=== PATIENT | male | born 1975 | race African-American/Black ===

== ENCOUNTER 2017-03-13 13:28 | Emergency (ER) | payer OTHER ==
[~2017-03-13] VITALS: Ht 190.5 cm; Wt 82.1 kg
[~2017-03-13 13:28] MED LIST: CEPHALEXIN500 MG ORAL; IBUPROFEN600 MG ORAL; NKM; NORCO 5-325 TA1 EAC1 ORAL; NORCO 5-325 TA1 EACH ORAL; UNOBMED
[2017-03-13 13:58] VITALS: BP 155/100
[2017-03-13 14:05] VITALS: BP 155/100
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
== END 2017-03-13 14:15 | disposition left against medical advice (07) ==
LOC: EDBD 13:28 → EMR 14:14
DX: M54.5 Low back pain (principal); G89.29 Other chronic pain; G83.9 Paralytic syndrome, unspecified; Z87.828 Personal history of other (healed) physical injury and trauma
CPT/HCPCS: 99283

== ENCOUNTER 2017-03-13 16:35 | Emergency (ER) | payer OTHER ==
[~2017-03-13] VITALS: Ht 185.4 cm; Wt 84.8 kg
[2017-03-13 17:37] VITALS: BP 120/74
[2017-03-13 18:28] VITALS: BP 120/74
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
== END 2017-03-13 18:32 | disposition home or self-care (01) ==
LOC: EDBD 16:35 → EMR 17:53
DX: R51 Headache (principal); G82.20 Paraplegia, unspecified; Z87.828 Personal history of other (healed) physical injury and trauma; F14.90 Cocaine use, unspecified, uncomplicated; F15.90 Other stimulant use, unspecified, uncomplicated; R53.83 Other fatigue
CPT/HCPCS: 99282

== ENCOUNTER 2017-11-24 14:09 | Emergency (ER) | payer OTHER ==
[~2017-11-24] VITALS: Ht 182.9 cm; Wt 86.2 kg
[2017-11-24 14:25] VITALS: BP 128/90
[2017-11-24] MEDS ORDERED: Cyclobenzaprine 10mg Tab ORAL ONE (14:30)
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
[2017-11-24 15:24] VITALS: BP 128/90
== END 2017-11-24 15:27 | disposition left against medical advice (07) ==
LOC: EDBD 14:09 → EMR 14:48
DX: M54.5 Low back pain (principal); G82.20 Paraplegia, unspecified; Z59.0 Homelessness
CPT/HCPCS: 99283

== ENCOUNTER 2018-02-14 10:15 | Emergency (ER) | payer OTHER ==
[~2018-02-14] VITALS: Ht 190.5 cm; Wt 82.1 kg
[2018-02-14] MEDS ORDERED: Ketorolac 60mg Inj IM ONE (11:00)
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
[2018-02-14] MEDS ORDERED: Bacitracin Oint 15gm Tube TOPIC ONE (12:00)
[2018-02-14 13:00] VITALS: BP 120/70
== END 2018-02-14 13:00 | disposition home or self-care (01) ==
LOC: EDBD 10:15 → EMR 10:33
DX: L89.519 Pressure ulcer of right ankle, unspecified stage (principal); G82.20 Paraplegia, unspecified; Z87.828 Personal history of other (healed) physical injury and trauma; Z99.3 Dependence on wheelchair; Z59.0 Homelessness
CPT/HCPCS: 96372; 99283

== ENCOUNTER 2018-03-29 01:26 | Emergency (ER) | payer OTHER ==
[~2018-03-29] VITALS: Ht 182.9 cm; Wt 93.0 kg
[2018-03-29 01:34] VITALS: BP 126/86
[2018-03-29 03:05] VITALS: BP 122/86
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
[2018-03-29 05:07] VITALS: BP_SYST 120; BP_SYST 125; BP_DIAS 76; BP_DIAS 83
== END 2018-03-29 05:07 | disposition home or self-care (01) ==
LOC: EDBD 01:26 → EMR 01:59
DX: L89.513 Pressure ulcer of right ankle, stage 3 (principal); G82.20 Paraplegia, unspecified; Z91.14 Patient's other noncompliance with medication regimen
CPT/HCPCS: 99282

== ENCOUNTER 2018-03-29 07:48 | Inpatient (IN) | payer OTHER ==
[~2018-03-29] VITALS: Ht 188 cm; Wt 102.5 kg
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
[2018-03-29 09:23] LABS: ANION GAP 11 mmol/L (5-15); BLOOD UREA NITROGEN 16 mg/dL (7-18); CALCIUM 9.7 MG/DL (8.5-10.1); CARBON DIOXIDE 23 MMOL/L (21-32); CHLORIDE 101 MMOL/L (98-107); POTASSIUM 3.4 MMOL/L (3.5-5.1); SODIUM 135 MMOL/L (136-145)
[2018-03-29 09:24] LABS: APPEARANCE,URINE CLOUDY; BILIRUBIN, URINE NEGATIVE (NEGATIVE); GLUCOSE, URINE (UA) NEGATIVE (NEGATIVE); KETONES,URINE 2+ (NEGATIVE); LEUKOCYTE ESTERASE ,URINE 1+ (NEGATIVE); NITRITE,URINE NEGATIVE (NEGATIVE); PH,URINE 5 (4.5-8.0); PROTEIN,URINE 4+ (NEGATIVE); UROBILINOGEN,URINE NORMAL MG/DL (0.0-1.0)
[2018-03-29 09:26] LABS: COLOR,URINE YELLOW
[2018-03-29 09:27] LABS: ALANINE AMINOTRANSFERASE 21 U/L (12-78); ALBUMIN 3.5 G/DL (3.4-5.0); ALBUMIN/GLOBULIN RATIO 0.5 (1.0-2.7); ALKALINE PHOSPHATASE 97 U/L (46-116); ASPARTATE AMINO TRANSFERASE 18 U/L (15-37); BILIRUBIN,TOTAL 0.4 MG/DL (0.2-1.0); LACTATE DEHYDROGENASE 176 U/L (81-234)
[2018-03-29 09:30] VITALS: BP 121/80
[2018-03-29 09:53] LABS: INR 0.9 (0.9-1.1)
[2018-03-29 09:54] LABS: EOSINOPHILS % (AUTO) 0.9 % (0.0-3.0); HEMATOCRIT 42.8 % (42.0-52.0); HEMOGLOBIN 13.5 G/DL (14.2-18.0); LYMPHOCYTES % (AUTO) 8.7 % (20.0-45.0); MEAN CORPUSCULAR VOLUME 75 FL (80-99); MONOCYTES % (AUTO) 8.4 % (1.0-10.0); NEUTROPHILS % (AUTO) 80.1 % (45.0-75.0); PLATELET COUNT 399 K/UL (150-450); RED BLOOD COUNT 5.73 M/UL (4.70-6.10); RED CELL DISTRIBUTION WIDTH 15.7 % (11.6-14.8)
--- NOTE | 2018-03-29 11:12 | Diagnostic Imaging Report ---
INDICATION: Pain COMPARISON: None FINDINGS: Single frontal view demonstrates a normal cardiomediastinal silhouette. Mild bilateral lower lobe compressive changes likely secondary to hypoventilatory examination. No pleural effusions. The visualized osseous structures are within normal limits. IMPRESSION: Hypoventilatory examination.
--- NOTE | 2018-03-29 11:14 | Diagnostic Imaging Report ---
RIGHT FOOT, Views INDICATION: Osteotomy COMPARISON: None FINDINGS: 3 views of the right foot are obtained. Osseous fusion of the third and fourth metatarsals. Diffuse decreased bone mineral density. Bony structures are intact. Bone mineralization is within normal limits. Joint spaces are preserved. Soft tissues within normal limits. No radio-opaque foreign bodies. IMPRESSION: No acute fracture or subluxation identified.
[2018-03-29 11:36] VITALS: BP 108/66
[2018-03-29] MEDS ORDERED: Piperacillin/Tazobactam 3.375 GM in D5W 110 ML IVPB STA (12:17)
[2018-03-29] MEDS ORDERED: Vancomycin 1 GM in D5W 275 ML IVPB ONE (12:30)
[2018-03-29 13:30] VITALS: BP 118/66
[2018-03-29] MEDS ORDERED: Miralax 17gm pkt ORAL PRN (15:45)
[2018-03-29] MEDS ORDERED: Nitroglycerin Subl 0.4mg tab SL PRN (15:45)
[2018-03-29] MEDS ORDERED: Albuterol/Ipratropium 3ml neb HHN PRN (15:45)
[2018-03-29] MEDS: Morphine Sulfate 2mg/ml Inj IVP PRN ×2 (16:05→20:01)
[2018-03-29 20:00] VITALS: BP 127/68
[2018-03-29] MEDS: Cefepime HCl 2 GM in D5W 110 ML IV SCH (21:19)
[2018-03-29] MEDS: Heparin 5000 units/ml inj SUBQ SCH (21:20)
[2018-03-29] MEDS: Vancomycin 1 GM in D5W 275 ML IVPB SCH (23:01)
[2018-03-30] VITALS: BP 106/73
[2018-03-30 04:00] VITALS: BP 122/79
[2018-03-30] MEDS: Vancomycin 1 GM in D5W 275 ML IVPB SCH ×3 (05:23→21:53)
[2018-03-30 07:36] LABS: BASOPHILS % (AUTO) 2.2 % (0.0-2.0); EOSINOPHILS % (AUTO) 3.2 % (0.0-3.0); HEMATOCRIT 39.7 % (42.0-52.0); HEMOGLOBIN 13.3 G/DL (14.2-18.0); LYMPHOCYTES % (AUTO) 23.3 % (20.0-45.0); MEAN CORPUSCULAR VOLUME 75 FL (80-99); MONOCYTES % (AUTO) 9.6 % (1.0-10.0); NEUTROPHILS % (AUTO) 61.8 % (45.0-75.0); PLATELET COUNT 319 K/UL (150-450); RED BLOOD COUNT 5.29 M/UL (4.70-6.10); RED CELL DISTRIBUTION WIDTH 15.7 % (11.6-14.8); WHITE BLOOD COUNT 4.8 K/UL (4.8-10.8)
[2018-03-30 07:55] LABS: ALANINE AMINOTRANSFERASE 17 U/L (12-78); ALBUMIN 2.8 G/DL (3.4-5.0); ALBUMIN/GLOBULIN RATIO 0.5 (1.0-2.7); ALKALINE PHOSPHATASE 75 U/L (46-116); ANION GAP 7 mmol/L (5-15); ASPARTATE AMINO TRANSFERASE 16 U/L (15-37); BILIRUBIN,TOTAL 0.6 MG/DL (0.2-1.0); BLOOD UREA NITROGEN 13 mg/dL (7-18); CALCIUM 8.8 MG/DL (8.5-10.1); CARBON DIOXIDE 26 MMOL/L (21-32); CHLORIDE 104 MMOL/L (98-107); POTASSIUM 3.6 MMOL/L (3.5-5.1); SODIUM 137 MMOL/L (136-145)
[2018-03-30 08:00] VITALS: BP 120/80
[2018-03-30] MEDS: Cefepime HCl 2 GM in D5W 110 ML IV SCH ×2 (09:10→21:18)
[2018-03-30] MEDS: Heparin 5000 units/ml inj SUBQ SCH ×2 (09:13→21:19)
--- NOTE | 2018-03-30 11:37 | Consultation ---
Consult Note Consult Note # [id number] Hai Jacob MD Mar 30, 2018 11:37
[2018-03-30 12:00] VITALS: BP 122/79
[2018-03-30] MEDS: Morphine Sulfate 2mg/ml Inj IVP PRN (14:21)
[2018-03-30 16:00] VITALS: BP 128/82
[2018-03-30 20:00] VITALS: BP 122/78
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
[2018-03-30] MEDS ORDERED: HYDROcodone/Acetamin 10/325 tab ORAL PRN (20:06)
[2018-03-30] MEDS ORDERED: Morphine Sulfate 2mg/ml Inj IVP PRN (20:07)
--- NOTE | 2018-03-30 20:15 | History and Physical Report ---
DATE OF ADMISSION: 03/29/2018 DATE AND TIME SEEN: On 03/30/2018 at 1 p.m. CONSULTANTS: 1. Isidro Worthy D.P.M. 2. Hai Jacob M.D. 3. Francheska Armas M.D. CHIEF COMPLAINT: Urinary tract infection and paraplegia with right foot ulcer. BRIEF HISTORY: This is a 42-year-old homeless man, who presented to [facility] last night with increased pain in the left foot, right foot ulcer, also UTI, and paraplegia. The patient admitted to medical floor for further treatment. Currently, calm, in bed. No complaint. No chest pain. No shortness of breath. No nausea, vomiting, or diarrhea. PAST MEDICAL HISTORY: Includes paraplegia, low back pain, asthma, and foot ulcer. PAST SURGICAL HISTORY: None. ALLERGIES: Denies. SOCIAL HISTORY: No smoking. No alcohol. No intravenous drug abuse. FAMILY HISTORY: Noncontributory. PHYSICAL EXAMINATION: GENERAL: Calm in bed, oriented x3, and in no acute distress. VITAL SIGNS: Show temperature is 98 degrees, pulse 89, respirations 20, and blood pressure 120/80. CARDIOVASCULAR: No murmur. LUNGS: Distant and clear. ABDOMEN: Positive bowel sounds. Soft, nontender, and nondistended. EXTREMITIES: Show no cyanosis, clubbing, or edema. The right foot dressing, clean and dry. NEUROLOGICAL: The patient moves all extremities, slightly weak. LABORATORY DATA: Show H and H 13/39, otherwise CBC is normal. BMP is normal. Albumin 2.8. INR is 0.9. PTT is 29. Urine tox positive for amphetamines and drug abuse. Urinalysis, 1+ leukocyte esterase. MEDICATIONS: Include vancomycin, heparin, cefepime, Tylenol, temazepam, morphine, and albuterol. ASSESSMENT: 1. Right foot ulcer. 2. UTI. 3. Sepsis. 4. Paraplegia. 5. Anemia. 6. Low back pain. 7. Asthma. 8. Malnutrition. PLAN: 1. Continue previous medications. 2. Wound care. 3. Antibiotic per Infectious Disease. 4. Pain control. 5. OT, PT, and dietary eval. 6. CBC and BMP in morning. [place] D.O. DR: MARLEY JOB#: [id number] CC:
[2018-03-30] MEDS ORDERED: Vancomycin 1 GM in D5W 275 ML IVPB SCH (22:00)
[2018-03-31] VITALS: BP 111/72
--- NOTE | 2018-03-31 03:00 | Consultation ---
DATE OF CONSULTATION: 03/30/2018 INFECTIOUS DISEASE CONSULTATION CONSULTING PHYSICIAN: Hai Jacob M.D. REFERRING PHYSICIAN: [place] D.O. REASON FOR CONSULTATION: Evaluation of the patient for infection, probable osteomyelitis. HISTORY OF PRESENT ILLNESS: The patient is a 42-year-old male with multiple medical problems, who was admitted to this medical center due to worsening of the wounds. The patient has been started on IV antibiotics. An Infectious Disease consultation has been requested for further evaluation of the patient and antibiotic management. The patient overall is a poor historian. Much of the information is gathered through the chart and speaking to the staff. ALLERGIES: No known drug allergies. MEDICATIONS: IV vancomycin and cefepime. SOCIAL HISTORY: The patient is homeless. PAST MEDICAL HISTORY: 1. Significant for multiple decubitus including right buttock area and right lower extremity. 2. Questionable history of seizure disorder. 3. History of polysubstance abuse (marijuana and crystal). 4. . PHYSICAL EXAMINATION: VITAL SIGNS: Temperature 97.5, pulse 86, respiratory rate 18, and blood pressure 124/75. HEENT: No pale conjunctivae. No icterus. NECK: No lymphadenopathy. CHEST: Bilateral air entry. HEART: S1 and S2. ABDOMEN: Soft and nontender. EXTREMITIES: The patient has left lower extremity decubitus (infected, right buttock decubitus, no purulent discharge). NEUROLOGIC: Awake and alert. LABORATORY AND DIAGNOSTIC DATA: White blood cells 4.8, at the time of admission was 11; hemoglobin 13, and platelets 319,000. UA, 5 to 10 white blood cells. BUN 13 and creatinine 1.1. ALT, AST, and alkaline phosphatase are unremarkable. Wound culture is pending. ASSESSMENT: The patient is a 42-year-old male with: 1. Normal white blood cells. 2. Afebrile. 3. Right lower extremity wound, grossly not infected, doubt osteomyelitis. 4. 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 PLAN: 1. We will start the patient on vancomycin and cefepime for now. 2. Monitor CBC. 3. Monitor BMP. 4. Monitor cultures. 5. MRI of the pelvis. 6. Based on the patient's clinical course and labs, we will do further recommendations. Hai Jacob M.D. DR: NIKOLAY JOB#: [id number] CC:
[2018-03-31 04:00] VITALS: BP 121/70
[2018-03-31] MEDS: Vancomycin 750mg/NS 250ml 250 ML IVPB SCH ×3 (05:26→22:04)
[2018-03-31 06:55] LABS: BASOPHILS % (AUTO) 2.2 % (0.0-2.0); EOSINOPHILS % (AUTO) 4.1 % (0.0-3.0); HEMATOCRIT 39.5 % (42.0-52.0); HEMOGLOBIN 12.4 G/DL (14.2-18.0); LYMPHOCYTES % (AUTO) 33.3 % (20.0-45.0); MEAN CORPUSCULAR VOLUME 75 FL (80-99); MONOCYTES % (AUTO) 6.3 % (1.0-10.0); NEUTROPHILS % (AUTO) 54.1 % (45.0-75.0); PLATELET COUNT 291 K/UL (150-450); RED BLOOD COUNT 5.26 M/UL (4.70-6.10); RED CELL DISTRIBUTION WIDTH 15.7 % (11.6-14.8); WHITE BLOOD COUNT 3.6 K/UL (4.8-10.8)
[2018-03-31 06:56] LABS: BLOOD UREA NITROGEN 12 mg/dL (7-18); CALCIUM 8.7 MG/DL (8.5-10.1); CHLORIDE 106 MMOL/L (98-107); CREATININE 0.9 MG/DL (0.55-1.30); POTASSIUM 3.9 MMOL/L (3.5-5.1); SODIUM 139 MMOL/L (136-145)
[2018-03-31 07:25] LABS: CARBON DIOXIDE 27 MMOL/L (21-32)
[2018-03-31 08:00] VITALS: BP_SYST 106; BP_SYST 119; BP_DIAS 71; BP_DIAS 75
[2018-03-31] MEDS: Heparin 5000 units/ml inj SUBQ SCH ×2 (08:46→20:28)
[2018-03-31] MEDS: Docusate 100mg cap ORAL SCH ×2 (08:53→18:00)
[2018-03-31] MEDS: Cefepime HCl 2 GM in D5W 110 ML IV SCH ×2 (08:53→20:24)
--- NOTE | 2018-03-31 10:44 | Pulmonology Progress Note ---
Assessment/Plan Problems: (1) Decubitus ulcer of right thigh, stage 3 (2) Decubitus ulcer, stage 3 with infection (3) Sociopathic personality disorder (4) Depressed bipolar disorder (5) Paraplegia Assessment/Plan wound care iv abx check electrolytes dc planning to snif Subjective ROS Limited/Unobtainable: No Interval Events: no new complains Constitutional: Reports: no symptoms HEENT: Repors: no symptoms Allergies: Coded Allergies: No Known Allergies (Unverified , 10/04/14) Objective Last 24 Hour Vital Signs Date Time Temp Pulse Resp B/P (MAP) Pulse Ox O2 Delivery O2 Flow Rate FiO2 03/31/18 08:10 Room Air 03/31/18 08:00 97.1 86 16 119/75 (90) 100 03/31/18 04:00 98.1 72 20 121/70 (87) 100 03/31/18 00:00 97.9 76 20 111/72 (85) 100 03/30/18 21:47 75 18 Room Air 21 03/30/18 21:00 Room Air 03/30/18 20:00 96.4 75 20 122/78 (93) 100 03/30/18 16:00 97.7 80 20 128/82 (97) 97 03/30/18 12:00 97.5 74 19 122/79 (93) 98 Intake and Output 03/30/18 03/31/18 19:00 07:00 Intake Total 1820 ml 517 ml Balance 1820 ml 517 ml Intake Oral 1820 ml 240 ml IV Total 277 ml # Voids 6 # Bowel Movements 2 General Appearance: WD/WN HEENT: normocephalic, atraumatic Respiratory/Chest: normal breath sounds Cardiovascular: normal peripheral pulses, regular rhythm Abdomen: non distended Extremities: no clubbing Microbiology Date/Time Source Procedure Growth Status 03/29/18 11:00 Nasal Nares MRSA Culture - Final Staphylococcus Aureus - Mrsa Complete 03/29/18 19:00 Foot Right Gram Stain - Final Resulted 03/29/18 19:00 Wound Culture - Preliminary Staphylococcus Aureus Resulted 03/29/18 19:00 Buttock Right Gram Stain - Final Resulted 03/29/18 19:00 Wound Culture - Preliminary Gram Negative Bacillus 1 Resulted 03/29/18 11:00 Rectum VRE Culture - Final NO VANCOMYCIN RESISTANT ENTEROCOCCUS ... Resulted 03/29/18 11:00 Rectum - Preliminary Resulted Laboratory Tests 03/30/18 21:20: Vancomycin Level Trough 17.6H 03/31/18 05:35: White Blood Count 3.6L, Red Blood Count 5.26, Hemoglobin 12.4L, Hematocrit 39.5L , Mean Corpuscular Volume 75L, Mean Corpuscular Hemoglobin 23.5L, Mean Corpuscular Hemoglobin Concent 31.3L, Red Cell Distribution Width 15.7H, Platelet Count 291, Mean Platelet Volume 6.9, Neutrophils (%) (Auto) 54.1, Lymphocytes (%) (Auto) 33.3, Monocytes (%) (Auto) 6.3, Eosinophils (%) (Auto) 4.1H, Basophils (%) (Auto) 2.2H, Sodium Level 139, Potassium Level 3.9, Chloride Level 106, Carbon Dioxide Level 27, Blood Urea Nitrogen 12, Creatinine 0.9, Estimat Glomerular Filtration Rate > 60, Glucose Level 90, Calcium Level 8.7 Current Medications Medications (Trade) Dose Ordered Sig/Michael Route PRN Reason Start Time Stop Time Status Last Admin Dose Admin Acetaminophen (Tylenol) 650 mg Q4H PRN ORAL Mild Pain/Temp > 100.5 03/29/18 18:13 04/28/18 18:12 03/29/18 22:33 Acetaminophen/ Hydrocodone Bitart ([place] 10/325) 1 tab Q4H PRN ORAL for moderate pain 03/30/18 20:06 04/06/18 20:05 Albuterol/ Ipratropium (Albuterol/ Ipratropium) 3 ml Q4H PRN HHN Shortness of Breath 03/29/18 15:45 04/03/18 15:44 Cefepime HCl 2 gm/ Dextrose 110 ml @ 220 mls/hr EVERY 12 HOURS IV 03/29/18 21:00 04/05/18 20:59 03/31/18 08:53 Dextrose (Dextrose 50%) 25 ml STAT PRN IV Hypoglycemia 03/29/18 15:45 04/28/18 15:44 Dextrose (Dextrose 50%) 50 ml Q30M PRN IV Hypoglycemia 03/29/18 15:45 04/28/18 15:44 Docusate Sodium (Colace) 100 mg TWICE A DAY ORAL 03/31/18 09:00 04/30/18 08:59 03/31/18 08:53 Heparin Sodium (Porcine) (Heparin 5000 units/ml) 5,000 units EVERY 12 HOURS SUBQ 03/29/18 21:00 04/28/18 20:59 03/30/18 21:19 Morphine Sulfate (Morphine Sulfate) 2 mg Q4H PRN IVP SEVERE PAIN 03/30/18 20:07 04/05/18 15:44 03/30/18 21:58 Nitroglycerin (Ntg) 0.4 mg Q5M PRN SL Prn Chest Pain 03/29/18 15:45 04/28/18 15:44 Ondansetron HCl (Zofran) 4 mg Q6H PRN IVP Nausea & Vomiting 03/29/18 15:45 04/28/18 15:44 Polyethylene Glycol (Miralax) 17 gm DAILYPRN PRN ORAL Constipation 03/29/18 15:45 04/28/18 15:44 Temazepam (Restoril) 15 mg HSPRN PRN ORAL Insomnia 03/29/18 15:45 04/05/18 15:44 Vancomycin HCl (Vanco rx to dose) 1 ea DAILY PRN MISC PER PHARM 03/29/18 15:45 04/28/18 15:44 Vancomycin/Sodium Chloride 250 ml @ 167 mls/hr Q8H IVPB 03/31/18 06:00 04/05/18 05:59 03/31/18 05:26 Francheska Armas MD Mar 31, 2018 10:44
--- NOTE | 2018-03-31 11:05 | Infectious Diseases Prog Note ---
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 ? seizure disorder. History of polysubstance abuse (marijuana and crystal) PLAN: hold vancomycin and cefepime d # 2 , will restart if MRI is positive for osteo Monitor CBC Monitor BMP Monitor cultures MRI of the pelvis Subjective Constitutional: Denies: no symptoms, fever, chills, fatigue, anorexia, drenching sweats, other Allergies: Coded Allergies: No Known Allergies (Unverified , 10/04/14) Objective Vital Signs Last 24 Hour Vital Signs Date Time Temp Pulse Resp B/P (MAP) Pulse Ox O2 Delivery O2 Flow Rate FiO2 03/31/18 08:10 Room Air 03/31/18 08:00 97.1 86 16 119/75 (90) 100 03/31/18 04:00 98.1 72 20 121/70 (87) 100 03/31/18 00:00 97.9 76 20 111/72 (85) 100 03/30/18 21:47 75 18 Room Air 21 03/30/18 21:00 Room Air 03/30/18 20:00 96.4 75 20 122/78 (93) 100 03/30/18 16:00 97.7 80 20 128/82 (97) 97 03/30/18 12:00 97.5 74 19 122/79 (93) 98 Height (Feet): 6 Height (Inches): 2.00 Weight (Pounds): 220 HEENT: anicteric Respiratory/Chest: no accessory muscle use Cardiovascular: normal rate Abdomen: soft, non tender Microbiology Date/Time Source Procedure Growth Status 03/29/18 11:00 Nasal Nares MRSA Culture - Final Staphylococcus Aureus - Mrsa Complete 03/29/18 19:00 Foot Right Gram Stain - Final Resulted 03/29/18 19:00 Wound Culture - Preliminary Staphylococcus Aureus Resulted 03/29/18 19:00 Buttock Right Gram Stain - Final Resulted 03/29/18 19:00 Wound Culture - Preliminary Gram Negative Bacillus 1 Resulted 03/29/18 11:00 Rectum VRE Culture - Final NO VANCOMYCIN RESISTANT ENTEROCOCCUS ... Resulted 03/29/18 11:00 Rectum - Preliminary Resulted Laboratory Tests Test 03/30/18 21:20 11/6/18 05:35 Vancomycin Level Trough 17.6 ug/mL (5.0-12.0) H White Blood Count 3.6 K/UL (4.8-10.8) L Red Blood Count 5.26 M/UL (4.70-6.10) Hemoglobin 12.4 G/DL (14.2-18.0) L Hematocrit 39.5 % (42.0-52.0) L Mean Corpuscular Volume 75 FL (80-99) L Mean Corpuscular Hemoglobin 23.5 PG (27.0-31.0) L Mean Corpuscular Hemoglobin Concent 31.3 G/DL (32.0-36.0) L Red Cell Distribution Width 15.7 % (11.6-14.8) H Platelet Count 291 K/UL (150-450) Mean Platelet Volume 6.9 FL (6.5-10.1) Neutrophils (%) (Auto) 54.1 % (45.0-75.0) Lymphocytes (%) (Auto) 33.3 % (20.0-45.0) Monocytes (%) (Auto) 6.3 % (1.0-10.0) Eosinophils (%) (Auto) 4.1 % (0.0-3.0) H Basophils (%) (Auto) 2.2 % (0.0-2.0) H Sodium Level 139 MMOL/L (136-145) Potassium Level 3.9 MMOL/L (3.5-5.1) Chloride Level 106 MMOL/L (98-107) Carbon Dioxide Level 27 MMOL/L (21-32) Blood Urea Nitrogen 12 mg/dL (7-18) Creatinine 0.9 MG/DL (0.55-1.30) Estimat Glomerular Filtration Rate > 60 mL/min (>60) Glucose Level 90 MG/DL (74-106) Calcium Level 8.7 MG/DL (8.5-10.1) Current Medications Medications (Trade) Dose Ordered Sig/Michael Route PRN Reason Start Time Stop Time Status Last Admin Dose Admin Acetaminophen (Tylenol) 650 mg Q4H PRN ORAL Mild Pain/Temp > 100.5 03/29/18 18:13 04/28/18 18:12 03/29/18 22:33 Acetaminophen/ Hydrocodone Bitart ([place] 10/325) 1 tab Q4H PRN ORAL for moderate pain 03/30/18 20:06 04/06/18 20:05 Albuterol/ Ipratropium (Albuterol/ Ipratropium) 3 ml Q4H PRN HHN Shortness of Breath 03/29/18 15:45 04/03/18 15:44 Cefepime HCl 2 gm/ Dextrose 110 ml @ 220 mls/hr EVERY 12 HOURS IV 03/29/18 21:00 04/05/18 20:59 03/31/18 08:53 Dextrose (Dextrose 50%) 25 ml STAT PRN IV Hypoglycemia 03/29/18 15:45 04/28/18 15:44 Dextrose (Dextrose 50%) 50 ml Q30M PRN IV Hypoglycemia 03/29/18 15:45 04/28/18 15:44 Docusate Sodium (Colace) 100 mg TWICE A DAY ORAL 03/31/18 09:00 04/30/18 08:59 03/31/18 08:53 Heparin Sodium (Porcine) (Heparin 5000 units/ml) 5,000 units EVERY 12 HOURS SUBQ 03/29/18 21:00 04/28/18 20:59 03/30/18 21:19 Morphine Sulfate (Morphine Sulfate) 2 mg Q4H PRN IVP SEVERE PAIN 03/30/18 20:07 04/05/18 15:44 03/30/18 21:58 Nitroglycerin (Ntg) 0.4 mg Q5M PRN SL Prn Chest Pain 03/29/18 15:45 04/28/18 15:44 Ondansetron HCl (Zofran) 4 mg Q6H PRN IVP Nausea & Vomiting 03/29/18 15:45 04/28/18 15:44 Polyethylene Glycol (Miralax) 17 gm DAILYPRN PRN ORAL Constipation 03/29/18 15:45 04/28/18 15:44 Temazepam (Restoril) 15 mg HSPRN PRN ORAL Insomnia 03/29/18 15:45 04/05/18 15:44 Vancomycin HCl (Vanco rx to dose) 1 ea DAILY PRN MISC PER PHARM 03/29/18 15:45 04/28/18 15:44 Vancomycin/Sodium Chloride 250 ml @ 167 mls/hr Q8H IVPB 03/31/18 06:00 04/05/18 05:59 03/31/18 05:26 Hai Jacob MD Mar 31, 2018 11:05
[2018-03-31] MEDS: HYDROcodone/Acetamin 10/325 tab ORAL PRN ×2 (11:56→20:27)
[2018-03-31 12:00] VITALS: BP 122/78
--- NOTE | 2018-03-31 12:49 | General Progress Note ---
Assessment/Plan Problem List: (1) Acute bilateral low back pain ICD Codes: M54.5 - Low back pain SNOMED: 900052167 (2) Malnutrition ICD Codes: E46 - Unspecified protein-calorie malnutrition SNOMED: 89015631 (3) Asthma ICD Codes: J45.909 - Unspecified asthma, uncomplicated SNOMED: 455394683 (4) Injury of lower extremity ICD Codes: S89.90XA - Unspecified injury of unspecified lower leg, initial encounter SNOMED: 402756079 (5) Paraplegia ICD Codes: G82.20 - Paraplegia, unspecified SNOMED: 52894035 (6) UTI (urinary tract infection) ICD Codes: N39.0 - Urinary tract infection SNOMED: 94282380 Qualifiers: Qualified Codes: N39.0 - Urinary tract infection, site not specified (7) Foot ulcer ICD Codes: L97.509 - Non-pressure chronic ulcer of other part of unspecified foot with unspecified severity SNOMED: 79462975 Qualifiers: Qualified Codes: L97.512 - Non-pressure chronic ulcer of other part of right foot with fat layer exposed (8) Pain in limb ICD Codes: M79.609 - Pain in limb SNOMED: 66082709 Status: unchanged Assessment/Plan ot pt siet wound care abx pain control psyc eval cbc bmp am ltach eval Subjective Constitutional: Reports: weakness Allergies: Coded Allergies: No Known Allergies (Unverified , 10/04/14) All Systems: reviewed and negative except above Subjective calm in bed Objective Last 24 Hour Vital Signs Date Time Temp Pulse Resp B/P (MAP) Pulse Ox O2 Delivery O2 Flow Rate FiO2 03/31/18 12:26 97.1 03/31/18 08:10 Room Air 03/31/18 08:00 97.1 86 16 119/75 (90) 100 03/31/18 04:00 98.1 72 20 121/70 (87) 100 03/31/18 00:00 97.9 76 20 111/72 (85) 100 03/30/18 21:47 75 18 Room Air 21 03/30/18 21:00 Room Air 03/30/18 20:00 96.4 75 20 122/78 (93) 100 03/30/18 16:00 97.7 80 20 128/82 (97) 97 Intake and Output 03/30/18 03/31/18 19:00 07:00 Intake Total 1820 ml 517 ml Balance 1820 ml 517 ml Intake Oral 1820 ml 240 ml IV Total 277 ml # Voids 6 # Bowel Movements 2 Laboratory Tests 03/30/18 21:20: Vancomycin Level Trough 17.6H 03/31/18 05:35: White Blood Count 3.6L, Red Blood Count 5.26, Hemoglobin 12.4L, Hematocrit 39.5L , Mean Corpuscular Volume 75L, Mean Corpuscular Hemoglobin 23.5L, Mean Corpuscular Hemoglobin Concent 31.3L, Red Cell Distribution Width 15.7H, Platelet Count 291, Mean Platelet Volume 6.9, Neutrophils (%) (Auto) 54.1, Lymphocytes (%) (Auto) 33.3, Monocytes (%) (Auto) 6.3, Eosinophils (%) (Auto) 4.1H, Basophils (%) (Auto) 2.2H, Sodium Level 139, Potassium Level 3.9, Chloride Level 106, Carbon Dioxide Level 27, Blood Urea Nitrogen 12, Creatinine 0.9, Estimat Glomerular Filtration Rate > 60, Glucose Level 90, Calcium Level 8.7 Height (Feet): 6 Height (Inches): 2.00 Weight (Pounds): 220 General Appearance: lethargic EENT: normal ENT inspection Neck: normal alignment Cardiovascular: normal peripheral pulses, normal rate, regular rhythm Respiratory/Chest: chest wall non-tender, lungs clear, normal breath sounds Abdomen: normal bowel sounds, non tender, soft Extremities: normal inspection Edema: no edema noted Arm (L), no edema noted Arm (R), no edema noted Leg (L), no edema noted Leg (R), no edema noted Pedal (L), no edema noted Pedal (R), no edema noted Generalized Neurologic: motor weakness Skin: normal pigmentation, warm/dry Mt Collins DO Mar 31, 2018 12:49
[2018-03-31 16:00] VITALS: BP 114/73
[2018-03-31 20:00] VITALS: BP 117/75
[2018-04-01] VITALS: BP 116/78
[2018-04-01 04:00] VITALS: BP 117/73
[2018-04-01] MEDS: Vancomycin 750mg/NS 250ml 250 ML IVPB SCH ×3 (04:30→22:00)
[2018-04-01 08:00] VITALS: BP 138/93
[2018-04-01] MEDS: Docusate 100mg cap ORAL SCH ×2 (09:00→18:00)
[2018-04-01] MEDS: Cefepime HCl 2 GM in D5W 110 ML IV SCH ×3 (09:07→21:16)
[2018-04-01] MEDS: HYDROcodone/Acetamin 10/325 tab ORAL PRN ×3 (09:08→21:16)
[2018-04-01] MEDS: Heparin 5000 units/ml inj SUBQ SCH ×2 (09:11→21:00)
--- NOTE | 2018-04-01 11:14 | Diagnostic Imaging Report ---
Indication: Decubitus ulcer on the right. Pelvic osteomyelitis. Pelvic pain Technique: Continuous helical transaxial imaging of the pelvis was obtained from the iliac crest to the pubic symphysis. Coronal 2-D reformats were also obtained. Study obtained in a Siemens sensation [address] Intravenous non-ionic contrast was administered. Total Dose length Product (DLP): 572.[address] Dose Index Volume (CTDIvol): 16.52 mGy Comparison: None Findings: Large trujillo for decubitus ulcer demonstrated the posteriorly on the right side. The tract of air the sex to the right ischium which is abnormal in appearance. The right ischium is sclerotic with a moderate periosteal new bone. The findings are suggestive of chronic osteomyelitis. Superimposed acute osteomyelitis is difficult to exclude on CT scan. The study was performed without intravenous contrast administration. As such evaluation for abscess is limited. The trujillo for decubitus ulcer is associated with the marked soft tissue attenuation of the tract. Infiltration of the subcutaneous fat is noted. There is no obvious fluid collection but as said before infiltrates is limited without IV contrast. Some of the inflammation appears to cross midline from right to left and there is some abnormal soft tissue attenuation of the left medial perineal fat. There are abnormal densities within the visualized portion of the lumbar thecal sac. Suspect intrathecal calcification, retained foreign bodies versus residual contrast material within the visualized portion of the lower lumbar thecal sac. Correlate clinically. There is thickening of the wall the urinary bladder. Correlate for cystitis. There is a left inguinal hernia containing fat. A normal appendix is noted. IMPRESSION: Grade 4 decubitus ulcer on the right tracking to the right ischial tuberosity with evidence of chronic osteomyelitis. Acute superimposed osteomyelitis not excluded. Possibility of abscess involving the soft tissues in and around the decubitus ulcer not excludable on this examination which is suboptimal for evaluation of abscess given nonadministration of IV contrast. Calcification versus retained foreign body versus contrast within the visualized portion of the lower lumbar thecal sac. Correlate clinically. Small left inguinal hernia containing fat Thickening of the wall the urinary bladder. Correlate for cystitis. The CT scanner at [facility] is accredited by the [employer] and the scans are performed using dose optimization techniques as appropriate to a performed exam including Automatic Exposure control.
[2018-04-01 12:00] VITALS: BP 137/82
--- NOTE | 2018-04-01 13:32 | General Progress Note ---
Assessment/Plan Problem List: (1) Acute bilateral low back pain ICD Codes: M54.5 - Low back pain SNOMED: 079720053 (2) Malnutrition ICD Codes: E46 - Unspecified protein-calorie malnutrition SNOMED: 23433447 (3) Asthma ICD Codes: J45.909 - Unspecified asthma, uncomplicated SNOMED: 611204438 (4) Injury of lower extremity ICD Codes: S89.90XA - Unspecified injury of unspecified lower leg, initial encounter SNOMED: 648746291 (5) Paraplegia ICD Codes: G82.20 - Paraplegia, unspecified SNOMED: 22272486 (6) UTI (urinary tract infection) ICD Codes: N39.0 - Urinary tract infection SNOMED: 07707235 Qualifiers: Qualified Codes: N39.0 - Urinary tract infection, site not specified (7) Foot ulcer ICD Codes: L97.509 - Non-pressure chronic ulcer of other part of unspecified foot with unspecified severity SNOMED: 21424703 Qualifiers: Qualified Codes: L97.512 - Non-pressure chronic ulcer of other part of right foot with fat layer exposed (8) Pain in limb ICD Codes: M79.609 - Pain in limb SNOMED: 16923697 Status: stable, progressing Assessment/Plan ot pt siet wound care abx pain control psyc eval cbc bmp am dc plan snf Subjective Constitutional: Reports: weakness Allergies: Coded Allergies: No Known Allergies (Unverified , 10/04/14) All Systems: reviewed and negative except above Subjective calm in bed Objective Last 24 Hour Vital Signs Date Time Temp Pulse Resp B/P (MAP) Pulse Ox O2 Delivery O2 Flow Rate FiO2 04/01/18 12:00 97.9 82 18 137/82 (100) 99 04/01/18 09:00 Room Air 04/01/18 08:00 97.3 89 20 138/93 (108) 100 04/01/18 04:00 98.2 72 20 117/73 (88) 100 04/01/18 00:00 98.4 72 20 116/78 (91) 99 03/31/18 21:15 Room Air 03/31/18 20:57 97.7 03/31/18 20:00 96.7 86 20 117/75 (89) 97 03/31/18 19:30 79 18 Room Air 21 03/31/18 16:00 97.7 76 18 114/73 (87) 98 Intake and Output 03/31/18 04/01/18 19:00 07:00 Intake Total 570 ml 1030 ml Output Total 550 ml 800 ml Balance 20 ml 230 ml Intake Oral 570 ml IV Total 610 ml Other 420 ml Output Urine Total 550 ml 800 ml # Bowel Movements 1 Laboratory Tests 04/01/18 12:50: White Blood Count [Pending], Red Blood Count [Pending], Hemoglobin [Pending], Hematocrit [Pending], Mean Corpuscular Volume [Pending], Mean Corpuscular Hemoglobin [Pending], Mean Corpuscular Hemoglobin Concent [Pending], Red Cell Distribution Width [Pending], Platelet Count [Pending], Mean Platelet Volume [ Pending], Neutrophils (%) (Auto) [Pending], Lymphocytes (%) (Auto) [Pending], Monocytes (%) (Auto) [Pending], Eosinophils (%) (Auto) [Pending], Basophils (%) (Auto) [Pending], Erythrocyte Sedimentation Rate [Pending], Sodium Level [ Pending], Potassium Level [Pending], Chloride Level [Pending], Carbon Dioxide Level [Pending], Blood Urea Nitrogen [Pending], Creatinine [Pending], Estimat Glomerular Filtration Rate [Pending], Glucose Level [Pending], Calcium Level [ Pending], Phosphorus Level [Pending], Magnesium Level [Pending], Total Bilirubin [Pending], Aspartate Amino Transf (AST/SGOT) [Pending], Alanine Aminotransferase (ALT/SGPT) [Pending], Alkaline Phosphatase [Pending], C- Reactive Protein, Quantitative [Pending], Total Protein [Pending], Albumin [ Pending], Globulin [Pending], Vancomycin Level Trough [Pending] Height (Feet): 6 Height (Inches): 2.00 Weight (Pounds): 226 General Appearance: lethargic EENT: normal ENT inspection Neck: normal alignment Cardiovascular: normal peripheral pulses, normal rate, regular rhythm Respiratory/Chest: chest wall non-tender, lungs clear, normal breath sounds Abdomen: normal bowel sounds, non tender, soft Extremities: normal inspection Edema: no edema noted Arm (L), no edema noted Arm (R), no edema noted Leg (L), no edema noted Leg (R), no edema noted Pedal (L), no edema noted Pedal (R), no edema noted Generalized Neurologic: motor weakness Skin: normal pigmentation, warm/dry Mt Collins DO Apr 01, 2018 13:32
[2018-04-01 13:40] LABS: BASOPHILS % (AUTO) 2.6 % (0.0-2.0); HEMATOCRIT 39.2 % (42.0-52.0); HEMOGLOBIN 12.6 G/DL (14.2-18.0); LYMPHOCYTES % (AUTO) 21.8 % (20.0-45.0); MEAN CORPUSCULAR VOLUME 76 FL (80-99); MONOCYTES % (AUTO) 5.9 % (1.0-10.0); NEUTROPHILS % (AUTO) 66.7 % (45.0-75.0); PLATELET COUNT 302 K/UL (150-450); RED BLOOD COUNT 5.14 M/UL (4.70-6.10); RED CELL DISTRIBUTION WIDTH 15.4 % (11.6-14.8); WHITE BLOOD COUNT 5.2 K/UL (4.8-10.8)
[2018-04-01 13:41] LABS: ALANINE AMINOTRANSFERASE 20 U/L (12-78); ALBUMIN 2.9 G/DL (3.4-5.0); ALBUMIN/GLOBULIN RATIO 0.5 (1.0-2.7); ALKALINE PHOSPHATASE 72 U/L (46-116); ANION GAP 6 mmol/L (5-15); ASPARTATE AMINO TRANSFERASE 13 U/L (15-37); BILIRUBIN,TOTAL 0.1 MG/DL (0.2-1.0); BLOOD UREA NITROGEN 12 mg/dL (7-18); CALCIUM 8.9 MG/DL (8.5-10.1); CARBON DIOXIDE 27 MMOL/L (21-32); CHLORIDE 105 MMOL/L (98-107); CREATININE 1.1 MG/DL (0.55-1.30); PHOSPHORUS 2.9 MG/DL (2.5-4.9); SODIUM 138 MMOL/L (136-145)
--- NOTE | 2018-04-01 14:42 | Pulmonology Progress Note ---
Assessment/Plan Problems: (1) Decubitus ulcer of right thigh, stage 3 (2) Decubitus ulcer, stage 3 with infection (3) Sociopathic personality disorder (4) Depressed bipolar disorder (5) Paraplegia Assessment/Plan wound care iv abx psych evaluation pending check electrolytes dc planning to snif Subjective ROS Limited/Unobtainable: No Constitutional: Reports: no symptoms HEENT: Repors: no symptoms Respiratory: Reports: no symptoms Allergies: Coded Allergies: No Known Allergies (Unverified , 10/04/14) Objective Last 24 Hour Vital Signs Date Time Temp Pulse Resp B/P (MAP) Pulse Ox O2 Delivery O2 Flow Rate FiO2 04/01/18 12:00 97.9 82 18 137/82 (100) 99 04/01/18 09:00 Room Air 04/01/18 08:00 97.3 89 20 138/93 (108) 100 04/01/18 04:00 98.2 72 20 117/73 (88) 100 04/01/18 00:00 98.4 72 20 116/78 (91) 99 03/31/18 21:15 Room Air 03/31/18 20:57 97.7 03/31/18 20:00 96.7 86 20 117/75 (89) 97 03/31/18 19:30 79 18 Room Air 21 03/31/18 16:00 97.7 76 18 114/73 (87) 98 Intake and Output 03/31/18 04/01/18 19:00 07:00 Intake Total 570 ml 1030 ml Output Total 550 ml 800 ml Balance 20 ml 230 ml Intake Oral 570 ml IV Total 610 ml Other 420 ml Output Urine Total 550 ml 800 ml # Bowel Movements 1 General Appearance: WD/WN HEENT: normocephalic Respiratory/Chest: chest wall non-tender, normal breath sounds Cardiovascular: normal peripheral pulses, normal rate Abdomen: normal bowel sounds, soft, non tender Genitourinary: normal external genitalia Neurologic/Psychiatric: clay thrower II-XII grossly normal Microbiology Date/Time Source Procedure Growth Status 03/29/18 19:00 Foot Right Gram Stain - Final Complete 03/29/18 19:00 Wound Culture - Final Staphylococcus Aureus - Mrsa Complete 03/29/18 19:00 Buttock Right Gram Stain - Final Resulted 03/29/18 19:00 Wound Culture - Preliminary Proteus Mirabilis Resulted Laboratory Tests 04/01/18 12:50: White Blood Count 5.2, Red Blood Count 5.14, Hemoglobin 12.6L, Hematocrit 39.2L , Mean Corpuscular Volume 76L, Mean Corpuscular Hemoglobin 24.4L, Mean Corpuscular Hemoglobin Concent 32.1, Red Cell Distribution Width 15.4H, Platelet Count 302, Mean Platelet Volume 8.2, Neutrophils (%) (Auto) 66.7, Lymphocytes (%) (Auto) 21.8, Monocytes (%) (Auto) 5.9, Eosinophils (%) (Auto) 3.0, Basophils (%) (Auto) 2.6H, Erythrocyte Sedimentation Rate [Pending], Sodium Level 138, Potassium Level 4.0, Chloride Level 105, Carbon Dioxide Level 27, Anion Gap 6, Blood Urea Nitrogen 12, Creatinine 1.1, Estimat Glomerular Filtration Rate > 60, Glucose Level 97, Calcium Level 8.9, Phosphorus Level 2.9 , Magnesium Level 1.9, Total Bilirubin 0.1L, Aspartate Amino Transf (AST/SGOT) 13L, Alanine Aminotransferase (ALT/SGPT) 20, Alkaline Phosphatase 72, C- Reactive Protein, Quantitative 1.8H, Total Protein 8.3H, Albumin 2.9L, Globulin 5.4, Albumin/Globulin Ratio 0.5L, Vancomycin Level Trough 12.5H Current Medications Medications (Trade) Dose Ordered Sig/Michael Route PRN Reason Start Time Stop Time Status Last Admin Dose Admin Acetaminophen (Tylenol) 650 mg Q4H PRN ORAL Mild Pain/Temp > 100.5 03/29/18 18:13 04/28/18 18:12 03/29/18 22:33 Acetaminophen/ Hydrocodone Bitart ([place] 10/325) 1 tab Q4H PRN ORAL for moderate pain 03/30/18 20:06 04/06/18 20:05 04/01/18 09:08 Albuterol/ Ipratropium (Albuterol/ Ipratropium) 3 ml Q4H PRN HHN Shortness of Breath 03/29/18 15:45 04/03/18 15:44 Cefepime HCl 2 gm/ Dextrose 110 ml @ 220 mls/hr EVERY 12 HOURS IV 03/29/18 21:00 04/05/18 20:59 04/01/18 09:07 Dextrose (Dextrose 50%) 25 ml STAT PRN IV Hypoglycemia 03/29/18 15:45 04/28/18 15:44 Dextrose (Dextrose 50%) 50 ml Q30M PRN IV Hypoglycemia 03/29/18 15:45 04/28/18 15:44 Docusate Sodium (Colace) 100 mg TWICE A DAY ORAL 03/31/18 09:00 04/30/18 08:59 03/31/18 08:53 Heparin Sodium (Porcine) (Heparin 5000 units/ml) 5,000 units EVERY 12 HOURS SUBQ 03/29/18 21:00 04/28/18 20:59 04/01/18 09:11 Morphine Sulfate (Morphine Sulfate) 2 mg Q4H PRN IVP SEVERE PAIN 03/30/18 20:07 04/05/18 15:44 03/30/18 21:58 Nitroglycerin (Ntg) 0.4 mg Q5M PRN SL Prn Chest Pain 03/29/18 15:45 04/28/18 15:44 Ondansetron HCl (Zofran) 4 mg Q6H PRN IVP Nausea & Vomiting 03/29/18 15:45 04/28/18 15:44 Polyethylene Glycol (Miralax) 17 gm DAILYPRN PRN ORAL Constipation 03/29/18 15:45 04/28/18 15:44 Temazepam (Restoril) 15 mg HSPRN PRN ORAL Insomnia 03/29/18 15:45 04/05/18 15:44 Vancomycin HCl (Vanco rx to dose) 1 ea DAILY PRN MISC PER PHARM 03/29/18 15:45 04/28/18 15:44 Vancomycin/Sodium Chloride 250 ml @ 167 mls/hr Q8H IVPB 03/31/18 06:00 04/05/18 05:59 04/01/18 04:30 Francheska Armas MD Apr 01, 2018 14:42
[2018-04-01 16:00] VITALS: BP 142/82
--- NOTE | 2018-04-01 16:16 | Infectious Diseases Prog Note ---
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 seizure disorder. History of polysubstance abuse (marijuana and crystal) PLAN: stasr pt on IV Merrem d# and change to Invanz to complete the course 03/31 Sp IV vancomycin and cefepime d # 2 -Monitor CBC -Monitor BMP -Monitor cultures - PICC before DC Subjective Allergies: Coded Allergies: No Known Allergies (Unverified , 10/04/14) Objective Vital Signs Last 24 Hour Vital Signs Date Time Temp Pulse Resp B/P (MAP) Pulse Ox O2 Delivery O2 Flow Rate FiO2 04/01/18 12:00 97.9 82 18 137/82 (100) 99 04/01/18 09:00 Room Air 04/01/18 08:00 97.3 89 20 138/93 (108) 100 04/01/18 04:00 98.2 72 20 117/73 (88) 100 04/01/18 00:00 98.4 72 20 116/78 (91) 99 03/31/18 21:15 Room Air 03/31/18 20:57 97.7 03/31/18 20:00 96.7 86 20 117/75 (89) 97 03/31/18 19:30 79 18 Room Air 21 Height (Feet): 6 Height (Inches): 2.00 Weight (Pounds): 226 HEENT: mucous membranes moist Respiratory/Chest: lungs clear Cardiovascular: normal peripheral pulses Abdomen: soft, non tender Microbiology Date/Time Source Procedure Growth Status 03/29/18 19:00 Foot Right Gram Stain - Final Complete 03/29/18 19:00 Wound Culture - Final Staphylococcus Aureus - Mrsa Complete 03/29/18 19:00 Buttock Right Gram Stain - Final Resulted 03/29/18 19:00 Wound Culture - Preliminary Proteus Mirabilis Resulted Laboratory Tests Test 04/01/18 12:50 White Blood Count 5.2 K/UL (4.8-10.8) Red Blood Count 5.14 M/UL (4.70-6.10) Hemoglobin 12.6 G/DL (14.2-18.0) L Hematocrit 39.2 % (42.0-52.0) L Mean Corpuscular Volume 76 FL (80-99) L Mean Corpuscular Hemoglobin 24.4 PG (27.0-31.0) L Mean Corpuscular Hemoglobin Concent 32.1 G/DL (32.0-36.0) Red Cell Distribution Width 15.4 % (11.6-14.8) H Platelet Count 302 K/UL (150-450) Mean Platelet Volume 8.2 FL (6.5-10.1) Neutrophils (%) (Auto) 66.7 % (45.0-75.0) Lymphocytes (%) (Auto) 21.8 % (20.0-45.0) Monocytes (%) (Auto) 5.9 % (1.0-10.0) Eosinophils (%) (Auto) 3.0 % (0.0-3.0) Basophils (%) (Auto) 2.6 % (0.0-2.0) H Erythrocyte Sedimentation Rate 60 MM/HR (0-15) H Sodium Level 138 MMOL/L (136-145) Potassium Level 4.0 MMOL/L (3.5-5.1) Chloride Level 105 MMOL/L (98-107) Carbon Dioxide Level 27 MMOL/L (21-32) Anion Gap 6 mmol/L (5-15) Blood Urea Nitrogen 12 mg/dL (7-18) Creatinine 1.1 MG/DL (0.55-1.30) Estimat Glomerular Filtration Rate > 60 mL/min (>60) Glucose Level 97 MG/DL (74-106) Calcium Level 8.9 MG/DL (8.5-10.1) Phosphorus Level 2.9 MG/DL (2.5-4.9) Magnesium Level 1.9 MG/DL (1.8-2.4) Total Bilirubin 0.1 MG/DL (0.2-1.0) L Aspartate Amino Transf (AST/SGOT) 13 U/L (15-37) L Alanine Aminotransferase (ALT/SGPT) 20 U/L (12-78) Alkaline Phosphatase 72 U/L (46-116) C-Reactive Protein, Quantitative 1.8 mg/dL (0.00-0.90) H Total Protein 8.3 G/DL (6.4-8.2) H Albumin 2.9 G/DL (3.4-5.0) L Globulin 5.4 g/dL Albumin/Globulin Ratio 0.5 (1.0-2.7) L Vancomycin Level Trough 12.5 ug/mL (5.0-12.0) H Current Medications Medications (Trade) Dose Ordered Sig/Michael Route PRN Reason Start Time Stop Time Status Last Admin Dose Admin Acetaminophen (Tylenol) 650 mg Q4H PRN ORAL Mild Pain/Temp > 100.5 03/29/18 18:13 04/28/18 18:12 03/29/18 22:33 Acetaminophen/ Hydrocodone Bitart ([place] [address]25) 1 tab Q4H PRN ORAL for moderate pain 03/30/18 20:06 04/06/18 20:05 04/01/18 15:14 Albuterol/ Ipratropium (Albuterol/ Ipratropium) 3 ml Q4H PRN HHN Shortness of Breath 03/29/18 15:45 04/03/18 15:44 Cefepime HCl 2 gm/ Dextrose 110 ml @ 220 mls/hr EVERY 12 HOURS IV 03/29/18 21:00 04/05/18 20:59 04/01/18 09:07 Dextrose (Dextrose 50%) 25 ml STAT PRN IV Hypoglycemia 03/29/18 15:45 04/28/18 15:44 Dextrose (Dextrose 50%) 50 ml Q30M PRN IV Hypoglycemia 03/29/18 15:45 04/28/18 15:44 Docusate Sodium (Colace) 100 mg TWICE A DAY ORAL 03/31/18 09:00 04/30/18 08:59 03/31/18 08:53 Heparin Sodium (Porcine) (Heparin 5000 units/ml) 5,000 units EVERY 12 HOURS SUBQ 03/29/18 21:00 04/28/18 20:59 04/01/18 09:11 Morphine Sulfate (Morphine Sulfate) 2 mg Q4H PRN IVP SEVERE PAIN 03/30/18 20:07 04/05/18 15:44 03/30/18 21:58 Nitroglycerin (Ntg) 0.4 mg Q5M PRN SL Prn Chest Pain 03/29/18 15:45 04/28/18 15:44 Ondansetron HCl (Zofran) 4 mg Q6H PRN IVP Nausea & Vomiting 03/29/18 15:45 04/28/18 15:44 Polyethylene Glycol (Miralax) 17 gm DAILYPRN PRN ORAL Constipation 03/29/18 15:45 04/28/18 15:44 Temazepam (Restoril) 15 mg HSPRN PRN ORAL Insomnia 03/29/18 15:45 04/05/18 15:44 Vancomycin HCl (Vanco rx to dose) 1 ea DAILY PRN MISC PER PHARM 03/29/18 15:45 04/28/18 15:44 Vancomycin/Sodium Chloride 250 ml @ 167 mls/hr Q8H IVPB 03/31/18 06:00 04/05/18 05:59 04/01/18 15:13 Hai Jacob MD Apr 01, 2018 16:16
--- NOTE | 2018-04-01 17:06 | General Surgery Progress Note ---
General Surgery-Progress Note Subjective Additional Comments no acute events. CT reviewed. states he feels okay Objective Last 24 Hour Vital Signs Date Time Temp Pulse Resp B/P (MAP) Pulse Ox O2 Delivery O2 Flow Rate FiO2 04/01/18 16:00 98.0 80 18 142/82 (102) 99 04/01/18 12:00 97.9 82 18 137/82 (100) 99 04/01/18 09:00 Room Air 04/01/18 08:09 85 18 Room Air 21 04/01/18 08:00 97.3 89 20 138/93 (108) 100 04/01/18 04:00 98.2 72 20 117/73 (88) 100 04/01/18 00:00 98.4 72 20 116/78 (91) 99 03/31/18 21:15 Room Air 03/31/18 20:57 97.7 03/31/18 20:00 96.7 86 20 117/75 (89) 97 03/31/18 19:30 79 18 Room Air 21 I&O Intake and Output 03/31/18 04/01/18 18:59 06:59 Intake Total 570 ml 1030 ml Output Total 550 ml 800 ml Balance 20 ml 230 ml Intake Oral 570 ml IV Total 610 ml Other 420 ml Output Urine Total 550 ml 800 ml # Bowel Movements 1 Dressing: saturated Wound: other Drains: other Cardiovascular: RSR Respiratory: clear Abdomen: soft, flat, non-tender, present bowel sounds Extremities: other Laboratory Tests Test 04/01/18 12:50 White Blood Count 5.2 K/UL (4.8-10.8) Red Blood Count 5.14 M/UL (4.70-6.10) Hemoglobin 12.6 G/DL (14.2-18.0) L Hematocrit 39.2 % (42.0-52.0) L Mean Corpuscular Volume 76 FL (80-99) L Mean Corpuscular Hemoglobin 24.4 PG (27.0-31.0) L Mean Corpuscular Hemoglobin Concent 32.1 G/DL (32.0-36.0) Red Cell Distribution Width 15.4 % (11.6-14.8) H Platelet Count 302 K/UL (150-450) Mean Platelet Volume 8.2 FL (6.5-10.1) Neutrophils (%) (Auto) 66.7 % (45.0-75.0) Lymphocytes (%) (Auto) 21.8 % (20.0-45.0) Monocytes (%) (Auto) 5.9 % (1.0-10.0) Eosinophils (%) (Auto) 3.0 % (0.0-3.0) Basophils (%) (Auto) 2.6 % (0.0-2.0) H Erythrocyte Sedimentation Rate 60 MM/HR (0-15) H Sodium Level 138 MMOL/L (136-145) Potassium Level 4.0 MMOL/L (3.5-5.1) Chloride Level 105 MMOL/L (98-107) Carbon Dioxide Level 27 MMOL/L (21-32) Anion Gap 6 mmol/L (5-15) Blood Urea Nitrogen 12 mg/dL (7-18) Creatinine 1.1 MG/DL (0.55-1.30) Estimat Glomerular Filtration Rate > 60 mL/min (>60) Glucose Level 97 MG/DL (74-106) Calcium Level 8.9 MG/DL (8.5-10.1) Phosphorus Level 2.9 MG/DL (2.5-4.9) Magnesium Level 1.9 MG/DL (1.8-2.4) Total Bilirubin 0.1 MG/DL (0.2-1.0) L Aspartate Amino Transf (AST/SGOT) 13 U/L (15-37) L Alanine Aminotransferase (ALT/SGPT) 20 U/L (12-78) Alkaline Phosphatase 72 U/L (46-116) C-Reactive Protein, Quantitative 1.8 mg/dL (0.00-0.90) H Total Protein 8.3 G/DL (6.4-8.2) H Albumin 2.9 G/DL (3.4-5.0) L Globulin 5.4 g/dL Albumin/Globulin Ratio 0.5 (1.0-2.7) L Vancomycin Level Trough 12.5 ug/mL (5.0-12.0) H Plan Problems: (1) Right ischial pressure sore, stage 4 Assessment & Plan: Pt presents with full thickness pressure injury R ischium with tunneling (L)1cm x (W)2.8cm with 8cm tunneling. (+) Epibole. Small amt serosanguineous exudate noted. Resolving full thickness pressure injury to R buttocks with epithelialized borders(L)0.5cm x (W)2.6cm .Wound bed dry .Edges adherent to base of wound. Scattered hyperpigmentation noted to L gluteal cleft and L ischium. Partial thickness wound noted to lateral R tibia just inferior to knee (L)2.6cm x (W)1cm. Wound bed moist and is granular. edges adherent to base of wound.Periwound dark skin tone that is dry and scaly. Full thickness wound noted to posterior/distal R tibia(L)5.3cm x (W)4cm.Wound bed with 50% slough otherwise lillie with small amt serosanguineous exudate noted. Borders macerated. Dark skin tone that is dry and scaly periwound. Full thickness wound R lateral malleolus (L)6cm x (W)7.3cm. Wound bed granular with macerated borders. Small amt sanguineous exudate noted. Full thickness wound dorsum R foot (L)9cm x (W)7.4cm .Wound bed with 75% soft necrosis with fluctuance otherwise with scattered granular. Xerosis skin periwound. Dry scabs noted to R 1st ,2nd and 3rd metatarsals. Stable dry eschar noted to distal /lateral L tibia. CT reviewed and chronic osteo. CT and exam consistet no acute surgical intervention necessary IV Abx as per ID Tx.Plan: Cleanse wound R Ischium with Saline.Loosely pack with Hydrogel impregnated gauze.Cavilon wipe to borders. Cover with Optifoam drsg daily and prn. Cleanse wound R buttocks.Apply Cavilon and cover with Optifoam drsg .Change every 7 days and prn. Cleanse wounds R lower ext with Saline. Apply Silvasorb gel .Cover with Abd and wrap with kerlix every 3 days and prn. (2) Substance abuse Assessment & Plan: patient with history of substance abuse. states currently in rehab housing. of note has been asking for stronger pain meds since admission Shilo Arrington Apr 01, 2018 17:06
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
[2018-04-01] MEDS ORDERED: LORazepam 1mg tab ORAL PRN (18:14)
[2018-04-01] MEDS ORDERED: Haloperidol Decanoate 50mg Inj IM ONE (19:00)
[2018-04-01 20:00] VITALS: BP 143/82
[2018-04-02] VITALS: BP 116/70
[2018-04-02 04:00] VITALS: BP 100/57
[2018-04-02] MEDS: Vancomycin 750mg/NS 250ml 250 ML IVPB SCH (06:00)
[2018-04-02 08:00] VITALS: BP 113/65
[2018-04-02] MEDS: Docusate 100mg cap ORAL SCH ×3 (09:00→17:22)
[2018-04-02] MEDS: HYDROcodone/Acetamin 10/325 tab ORAL PRN ×2 (09:42→19:54)
[2018-04-02] MEDS: Heparin 5000 units/ml inj SUBQ SCH ×2 (09:44→21:00)
--- NOTE | 2018-04-02 11:49 | Pulmonology Progress Note ---
Assessment/Plan Problems: (1) Decubitus ulcer of right thigh, stage 3 (2) Decubitus ulcer, stage 3 with infection (3) Sociopathic personality disorder (4) Depressed bipolar disorder (5) Paraplegia (6) Hypersexuality Assessment/Plan wound care iv abx psych evaluation pending check electrolytes dc planning to snif Subjective ROS Limited/Unobtainable: Yes Interval Events: pt was masturbating in bed Allergies: Coded Allergies: No Known Allergies (Unverified , 10/04/14) Objective Last 24 Hour Vital Signs Date Time Temp Pulse Resp B/P (MAP) Pulse Ox O2 Delivery O2 Flow Rate FiO2 04/02/18 09:00 Room Air 04/02/18 08:00 97.7 84 20 113/65 (81) 95 04/02/18 04:00 98.0 70 20 100/57 (71) 95 04/02/18 00:00 97.6 78 18 116/70 (85) 99 04/01/18 21:00 Room Air 04/01/18 20:11 74 18 Room Air 21 04/01/18 20:00 98.8 82 20 143/82 (102) 98 04/01/18 16:00 98.0 80 18 142/82 (102) 99 04/01/18 12:00 97.9 82 18 137/82 (100) 99 Intake and Output 04/01/18 04/02/18 19:00 07:00 Intake Total 1490 ml Output Total 600 ml Balance 1490 ml -600 ml Intake Oral 1240 ml IV Total 250 ml Output Urine Total 600 ml # Voids 6 General Appearance: WD/WN HEENT: normocephalic, anicteric Respiratory/Chest: chest wall non-tender, lungs clear Cardiovascular: normal peripheral pulses, normal rate, no JVD Abdomen: soft, non tender Extremities: no clubbing Skin: no rash Laboratory Tests 04/01/18 12:50: White Blood Count 5.2, Red Blood Count 5.14, Hemoglobin 12.6L, Hematocrit 39.2L , Mean Corpuscular Volume 76L, Mean Corpuscular Hemoglobin 24.4L, Mean Corpuscular Hemoglobin Concent 32.1, Red Cell Distribution Width 15.4H, Platelet Count 302, Mean Platelet Volume 8.2, Neutrophils (%) (Auto) 66.7, Lymphocytes (%) (Auto) 21.8, Monocytes (%) (Auto) 5.9, Eosinophils (%) (Auto) 3.0, Basophils (%) (Auto) 2.6H, Erythrocyte Sedimentation Rate 60H, Sodium Level 138, Potassium Level 4.0, Chloride Level 105, Carbon Dioxide Level 27, Anion Gap 6, Blood Urea Nitrogen 12, Creatinine 1.1, Estimat Glomerular Filtration Rate > 60, Glucose Level 97, Calcium Level 8.9, Phosphorus Level 2.9 , Magnesium Level 1.9, Total Bilirubin 0.1L, Aspartate Amino Transf (AST/SGOT) 13L, Alanine Aminotransferase (ALT/SGPT) 20, Alkaline Phosphatase 72, C- Reactive Protein, Quantitative 1.8H, Total Protein 8.3H, Albumin 2.9L, Globulin 5.4, Albumin/Globulin Ratio 0.5L, Vancomycin Level Trough 12.5H Current Medications Medications (Trade) Dose Ordered Sig/Michael Route PRN Reason Start Time Stop Time Status Last Admin Dose Admin Acetaminophen (Tylenol) 650 mg Q4H PRN ORAL Mild Pain/Temp > 100.5 03/29/18 18:13 04/28/18 18:12 03/29/18 22:33 Acetaminophen/ Hydrocodone Bitart ([place] 10/325) 1 tab Q4H PRN ORAL for moderate pain 03/30/18 20:06 04/06/18 20:05 04/02/18 09:42 Albuterol/ Ipratropium (Albuterol/ Ipratropium) 3 ml Q4H PRN HHN Shortness of Breath 03/29/18 15:45 04/03/18 15:44 Cefepime HCl 2 gm/ Dextrose 110 ml @ 220 mls/hr EVERY 12 HOURS IV 03/29/18 21:00 04/05/18 20:59 04/01/18 09:07 Dextrose (Dextrose 50%) 25 ml STAT PRN IV Hypoglycemia 03/29/18 15:45 04/28/18 15:44 Dextrose (Dextrose 50%) 50 ml Q30M PRN IV Hypoglycemia 03/29/18 15:45 04/28/18 15:44 Docusate Sodium (Colace) 100 mg TWICE A DAY ORAL 03/31/18 09:00 04/30/18 08:59 03/31/18 08:53 Heparin Sodium (Porcine) (Heparin 5000 units/ml) 5,000 units EVERY 12 HOURS SUBQ 03/29/18 21:00 04/28/18 20:59 04/02/18 09:44 Lorazepam (Ativan) 2 mg Q6H PRN ORAL For Anxiety 04/01/18 18:14 04/08/18 18:13 Morphine Sulfate (Morphine Sulfate) 2 mg Q4H PRN IVP SEVERE PAIN 03/30/18 20:07 04/05/18 15:44 03/30/18 21:58 Nitroglycerin (Ntg) 0.4 mg Q5M PRN SL Prn Chest Pain 03/29/18 15:45 04/28/18 15:44 Ondansetron HCl (Zofran) 4 mg Q6H PRN IVP Nausea & Vomiting 03/29/18 15:45 04/28/18 15:44 Polyethylene Glycol (Miralax) 17 gm DAILYPRN PRN ORAL Constipation 03/29/18 15:45 04/28/18 15:44 Risperidone (RisperDAL) 2 mg BEDTIME ORAL 04/01/18 21:00 05/01/18 20:59 04/01/18 21:16 Temazepam (Restoril) 15 mg HSPRN PRN ORAL Insomnia 03/29/18 15:45 04/05/18 15:44 Vancomycin HCl (Vanco rx to dose) 1 ea DAILY PRN MISC PER PHARM 03/29/18 15:45 04/28/18 15:44 Vancomycin/Sodium Chloride 250 ml @ 167 mls/hr Q8H IVPB 03/31/18 06:00 04/05/18 05:59 04/01/18 15:13 Francheska Armas MD Apr 02, 2018 11:49
[2018-04-02 12:00] VITALS: BP 125/72
--- NOTE | 2018-04-02 12:54 | Infectious Diseases Prog Note ---
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 seizure disorder. History of polysubstance abuse (marijuana and crystal) PLAN: Cont pt on IV Merrem d# and change to Invanz to complete the course 03/31 Sp IV vancomycin and cefepime d # 2 -Monitor CBC -Monitor BMP -Monitor cultures - PICC before DC Subjective Constitutional: Denies: no symptoms, fever, chills, fatigue, anorexia, drenching sweats, other Allergies: Coded Allergies: No Known Allergies (Unverified , 10/04/14) Objective Vital Signs Last 24 Hour Vital Signs Date Time Temp Pulse Resp B/P (MAP) Pulse Ox O2 Delivery O2 Flow Rate FiO2 04/02/18 09:00 Room Air 04/02/18 08:00 97.7 84 20 113/65 (81) 95 04/02/18 04:00 98.0 70 20 100/57 (71) 95 04/02/18 00:00 97.6 78 18 116/70 (85) 99 04/01/18 21:00 Room Air 04/01/18 20:11 74 18 Room Air 21 04/01/18 20:00 98.8 82 20 143/82 (102) 98 04/01/18 16:00 98.0 80 18 142/82 (102) 99 Height (Feet): 6 Height (Inches): 2.00 Weight (Pounds): 226 HEENT: mucous membranes moist Respiratory/Chest: normal breath sounds Cardiovascular: normal rate Abdomen: normal bowel sounds Current Medications Medications (Trade) Dose Ordered Sig/Michael Route PRN Reason Start Time Stop Time Status Last Admin Dose Admin Acetaminophen (Tylenol) 650 mg Q4H PRN ORAL Mild Pain/Temp > 100.5 03/29/18 18:13 04/28/18 18:12 03/29/18 22:33 Acetaminophen/ Hydrocodone Bitart ([place] 10/325) 1 tab Q4H PRN ORAL for moderate pain 03/30/18 20:06 04/06/18 20:05 04/02/18 09:42 Albuterol/ Ipratropium (Albuterol/ Ipratropium) 3 ml Q4H PRN HHN Shortness of Breath 03/29/18 15:45 04/03/18 15:44 Cefepime HCl 2 gm/ Dextrose 110 ml @ 220 mls/hr EVERY 12 HOURS IV 03/29/18 21:00 04/05/18 20:59 04/01/18 09:07 Dextrose (Dextrose 50%) 25 ml STAT PRN IV Hypoglycemia 03/29/18 15:45 04/28/18 15:44 Dextrose (Dextrose 50%) 50 ml Q30M PRN IV Hypoglycemia 03/29/18 15:45 04/28/18 15:44 Divalproex Sodium (Depakote ER) 1,000 mg BEDTIME ORAL 04/02/18 21:00 05/02/18 20:59 Docusate Sodium (Colace) 100 mg TWICE A DAY ORAL 03/31/18 09:00 04/30/18 08:59 03/31/18 08:53 Heparin Sodium (Porcine) (Heparin 5000 units/ml) 5,000 units EVERY 12 HOURS SUBQ 03/29/18 21:00 04/28/18 20:59 04/02/18 09:44 Lorazepam (Ativan) 2 mg Q6H PRN ORAL For Anxiety 04/01/18 18:14 04/08/18 18:13 Morphine Sulfate (Morphine Sulfate) 2 mg Q4H PRN IVP SEVERE PAIN 03/30/18 20:07 04/05/18 15:44 03/30/18 21:58 Nitroglycerin (Ntg) 0.4 mg Q5M PRN SL Prn Chest Pain 03/29/18 15:45 04/28/18 15:44 Ondansetron HCl (Zofran) 4 mg Q6H PRN IVP Nausea & Vomiting 03/29/18 15:45 04/28/18 15:44 Polyethylene Glycol (Miralax) 17 gm DAILYPRN PRN ORAL Constipation 03/29/18 15:45 04/28/18 15:44 Risperidone (RisperDAL) 2 mg BEDTIME ORAL 04/01/18 21:00 05/01/18 20:59 04/01/18 21:16 Temazepam (Restoril) 15 mg HSPRN PRN ORAL Insomnia 03/29/18 15:45 04/05/18 15:44 Vancomycin HCl (Vanco rx to dose) 1 ea DAILY PRN MISC PER PHARM 03/29/18 15:45 04/28/18 15:44 Vancomycin/Sodium Chloride 250 ml @ 167 mls/hr Q8H IVPB 03/31/18 06:00 04/05/18 05:59 04/01/18 15:13 Hai Jacob MD Apr 02, 2018 12:54
--- NOTE | 2018-04-02 13:06 | General Progress Note ---
Assessment/Plan Problem List: (1) Acute bilateral low back pain ICD Codes: M54.5 - Low back pain SNOMED: 043822726 (2) Malnutrition ICD Codes: E46 - Unspecified protein-calorie malnutrition SNOMED: 12501682 (3) Asthma ICD Codes: J45.909 - Unspecified asthma, uncomplicated SNOMED: 587360641 (4) Injury of lower extremity ICD Codes: S89.90XA - Unspecified injury of unspecified lower leg, initial encounter SNOMED: 763448249 (5) Paraplegia ICD Codes: G82.20 - Paraplegia, unspecified SNOMED: 54493203 (6) UTI (urinary tract infection) ICD Codes: N39.0 - Urinary tract infection SNOMED: 58235694 Qualifiers: Qualified Codes: N39.0 - Urinary tract infection, site not specified (7) Foot ulcer ICD Codes: L97.509 - Non-pressure chronic ulcer of other part of unspecified foot with unspecified severity SNOMED: 92376462 Qualifiers: Qualified Codes: L97.512 - Non-pressure chronic ulcer of other part of right foot with fat layer exposed (8) Pain in limb ICD Codes: M79.609 - Pain in limb SNOMED: 17347677 Status: stable, progressing Assessment/Plan ot pt siet wound care abx pain control psyc eval cbc bmp am dc plan snf Subjective Constitutional: Reports: weakness Allergies: Coded Allergies: No Known Allergies (Unverified , 10/04/14) All Systems: reviewed and negative except above Subjective calm in bed Objective Last 24 Hour Vital Signs Date Time Temp Pulse Resp B/P (MAP) Pulse Ox O2 Delivery O2 Flow Rate FiO2 04/02/18 09:00 Room Air 04/02/18 08:00 97.7 84 20 113/65 (81) 95 04/02/18 04:00 98.0 70 20 100/57 (71) 95 04/02/18 00:00 97.6 78 18 116/70 (85) 99 04/01/18 21:00 Room Air 04/01/18 20:11 74 18 Room Air 21 04/01/18 20:00 98.8 82 20 143/82 (102) 98 04/01/18 16:00 98.0 80 18 142/82 (102) 99 Intake and Output 04/01/18 04/02/18 19:00 07:00 Intake Total 1490 ml Output Total 600 ml Balance 1490 ml -600 ml Intake Oral 1240 ml IV Total 250 ml Output Urine Total 600 ml # Voids 6 Height (Feet): 6 Height (Inches): 2.00 Weight (Pounds): 226 General Appearance: lethargic EENT: normal ENT inspection Neck: normal alignment Cardiovascular: normal peripheral pulses, normal rate, regular rhythm Respiratory/Chest: chest wall non-tender, lungs clear, normal breath sounds Abdomen: normal bowel sounds, non tender, soft Extremities: normal inspection Edema: no edema noted Arm (L), no edema noted Arm (R), no edema noted Leg (L), no edema noted Leg (R), no edema noted Pedal (L), no edema noted Pedal (R), no edema noted Generalized Neurologic: motor weakness Skin: normal pigmentation, warm/dry [place] DO Apr 02, 2018 13:06
[2018-04-02] MEDS: Meropenem 1 GM in NS 55 ML IVPB SCH ×2 (15:01→21:01)
[2018-04-02 16:00] VITALS: BP 108/63
--- NOTE | 2018-04-02 16:05 | General Surgery Progress Note ---
General Surgery-Progress Note Subjective Symptoms: improved, tolerating diet, BM Additional Comments no acute events. imaging reviewed. stable. tolerating diet. no n/v/f/c. labs okay Objective Last 24 Hour Vital Signs Date Time Temp Pulse Resp B/P (MAP) Pulse Ox O2 Delivery O2 Flow Rate FiO2 04/02/18 12:00 97.4 79 20 125/72 (89) 98 04/02/18 09:00 Room Air 04/02/18 08:00 97.7 84 20 113/65 (81) 95 04/02/18 04:00 98.0 70 20 100/57 (71) 95 04/02/18 00:00 97.6 78 18 116/70 (85) 99 04/01/18 21:00 Room Air 04/01/18 20:11 74 18 Room Air 21 04/01/18 20:00 98.8 82 20 143/82 (102) 98 I&O Intake and Output 04/01/18 04/02/18 19:00 07:00 Intake Total 1490 ml Output Total 600 ml Balance 1490 ml -600 ml Intake Oral 1240 ml IV Total 250 ml Output Urine Total 600 ml # Voids 6 Dressing: saturated Wound: other Drains: none Cardiovascular: RSR Respiratory: clear Abdomen: soft, flat, non-tender, present bowel sounds Extremities: other Plan Problems: (1) Right ischial pressure sore, stage 4 Assessment & Plan: Pt presents with full thickness pressure injury R ischium with tunneling (L)1cm x (W)2.8cm with 8cm tunneling. (+) Epibole. Small amt serosanguineous exudate noted. Resolving full thickness pressure injury to R buttocks with epithelialized borders(L)0.5cm x (W)2.6cm .Wound bed dry .Edges adherent to base of wound. Scattered hyperpigmentation noted to L gluteal cleft and L ischium. Partial thickness wound noted to lateral R tibia just inferior to knee (L)2.6cm x (W)1cm. Wound bed moist and is granular. edges adherent to base of wound.Periwound dark skin tone that is dry and scaly. Full thickness wound noted to posterior/distal R tibia(L)5.3cm x (W)4cm.Wound bed with 50% slough otherwise lillie with small amt serosanguineous exudate noted. Borders macerated. Dark skin tone that is dry and scaly periwound. Full thickness wound R lateral malleolus (L)6cm x (W)7.3cm. Wound bed granular with macerated borders. Small amt sanguineous exudate noted. Full thickness wound dorsum R foot (L)9cm x (W)7.4cm .Wound bed with 75% soft necrosis with fluctuance otherwise with scattered granular. Xerosis skin periwound. Dry scabs noted to R 1st ,2nd and 3rd metatarsals. Stable dry eschar noted to distal /lateral L tibia. CT reviewed and chronic osteo. CT and exam consistet no acute surgical intervention necessary IV Abx as per ID Tx.Plan: Cleanse wound R Ischium with Saline.Loosely pack with Hydrogel impregnated gauze.Cavilon wipe to borders. Cover with Optifoam drsg daily and prn. Cleanse wound R buttocks.Apply Cavilon and cover with Optifoam drsg .Change every 7 days and prn. Cleanse wounds R lower ext with Saline. Apply Silvasorb gel .Cover with Abd and wrap with kerlix every 3 days and prn. d/c planning (2) Substance abuse Assessment & Plan: patient with history of substance abuse. states currently in rehab housing. of note has been asking for stronger pain meds since admission cont current care d/c planning Shilo Arrington Apr 02, 2018 16:05
--- NOTE | 2018-04-02 18:45 | Progress Note ---
DATE: 04/02/2018 SUBJECTIVE: The patient was observing, being disorganized, destructive, hypersexual. He was masturbating. He was making sexual remarks, responds to internal stimuli, not redirectable. Has poor insight and judgment. MENTAL STATUS EXAMINATION: The patient is alert and oriented times self, place, and situation he is in. Mood is elevated. Affect is expansive. Thought process is disorganized. Thought content is positive for auditory hallucinations. Insight and judgment non-existent. ASSESSMENT: Schizoaffective disorder, bipolar type. PLAN: 1. We will continue the risperidone. 2. The patient received Haldol Decanoate last night. 3. We will start the patient on Depakote ER 1000 mg at bedtime. 4. Continue to readjust the medications. Berry Phelan M.D. DR: [place] JOB#: [id number] CC:
[2018-04-02 20:00] VITALS: BP 118/77
[2018-04-02] MEDS: Depakote ER 500mg tab ORAL SCH (20:27)
[2018-04-03] VITALS: BP 112/68
[2018-04-03 04:00] VITALS: BP 104/60
[2018-04-03] MEDS: Meropenem 1 GM in NS 55 ML IVPB SCH ×3 (05:26→22:26)
[2018-04-03 06:26] LABS: ANION GAP 5 mmol/L (5-15); BLOOD UREA NITROGEN 15 mg/dL (7-18); CALCIUM 8.5 MG/DL (8.5-10.1); CARBON DIOXIDE 28 MMOL/L (21-32); CHLORIDE 106 MMOL/L (98-107); CREATININE 0.9 MG/DL (0.55-1.30); POTASSIUM 3.9 MMOL/L (3.5-5.1); SODIUM 139 MMOL/L (136-145)
[2018-04-03 06:40] LABS: BASOPHILS % (AUTO) 1.8 % (0.0-2.0); EOSINOPHILS % (AUTO) 3.3 % (0.0-3.0); HEMATOCRIT 39.2 % (42.0-52.0); HEMOGLOBIN 12.7 G/DL (14.2-18.0); LYMPHOCYTES % (AUTO) 33.5 % (20.0-45.0); MEAN CORPUSCULAR VOLUME 75 FL (80-99); MONOCYTES % (AUTO) 6.6 % (1.0-10.0); NEUTROPHILS % (AUTO) 54.8 % (45.0-75.0); PLATELET COUNT 281 K/UL (150-450); RED CELL DISTRIBUTION WIDTH 15.6 % (11.6-14.8); WHITE BLOOD COUNT 4.2 K/UL (4.8-10.8)
[2018-04-03 08:07] VITALS: BP 111/67
[2018-04-03] MEDS: HYDROcodone/Acetamin 10/325 tab ORAL PRN ×3 (08:48→20:22)
[2018-04-03] MEDS: Docusate 100mg cap ORAL SCH ×4 (08:48→17:37)
[2018-04-03] MEDS: Heparin 5000 units/ml inj SUBQ SCH ×3 (08:49→20:22)
[2018-04-03 11:31] VITALS: BP 115/65
--- NOTE | 2018-04-03 11:38 | General Surgery Progress Note ---
General Surgery-Progress Note Subjective Additional Comments no acute events. states he is doing okay. no n/v/f/c. labs noted. on IV ABX Objective Last 24 Hour Vital Signs Date Time Temp Pulse Resp B/P (MAP) Pulse Ox O2 Delivery O2 Flow Rate FiO2 04/03/18 11:31 98.4 85 20 115/65 (82) 99 04/03/18 09:00 Room Air 04/03/18 08:07 98.0 83 20 111/67 (82) 99 04/03/18 04:00 97.2 76 18 104/60 (75) 97 04/03/18 00:00 98.0 79 18 112/68 (83) 100 04/02/18 21:00 Room Air 04/02/18 20:14 83 18 Room Air 21 04/02/18 20:00 98.1 83 18 118/77 (91) 99 04/02/18 16:00 98.3 81 20 108/63 (78) 99 04/02/18 12:00 97.4 79 20 125/72 (89) 98 I&O Intake and Output 04/02/18 04/03/18 19:00 07:00 Intake Total 715 ml 1260 ml Output Total 600 ml 1150 ml Balance 115 ml 110 ml Intake Oral 660 ml 1150 ml IV Total 55 ml 110 ml Output Urine Total 600 ml 1150 ml # Voids 2 Dressing: saturated Wound: other Drains: other Cardiovascular: RSR Respiratory: clear Abdomen: soft, flat, non-tender, present bowel sounds Extremities: other Laboratory Tests Test 04/03/18 05:20 White Blood Count 4.2 K/UL (4.8-10.8) L Red Blood Count 5.20 M/UL (4.70-6.10) Hemoglobin 12.7 G/DL (14.2-18.0) L Hematocrit 39.2 % (42.0-52.0) L Mean Corpuscular Volume 75 FL (80-99) L Mean Corpuscular Hemoglobin 24.4 PG (27.0-31.0) L Mean Corpuscular Hemoglobin Concent 32.4 G/DL (32.0-36.0) Red Cell Distribution Width 15.6 % (11.6-14.8) H Platelet Count 281 K/UL (150-450) Mean Platelet Volume 7.8 FL (6.5-10.1) Neutrophils (%) (Auto) 54.8 % (45.0-75.0) Lymphocytes (%) (Auto) 33.5 % (20.0-45.0) Monocytes (%) (Auto) 6.6 % (1.0-10.0) Eosinophils (%) (Auto) 3.3 % (0.0-3.0) H Basophils (%) (Auto) 1.8 % (0.0-2.0) Sodium Level 139 MMOL/L (136-145) Potassium Level 3.9 MMOL/L (3.5-5.1) Chloride Level 106 MMOL/L (98-107) Carbon Dioxide Level 28 MMOL/L (21-32) Anion Gap 5 mmol/L (5-15) Blood Urea Nitrogen 15 mg/dL (7-18) Creatinine 0.9 MG/DL (0.55-1.30) Estimat Glomerular Filtration Rate > 60 mL/min (>60) Glucose Level 87 MG/DL (74-106) Calcium Level 8.5 MG/DL (8.5-10.1) Plan Problems: (1) Right ischial pressure sore, stage 4 Assessment & Plan: Pt presents with full thickness pressure injury R ischium with tunneling (L)1cm x (W)2.8cm with 8cm tunneling. (+) Epibole. Small amt serosanguineous exudate noted. Resolving full thickness pressure injury to R buttocks with epithelialized borders(L)0.5cm x (W)2.6cm .Wound bed dry .Edges adherent to base of wound. Scattered hyperpigmentation noted to L gluteal cleft and L ischium. Partial thickness wound noted to lateral R tibia just inferior to knee (L)2.6cm x (W)1cm. Wound bed moist and is granular. edges adherent to base of wound.Periwound dark skin tone that is dry and scaly. Full thickness wound noted to posterior/distal R tibia(L)5.3cm x (W)4cm.Wound bed with 50% slough otherwise lillie with small amt serosanguineous exudate noted. Borders macerated. Dark skin tone that is dry and scaly periwound. Full thickness wound R lateral malleolus (L)6cm x (W)7.3cm. Wound bed granular with macerated borders. Small amt sanguineous exudate noted. Full thickness wound dorsum R foot (L)9cm x (W)7.4cm .Wound bed with 75% soft necrosis with fluctuance otherwise with scattered granular. Xerosis skin periwound. Dry scabs noted to R 1st ,2nd and 3rd metatarsals. Stable dry eschar noted to distal /lateral L tibia. CT reviewed and chronic osteo. CT and exam consistet no acute surgical intervention necessary IV Abx as per ID Tx.Plan: Cleanse wound R Ischium with Saline.Loosely pack with Hydrogel impregnated gauze.Cavilon wipe to borders. Cover with Optifoam drsg daily and prn. Cleanse wound R buttocks.Apply Cavilon and cover with Optifoam drsg .Change every 7 days and prn. Cleanse wounds R lower ext with Saline. Apply Silvasorb gel .Cover with Abd and wrap with kerlix every 3 days and prn. d/c planning (2) Substance abuse Assessment & Plan: patient with history of substance abuse. states currently in rehab housing. of note has been asking for stronger pain meds since admission cont current care d/c planning Shilo Arrington Apr 03, 2018 11:38
--- NOTE | 2018-04-03 11:57 | General Progress Note ---
Assessment/Plan Problem List: (1) Acute bilateral low back pain ICD Codes: M54.5 - Low back pain SNOMED: 041879413 (2) Malnutrition ICD Codes: E46 - Unspecified protein-calorie malnutrition SNOMED: 60756040 (3) Asthma ICD Codes: J45.909 - Unspecified asthma, uncomplicated SNOMED: 677358099 (4) Injury of lower extremity ICD Codes: S89.90XA - Unspecified injury of unspecified lower leg, initial encounter SNOMED: 006686758 (5) Paraplegia ICD Codes: G82.20 - Paraplegia, unspecified SNOMED: 25121617 (6) UTI (urinary tract infection) ICD Codes: N39.0 - Urinary tract infection SNOMED: 77314227 Qualifiers: Qualified Codes: N39.0 - Urinary tract infection, site not specified (7) Foot ulcer ICD Codes: L97.509 - Non-pressure chronic ulcer of other part of unspecified foot with unspecified severity SNOMED: 79030447 Qualifiers: Qualified Codes: L97.512 - Non-pressure chronic ulcer of other part of right foot with fat layer exposed (8) Pain in limb ICD Codes: M79.609 - Pain in limb SNOMED: 86447579 Status: stable, progressing Assessment/Plan ot pt siet wound care abx pain control psyc eval cbc bmp am dc plan snf Subjective Constitutional: Reports: weakness Allergies: Coded Allergies: No Known Allergies (Unverified , 10/04/14) All Systems: reviewed and negative except above Subjective calm in bed Objective Last 24 Hour Vital Signs Date Time Temp Pulse Resp B/P (MAP) Pulse Ox O2 Delivery O2 Flow Rate FiO2 04/03/18 11:31 98.4 85 20 115/65 (82) 99 04/03/18 09:00 Room Air 04/03/18 08:07 98.0 83 20 111/67 (82) 99 04/03/18 04:00 97.2 76 18 104/60 (75) 97 04/03/18 00:00 98.0 79 18 112/68 (83) 100 04/02/18 21:00 Room Air 04/02/18 20:14 83 18 Room Air 21 04/02/18 20:00 98.1 83 18 118/77 (91) 99 04/02/18 16:00 98.3 81 20 108/63 (78) 99 04/02/18 12:00 97.4 79 20 125/72 (89) 98 Intake and Output 04/02/18 04/03/18 19:00 07:00 Intake Total 715 ml 1260 ml Output Total 600 ml 1150 ml Balance 115 ml 110 ml Intake Oral 660 ml 1150 ml IV Total 55 ml 110 ml Output Urine Total 600 ml 1150 ml # Voids 2 Laboratory Tests 04/03/18 05:20: White Blood Count 4.2L, Red Blood Count 5.20, Hemoglobin 12.7L, Hematocrit 39.2L , Mean Corpuscular Volume 75L, Mean Corpuscular Hemoglobin 24.4L, Mean Corpuscular Hemoglobin Concent 32.4, Red Cell Distribution Width 15.6H, Platelet Count 281, Mean Platelet Volume 7.8, Neutrophils (%) (Auto) 54.8, Lymphocytes (%) (Auto) 33.5, Monocytes (%) (Auto) 6.6, Eosinophils (%) (Auto) 3.3H, Basophils (%) (Auto) 1.8, Sodium Level 139, Potassium Level 3.9, Chloride Level 106, Carbon Dioxide Level 28, Anion Gap 5, Blood Urea Nitrogen 15, Creatinine 0.9, Estimat Glomerular Filtration Rate > 60, Glucose Level 87, Calcium Level 8.5 Height (Feet): 6 Height (Inches): 2.00 Weight (Pounds): 226 General Appearance: lethargic EENT: normal ENT inspection Neck: normal alignment Cardiovascular: normal peripheral pulses, normal rate, regular rhythm Respiratory/Chest: chest wall non-tender, lungs clear, normal breath sounds Abdomen: normal bowel sounds, non tender, soft Extremities: normal inspection Edema: no edema noted Arm (L), no edema noted Arm (R), no edema noted Leg (L), no edema noted Leg (R), no edema noted Pedal (L), no edema noted Pedal (R), no edema noted Generalized Neurologic: responsive, motor weakness Skin: normal pigmentation, warm/dry Mt Collins DO Apr 03, 2018 11:57
[2018-04-03 15:32] VITALS: BP 111/74
--- NOTE | 2018-04-03 15:57 | Infectious Diseases Prog Note ---
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 seizure disorder. History of polysubstance abuse (marijuana and crystal) PLAN: Cont pt on IV Merrem d# 2 and change to Invanz to complete the course 03/31 Sp IV vancomycin and cefepime d # 2 -Monitor CBC -Monitor BMP -Monitor cultures - PICC before DC Subjective Allergies: Coded Allergies: No Known Allergies (Unverified , 10/04/14) Subjective no new complain Objective Vital Signs Last 24 Hour Vital Signs Date Time Temp Pulse Resp B/P (MAP) Pulse Ox O2 Delivery O2 Flow Rate FiO2 04/03/18 15:32 98.0 84 20 111/74 (86) 99 04/03/18 11:31 98.4 85 20 115/65 (82) 99 04/03/18 09:00 Room Air 04/03/18 08:07 98.0 83 20 111/67 (82) 99 04/03/18 04:00 97.2 76 18 104/60 (75) 97 04/03/18 00:00 98.0 79 18 112/68 (83) 100 04/02/18 21:00 Room Air 04/02/18 20:14 83 18 Room Air 21 04/02/18 20:00 98.1 83 18 118/77 (91) 99 04/02/18 16:00 98.3 81 20 108/63 (78) 99 Height (Feet): 6 Height (Inches): 2.00 Weight (Pounds): 226 HEENT: atraumatic Respiratory/Chest: no accessory muscle use Cardiovascular: regular rhythm Abdomen: no organomegaly Laboratory Tests Test 04/03/18 05:20 White Blood Count 4.2 K/UL (4.8-10.8) L Red Blood Count 5.20 M/UL (4.70-6.10) Hemoglobin 12.7 G/DL (14.2-18.0) L Hematocrit 39.2 % (42.0-52.0) L Mean Corpuscular Volume 75 FL (80-99) L Mean Corpuscular Hemoglobin 24.4 PG (27.0-31.0) L Mean Corpuscular Hemoglobin Concent 32.4 G/DL (32.0-36.0) Red Cell Distribution Width 15.6 % (11.6-14.8) H Platelet Count 281 K/UL (150-450) Mean Platelet Volume 7.8 FL (6.5-10.1) Neutrophils (%) (Auto) 54.8 % (45.0-75.0) Lymphocytes (%) (Auto) 33.5 % (20.0-45.0) Monocytes (%) (Auto) 6.6 % (1.0-10.0) Eosinophils (%) (Auto) 3.3 % (0.0-3.0) H Basophils (%) (Auto) 1.8 % (0.0-2.0) Sodium Level 139 MMOL/L (136-145) Potassium Level 3.9 MMOL/L (3.5-5.1) Chloride Level 106 MMOL/L (98-107) Carbon Dioxide Level 28 MMOL/L (21-32) Anion Gap 5 mmol/L (5-15) Blood Urea Nitrogen 15 mg/dL (7-18) Creatinine 0.9 MG/DL (0.55-1.30) Estimat Glomerular Filtration Rate > 60 mL/min (>60) Glucose Level 87 MG/DL (74-106) Calcium Level 8.5 MG/DL (8.5-10.1) Current Medications Medications (Trade) Dose Ordered Sig/Michael Route PRN Reason Start Time Stop Time Status Last Admin Dose Admin Acetaminophen (Tylenol) 650 mg Q4H PRN ORAL Mild Pain/Temp > 100.5 03/29/18 18:13 04/28/18 18:12 03/29/18 22:33 Acetaminophen/ Hydrocodone Bitart ([place] 10) 1 tab Q4H PRN ORAL for moderate pain 03/30/18 20:06 04/06/18 20:05 04/03/18 15:23 Dextrose (Dextrose 50%) 25 ml STAT PRN IV Hypoglycemia 03/29/18 15:45 04/28/18 15:44 Dextrose (Dextrose 50%) 50 ml Q30M PRN IV Hypoglycemia 03/29/18 15:45 04/28/18 15:44 Divalproex Sodium (Depakote ER) 1,000 mg BEDTIME ORAL 04/02/18 21:00 05/02/18 20:59 04/02/18 20:27 Docusate Sodium (Colace) 100 mg TWICE A DAY ORAL 03/31/18 09:00 04/30/18 08:59 03/31/18 08:53 Heparin Sodium (Porcine) (Heparin 5000 units/ml) 5,000 units EVERY 12 HOURS SUBQ 03/29/18 21:00 04/28/18 20:59 04/02/18 09:44 Lorazepam (Ativan) 2 mg Q6H PRN ORAL For Anxiety 04/01/18 18:14 04/08/18 18:13 Meropenem 1 gm/ Sodium Chloride 55 ml @ 110 mls/hr Q8HR IVPB 04/02/18 14:00 04/07/18 13:59 04/03/18 14:08 Morphine Sulfate (Morphine Sulfate) 2 mg Q4H PRN IVP SEVERE PAIN 03/30/18 20:07 04/05/18 15:44 03/30/18 21:58 Nitroglycerin (Ntg) 0.4 mg Q5M PRN SL Prn Chest Pain 03/29/18 15:45 04/28/18 15:44 Ondansetron HCl (Zofran) 4 mg Q6H PRN IVP Nausea & Vomiting 03/29/18 15:45 04/28/18 15:44 Polyethylene Glycol (Miralax) 17 gm DAILYPRN PRN ORAL Constipation 03/29/18 15:45 04/28/18 15:44 Risperidone (RisperDAL) 2 mg BEDTIME ORAL 04/01/18 21:00 05/01/18 20:59 04/02/18 20:27 Temazepam (Restoril) 15 mg HSPRN PRN ORAL Insomnia 03/29/18 15:45 04/05/18 15:44 Hai Jacob MD Apr 03, 2018 15:57
[2018-04-03 20:00] VITALS: BP 106/65
[2018-04-03] MEDS: Depakote ER 500mg tab ORAL SCH ×2 (20:21→20:30)
[2018-04-04] VITALS: BP 93/56
[2018-04-04 04:00] VITALS: BP 108/54
[2018-04-04] MEDS: Meropenem 1 GM in NS 55 ML IVPB SCH (05:15)
[2018-04-04 07:29] LABS: BASOPHILS % (AUTO) 1.8 % (0.0-2.0); EOSINOPHILS % (AUTO) 2.6 % (0.0-3.0); HEMATOCRIT 38.7 % (42.0-52.0); HEMOGLOBIN 12.9 G/DL (14.2-18.0); LYMPHOCYTES % (AUTO) 33.6 % (20.0-45.0); MEAN CORPUSCULAR VOLUME 75 FL (80-99); MONOCYTES % (AUTO) 5.8 % (1.0-10.0); NEUTROPHILS % (AUTO) 56.2 % (45.0-75.0); PLATELET COUNT 297 K/UL (150-450); RED BLOOD COUNT 5.14 M/UL (4.70-6.10); WHITE BLOOD COUNT 4.3 K/UL (4.8-10.8)
[2018-04-04 07:45] LABS: ANION GAP 8 mmol/L (5-15); BLOOD UREA NITROGEN 18 mg/dL (7-18); CARBON DIOXIDE 26 MMOL/L (21-32); CHLORIDE 106 MMOL/L (98-107); POTASSIUM 3.9 MMOL/L (3.5-5.1); SODIUM 140 MMOL/L (136-145)
[2018-04-04 07:47] VITALS: BP 102/65
--- NOTE | 2018-04-04 08:32 | General Progress Note ---
Assessment/Plan Problem List: (1) Acute bilateral low back pain ICD Codes: M54.5 - Low back pain SNOMED: 780743693 (2) Malnutrition ICD Codes: E46 - Unspecified protein-calorie malnutrition SNOMED: 87222847 (3) Asthma ICD Codes: J45.909 - Unspecified asthma, uncomplicated SNOMED: 479693334 (4) Injury of lower extremity ICD Codes: S89.90XA - Unspecified injury of unspecified lower leg, initial encounter SNOMED: 356612058 (5) Paraplegia ICD Codes: G82.20 - Paraplegia, unspecified SNOMED: 93909468 (6) UTI (urinary tract infection) ICD Codes: N39.0 - Urinary tract infection SNOMED: 51175936 Qualifiers: Qualified Codes: N39.0 - Urinary tract infection, site not specified (7) Foot ulcer ICD Codes: L97.509 - Non-pressure chronic ulcer of other part of unspecified foot with unspecified severity SNOMED: 09582250 Qualifiers: Qualified Codes: L97.512 - Non-pressure chronic ulcer of other part of right foot with fat layer exposed (8) Pain in limb ICD Codes: M79.609 - Pain in limb SNOMED: 81861800 Status: stable, progressing Assessment/Plan ot pt siet wound care abx pain control psyc eval cbc bmp am dc plan snf Subjective Constitutional: Reports: weakness Allergies: Coded Allergies: No Known Allergies (Unverified , 10/04/14) All Systems: reviewed and negative except above Subjective calm in bed sleepy Objective Last 24 Hour Vital Signs Date Time Temp Pulse Resp B/P (MAP) Pulse Ox O2 Delivery O2 Flow Rate FiO2 04/04/18 07:47 97.3 90 20 102/65 (77) 100 04/04/18 04:00 97.0 64 19 108/54 (72) 97 04/04/18 00:00 98.0 77 19 93/56 (68) 100 04/03/18 21:00 Room Air 04/03/18 20:00 98.2 85 18 106/65 (79) 98 04/03/18 15:32 98.0 84 20 111/74 (86) 99 04/03/18 11:31 98.4 85 20 115/65 (82) 99 04/03/18 09:00 Room Air Intake and Output 04/03/18 04/04/18 19:00 07:00 Intake Total 1255 ml 1600 ml Output Total 1800 ml 1450 ml Balance -545 ml 150 ml Intake Oral 1200 ml 1600 ml IV Total 55 ml Output Urine Total 1800 ml 1450 ml Laboratory Tests 04/04/18 06:00: White Blood Count 4.3L, Red Blood Count 5.14, Hemoglobin 12.9L, Hematocrit 38.7L , Mean Corpuscular Volume 75L, Mean Corpuscular Hemoglobin 25.1L, Mean Corpuscular Hemoglobin Concent 33.4, Red Cell Distribution Width 16.0H, Platelet Count 297, Mean Platelet Volume 9.0, Neutrophils (%) (Auto) 56.2, Lymphocytes (%) (Auto) 33.6, Monocytes (%) (Auto) 5.8, Eosinophils (%) (Auto) 2.6, Basophils (%) (Auto) 1.8, Sodium Level 140, Potassium Level 3.9, Chloride Level 106, Carbon Dioxide Level 26, Anion Gap 8, Blood Urea Nitrogen 18, Creatinine 1.0, Estimat Glomerular Filtration Rate > 60, Glucose Level 90, Calcium Level 9.0 Height (Feet): 6 Height (Inches): 2.00 Weight (Pounds): 226 General Appearance: lethargic EENT: normal ENT inspection Neck: normal alignment Cardiovascular: normal peripheral pulses, normal rate, regular rhythm Respiratory/Chest: chest wall non-tender, lungs clear, normal breath sounds Abdomen: normal bowel sounds, non tender, soft Extremities: normal inspection Edema: no edema noted Arm (L), no edema noted Arm (R), no edema noted Leg (L), no edema noted Leg (R), no edema noted Pedal (L), no edema noted Pedal (R), no edema noted Generalized Neurologic: motor weakness Skin: normal pigmentation, warm/dry Mt Collins DO Apr 04, 2018 08:32
[2018-04-04] MEDS: Docusate 100mg cap ORAL SCH (09:00)
[2018-04-04] MEDS: Heparin 5000 units/ml inj SUBQ SCH (10:12)
[2018-04-04] MEDS: HYDROcodone/Acetamin 10/325 tab ORAL PRN (10:13)
[2018-04-04 11:21] VITALS: BP 110/68
--- NOTE | 2018-04-04 11:46 | Infectious Diseases Prog Note ---
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 seizure disorder. History of polysubstance abuse (marijuana and crystal) PLAN: Cont pt on IV Merrem d# and change to Invanz upon discharge to complete the course -03/31 Sp IV vancomycin and cefepime d # 2 -Monitor CBC -Monitor BMP -Monitor cultures - PICC before DC Subjective Allergies: Coded Allergies: No Known Allergies (Unverified , 10/04/14) Subjective afebrile at RA no leukocytosis Objective Vital Signs Last 24 Hour Vital Signs Date Time Temp Pulse Resp B/P (MAP) Pulse Ox O2 Delivery O2 Flow Rate FiO2 04/04/18 11:21 98.0 86 20 110/68 (82) 100 04/04/18 10:43 97.3 04/04/18 09:00 Room Air 04/04/18 07:47 97.3 90 20 102/65 (77) 100 04/04/18 04:00 97.0 64 19 108/54 (72) 97 04/04/18 00:00 98.0 77 19 93/56 (68) 100 04/03/18 21:00 Room Air 04/03/18 20:00 98.2 85 18 106/65 (79) 98 04/03/18 15:32 98.0 84 20 111/74 (86) 99 Height (Feet): 6 Height (Inches): 2.00 Weight (Pounds): 226 Objective General Appearance: lethargic EENT: normal ENT inspection Neck: normal alignment Cardiovascular: normal peripheral pulses, normal rate, regular rhythm Respiratory/Chest: chest wall non-tender, lungs clear, normal breath sounds Abdomen: normal bowel sounds, non tender, soft Extremities: normal inspection Neurologic: motor weakness Skin: normal pigmentation, warm/dry Laboratory Tests Test 04/04/18 06:00 White Blood Count 4.3 K/UL (4.8-10.8) L Red Blood Count 5.14 M/UL (4.70-6.10) Hemoglobin 12.9 G/DL (14.2-18.0) L Hematocrit 38.7 % (42.0-52.0) L Mean Corpuscular Volume 75 FL (80-99) L Mean Corpuscular Hemoglobin 25.1 PG (27.0-31.0) L Mean Corpuscular Hemoglobin Concent 33.4 G/DL (32.0-36.0) Red Cell Distribution Width 16.0 % (11.6-14.8) H Platelet Count 297 K/UL (150-450) Mean Platelet Volume 9.0 FL (6.5-10.1) Neutrophils (%) (Auto) 56.2 % (45.0-75.0) Lymphocytes (%) (Auto) 33.6 % (20.0-45.0) Monocytes (%) (Auto) 5.8 % (1.0-10.0) Eosinophils (%) (Auto) 2.6 % (0.0-3.0) Basophils (%) (Auto) 1.8 % (0.0-2.0) Sodium Level 140 MMOL/L (136-145) Potassium Level 3.9 MMOL/L (3.5-5.1) Chloride Level 106 MMOL/L (98-107) Carbon Dioxide Level 26 MMOL/L (21-32) Anion Gap 8 mmol/L (5-15) Blood Urea Nitrogen 18 mg/dL (7-18) Creatinine 1.0 MG/DL (0.55-1.30) Estimat Glomerular Filtration Rate > 60 mL/min (>60) Glucose Level 90 MG/DL (74-106) Calcium Level 9.0 MG/DL (8.5-10.1) Current Medications Medications (Trade) Dose Ordered Sig/Michael Route PRN Reason Start Time Stop Time Status Last Admin Dose Admin Acetaminophen (Tylenol) 650 mg Q4H PRN ORAL Mild Pain/Temp > 100.5 03/29/18 18:13 04/28/18 18:12 03/29/18 22:33 Acetaminophen/ Hydrocodone Bitart ([place] ) 1 tab Q4H PRN ORAL for moderate pain 03/30/18 20:06 04/06/18 20:05 04/04/18 10:13 Dextrose (Dextrose 50%) 25 ml STAT PRN IV Hypoglycemia 03/29/18 15:45 04/28/18 15:44 Dextrose (Dextrose 50%) 50 ml Q30M PRN IV Hypoglycemia 03/29/18 15:45 04/28/18 15:44 Divalproex Sodium (Depakote ER) 1,000 mg BEDTIME ORAL 04/02/18 21:00 05/02/18 20:59 04/02/18 20:27 Docusate Sodium (Colace) 100 mg TWICE A DAY ORAL 03/31/18 09:00 04/30/18 08:59 03/31/18 08:53 Heparin Sodium (Porcine) (Heparin 5000 units/ml) 5,000 units EVERY 12 HOURS SUBQ 03/29/18 21:00 04/28/18 20:59 04/04/18 10:12 Lorazepam (Ativan) 2 mg Q6H PRN ORAL For Anxiety 04/01/18 18:14 04/08/18 18:13 Meropenem 1 gm/ Sodium Chloride 55 ml @ 110 mls/hr Q8HR IVPB 04/02/18 14:00 04/07/18 13:59 04/04/18 05:15 Morphine Sulfate (Morphine Sulfate) 2 mg Q4H PRN IVP SEVERE PAIN 03/30/18 20:07 04/05/18 15:44 03/30/18 21:58 Nitroglycerin (Ntg) 0.4 mg Q5M PRN SL Prn Chest Pain 03/29/18 15:45 04/28/18 15:44 Ondansetron HCl (Zofran) 4 mg Q6H PRN IVP Nausea & Vomiting 03/29/18 15:45 04/28/18 15:44 Polyethylene Glycol (Miralax) 17 gm DAILYPRN PRN ORAL Constipation 03/29/18 15:45 04/28/18 15:44 Risperidone (RisperDAL) 2 mg BEDTIME ORAL 04/01/18 21:00 05/01/18 20:59 04/03/18 20:21 Temazepam (Restoril) 15 mg HSPRN PRN ORAL Insomnia 03/29/18 15:45 04/05/18 15:44 Liliana Gottlieb M.D. Apr 04, 2018 11:46
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
== END 2018-04-04 12:30 | disposition left against medical advice (07) | DRG 380 ==
LOC: EDBD 07:48 → EDBEDREQ 10:14 → EMR 10:45 → EDBEDREQ 11:16 → 4E 11:35
DX: L89.314 Pressure ulcer of right buttock, stage 4 (principal); G82.20 Paraplegia, unspecified; E46 Unspecified protein-calorie malnutrition; F25.0 Schizoaffective disorder, bipolar type; M86.68 Other chronic osteomyelitis, other site; L97.519 Non-pressure chronic ulcer of other part of right foot with unspecified severity; M54.9 Dorsalgia, unspecified; T14.8XXS Other injury of unspecified body region, sequela; W34.00XS Accidental discharge from unspecified firearms or gun, sequela; J45.909 Unspecified asthma, uncomplicated; Z59.0 Homelessness; Z99.3 Dependence on wheelchair; F15.21 Other stimulant dependence, in remission; F12.21 Cannabis dependence, in remission; F60.2 Antisocial personality disorder; M54.5 Low back pain; B96.4 Proteus (mirabilis) (morganii) as the cause of diseases classified elsewhere; Z16.12 Extended spectrum beta lactamase (ESBL) resistance
CPT/HCPCS: 36415; 71045; 72192; 80048; 80053; 80202; 80307; 80329; 81001; 83615; 83735; 84100; 85025; 85610; 85651; 85730; 86140; 86850; 86900; 86901; 87070; 87081; 87181; 87205; 93970; 94664; 96365; 96367; 96368; 97803; 99285

== ENCOUNTER 2018-05-01 14:35 | Inpatient (IN) | payer OTHER ==
[~2018-05-01] VITALS: Ht 188 cm; Wt 106.3 kg
[2018-05-01 14:35] VITALS: BP 103/60
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
[2018-05-01 15:38] LABS: HEMATOCRIT 41.6 % (42.0-52.0); HEMOGLOBIN 12.5 G/DL (14.2-18.0); MEAN CORPUSCULAR VOLUME 74 FL (80-99); PLATELET COUNT 271 K/UL (150-450); RED BLOOD COUNT 5.65 M/UL (4.70-6.10); RED CELL DISTRIBUTION WIDTH 14.2 % (11.6-14.8); WHITE BLOOD COUNT 15.1 K/UL (4.8-10.8)
[2018-05-01 15:40] LABS: BASOPHILS % (AUTO) 0.8 % (0.0-2.0); EOSINOPHILS % (AUTO) 0.4 % (0.0-3.0); LYMPHOCYTES % (AUTO) 3.4 % (20.0-45.0); MONOCYTES % (AUTO) 3.9 % (1.0-10.0); NEUTROPHILS % (AUTO) 91.5 % (45.0-75.0)
[2018-05-01 15:43] LABS: APPEARANCE,URINE CLEAR; BILIRUBIN, URINE NEGATIVE (NEGATIVE); GLUCOSE, URINE (UA) NEGATIVE (NEGATIVE); KETONES,URINE 2+ (NEGATIVE); LEUKOCYTE ESTERASE ,URINE 1+ (NEGATIVE); NITRITE,URINE NEGATIVE (NEGATIVE); PH,URINE 5 (4.5-8.0); PROTEIN,URINE 1+ (NEGATIVE); UROBILINOGEN,URINE NORMAL MG/DL (0.0-1.0)
[2018-05-01 15:44] LABS: COLOR,URINE YELLOW
[2018-05-01 15:48] LABS: ANION GAP 12 mmol/L (5-15); BLOOD UREA NITROGEN 11 mg/dL (7-18); CALCIUM 9.4 MG/DL (8.5-10.1); CARBON DIOXIDE 23 MMOL/L (21-32); CHLORIDE 100 MMOL/L (98-107); CREATININE 1.1 MG/DL (0.55-1.30); POTASSIUM 3.6 MMOL/L (3.5-5.1); SODIUM 135 MMOL/L (136-145)
[2018-05-01 16:11] LABS: ALANINE AMINOTRANSFERASE 18 U/L (12-78); ALBUMIN 3.3 G/DL (3.4-5.0); ALBUMIN/GLOBULIN RATIO 0.6 (1.0-2.7); ALKALINE PHOSPHATASE 96 U/L (46-116); ASPARTATE AMINO TRANSFERASE 18 U/L (15-37); BILIRUBIN,TOTAL 0.6 MG/DL (0.2-1.0); CKMB 2.2 NG/ML (0.0-3.6); CREATINE KINASE 188 U/L (26-308)
[2018-05-01] MEDS ORDERED: Meropenem 1 GM in NS 55 ML IVPB ONE (16:30)
[2018-05-01] MEDS ORDERED: Vancomycin 1 GM in NS 275 ML IVPB ONE (16:30)
[2018-05-01 17:20] VITALS: BP 158/88
--- NOTE | 2018-05-01 17:37 | Diagnostic Imaging Report ---
EXAM: XR Right Foot, 2 Views CLINICAL HISTORY: INFECT TECHNIQUE: Frontal and lateral views of the right foot. COMPARISON: No relevant prior studies available. FINDINGS: Bones/joints: No apparent fracture or destructive changes. Osteopenia. Soft tissues: Soft tissue swelling. Other findings: Ankylosis of the proximal third and fourth metatarsals. IMPRESSION: No apparent fracture or destructive changes. MRI/bone scan is more sensitive if warranted.
--- NOTE | 2018-05-01 17:38 | Diagnostic Imaging Report ---
EXAM: XR Right Ankle, 2 Views CLINICAL HISTORY: INFECT TECHNIQUE: Frontal and lateral views of the right ankle. COMPARISON: No relevant prior studies available. FINDINGS: Bones/joints: No fracture or destructive changes. Degenerative changes. Osteopenia. Soft tissues: Soft tissue swelling. IMPRESSION: Soft tissue swelling. No fracture or destructive changes.
[2018-05-01] MEDS ORDERED: Norco 5mg/325mg tab ORAL ONE (18:15)
[2018-05-01] MEDS ORDERED: Ketorolac 30mg Inj IV ONE (18:15)
[2018-05-01 19:20] VITALS: BP 156/80
[2018-05-01 20:00] VITALS: BP 147/99
[2018-05-01] MEDS ORDERED: Nitroglycerin Subl 0.4mg tab SL PRN (21:00)
[2018-05-01] MEDS: Heparin 5000 units/ml inj SUBQ SCH (21:00)
[2018-05-01] MEDS ORDERED: Miralax 17gm pkt ORAL PRN (21:00)
[2018-05-01] MEDS ORDERED: Albuterol/Ipratropium 3ml neb HHN PRN (21:00)
[2018-05-01] MEDS: Morphine Sulfate 2mg/ml Inj IVP PRN (22:26)
[2018-05-02] VITALS: BP 130/80
[2018-05-02] MEDS ORDERED: Vancomycin 1 GM in D5W 275 ML IV SCH (00:30)
[2018-05-02] MEDS: Vancomycin 1250mg/D5W 250ml IVPB SCH ×3 (00:56→17:25)
[2018-05-02] MEDS ORDERED: Gadavist 7.5mMol/7.5ml vial IV PRN ×2 (01:30)
[2018-05-02 04:00] VITALS: BP 121/79
[2018-05-02 07:30] LABS: BASOPHILS % (AUTO) 1.8 % (0.0-2.0); EOSINOPHILS % (AUTO) 1.3 % (0.0-3.0); HEMATOCRIT 37.7 % (42.0-52.0); HEMOGLOBIN 12.3 G/DL (14.2-18.0); LYMPHOCYTES % (AUTO) 17.8 % (20.0-45.0); MEAN CORPUSCULAR VOLUME 74 FL (80-99); MONOCYTES % (AUTO) 8.6 % (1.0-10.0); NEUTROPHILS % (AUTO) 70.6 % (45.0-75.0); PLATELET COUNT 302 K/UL (150-450); RED BLOOD COUNT 5.07 M/UL (4.70-6.10); RED CELL DISTRIBUTION WIDTH 14.5 % (11.6-14.8); WHITE BLOOD COUNT 5.1 K/UL (4.8-10.8)
[2018-05-02 07:48] LABS: ALANINE AMINOTRANSFERASE 16 U/L (12-78); ALBUMIN 2.7 G/DL (3.4-5.0); ALBUMIN/GLOBULIN RATIO 0.5 (1.0-2.7); ALKALINE PHOSPHATASE 81 U/L (46-116); ANION GAP 7 mmol/L (5-15); ASPARTATE AMINO TRANSFERASE 19 U/L (15-37); BILIRUBIN,TOTAL 0.4 MG/DL (0.2-1.0); BLOOD UREA NITROGEN 14 mg/dL (7-18); CALCIUM 8.2 MG/DL (8.5-10.1); CARBON DIOXIDE 27 MMOL/L (21-32); CHLORIDE 103 MMOL/L (98-107); CREATININE 0.9 MG/DL (0.55-1.30); POTASSIUM 3.5 MMOL/L (3.5-5.1); SODIUM 137 MMOL/L (136-145)
[2018-05-02 08:00] VITALS: BP 127/80
[2018-05-02] MEDS: Morphine Sulfate 2mg/ml Inj IVP PRN ×4 (08:51→23:08)
[2018-05-02] MEDS: Heparin 5000 units/ml inj SUBQ SCH ×2 (08:52→21:50)
[2018-05-02] MEDS ORDERED: Dakin's 0.5% (Full Strength) 16oz TOPIC SCH (09:00)
[2018-05-02] MEDS: Dakin's 0.5% (Full Strength) 16oz TOPIC SCH (09:05)
--- NOTE | 2018-05-02 09:26 | Consultation ---
Consult Note Consult Note REASON FOR CONSULTATION: Evaluation of the patient for infection, Fever osteomyelitis. HISTORY OF PRESENT ILLNESS: The patient is a 42-year-old male with multiple medical problems, who was admitted to this medical center due to worsening of the wounds and fever. The patient was recently admitted to this medical center and was found to have osteo of pelvic bone, was started and DC on IV Invanz , pt DCed to SNF for cont of ABV Rx but left SNF to streets to do drugs. An Infectious Disease consultation has been requested for further evaluation of the patient and antibiotic management. The patient overall is a poor historian. Much of the information is gathered through the chart and speaking to the staff. ALLERGIES: PCN ( tolerated Carbapenem) MEDICATIONS: IV vancomycin and Merrem SOCIAL HISTORY: The patient is homeless. Denied IVDA PAST MEDICAL HISTORY: 1. Significant for multiple decubitus including right buttock wound and pelvic osteo 2. Questionable history of seizure disorder. 3. History of polysubstance abuse (marijuana and crystal). PHYSICAL EXAMINATION: VITAL SIGNS: Temperature 98, pulse 86, respiratory rate 18, and blood pressure 113/75 HEENT: No pale conjunctivae. No icterus. NECK: No lymphadenopathy. CHEST: Bilateral air entry. HEART: S1 and S2. ABDOMEN: Soft and nontender. EXTREMITIES: The patient has left lower extremity decubitus / Cellulitis Right buttock decubitus, no purulent discharge NEUROLOGIC: Awake and alert. LABORATORY AND DIAGNOSTIC DATA: reviewed White blood cells 4.8, blood cx : GPC ASSESSMENT: The patient is a 42-year-old male with: Leukocytosis, SP +ve Blood cx GPC Right lower extremity wound, / Cellulitis Wcx: MRSA: Right buttock tunneled wound / pelvic osteomyelitis Wnd Cx : ESBL- P Mirabilis CT: Grade 4 decubitus ulcer on the right tracking to the right ischial tuberosity with evidence of chronic osteomyelitis ? seizure disorder. History of polysubstance abuse (marijuana and crystal) PLAN: Cont pt on IV Merrem and IV Vanco d# 1 ( pt did not complete the previous course of AB Rx , left SNF after one wk) -03/31 Sp IV vancomycin and cefepime d # 2 -Monitor CBC -Monitor BMP -Monitor cultures ( Rpt blood cx ) - 2D Echo - Influenza Screen Thank you will follow Hai Jacob MD May 02, 2018 09:26
--- NOTE | 2018-05-02 10:30 | History and Physical Report ---
DATE OF ADMISSION: 05/01/2018 APPROXIMATE TIME: 8 a.m. CONSULTANTS: 1. Hai Jacob M.D. 2. Isidro Worthy D.P.M. 3. Francheska Armas M.D. CHIEF COMPLAINT: Right foot cellulitis. BRIEF HISTORY: This is a 42-year-old male, who lives at home, presents to [facility] last night with history of worsening right foot cellulitis, diagnosed with the above, admitted to medical floor for further treatment. Currently calm, in bed. No complaint. No chest pain. No shortness of breath. No nausea, vomiting, or diarrhea. PAST MEDICAL HISTORY: Includes paraplegia, spinal cord injury, homeless, osteomyelitis, asthma and . PAST SURGICAL HISTORY: Unknown. MEDICATIONS: Include vancomycin, nitroglycerin, temazepam, Zofran, morphine, and albuterol. ALLERGIES: Penicillin G. SOCIAL HISTORY: No smoking. Positive alcohol. No intravenous drug abuse. FAMILY HISTORY: Noncontributory. PHYSICAL EXAMINATION: GENERAL: Calm in bed, oriented x2, in no acute distress. VITAL SIGNS: Temperature is 97 degrees, pulse 113, respirations 20, and blood pressure 127/80. CARDIOVASCULAR: No murmur. LUNGS: Distant and clear. ABDOMEN: Bowel sounds positive. Nontender and nondistended. EXTREMITIES: No cyanosis or edema. The right foot dressing slightly disheveled, but no bleeding. NEUROLOGIC: The patient moves all extremities, slightly weak. LABORATORY DATA: At this time show hemoglobin and hematocrit 12 and 37. Otherwise, CBC is normal. BMP is normal. Calcium 8.2 and albumin 2.7. Troponin 0.00. Urinalysis showed 1+ leukocyte esterase. ASSESSMENT: 1. Right foot cellulitis. 2. Urinary tract infection. 3. Paraplegia. 4. Spinal cord injury. 5. Asthma. 6. Osteomyelitis. 7. Anemia. 8. Malnutrition. PLAN: 1. Wound care. 2. Antibiotics per Infectious Disease. 3. OT, PT, and dietary followup. 4. Resume home medications. 5. Pain control. 6. We will continue to follow this patient. 7. CBC and BMP in the morning. [place] D.O. DR: MITCH JOB#: [id number] CC:
[2018-05-02 12:00] VITALS: BP 135/78
[2018-05-02] MEDS: Meropenem 1 GM in NS 55 ML IVPB SCH ×2 (13:35→21:52)
[2018-05-02 16:00] VITALS: BP 130/84
[2018-05-02] MEDS ORDERED: Isovue-370 150ml vial INJ PRN (18:15)
--- NOTE | 2018-05-02 18:26 | General Progress Note ---
Progress Note Progress Note Patient seen and examined Consult dictated # [id number] Jeramie Cummings MD May 02, 2018 18:26
[2018-05-02 20:00] VITALS: BP 146/59
[2018-05-02] MEDS: Betadine 4oz Bottle TOPIC SCH (21:47)
--- NOTE | 2018-05-02 21:49 | Podiatric Progress Note ---
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 Continue IV abx. MRI pending. patient will be followed Subjective Reason for consult R foot DM ulcer with cellulitis Constitutional: pain increased Allergies: Coded Allergies: PENICILLIN G (Verified Allergy, Unknown, 05/01/18) Subjective Patient seen by bedside in NAD admitted last night from the ER. Patient presented to the ER with Dm foot infection to the R foot. He states he has had the foot ulcer for the past 12 months and has been treated by himself and family. He was recently admitted to a Hospital about a month ago and was discharged with topical cream for local wound care. He a poor historian and very difficult to obtain information from. ER diagnosed him with Dm foot infection to the R foot with cellulitis with maggots. WBC of 15.000 Order was given for wound cultures, Dakin/Ns solution 50/50 to control the odor and maggots. order was given for MRI. ID and Vascular were consulted on the case. Objective Exam Last 24 Hour Vital Signs Date Time Temp Pulse Resp B/P (MAP) Pulse Ox O2 Delivery O2 Flow Rate FiO2 05/02/18 20:20 99 Room Air 05/02/18 18:05 98.0 05/02/18 16:00 98.0 110 20 130/84 (99) 99 05/02/18 12:00 98.9 111 20 135/78 (97) 99 05/02/18 09:00 Room Air 05/02/18 08:00 97.8 113 20 127/80 (96) 99 05/02/18 04:00 98.8 85 19 121/79 (93) 99 05/02/18 01:29 114 20 Room Air 21 05/02/18 00:00 98.5 91 18 130/80 (97) 99 Laboratory Tests Test 05/02/18 06:50 05/02/18 15:45 White Blood Count 5.1 K/UL (4.8-10.8) # Red Blood Count 5.07 M/UL (4.70-6.10) Hemoglobin 12.3 G/DL (14.2-18.0) L Hematocrit 37.7 % (42.0-52.0) L Mean Corpuscular Volume 74 FL (80-99) L Mean Corpuscular Hemoglobin 24.2 PG (27.0-31.0) L Mean Corpuscular Hemoglobin Concent 32.5 G/DL (32.0-36.0) Red Cell Distribution Width 14.5 % (11.6-14.8) Platelet Count 302 K/UL (150-450) Mean Platelet Volume 7.3 FL (6.5-10.1) Neutrophils (%) (Auto) 70.6 % (45.0-75.0) Lymphocytes (%) (Auto) 17.8 % (20.0-45.0) L Monocytes (%) (Auto) 8.6 % (1.0-10.0) Eosinophils (%) (Auto) 1.3 % (0.0-3.0) Basophils (%) (Auto) 1.8 % (0.0-2.0) Sodium Level 137 MMOL/L (136-145) Potassium Level 3.5 MMOL/L (3.5-5.1) Chloride Level 103 MMOL/L (98-107) Carbon Dioxide Level 27 MMOL/L (21-32) Anion Gap 7 mmol/L (5-15) Blood Urea Nitrogen 14 mg/dL (7-18) Creatinine 0.9 MG/DL (0.55-1.30) Estimat Glomerular Filtration Rate > 60 mL/min (>60) Glucose Level 98 MG/DL (74-106) Calcium Level 8.2 MG/DL (8.5-10.1) L Total Bilirubin 0.4 MG/DL (0.2-1.0) Aspartate Amino Transf (AST/SGOT) 19 U/L (15-37) Alanine Aminotransferase (ALT/SGPT) 16 U/L (12-78) Alkaline Phosphatase 81 U/L (46-116) Total Protein 7.9 G/DL (6.4-8.2) Albumin 2.7 G/DL (3.4-5.0) L Globulin 5.2 g/dL Albumin/Globulin Ratio 0.5 (1.0-2.7) L Vancomycin Level Trough 18.8 ug/mL (5.0-12.0) H Microbiology Date/Time Source Procedure Growth Status 05/01/18 14:50 Blood Blood Culture - Preliminary Gram Positive Cocci Resulted Vascular Pulses: 0 dorsalis pedis (R), 0 posterior tibial (R), 0 posterior tibial (L); 1 dorsalis pedis (L) Edema: 1+ (<2mm) foot (L); 2+ (2-4mm) foot (R); 1+ (<2mm) ankle (L); 2+ (2-4mm ) ankle (R), 2+ (2-4mm) leg (R) Pedal hair present: No Temperature: within normal limits Neurological Light touch: decreased sensation right, decreased sensation left Dermatological Dermatological Narrative R foot ulceration noted to the dorsal aspect of the of the foot extended to the subq, bloody drainage noted + odor, cellulitis is noted to the dorsal foot. no pus no probing or undermining. slight skin necrosis is noted to the dorsal foot. ' R lateral foot/ ankle ulceration noted extensive, extended anterior ankle to posterior ankle and proximal lateral leg. beefy granulation base noted. mid ankle noted to have necrotic sluff. bloody drainage. no discharge , pus, probing or undermining noted. wound is extended to subq/fatty layer. cellulitis is extended from distal foot to med leg. edema is noted along the leg and wound area. Kirill Cedeño DPM May 02, 2018 21:49
[2018-05-03] VITALS: BP 124/73
--- NOTE | 2018-05-03 00:01 | Diagnostic Imaging Report ---
EXAM: CT Abdomen With Intravenous Contrast CLINICAL HISTORY: INFECT TECHNIQUE: Axial computed tomography images of the abdomen with intravenous contrast during the arterial phase of enhancement. CTDI is 12.92 mGy and DLP is 2039.41 mGy-cm. One or more of the following dose reduction techniques were used: automated exposure control, adjustment of the mA and/or kV according to patient size, use of iterative reconstruction technique. COMPARISON: No relevant prior studies available. FINDINGS: Limitations: Thickening and irregular bladder wall with areas of trabeculation posteriorly, although the bladder is not fully distended, limiting assessment. Aorta: No acute findings. No abdominal aortic aneurysm. No dissection. Celiac trunk and mesenteric arteries: No acute findings. No occlusion or significant stenosis. Renal arteries: No acute findings. No occlusion or significant stenosis. Lung bases: Unremarkable. No mass. No consolidation. Liver: Unremarkable. No mass. Gallbladder and bile ducts: Unremarkable. No calcified stones. No ductal dilation. Pancreas: Unremarkable. No ductal dilation. No mass. Spleen: Unremarkable. No splenomegaly. Adrenals: Unremarkable. No mass. Kidneys and ureters: Unremarkable. No hydronephrosis. No solid mass. Stomach and bowel: Unremarkable. No obstruction. No mucosal thickening. Intraperitoneal space: Unremarkable. No significant fluid collection. No free air. Bones/joints: Large right sacral decubitus ulcer extending to the right ischial tuberosity. No acute fracture. No dislocation. Soft tissues: Small fat-containing umbilical hernia. Lymph nodes: Probably reactive right groin adenopathy. Other findings: No significant stenosis, thrombosis, aneurysm or dissection. Sclerotic and enlarged appearance of the right posterior cerebral tuberosity. IMPRESSION: Thickening and irregular bladder wall with areas of trabeculation posteriorly, although the bladder is not fully distended, limiting assessment. Consider infection, neurogenic bladder or sequela of chronic obstruction. Large right sacral decubitus ulcer extending to the right ischial tuberosity. No abscess. Sclerotic and enlarged appearance of the right posterior cerebral tuberosity. Consider osteomyelitis. EXAM: CT of the Left Lower Extremity With Intravenous Contrast CLINICAL HISTORY: INFECT TECHNIQUE: Axial computed tomography images of the left lower extremity with intravenous contrast during the arterial phase of contrast enhancement. CTDI is 12.92 mGy and DLP is 2039.41 mGy-cm. One or more of the following dose reduction techniques were used: automated exposure control, adjustment of the mA and/or kV according to patient size, use of iterative reconstruction technique. COMPARISON: No relevant prior studies available. FINDINGS: VASCULATURE: Left femoral/popliteal arteries: No acute findings. No occlusion or significant stenosis. Left calf/foot arteries: No acute findings. No occlusion or significant stenosis. LOWER EXTREMITY: Bones/joints: No acute fracture. No dislocation. Soft tissues: Unremarkable. No abnormal contrast enhancement. Other findings: No significant stenosis, thrombosis, aneurysm or dissection. IMPRESSION: No evidence for infection. EXAM: CT Angiography of the Right Lower Extremity With Intravenous Contrast CLINICAL HISTORY: INFECT TECHNIQUE: Axial computed tomographic angiography images of the right lower extremity with intravenous contrast using CT angiography protocol. CTDI is 12.92 mGy and DLP is 2039.41 mGy-cm. One or more of the following dose reduction techniques were used: automated exposure control, adjustment of the mA and/or kV according to patient size, use of iterative reconstruction technique. MIP reconstructed images were created and reviewed. COMPARISON: No relevant prior studies available. FINDINGS: VASCULATURE: Right femoral/popliteal arteries: No acute findings. No occlusion or significant stenosis. Right calf/foot arteries: No acute findings. No occlusion or significant stenosis. LOWER EXTREMITY: Bones/joints: Large right sacral decubitus ulcer extending to the right ischial tuberosity. Sclerotic and enlarged appearance of the right posterior ischial tuberosity. Consider osteomyelitis. No acute fracture. No dislocation. Soft tissues: Diffusely patchy appearance of the musculature of the right thigh as compared to the left Subcutaneous edema involving the foot, ankle, and distal lower extremity below the knee. Consider cellulitis in the right clinical setting. Lymph nodes: Probably reactive right groin adenopathy. Other findings: No significant stenosis, thrombosis, aneurysm or dissection. IMPRESSION: Sclerotic and enlarged appearance of the right posterior ischial tuberosity. Consider osteomyelitis. No soft tissue abscess. Subcutaneous edema involving the foot, ankle, and distal lower extremity below the knee. Consider cellulitis in the right clinical setting.
[2018-05-03] MEDS: Betadine 4oz Bottle TOPIC SCH ×4 (00:36→18:00)
[2018-05-03] MEDS: Vancomycin 1250mg/D5W 250ml IVPB SCH ×2 (02:10→09:38)
[2018-05-03 04:00] VITALS: BP 136/78
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
[2018-05-03] MEDS: Meropenem 1 GM in NS 55 ML IVPB SCH ×3 (04:47→21:31)
[2018-05-03 08:00] VITALS: BP 123/77
[2018-05-03 08:28] LABS: BASOPHILS % (AUTO) 1.4 % (0.0-2.0); HEMATOCRIT 37.8 % (42.0-52.0); HEMOGLOBIN 12.3 G/DL (14.2-18.0); LYMPHOCYTES % (AUTO) 17.1 % (20.0-45.0); MEAN CORPUSCULAR VOLUME 75 FL (80-99); MONOCYTES % (AUTO) 10.8 % (1.0-10.0); NEUTROPHILS % (AUTO) 67.8 % (45.0-75.0); PLATELET COUNT 269 K/UL (150-450); RED BLOOD COUNT 5.05 M/UL (4.70-6.10); WHITE BLOOD COUNT 5.8 K/UL (4.8-10.8)
[2018-05-03 08:33] LABS: ANION GAP 8 mmol/L (5-15); BLOOD UREA NITROGEN 10 mg/dL (7-18); CALCIUM 8.6 MG/DL (8.5-10.1); CARBON DIOXIDE 26 MMOL/L (21-32); CHLORIDE 102 MMOL/L (98-107); CREATININE 0.8 MG/DL (0.55-1.30); POTASSIUM 3.7 MMOL/L (3.5-5.1); SODIUM 136 MMOL/L (136-145)
--- NOTE | 2018-05-03 08:50 | General Progress Note ---
Assessment/Plan Problem List: (1) Anemia ICD Codes: D64.9 - Anemia, unspecified SNOMED: 594810231 (2) Injury of lower extremity ICD Codes: S89.90XA - Unspecified injury of unspecified lower leg, initial encounter SNOMED: 869885051 (3) Paraplegia ICD Codes: G82.20 - Paraplegia, unspecified SNOMED: 76093097 (4) Malnutrition ICD Codes: E46 - Unspecified protein-calorie malnutrition SNOMED: 19937581 (5) Asthma ICD Codes: J45.909 - Unspecified asthma, uncomplicated SNOMED: 566216695 (6) Cellulitis ICD Codes: L03.90 - Cellulitis, unspecified SNOMED: 811119984 (7) Osteomyelitis ICD Codes: M86.9 - Osteomyelitis, unspecified SNOMED: 90664534 Status: unchanged Assessment/Plan wound care abx ot pt diet cbc bmp am Subjective Constitutional: Reports: weakness Allergies: Coded Allergies: PENICILLIN G (Verified Allergy, Unknown, 05/01/18) All Systems: reviewed and negative except above Subjective sleepy in bed calm Objective Last 24 Hour Vital Signs Date Time Temp Pulse Resp B/P (MAP) Pulse Ox O2 Delivery O2 Flow Rate FiO2 05/03/18 07:37 98 Room Air 21 05/03/18 04:00 99.0 111 19 136/78 (97) 98 05/03/18 00:00 100.0 112 19 124/73 (90) 96 05/02/18 23:38 98.0 05/02/18 21:00 Room Air 05/02/18 20:20 99 Room Air 05/02/18 20:00 96.8 103 20 146/59 (88) 100 05/02/18 16:00 98.0 110 20 130/84 (99) 99 05/02/18 12:00 98.9 111 20 135/78 (97) 99 05/02/18 09:00 Room Air Intake and Output 05/02/18 05/03/18 19:00 07:00 Intake Total 2745 ml 1380.000 ml Output Total 900 ml 1200 ml Balance 1845 ml 180.000 ml Intake Oral 2190 ml 1020 ml IV Total 555 ml 360.000 ml Output Urine Total 900 ml 1200 ml Laboratory Tests 05/02/18 15:45: Vancomycin Level Trough 18.8H 05/03/18 07:50: White Blood Count 5.8, Red Blood Count 5.05, Hemoglobin 12.3L, Hematocrit 37.8L , Mean Corpuscular Volume 75L, Mean Corpuscular Hemoglobin 24.4L, Mean Corpuscular Hemoglobin Concent 32.6, Red Cell Distribution Width 15.0H, Platelet Count 269, Mean Platelet Volume 7.1, Neutrophils (%) (Auto) 67.8, Lymphocytes (%) (Auto) 17.1L, Monocytes (%) (Auto) 10.8H, Eosinophils (%) (Auto ) 3.0, Basophils (%) (Auto) 1.4, Sodium Level 136, Potassium Level 3.7, Chloride Level 102, Carbon Dioxide Level 26, Anion Gap 8, Blood Urea Nitrogen 10 , Creatinine 0.8, Estimat Glomerular Filtration Rate > 60, Glucose Level 104, Calcium Level 8.6 Height (Feet): 6 Height (Inches): 2.00 Weight (Pounds): 220 General Appearance: lethargic EENT: normal ENT inspection Neck: normal alignment Cardiovascular: normal peripheral pulses, normal rate, regular rhythm Respiratory/Chest: chest wall non-tender, lungs clear, no respiratory distress Abdomen: normal bowel sounds, non tender, soft Extremities: normal inspection Edema: no edema noted Arm (L), no edema noted Arm (R), no edema noted Leg (L), no edema noted Leg (R), no edema noted Pedal (L), no edema noted Pedal (R), no edema noted Generalized Neurologic: motor weakness Skin: normal pigmentation, warm/dry [place] DO May 03, 2018 08:50
[2018-05-03] MEDS: Dakin's 0.5% (Full Strength) 16oz TOPIC SCH (09:00)
[2018-05-03] MEDS: Heparin 5000 units/ml inj SUBQ SCH ×2 (09:34→21:00)
[2018-05-03] MEDS: Morphine Sulfate 2mg/ml Inj IVP PRN ×2 (09:39→10:39)
[2018-05-03 16:00] VITALS: BP 124/78
[2018-05-03] MEDS ORDERED: Lidocaine 1% Plain 30 ml INJ PRN (16:45)
[2018-05-03] MEDS ORDERED: Heparin 2000 units/Ns 1000ml INJ PRN (16:55)
[2018-05-03] MEDS: Vancomycin 1250mg/D5W 250ml 250 ML IVPB SCH (17:00)
[2018-05-03 20:00] VITALS: BP 120/64
--- NOTE | 2018-05-03 20:29 | General Progress Note ---
Progress Note Progress Note All noted CT angio reviewed and resulted with normal vasculature and good run off Right ischial sacral wound ? osteo+ Extensive soft tissue infections+ Rec Abx per ID Ok for I&D if needed Ortho and General surgery eval re sacral decub ? osteo MRI hip & right leg Decub and DVT precautions Jeramie Cummings MD May 03, 2018 20:29
[2018-05-04] VITALS: BP 116/78
[2018-05-04] MEDS: Vancomycin 1250mg/D5W 250ml 250 ML IVPB SCH (01:00)
[2018-05-04 04:00] VITALS: BP 107/65
[2018-05-04] MEDS: Meropenem 1 GM in NS 55 ML IVPB SCH ×3 (05:47→21:26)
[2018-05-04] MEDS: Betadine 4oz Bottle TOPIC SCH ×4 (05:47→18:00)
[2018-05-04] MEDS: Heparin 5000 units/ml inj SUBQ SCH ×2 (07:58→21:00)
[2018-05-04 08:00] VITALS: BP 132/78
[2018-05-04 08:45] LABS: BASOPHILS % (AUTO) 1.2 % (0.0-2.0); EOSINOPHILS % (AUTO) 2.2 % (0.0-3.0); HEMATOCRIT 36.8 % (42.0-52.0); LYMPHOCYTES % (AUTO) 15.6 % (20.0-45.0); MEAN CORPUSCULAR VOLUME 74 FL (80-99); MONOCYTES % (AUTO) 8.4 % (1.0-10.0); NEUTROPHILS % (AUTO) 72.7 % (45.0-75.0); PLATELET COUNT 363 K/UL (150-450); RED BLOOD COUNT 4.97 M/UL (4.70-6.10); RED CELL DISTRIBUTION WIDTH 14.4 % (11.6-14.8); WHITE BLOOD COUNT 5.7 K/UL (4.8-10.8)
[2018-05-04] MEDS: Dakin's 0.5% (Full Strength) 16oz TOPIC SCH (09:00)
[2018-05-04 09:23] LABS: ANION GAP 8 mmol/L (5-15); BLOOD UREA NITROGEN 11 mg/dL (7-18); CALCIUM 8.8 MG/DL (8.5-10.1); CARBON DIOXIDE 26 MMOL/L (21-32); CHLORIDE 102 MMOL/L (98-107); CREATININE 0.9 MG/DL (0.55-1.30); POTASSIUM 3.9 MMOL/L (3.5-5.1); SODIUM 136 MMOL/L (136-145)
--- NOTE | 2018-05-04 10:02 | Podiatric Progress Note ---
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 care was taken and the patient tolerated to procedure. Order was written to clean the wound with NS and apply Unna boot to be changed q3 days. Patient is stable and clear for discharge from podiatry. Subjective Reason for consult f/u R leg/foot wound Allergies: Coded Allergies: PENICILLIN G (Verified Allergy, Unknown, 05/01/18) Subjective Patient is seen by bed side in NAD. normal wbc and afebrile. wound care had been done as ordered and changed daily. Objective Exam Last 24 Hour Vital Signs Date Time Temp Pulse Resp B/P (MAP) Pulse Ox O2 Delivery O2 Flow Rate FiO2 05/04/18 04:00 97.7 96 19 107/65 (79) 96 05/04/18 00:00 98.8 118 19 116/78 (91) 93 05/03/18 21:00 Room Air 05/03/18 20:00 97.6 113 19 120/64 (82) 96 05/03/18 19:45 99 Room Air 21 05/03/18 16:00 98.2 18 124/78 (93) 100 Laboratory Tests Test 05/04/18 08:35 White Blood Count 5.7 K/UL (4.8-10.8) Red Blood Count 4.97 M/UL (4.70-6.10) Hemoglobin 12.0 G/DL (14.2-18.0) L Hematocrit 36.8 % (42.0-52.0) L Mean Corpuscular Volume 74 FL (80-99) L Mean Corpuscular Hemoglobin 24.2 PG (27.0-31.0) L Mean Corpuscular Hemoglobin Concent 32.7 G/DL (32.0-36.0) Red Cell Distribution Width 14.4 % (11.6-14.8) Platelet Count 363 K/UL (150-450) Mean Platelet Volume 7.5 FL (6.5-10.1) Neutrophils (%) (Auto) 72.7 % (45.0-75.0) Lymphocytes (%) (Auto) 15.6 % (20.0-45.0) L Monocytes (%) (Auto) 8.4 % (1.0-10.0) Eosinophils (%) (Auto) 2.2 % (0.0-3.0) Basophils (%) (Auto) 1.2 % (0.0-2.0) Sodium Level 136 MMOL/L (136-145) Potassium Level 3.9 MMOL/L (3.5-5.1) Chloride Level 102 MMOL/L (98-107) Carbon Dioxide Level 26 MMOL/L (21-32) Anion Gap 8 mmol/L (5-15) Blood Urea Nitrogen 11 mg/dL (7-18) Creatinine 0.9 MG/DL (0.55-1.30) Estimat Glomerular Filtration Rate > 60 mL/min (>60) Glucose Level 127 MG/DL (74-106) H Calcium Level 8.8 MG/DL (8.5-10.1) Microbiology Date/Time Source Procedure Growth Status 05/02/18 15:00 Blood Blood Culture - Preliminary NO GROWTH AFTER 24 HOURS Resulted 05/02/18 01:40 Wound Gram Stain - Final Resulted 05/02/18 01:40 Wound Culture - Preliminary Gram Negative Bacillus 1 Resulted 05/03/18 03:00 Nasopharynx Influenza Types A,B Antigen (AZUL) - Final Complete 05/02/18 19:50 Buttock Right Gram Stain - Final Resulted 05/02/18 19:50 Buttock Right Wound Culture Pending Resulted Dermatological Dermatological Narrative R lateral ankle wound looks stable granulating beefy base with no sign of maggots. no pus drainage or discharge noted. R Dorsal foot noted to be healing and stable compare to initial visit. slight drainage noted sluff is seen at the base of the wound distally. the leg is slightly swollen and cellulitis is still present but decreased. Kirill Cedeño DPM May 04, 2018 10:01
--- NOTE | 2018-05-04 11:11 | Cardiology Report ---
APPROVED REPORT EXAM: Two-dimensional and M-mode echocardiogram with Doppler and color Doppler. INDICATION Endocarditis M-Mode DIMENSIONS IVSd1.2 (0.7-1.1cm)Left Atrium (MM)3.4 (1.6-4.0cm) LVDd4.8 (3.5-5.6cm)Aortic Root2.0 (2.0-3.7cm) PWd1.1 (0.7-1.1cm)Aortic Cusp Exc.3.4 (1.5-2.0cm) LVDs3.0 (2.5-4.0cm) PWs1.2 cm Technically difficult study due to poor acoustic windows. Study quality precludes accurate assessment of regional wall motion. Normal left ventricular chamber size, systolic function and wall motion. Left ventricular ejection fraction estimated to be 65 %. Mild left ventricular hypertrophy. No evidence of pericardial effusion. All other cardiac chamber sizes are within normal limits. Normal aortic valve structure. Mildly thickened mitral valve leaflets with normal excursion. Mild mitral annulus and aortic root calcification. Pulmonic valve not well visualized. Normal tricuspid valve structure. Subcostal views not obtainable. A color flow and spectral Doppler study was performed and revealed: No aortic insufficiency. No mitral regurgitation. Mitral diastolic velocities suggest mild left ventricular diastolic dysfunction (Grade I). Mild tricuspid regurgitation. Tricuspid systolic velocities suggests peak right ventricular systolic pressure of 25 mmHg. No pulmonic regurgitation present.
[2018-05-04 12:00] VITALS: BP 127/74
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
[2018-05-04] MEDS ORDERED: DAPTOmycin 600 MG in NS 55 ML IV SCH (13:30)
--- NOTE | 2018-05-04 13:34 | Infectious Diseases Prog Note ---
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 seizure disorder. History of polysubstance abuse (marijuana and crystal) - Significant for multiple decubitus including right buttock wound and pelvic osteo -Questionable history of seizure disorder. - History of polysubstance abuse (marijuana and crystal). PLAN: Cont pt on IV Merrem and switch IV Vanco d# 3 to Daptomycin fro VRE bacteremia ( pt did not complete the previous course of AB Rx , left SNF after one wk) -monitor CPK -03/31 Sp IV vancomycin and cefepime d # 2 -Monitor CBC -Monitor BMP -Monitor cultures ( Rpt blood cx ) -if persistnet VRE bacteremia, will obtain VICKEY Thank you will follow Subjective Allergies: Coded Allergies: PENICILLIN G (Verified Allergy, Unknown, 05/01/18) Subjective afebrile >36hrs repeat Bcx NTD Objective Vital Signs Last 24 Hour Vital Signs Date Time Temp Pulse Resp B/P (MAP) Pulse Ox O2 Delivery O2 Flow Rate FiO2 05/04/18 12:00 97.4 104 20 127/74 (91) 94 05/04/18 09:00 Room Air 05/04/18 08:00 97.8 103 18 132/78 (96) 95 05/04/18 04:00 97.7 96 19 107/65 (79) 96 05/04/18 00:00 98.8 118 19 116/78 (91) 93 05/03/18 21:00 Room Air 05/03/18 20:00 97.6 113 19 120/64 (82) 96 05/03/18 19:45 99 Room Air 21 05/03/18 16:00 98.2 18 124/78 (93) 100 Height (Feet): 6 Height (Inches): 2.00 Weight (Pounds): 220 Objective HEENT: No pale conjunctivae. No icterus. NECK: No lymphadenopathy. CHEST: Bilateral air entry. HEART: S1 and S2. ABDOMEN: Soft and nontender. EXTREMITIES: The patient has left lower extremity decubitus / Cellulitis Right buttock decubitus, no purulent discharge NEUROLOGIC: Awake and alert. Microbiology Date/Time Source Procedure Growth Status 05/02/18 15:00 Blood Blood Culture - Preliminary NO GROWTH AFTER 24 HOURS Resulted 05/02/18 15:00 Blood Blood Culture - Preliminary NO GROWTH AFTER 24 HOURS Resulted 05/01/18 14:50 Blood Blood Culture - Preliminary Enterococcus Faecium - Vre Staphylococcus Species Resulted 05/01/18 14:40 Blood Blood Culture - Preliminary Gram Positive Cocci Resulted 05/02/18 01:40 Wound Gram Stain - Final Resulted 05/02/18 01:40 Wound Culture - Preliminary Gram Negative Bacillus 1 Gram Negative Bacillus 2 Resulted 05/03/18 03:00 Nasopharynx Influenza Types A,B Antigen (AZLU) - Final Complete 05/01/18 19:30 Nasal Nares MRSA Culture - Final Staphylococcus Aureus - Mrsa Complete 05/02/18 19:50 Buttock Right Gram Stain - Final Resulted 05/02/18 19:50 Wound Culture - Preliminary Gram Negative Bacillus 1 Resulted Laboratory Tests Test 05/04/18 08:35 White Blood Count 5.7 K/UL (4.8-10.8) Red Blood Count 4.97 M/UL (4.70-6.10) Hemoglobin 12.0 G/DL (14.2-18.0) L Hematocrit 36.8 % (42.0-52.0) L Mean Corpuscular Volume 74 FL (80-99) L Mean Corpuscular Hemoglobin 24.2 PG (27.0-31.0) L Mean Corpuscular Hemoglobin Concent 32.7 G/DL (32.0-36.0) Red Cell Distribution Width 14.4 % (11.6-14.8) Platelet Count 363 K/UL (150-450) Mean Platelet Volume 7.5 FL (6.5-10.1) Neutrophils (%) (Auto) 72.7 % (45.0-75.0) Lymphocytes (%) (Auto) 15.6 % (20.0-45.0) L Monocytes (%) (Auto) 8.4 % (1.0-10.0) Eosinophils (%) (Auto) 2.2 % (0.0-3.0) Basophils (%) (Auto) 1.2 % (0.0-2.0) Sodium Level 136 MMOL/L (136-145) Potassium Level 3.9 MMOL/L (3.5-5.1) Chloride Level 102 MMOL/L (98-107) Carbon Dioxide Level 26 MMOL/L (21-32) Anion Gap 8 mmol/L (5-15) Blood Urea Nitrogen 11 mg/dL (7-18) Creatinine 0.9 MG/DL (0.55-1.30) Estimat Glomerular Filtration Rate > 60 mL/min (>60) Glucose Level 127 MG/DL (74-106) H Calcium Level 8.8 MG/DL (8.5-10.1) Current Medications Medications (Trade) Dose Ordered Sig/Michael Route PRN Reason Start Time Stop Time Status Last Admin Dose Admin Acetaminophen (Tylenol) 650 mg Q4H PRN ORAL fever 05/01/18 21:00 05/31/18 20:59 Albuterol/ Ipratropium (Albuterol/ Ipratropium) 3 ml Q4H PRN HHN Shortness of Breath 05/01/18 21:00 05/06/18 20:59 Chlorhexidine Gluconate (Mariajose-Hex 2%) 1 applic DAILY@1999 TOPIC 05/04/18 20:00 06/03/18 19:59 Dextrose (Dextrose 50%) 25 ml Q30M PRN IV Hypoglycemia 05/01/18 21:00 05/31/18 20:59 Dextrose (Dextrose 50%) 50 ml Q30M PRN IV Hypoglycemia 05/01/18 21:00 05/31/18 20:59 Gadobutrol (Gadavist) 7.5 mmol NOW PRN IV Radiology Procedure 05/02/18 01:30 05/06/18 01:19 Gadobutrol (Gadavist) 7.5 mmol NOW PRN IV Radiology Procedure 05/02/18 01:30 05/06/18 01:19 Heparin Sodium (Porcine) (Heparin 5000 units/ml) 5,000 units EVERY 12 HOURS SUBQ 05/01/18 21:00 1/6/19 20:59 05/03/18 09:34 Heparin Sodium/ Sodium Chloride (Heparin 2000 units/Ns 1000ml premix) 2,000 unit ONCE PRN INJ PICC 05/03/18 16:55 05/04/18 23:59 Iopamidol (Isovue-370 150ml) 150 ml NOW PRN INJ Radiology Procedure 05/02/18 18:15 05/04/18 18:11 Lidocaine HCl (Xylocaine 1% 30ml) 30 ml ONCE PRN INJ PICC 05/03/18 16:45 05/04/18 23:59 Linezolid (Zyvox) 600 mg EVERY 12 HOURS ORAL 05/03/18 21:00 05/04/18 23:59 05/03/18 21:30 Meropenem 1 gm/ Sodium Chloride 55 ml @ 110 mls/hr Q8HR IVPB 05/03/18 22:00 05/08/18 21:59 Morphine Sulfate (Morphine Sulfate) 2 mg Q4H PRN IVP Moderate Pain (Pain Scale 4-6) 05/01/18 21:00 05/08/18 20:59 05/02/18 23:08 Nitroglycerin (Ntg) 0.4 mg Q5M PRN SL Prn Chest Pain 05/01/18 21:00 05/31/18 20:59 Ondansetron HCl (Zofran) 4 mg Q6H PRN IVP Nausea & Vomiting 05/01/18 21:00 05/31/18 20:59 Polyethylene Glycol (Miralax) 17 gm DAILYPRN PRN ORAL Constipation 05/01/18 21:00 05/31/18 20:59 Povidone Iodine (Betadine Abril) 1 applic Q6HR TOPIC 05/02/18 20:00 06/01/18 19:59 05/04/18 05:47 Sodium Hypochlorite (Dakin's Full Strength) 1 applic DAILY TOPIC 05/02/18 09:00 06/01/18 08:59 05/02/18 09:05 Temazepam (Restoril) 15 mg HSPRN PRN ORAL Insomnia 05/01/18 21:00 05/08/18 20:59 05/01/18 22:26 Vancomycin HCl (Vanco rx to dose) 1 ea DAILY PRN MISC Per rx protocol 05/01/18 21:15 05/31/18 21:14 Vancomycin HCl/ Dextrose 250 ml @ 166.667 mls/hr Q8H IVPB 05/03/18 17:00 05/07/18 00:59 Liliana Gottlieb M.D. May 04, 2018 13:34
--- NOTE | 2018-05-04 14:27 | General Progress Note ---
Assessment/Plan Problem List: (1) Asthma ICD Codes: J45.909 - Unspecified asthma, uncomplicated SNOMED: 749285951 (2) Cellulitis ICD Codes: L03.90 - Cellulitis, unspecified SNOMED: 988382946 (3) Osteomyelitis ICD Codes: M86.9 - Osteomyelitis, unspecified SNOMED: 21306610 Status: unchanged Assessment/Plan wound care abx ot pt diet cbc bmp am ltach eval Subjective Constitutional: Reports: weakness Allergies: Coded Allergies: PENICILLIN G (Verified Allergy, Unknown, 05/01/18) All Systems: reviewed and negative except above Subjective sleepy in bed calm Objective Last 24 Hour Vital Signs Date Time Temp Pulse Resp B/P (MAP) Pulse Ox O2 Delivery O2 Flow Rate FiO2 05/04/18 12:00 97.4 104 20 127/74 (91) 94 05/04/18 09:00 Room Air 05/04/18 08:00 97.8 103 18 132/78 (96) 95 05/04/18 04:00 97.7 96 19 107/65 (79) 96 05/04/18 00:00 98.8 118 19 116/78 (91) 93 05/03/18 21:00 Room Air 05/03/18 20:00 97.6 113 19 120/64 (82) 96 05/03/18 19:45 99 Room Air 21 05/03/18 16:00 98.2 18 124/78 (93) 100 Intake and Output 05/03/18 05/04/18 19:00 07:00 Intake Total 450 ml Output Total 1050 ml 600 ml Balance -1050 ml -150 ml Intake Oral 450 ml Output Urine Total 1050 ml 600 ml Laboratory Tests 05/04/18 08:35: White Blood Count 5.7, Red Blood Count 4.97, Hemoglobin 12.0L, Hematocrit 36.8L , Mean Corpuscular Volume 74L, Mean Corpuscular Hemoglobin 24.2L, Mean Corpuscular Hemoglobin Concent 32.7, Red Cell Distribution Width 14.4, Platelet Count 363, Mean Platelet Volume 7.5, Neutrophils (%) (Auto) 72.7, Lymphocytes (% ) (Auto) 15.6L, Monocytes (%) (Auto) 8.4, Eosinophils (%) (Auto) 2.2, Basophils (%) (Auto) 1.2, Sodium Level 136, Potassium Level 3.9, Chloride Level 102, Carbon Dioxide Level 26, Anion Gap 8, Blood Urea Nitrogen 11, Creatinine 0.9, Estimat Glomerular Filtration Rate > 60, Glucose Level 127H, Calcium Level 8.8 Height (Feet): 6 Height (Inches): 2.00 Weight (Pounds): 220 General Appearance: lethargic EENT: normal ENT inspection Neck: normal alignment Cardiovascular: normal peripheral pulses, normal rate, regular rhythm Respiratory/Chest: chest wall non-tender, lungs clear, normal breath sounds Abdomen: normal bowel sounds, non tender, soft Extremities: normal inspection Edema: no edema noted Arm (L), no edema noted Arm (R), no edema noted Leg (L), no edema noted Leg (R), no edema noted Pedal (L), no edema noted Pedal (R), no edema noted Generalized Neurologic: motor weakness Skin: normal pigmentation, warm/dry [place] DO May 04, 2018 14:27
[2018-05-04] MEDS ORDERED: Tubing IV Secondary IV ONE (15:32)
[2018-05-04 16:00] VITALS: BP 131/73
[2018-05-04 20:00] VITALS: BP 123/94
[2018-05-04] MEDS: Dyna-Hex 2% Top Sol 2oz TOPIC SCH (20:00)
[2018-05-05] VITALS: BP 118/79
[2018-05-05] MEDS: Betadine 4oz Bottle TOPIC SCH ×4 (00:05→22:39)
[2018-05-05 04:00] VITALS: BP 133/69
[2018-05-05] MEDS: Meropenem 1 GM in NS 55 ML IVPB SCH (05:35)
[2018-05-05 08:00] VITALS: BP 114/77
[2018-05-05 09:03] LABS: BASOPHILS % (AUTO) 1.5 % (0.0-2.0); EOSINOPHILS % (AUTO) 2.6 % (0.0-3.0); HEMATOCRIT 38.5 % (42.0-52.0); HEMOGLOBIN 12.5 G/DL (14.2-18.0); LYMPHOCYTES % (AUTO) 18.9 % (20.0-45.0); MEAN CORPUSCULAR VOLUME 75 FL (80-99); MONOCYTES % (AUTO) 10.1 % (1.0-10.0); NEUTROPHILS % (AUTO) 66.9 % (45.0-75.0); PLATELET COUNT 381 K/UL (150-450); RED BLOOD COUNT 5.14 M/UL (4.70-6.10); RED CELL DISTRIBUTION WIDTH 14.7 % (11.6-14.8); WHITE BLOOD COUNT 5.6 K/UL (4.8-10.8)
[2018-05-05] MEDS: Heparin 5000 units/ml inj SUBQ SCH ×2 (09:19→21:12)
[2018-05-05] MEDS: Dakin's 0.5% (Full Strength) 16oz TOPIC SCH (09:19)
[2018-05-05 09:23] LABS: CREATINE KINASE 86 U/L (26-308)
[2018-05-05 09:27] LABS: ALANINE AMINOTRANSFERASE 25 U/L (12-78); ALBUMIN 2.8 G/DL (3.4-5.0); ALBUMIN/GLOBULIN RATIO 0.6 (1.0-2.7); ALKALINE PHOSPHATASE 88 U/L (46-116); ANION GAP 11 mmol/L (5-15); ASPARTATE AMINO TRANSFERASE 14 U/L (15-37); BILIRUBIN,TOTAL 0.1 MG/DL (0.2-1.0); BLOOD UREA NITROGEN 10 mg/dL (7-18); CALCIUM 8.8 MG/DL (8.5-10.1); CARBON DIOXIDE 23 MMOL/L (21-32); CHLORIDE 102 MMOL/L (98-107); CREATININE 0.8 MG/DL (0.55-1.30); PHOSPHORUS 3.7 MG/DL (2.5-4.9); POTASSIUM 4.4 MMOL/L (3.5-5.1); SODIUM 136 MMOL/L (136-145)
[2018-05-05] MEDS ORDERED: Ertapenem 1 GM in NS 55 ML IVPB SCH (10:45)
--- NOTE | 2018-05-05 10:48 | Infectious Diseases Prog Note ---
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 seizure disorder. History of polysubstance abuse (marijuana and crystal) - Significant for multiple decubitus including right buttock wound and pelvic osteo -Questionable history of seizure disorder. - History of polysubstance abuse (marijuana and crystal). PLAN: -Of note patient has not received any IV abx since 05/04 as has not iV access -Linezolid for now for VRE bacteremia ; once IV access is placed, resume IV Daptomycin 6mg/kg q24hrs and Ertapenem 1g IV daily ( pt did not complete the previous course of AB Rx , left SNF after one wk ) -monitor CPK -05/03 SP IV Vancomycin #3, Meropenem #2 -03/31 Sp IV vancomycin and cefepime d # 2 -Monitor CBC -Monitor BMP -Monitor cultures ( Rpt blood cx ) -if persistnet VRE bacteremia, will obtain VICKEY -For pICc lien today Thank you will follow Subjective Allergies: Coded Allergies: PENICILLIN G (Verified Allergy, Unknown, 05/01/18) Subjective afebrile >72hrs repeat Bcx NTD has no iv access Objective Vital Signs Last 24 Hour Vital Signs Date Time Temp Pulse Resp B/P (MAP) Pulse Ox O2 Delivery O2 Flow Rate FiO2 05/05/18 08:00 98.4 97 18 114/77 (89) 98 05/05/18 04:00 98.4 106 19 133/69 (90) 98 05/05/18 00:00 98.7 110 20 118/79 (92) 99 05/04/18 20:00 99.3 109 20 123/94 (104) 99 05/04/18 20:00 110 18 Room Air 21 05/04/18 18:53 Room Air 05/04/18 16:00 97.8 114 18 131/73 (92) 99 05/04/18 12:00 97.4 104 20 127/74 (91) 94 Height (Feet): 6 Height (Inches): 2.00 Weight (Pounds): 220 Objective HEENT: No pale conjunctivae. No icterus. NECK: No lymphadenopathy. CHEST: Bilateral air entry. HEART: S1 and S2. ABDOMEN: Soft and nontender. EXTREMITIES: The patient has left lower extremity decubitus / Cellulitis Right buttock decubitus, no purulent discharge NEUROLOGIC: Awake and alert. Microbiology Date/Time Source Procedure Growth Status 05/02/18 15:00 Blood Blood Culture - Preliminary NO GROWTH AFTER 48 HOURS Resulted 05/02/18 15:00 Blood Blood Culture - Preliminary NO GROWTH AFTER 48 HOURS Resulted 05/03/18 03:00 Nasopharynx Influenza Types A,B Antigen (AZUL) - Final Complete 05/02/18 19:50 Buttock Right Gram Stain - Final Resulted 05/02/18 19:50 Wound Culture - Preliminary Proteus Mirabilis Resulted Laboratory Tests Test 05/05/18 08:00 White Blood Count 5.6 K/UL (4.8-10.8) Red Blood Count 5.14 M/UL (4.70-6.10) Hemoglobin 12.5 G/DL (14.2-18.0) L Hematocrit 38.5 % (42.0-52.0) L Mean Corpuscular Volume 75 FL (80-99) L Mean Corpuscular Hemoglobin 24.3 PG (27.0-31.0) L Mean Corpuscular Hemoglobin Concent 32.4 G/DL (32.0-36.0) Red Cell Distribution Width 14.7 % (11.6-14.8) Platelet Count 381 K/UL (150-450) Mean Platelet Volume 6.6 FL (6.5-10.1) Neutrophils (%) (Auto) 66.9 % (45.0-75.0) Lymphocytes (%) (Auto) 18.9 % (20.0-45.0) L Monocytes (%) (Auto) 10.1 % (1.0-10.0) H Eosinophils (%) (Auto) 2.6 % (0.0-3.0) Basophils (%) (Auto) 1.5 % (0.0-2.0) Erythrocyte Sedimentation Rate 65 MM/HR (0-15) H Sodium Level 136 MMOL/L (136-145) Potassium Level 4.4 MMOL/L (3.5-5.1) Chloride Level 102 MMOL/L (98-107) Carbon Dioxide Level 23 MMOL/L (21-32) Anion Gap 11 mmol/L (5-15) Blood Urea Nitrogen 10 mg/dL (7-18) Creatinine 0.8 MG/DL (0.55-1.30) Estimat Glomerular Filtration Rate > 60 mL/min (>60) Glucose Level 157 MG/DL (74-106) H Calcium Level 8.8 MG/DL (8.5-10.1) Phosphorus Level 3.7 MG/DL (2.5-4.9) Magnesium Level 1.6 MG/DL (1.8-2.4) L Total Bilirubin 0.1 MG/DL (0.2-1.0) L Aspartate Amino Transf (AST/SGOT) 14 U/L (15-37) L Alanine Aminotransferase (ALT/SGPT) 25 U/L (12-78) Alkaline Phosphatase 88 U/L (46-116) Total Creatine Kinase 86 U/L (26-308) C-Reactive Protein, Quantitative 4.2 mg/dL (0.00-0.90) H Total Protein 7.7 G/DL (6.4-8.2) Albumin 2.8 G/DL (3.4-5.0) L Globulin 4.9 g/dL Albumin/Globulin Ratio 0.6 (1.0-2.7) L Current Medications Medications (Trade) Dose Ordered Sig/Michael Route PRN Reason Start Time Stop Time Status Last Admin Dose Admin Acetaminophen (Tylenol) 650 mg Q4H PRN ORAL fever 05/01/18 21:00 05/31/18 20:59 Albuterol/ Ipratropium (Albuterol/ Ipratropium) 3 ml Q4H PRN HHN Shortness of Breath 05/01/18 21:00 05/06/18 20:59 Chlorhexidine Gluconate (Mariajose-Hex 2%) 1 applic DAILY@2000 TOPIC 05/04/18 20:00 06/03/18 19:59 Daptomycin 600 mg/ Sodium Chloride 55 ml @ 100 mls/hr Q24H IV 05/04/18 13:30 05/11/18 13:29 UNV Dextrose (Dextrose 50%) 25 ml Q30M PRN IV Hypoglycemia 05/01/18 21:00 05/31/18 20:59 Dextrose (Dextrose 50%) 50 ml Q30M PRN IV Hypoglycemia 05/01/18 21:00 05/31/18 20:59 Gadobutrol (Gadavist) 7.5 mmol NOW PRN IV Radiology Procedure 05/02/18 01:30 05/06/18 01:19 Gadobutrol (Gadavist) 7.5 mmol NOW PRN IV Radiology Procedure 05/02/18 01:30 05/06/18 01:19 Heparin Sodium (Porcine) (Heparin 5000 units/ml) 5,000 units EVERY 12 HOURS SUBQ 05/01/18 21:00 05/31/18 20:59 05/05/18 09:19 Heparin Sodium/ Sodium Chloride (Heparin 2000 units/Ns 1000ml premix) 2,000 unit ONCE PRN INJ PICC 05/03/18 16:55 05/05/18 23:59 Lidocaine HCl (Xylocaine 1% 30ml) 30 ml ONCE PRN INJ PICC 05/03/18 16:45 05/05/18 23:59 Linezolid (Zyvox) 600 mg Q12HR ORAL 05/04/18 21:00 05/05/18 20:59 05/05/18 09:18 Meropenem 1 gm/ Sodium Chloride 55 ml @ 110 mls/hr Q8HR IVPB 05/03/18 22:00 05/08/18 21:59 Morphine Sulfate (Morphine Sulfate) 2 mg Q4H PRN IVP Moderate Pain (Pain Scale 4-6) 05/01/18 21:00 05/08/18 20:59 05/02/18 23:08 Nitroglycerin (Ntg) 0.4 mg Q5M PRN SL Prn Chest Pain 05/01/18 21:00 05/31/18 20:59 Ondansetron HCl (Zofran) 4 mg Q6H PRN IVP Nausea & Vomiting 05/01/18 21:00 05/31/18 20:59 Polyethylene Glycol (Miralax) 17 gm DAILYPRN PRN ORAL Constipation 05/01/18 21:00 05/31/18 20:59 Povidone Iodine (Betadine Abril) 1 applic Q6HR TOPIC 05/02/18 20:00 06/01/18 19:59 05/05/18 05:35 Temazepam (Restoril) 15 mg HSPRN PRN ORAL Insomnia 05/01/18 21:00 05/08/18 20:59 05/01/18 22:26 Liliana Gottlieb M.D. May 05, 2018 10:48
[2018-05-05 12:00] VITALS: BP 122/28
--- NOTE | 2018-05-05 12:04 | Pulmonology Progress Note ---
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 Subjective ROS Limited/Unobtainable: No Constitutional: Reports: no symptoms HEENT: Repors: no symptoms Allergies: Coded Allergies: PENICILLIN G (Verified Allergy, Unknown, 05/05/18) Tolerates carbapenems and cephalosporins Objective Last 24 Hour Vital Signs Date Time Temp Pulse Resp B/P (MAP) Pulse Ox O2 Delivery O2 Flow Rate FiO2 05/05/18 09:00 Room Air 05/05/18 08:00 98.4 97 18 114/77 (89) 98 05/05/18 04:00 98.4 106 19 133/69 (90) 98 05/05/18 00:00 98.7 110 20 118/79 (92) 99 05/04/18 20:00 99.3 109 20 123/94 (104) 99 05/04/18 20:00 110 18 Room Air 21 05/04/18 18:53 Room Air 05/04/18 16:00 97.8 114 18 131/73 (92) 99 Intake and Output 05/04/18 05/05/18 18:59 06:59 Intake Total 1200 ml 600 ml Output Total 1500 ml 775 ml Balance -300 ml -175 ml Intake Oral 1200 ml 600 ml Output Urine Total 1500 ml 775 ml # Bowel Movements 1 2 General Appearance: WD/WN HEENT: normocephalic, atraumatic Respiratory/Chest: chest wall non-tender, lungs clear Cardiovascular: normal peripheral pulses, normal rate Abdomen: normal bowel sounds, no organomegaly Genitourinary: normal external genitalia Extremities: no cyanosis Skin: no rash Microbiology Date/Time Source Procedure Growth Status 05/02/18 15:00 Blood Blood Culture - Preliminary NO GROWTH AFTER 48 HOURS Resulted 05/02/18 15:00 Blood Blood Culture - Preliminary NO GROWTH AFTER 48 HOURS Resulted 05/03/18 03:00 Nasopharynx Influenza Types A,B Antigen (AZUL) - Final Complete 05/02/18 19:50 Buttock Right Gram Stain - Final Resulted 05/02/18 19:50 Wound Culture - Preliminary Proteus Mirabilis Resulted Laboratory Tests 05/05/18 08:00: White Blood Count 5.6, Red Blood Count 5.14, Hemoglobin 12.5L, Hematocrit 38.5L , Mean Corpuscular Volume 75L, Mean Corpuscular Hemoglobin 24.3L, Mean Corpuscular Hemoglobin Concent 32.4, Red Cell Distribution Width 14.7, Platelet Count 381, Mean Platelet Volume 6.6, Neutrophils (%) (Auto) 66.9, Lymphocytes (% ) (Auto) 18.9L, Monocytes (%) (Auto) 10.1H, Eosinophils (%) (Auto) 2.6, Basophils (%) (Auto) 1.5, Erythrocyte Sedimentation Rate 65H, Sodium Level 136, Potassium Level 4.4, Chloride Level 102, Carbon Dioxide Level 23, Anion Gap 11, Blood Urea Nitrogen 10, Creatinine 0.8, Estimat Glomerular Filtration Rate > 60 , Glucose Level 157H, Calcium Level 8.8, Phosphorus Level 3.7, Magnesium Level 1.6L, Total Bilirubin 0.1L, Aspartate Amino Transf (AST/SGOT) 14L, Alanine Aminotransferase (ALT/SGPT) 25, Alkaline Phosphatase 88, Total Creatine Kinase 86, C-Reactive Protein, Quantitative 4.2H, Total Protein 7.7, Albumin 2.8L, Globulin 4.9, Albumin/Globulin Ratio 0.6L Current Medications Medications (Trade) Dose Ordered Sig/Michael Route PRN Reason Start Time Stop Time Status Last Admin Dose Admin Acetaminophen (Tylenol) 650 mg Q4H PRN ORAL fever 05/01/18 21:00 05/31/18 20:59 Albuterol/ Ipratropium (Albuterol/ Ipratropium) 3 ml Q4H PRN HHN Shortness of Breath 05/01/18 21:00 05/06/18 20:59 Chlorhexidine Gluconate (Mariajose-Hex 2%) 1 applic DAILY@1999 TOPIC 05/04/18 20:00 06/03/18 19:59 Daptomycin 600 mg/ Sodium Chloride 55 ml @ 100 mls/hr Q24H IV 05/04/18 13:30 05/11/18 13:29 UNV Dextrose (Dextrose 50%) 25 ml Q30M PRN IV Hypoglycemia 12/7/18 21:00 05/31/18 20:59 Dextrose (Dextrose 50%) 50 ml Q30M PRN IV Hypoglycemia 05/01/18 21:00 05/31/18 20:59 Ertapenem 1 gm/ Sodium Chloride 55 ml @ 110 mls/hr Q24H IVPB 05/05/18 10:45 05/10/18 10:44 UNV Gadobutrol (Gadavist) 7.5 mmol NOW PRN IV Radiology Procedure 05/02/18 01:30 05/06/18 01:19 Gadobutrol (Gadavist) 7.5 mmol NOW PRN IV Radiology Procedure 05/02/18 01:30 05/06/18 01:19 Heparin Sodium (Porcine) (Heparin 5000 units/ml) 5,000 units EVERY 12 HOURS SUBQ 05/01/18 21:00 05/31/18 20:59 05/05/18 09:19 Heparin Sodium/ Sodium Chloride (Heparin 2000 units/Ns 1000ml premix) 2,000 unit ONCE PRN INJ PICC 05/03/18 16:55 05/05/18 23:59 Lidocaine HCl (Xylocaine 1% 30ml) 30 ml ONCE PRN INJ PICC 05/03/18 16:45 05/05/18 23:59 Linezolid (Zyvox) 600 mg Q12HR ORAL 05/04/18 21:00 05/05/18 20:59 05/05/18 09:18 Morphine Sulfate (Morphine Sulfate) 2 mg Q4H PRN IVP Moderate Pain (Pain Scale 4-6) 05/01/18 21:00 05/08/18 20:59 05/02/18 23:08 Nitroglycerin (Ntg) 0.4 mg Q5M PRN SL Prn Chest Pain 05/01/18 21:00 05/31/18 20:59 Ondansetron HCl (Zofran) 4 mg Q6H PRN IVP Nausea & Vomiting 05/01/18 21:00 05/31/18 20:59 Polyethylene Glycol (Miralax) 17 gm DAILYPRN PRN ORAL Constipation 05/01/18 21:00 05/31/18 20:59 Povidone Iodine (Betadine Abril) 1 applic Q6HR TOPIC 05/02/18 20:00 06/01/18 19:59 12/11/18 05:35 Temazepam (Restoril) 15 mg HSPRN PRN ORAL Insomnia 05/01/18 21:00 05/08/18 20:59 05/01/18 22:26 Francheska Armas MD May 05, 2018 12:04
--- NOTE | 2018-05-05 15:15 | General Progress Note ---
Assessment/Plan Problem List: (1) Asthma ICD Codes: J45.909 - Unspecified asthma, uncomplicated SNOMED: 834536715 (2) Cellulitis ICD Codes: L03.90 - Cellulitis, unspecified SNOMED: 459899267 (3) Osteomyelitis ICD Codes: M86.9 - Osteomyelitis, unspecified SNOMED: 23772202 Status: stable, progressing Assessment/Plan wound care abx ot pt diet cbc bmp am dc plan snf Subjective Constitutional: Reports: weakness Allergies: Coded Allergies: PENICILLIN G (Verified Allergy, Unknown, 05/05/18) Tolerates carbapenems and cephalosporins All Systems: reviewed and negative except above Subjective sleepy in bed calm Objective Last 24 Hour Vital Signs Date Time Temp Pulse Resp B/P (MAP) Pulse Ox O2 Delivery O2 Flow Rate FiO2 05/05/18 12:00 98.5 90 18 122/28 (59) 99 05/05/18 09:00 Room Air 05/05/18 08:00 98.4 97 18 114/77 (89) 98 05/05/18 04:00 98.4 106 19 133/69 (90) 98 05/05/18 00:00 98.7 110 20 118/79 (92) 99 05/04/18 20:00 99.3 109 20 123/94 (104) 99 05/04/18 20:00 110 18 Room Air 21 05/04/18 18:53 Room Air 05/04/18 16:00 97.8 114 18 131/73 (92) 99 Intake and Output 05/04/18 05/05/18 19:00 07:00 Intake Total 1200 ml 600 ml Output Total 1500 ml 775 ml Balance -300 ml -175 ml Intake Oral 1200 ml 600 ml Output Urine Total 1500 ml 775 ml # Bowel Movements 1 2 Laboratory Tests 05/05/18 08:00: White Blood Count 5.6, Red Blood Count 5.14, Hemoglobin 12.5L, Hematocrit 38.5L , Mean Corpuscular Volume 75L, Mean Corpuscular Hemoglobin 24.3L, Mean Corpuscular Hemoglobin Concent 32.4, Red Cell Distribution Width 14.7, Platelet Count 381, Mean Platelet Volume 6.6, Neutrophils (%) (Auto) 66.9, Lymphocytes (% ) (Auto) 18.9L, Monocytes (%) (Auto) 10.1H, Eosinophils (%) (Auto) 2.6, Basophils (%) (Auto) 1.5, Erythrocyte Sedimentation Rate 65H, Sodium Level 136, Potassium Level 4.4, Chloride Level 102, Carbon Dioxide Level 23, Anion Gap 11, Blood Urea Nitrogen 10, Creatinine 0.8, Estimat Glomerular Filtration Rate > 60 , Glucose Level 157H, Calcium Level 8.8, Phosphorus Level 3.7, Magnesium Level 1.6L, Total Bilirubin 0.1L, Aspartate Amino Transf (AST/SGOT) 14L, Alanine Aminotransferase (ALT/SGPT) 25, Alkaline Phosphatase 88, Total Creatine Kinase 86, C-Reactive Protein, Quantitative 4.2H, Total Protein 7.7, Albumin 2.8L, Globulin 4.9, Albumin/Globulin Ratio 0.6L Height (Feet): 6 Height (Inches): 2.00 Weight (Pounds): 220 General Appearance: lethargic EENT: normal ENT inspection Neck: normal alignment Cardiovascular: normal peripheral pulses, normal rate, regular rhythm Respiratory/Chest: chest wall non-tender, lungs clear, normal breath sounds Abdomen: normal bowel sounds, non tender, soft Extremities: normal inspection Edema: no edema noted Arm (L), no edema noted Arm (R), no edema noted Leg (L), no edema noted Leg (R), no edema noted Pedal (L), no edema noted Pedal (R), no edema noted Generalized Neurologic: motor weakness Skin: normal pigmentation, warm/dry [place] DO May 05, 2018 15:15
[2018-05-05 16:00] VITALS: BP 127/91
[2018-05-05 20:00] VITALS: BP 115/76
[2018-05-05] MEDS: Dyna-Hex 2% Top Sol 2oz TOPIC SCH (20:00)
[2018-05-06] VITALS: BP 121/73
[2018-05-06 04:00] VITALS: BP 113/79
[2018-05-06] MEDS: Betadine 4oz Bottle TOPIC SCH (06:05)
[2018-05-06 07:36] LABS: EOSINOPHILS % (AUTO) 3.4 % (0.0-3.0); HEMOGLOBIN 12.9 G/DL (14.2-18.0); MEAN CORPUSCULAR VOLUME 75 FL (80-99); MONOCYTES % (AUTO) 11.4 % (1.0-10.0); NEUTROPHILS % (AUTO) 57.3 % (45.0-75.0); PLATELET COUNT 336 K/UL (150-450); RED BLOOD COUNT 5.32 M/UL (4.70-6.10); RED CELL DISTRIBUTION WIDTH 14.9 % (11.6-14.8); WHITE BLOOD COUNT 4.7 K/UL (4.8-10.8)
[2018-05-06 08:00] VITALS: BP 115/80
[2018-05-06 08:07] LABS: ALANINE AMINOTRANSFERASE 21 U/L (12-78); ALBUMIN 2.8 G/DL (3.4-5.0); ALBUMIN/GLOBULIN RATIO 0.5 (1.0-2.7); ALKALINE PHOSPHATASE 86 U/L (46-116); ANION GAP 9 mmol/L (5-15); ASPARTATE AMINO TRANSFERASE 14 U/L (15-37); BILIRUBIN,TOTAL < 0.1 MG/DL (0.2-1.0); BLOOD UREA NITROGEN 13 mg/dL (7-18); CALCIUM 8.9 MG/DL (8.5-10.1); CARBON DIOXIDE 26 MMOL/L (21-32); CHLORIDE 103 MMOL/L (98-107); CREATININE 0.8 MG/DL (0.55-1.30); PHOSPHORUS 4.2 MG/DL (2.5-4.9); POTASSIUM 4.2 MMOL/L (3.5-5.1); SODIUM 138 MMOL/L (136-145)
[2018-05-06] MEDS: Heparin 5000 units/ml inj SUBQ SCH (09:00)
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
--- NOTE | 2018-05-07 11:27 | Diagnostic Imaging Report ---
APPROVED REPORT CPT Code: 86953 Present Symptoms Lower Extremity Pain: Bilateral BILATERAL: Imaging reveals a patent deep venous system bilaterally. There is no evidence of thrombus within the femoral, popliteal or tibial segments. The greater saphenous veins are also within normal limits. Doppler indicates normal spontaneous flow within these segments.
--- NOTE | 2018-05-07 11:27 | Diagnostic Imaging Report ---
APPROVED REPORT CPT Code: 24722 Symptoms Comments: Bilateral leg pain Swelling BILATERAL: Common femoral artery waveform analysis is within normal limits at rest. Color flow duplex sonography reveals patency of the superficial femoral, and popliteal arteries. There is no evidence of stenosis or occlusion within these segments. The tibioperoneal trunks are patent. The posterior tibial, anterior tibial and dorsalis pedis arteries are also patent. Doppler tibial artery waveform analysis is within normal limits bilaterally. Note: Doppler velocity waveform was vasodilated, due to swelling.
== END 2018-05-06 09:33 | disposition left against medical advice (07) | DRG 197 ==
LOC: EDBD 14:35 → EDBEDREQ 16:30 → EMR 17:28 → EDBEDREQ 17:55 → 4E 18:06
PROC: 3E03328 Introduction of Oxazolidinones into Peripheral Vein, Percutaneous Approach (ICD-10-PCS; 2018-05-03)
PROC: 0JBQ0ZZ Excision of Right Foot Subcutaneous Tissue and Fascia, Open Approach (ICD-10-PCS; principal; 2018-05-04)
DX: I96 Gangrene, not elsewhere classified (principal); L89.314 Pressure ulcer of right buttock, stage 4; E46 Unspecified protein-calorie malnutrition; E11.49 Type 2 diabetes mellitus with other diabetic neurological complication; G82.20 Paraplegia, unspecified; L89.893 Pressure ulcer of other site, stage 3; B87.89 Myiasis of other sites; D64.9 Anemia, unspecified; L03.115 Cellulitis of right lower limb; S71.101A Unspecified open wound, right thigh, initial encounter; M86.8X8 Other osteomyelitis, other site; T14.8XXS Other injury of unspecified body region, sequela; W34.00XS Accidental discharge from unspecified firearms or gun, sequela; N39.0 Urinary tract infection, site not specified; J45.909 Unspecified asthma, uncomplicated; F10.20 Alcohol dependence, uncomplicated; Z99.3 Dependence on wheelchair; F31.89 Other bipolar disorder; F60.2 Antisocial personality disorder; I73.9 Peripheral vascular disease, unspecified; Z88.0 Allergy status to penicillin; Z59.0 Homelessness; G40.909 Epilepsy, unspecified, not intractable, without status epilepticus; B95.62 Methicillin resistant Staphylococcus aureus infection as the cause of diseases classified elsewhere; F19.10 Other psychoactive substance abuse, uncomplicated
CPT/HCPCS: 36415; 36569; 75635; 76937; 80048; 80053; 80202; 81003; 82550; 82553; 83605; 83735; 84100; 84484; 85025; 85651; 86140; 86710; 87040; 87070; 87081; 87181; 87205; 93005; 93306; 93925; 93970; 94664; 94760; 96361; 96365; 96375; 97803; 99285; A4246

== ENCOUNTER 2018-05-16 21:30 | Emergency (ER) | payer OTHER ==
[~2018-05-16] VITALS: Ht 185.4 cm; Wt 81.6 kg
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
[2018-05-16 22:03] VITALS: BP 128/82
[2018-05-16] MEDS ORDERED: Ertapenem 1 GM in NS 55 ML IV ONE (23:30)
[2018-05-16 23:37] LABS: APPEARANCE,URINE CLEAR; BILIRUBIN, URINE NEGATIVE (NEGATIVE); COLOR,URINE PALE YELLOW; GLUCOSE, URINE (UA) NEGATIVE (NEGATIVE); KETONES,URINE NEGATIVE (NEGATIVE); LEUKOCYTE ESTERASE ,URINE NEGATIVE (NEGATIVE); NITRITE,URINE NEGATIVE (NEGATIVE); PH,URINE 6 (4.5-8.0); PROTEIN,URINE NEGATIVE (NEGATIVE); UROBILINOGEN,URINE NORMAL MG/DL (0.0-1.0)
[2018-05-16 23:39] LABS: BASOPHILS % (AUTO) 1.7 % (0.0-2.0); HEMATOCRIT 40.3 % (42.0-52.0); LYMPHOCYTES % (AUTO) 16.7 % (20.0-45.0); MEAN CORPUSCULAR VOLUME 76 FL (80-99); MONOCYTES % (AUTO) 4.6 % (1.0-10.0); PLATELET COUNT 407 K/UL (150-450); RED BLOOD COUNT 5.31 M/UL (4.70-6.10); RED CELL DISTRIBUTION WIDTH 14.5 % (11.6-14.8); WHITE BLOOD COUNT 8.5 K/UL (4.8-10.8)
[2018-05-16 23:40] LABS: ANION GAP 9 mmol/L (5-15); BLOOD UREA NITROGEN 13 mg/dL (7-18); CARBON DIOXIDE 25 MMOL/L (21-32); CHLORIDE 102 MMOL/L (98-107); POTASSIUM 3.9 MMOL/L (3.5-5.1); SODIUM 136 MMOL/L (136-145)
[2018-05-17 00:53] VITALS: BP 128/82
== END 2018-05-17 01:00 | disposition short-term general hospital (02) ==
LOC: EDBD 21:30 → EMR 22:01
DX: L89.893 Pressure ulcer of other site, stage 3 (principal); L03.115 Cellulitis of right lower limb; F10.129 Alcohol abuse with intoxication, unspecified; F15.10 Other stimulant abuse, uncomplicated; Z88.0 Allergy status to penicillin; G82.20 Paraplegia, unspecified; Z99.3 Dependence on wheelchair
CPT/HCPCS: 36415; 80048; 80307; 80329; 81001; 85025; 96365; 99285; J1335

== ENCOUNTER 2018-09-22 13:10 | Emergency (ER) | payer MEDICAID, OTHER ==
[~2018-09-22] VITALS: Ht 182.9 cm; Wt 104.3 kg
[2018-09-22 13:02] VITALS: BP 0/0
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
--- NOTE | 2018-09-22 13:46 | NUR ---
ED Nurse Note: PT CONTINUES TO REFUSES ALL BLOOD WORK. PT CONTINUES TO STATE, "I JUST WANT TO GET IN MY WHEELCHAIR AND LEAVE." MULTIPLE ATTEMPTS MADE TO CHANGE THE PT'S MADE TO RECEIVE THE NECESSARY TREATMENT. PT CONTINUES TO REFUSE.
--- NOTE | 2018-09-22 13:48 | Diagnostic Imaging Report ---
Indication: Dyspnea Comparison: 03/29/2018 A single view chest radiograph was obtained. Findings: Cardiomediastinal appearance is within normal limits for age. The lungs are clear. Pulmonary vascularity is appropriate. The diaphragmatic contour is smooth and costophrenic angles are sharp. No pleural effusions are identified. The bones are unremarkable. Impression: No acute findings
--- NOTE | 2018-09-22 14:00 | NUR ---
ED Nurse Note: PT AGREES TO HAVE SILVADENE CREAM APPLIED TO FOOT. MEDICATION APPLIED THEN WRAPPED. PT TOLERATED WELL.
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
--- NOTE | 2018-09-22 14:20 | NUR ---
ED Nurse Note: PT CONTINUES TO REFUSE TREATMENT AND STATE THAT HE JUST WANTS TO LEAVE. PA AND PRIMARY RN AT BEDSIDE DISCUSSING RISKS AND CONSEQUENCES OF LEAVING THE HOSPITAL AT THIS TIME INCLUDING BUT NOT LIMITED TO WORSENING OF SYMPTOMS AND EVEN . BENEFITS OF CONTINUED TREATMENT AND HOSPITALIZATION ALSO DISCUSSED WITH PT. PT VERBALIZES UNDERSTANDING BUT CONTINUES TO REFUSE TREATMENT. PT REFUSED TO SIGN AMA FORM. PT ASSISTED TO WHEELCHAIR AND WHELCHAIRED OUT OF ER INDEPEDENTLY.
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
== END 2018-09-22 14:30 | disposition left against medical advice (07) ==
LOC: EDBD 13:10 → EMR 14:15
DX: L97.512 Non-pressure chronic ulcer of other part of right foot with fat layer exposed (principal); G82.20 Paraplegia, unspecified; E11.9 Type 2 diabetes mellitus without complications; R06.00 Dyspnea, unspecified; Z88.0 Allergy status to penicillin
CPT/HCPCS: 71045; 99282

== ENCOUNTER 2018-09-24 11:20 | Inpatient (IN) | payer OTHER ==
[~2018-09-24] VITALS: Ht 188 cm; Wt 104.3 kg
[2018-09-24 11:58] VITALS: BP 102/54
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
[2018-09-24] MEDS ORDERED: Morphine Sulfate 2mg/ml Inj(IV/IM USE ONLY) IVP ONE ×2 (14:00→16:45)
--- NOTE | 2018-09-24 14:02 | NUR ---
ED Nurse Note:blood and cultures sent to labs, pt. received pain meds
[2018-09-24 14:24] LABS: BASOPHILS % (AUTO) 1.6 % (0.0-2.0); EOSINOPHILS % (AUTO) 2.7 % (0.0-3.0); HEMATOCRIT 46.5 % (42.0-52.0); HEMOGLOBIN 14.5 G/DL (14.2-18.0); MEAN CORPUSCULAR VOLUME 74 FL (80-99); MONOCYTES % (AUTO) 7.6 % (1.0-10.0); NEUTROPHILS % (AUTO) 74.2 % (45.0-75.0); PLATELET COUNT 393 K/UL (150-450); RED BLOOD COUNT 6.32 M/UL (4.70-6.10); RED CELL DISTRIBUTION WIDTH 17.4 % (11.6-14.8); WHITE BLOOD COUNT 7.2 K/UL (4.8-10.8)
[2018-09-24 14:25] LABS: ANION GAP 12 mmol/L (5-15); BLOOD UREA NITROGEN 14 mg/dL (7-18); CALCIUM 8.7 MG/DL (8.5-10.1); CARBON DIOXIDE 24 MMOL/L (21-32); CHLORIDE 103 MMOL/L (98-107); CREATININE 0.9 MG/DL (0.55-1.30); POTASSIUM 4.2 MMOL/L (3.5-5.1); SODIUM 139 MMOL/L (136-145)
[2018-09-24 14:28] LABS: INR 0.9 (0.9-1.1)
[2018-09-24 14:29] LABS: ALANINE AMINOTRANSFERASE 23 U/L (12-78); ALBUMIN 3.2 G/DL (3.4-5.0); ALBUMIN/GLOBULIN RATIO 0.6 (1.0-2.7); ALKALINE PHOSPHATASE 92 U/L (46-116); ASPARTATE AMINO TRANSFERASE 32 U/L (15-37); BILIRUBIN,TOTAL 0.4 MG/DL (0.2-1.0)
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
[2018-09-24] MEDS ORDERED: Nitroglycerin Subl 0.4mg tab SL PRN (16:15)
[2018-09-24] MEDS ORDERED: Albuterol/Ipratropium 3ml neb HHN PRN (16:15)
[2018-09-24] MEDS ORDERED: Miralax 17gm pkt ORAL PRN (16:15)
[2018-09-24] MEDS ORDERED: HYDROcodone/Acetamin 5/325 tab ORAL PRN (16:15)
--- NOTE | 2018-09-24 16:47 | NUR ---
ED Nurse Note:lactic reflax and wound and admission swabs sent to labs, dry dressing placed on right foot wound, given pain meds
[2018-09-24 18:00] VITALS: BP 104/54
--- NOTE | 2018-09-24 18:24 | NUR ---
NURSE NOTES: Received telephone report from Adilene JOHNSON, patient to come up to the floor.
--- NOTE | 2018-09-24 18:36 | NUR ---
ED Nurse Note:called report to [address]- given to Yassine RN, pt. was taken up stairs
--- NOTE | 2018-09-24 18:43 | NUR ---
NURSE NOTES: Patient arrived to the floor via gurney, belongings reviewed, no discrepancies noted, patient has own wheelchair, no distress noted, bed is locked and in lowest position, call light within reach, will continue to monitor.
--- NOTE | 2018-09-24 19:37 | NUR ---
HAND-OFF: Report given to Park Weaver RN.
[2018-09-24] MEDS ORDERED: Vancomycin 1.25gm Premix IVPB SCH (20:00)
--- NOTE | 2018-09-24 20:11 | NUR ---
NURSE NOTES: PATIENT IN BED, AWAKE, ALERT, VERBALLY RESPONSIVE. IV IN PLACE. NO COMPLAINTS OF PAIN AT THIS TIME. NO S/S DISTRESS NOTED. BELONGINGS REVIEWED BY AM NURSE. PATIENT HUNGRY, GIVEN SANDWICH, JUICES, AND CRACKERS, PATIENT STILL REQUESTING FOR MORE FOOD. BED IN LOWEST POSITION, CALL LIGHT WITHIN REACH, BED ALARM ON. WILL CONTINUE MONITOR.
[2018-09-24 20:31] VITALS: BP 110/56
--- NOTE | 2018-09-24 20:35 | NUR ---
NURSE NOTES: PAGED ALL ULTRASOUND,VASCULAR ULTRASOUND NUMBERS REGARDING STAT VENOUS DUPLEX ORDER, NO ANSWER AND NO MAILBOX AVAILABLE. CHARGE NURSE MADE AWARE, ASKED MASS SPEC FOR ANOTHER NUMBER, NURSE CALLED AND LEFT 4E NUMBER ON NUMBER'S MAILBOX, AWAITING RESPONSE.
[2018-09-24] MEDS: Morphine Sulfate 2mg/ml Inj(IV/IM USE ONLY) IVP PRN (20:50)
--- NOTE | 2018-09-24 21:00 | NUR ---
NURSE NOTES: WHILE GOING OVER MEDICAL HISTORY, PATIENT DENIES BEING A DIABETIC.
[2018-09-24] MEDS: Heparin 5000 units/ml inj SUBQ SCH (21:02)
[2018-09-25] VITALS: BP 108/73
[2018-09-25] MEDS ORDERED: Vancomycin 1 GM in D5W 275 ML IV SCH (00:30)
[2018-09-25] MEDS: Morphine Sulfate 2mg/ml Inj(IV/IM USE ONLY) IVP PRN ×6 (00:59→23:56)
--- NOTE | 2018-09-25 03:44 | NUR ---
NURSE NOTES: Skin assessment done, patient noted to have healed scars on BLE, open wound and healed scar on right buttocks, and right foot/ankle/malleolus area open wounds that are unstageable black, brown, red, pink, white, and yellow in color with foul moderate drainage. WCP taken and uploaded. Dressings changed.
[2018-09-25 04:00] VITALS: BP 107/63
[2018-09-25] MEDS: Vancomycin 750mg/NS 275ml IVPB SCH ×4 (05:01→13:01)
--- NOTE | 2018-09-25 07:30 | NUR ---
NURSE NOTES: RN received pt in stable condition. No acute distress or SOB. Bed in low, locked position, call light within reach. Will continue plan of care.
--- NOTE | 2018-09-25 07:30 | NUR ---
HAND-OFF: Report given to SHANEL Caballero RN. Addendum: 09/25/18 at 0735 by RONY BROWNE RN RN ENDORSED TO AM NURSE TO FOLLOW UP REGARDING VENOUS DUPLEX AND MD WOUND CONSULT.
[2018-09-25 08:00] VITALS: BP 113/66
[2018-09-25] MEDS: Heparin 5000 units/ml inj SUBQ SCH ×3 (09:00→20:09)
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
--- NOTE | 2018-09-25 13:44 | Consultation ---
History of Present Illness General Date patient seen: September 25, 2018 Reason for Hospitalization: Skin Rash/Abscess Present Illness HPI 43M well known to me from prior admissions. Has had chronic issues with lower extremities and poor compliance with care plan. presented with worsening cellulitis and pain. abnormal labs. exam with cellulitis and drainage. surgery called to evaluate and assist with care. patient seen, chart reviewed, patient examined. states pain in feet and swelling worse. Allergies: Coded Allergies: PENICILLIN G (Verified Allergy, Unknown, 05/05/18) Tolerates carbapenems and cephalosporins UNABLE TO ASSESS (Unverified , 09/24/18) Medication History Discontinued Medications Hydrocodone Bit/Acetaminophen 5-325* ([employer] 5-325*), 1 TAB ORAL Q6H PRN for For Pain Discontinued Reason: Therapy completed Patient History History Provided By: Patient, Medical Record, PMD Healthcare decision maker Resuscitation status Advanced Directive on File Past Medical/Surgical History Past Medical/Surgical History: (1) Alcohol intoxication (2) Methamphetamine abuse (3) Pain (4) Foot infection (5) UTI (urinary tract infection) (6) Acute neck sprain (7) homelessness (8) homelessness (9) Hypersexuality (10) Sociopathic personality disorder (11) Decubitus ulcer, stage 3 with infection (12) Paraplegia (13) Cellulitis (14) Spinal cord injury (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 (16) Asthma (17) Paraplegia (18) PVD (peripheral vascular disease) (19) Ulcer of foot (20) Depressed bipolar disorder Review of Systems Review of Symptoms General ROS: no weight loss or fever Psychological ROS: no depression or mood changes, no memory loss Ophthalmic ROS: no visual changes or eye irritation ENT ROS: no nasal congestion, hearing loss, dizziness Allergy and Immunology ROS: no allergic symptoms or urticaria Hematological and Lymphatic ROS: no swollen glands, unusual bleeding or bruising Endocrine ROS: no polyuria, polydipsia, weight changes, temperature intolerance Respiratory ROS: no cough, shortness of breath, or wheezing Cardiovascular ROS: no chest pain or dyspnea on exertion Gastrointestinal ROS: denies abdominal pain, no bright red blood in stool. Musculoskeletal ROS: no myalgias or arthralgias Neurological ROS: no TIA or stroke symptoms Dermatological ROS: no new or changing skin lesions, rashes or pruritis Physical Exam Physical Exam General appearance: alert, cooperative, no distress, appears stated age Head: Normocephalic, without obvious abnormality, atraumatic Eyes: conjunctivae/corneas clear. PERRL, EOM's intact. Fundi benign Throat: Lips, mucosa, and tongue normal. Teeth and gums normal Neck: supple, symmetrical, trachea midline, no adenopathy, thyroid: not enlarged, symmetric, no tenderness/mass/nodules, no carotid bruit and no JVD Lungs: clear to auscultation bilaterally Heart: regular rate and rhythm, S1, S2 normal, no murmur, click, rub or gallop Abdomen: soft, non-tender. Bowel sounds normal. No masses, no organomegaly Extremities: extremities with edema Pulses: 2+ and symmetric Skin: Skin color, texture, turgor normal. No rashes or lesions Neurologic: Grossly normal Last 24 Hour Vital Signs Date Time Temp Pulse Resp B/P (MAP) Pulse Ox O2 Delivery O2 Flow Rate FiO2 09/25/18 10:02 98.2 09/25/18 09:40 82 18 Room Air 21 09/25/18 09:00 Room Air 09/25/18 08:00 98.2 82 20 113/66 (82) 100 09/25/18 04:00 99.3 99 18 107/63 (78) 98 09/25/18 00:00 98.2 104 18 108/73 (85) 96 09/24/18 23:20 Room Air 09/24/18 20:31 98.4 88 18 110/56 (74) 98 09/24/18 20:30 Room Air 09/24/18 18:23 98.1 16 102/54 100 Room Air 09/24/18 16:48 98.1 09/24/18 15:15 98.1 Intake and Output 09/24/18 09/25/18 19:00 07:00 Intake Total 360 ml 480 ml Output Total 650 ml Balance 360 ml -170 ml Intake Oral 360 ml 480 ml Output Urine Total 650 ml Laboratory Tests Test 09/24/18 13:45 09/24/18 16:20 White Blood Count 7.2 K/UL (4.8-10.8) Red Blood Count 6.32 M/UL (4.70-6.10) H Hemoglobin 14.5 G/DL (14.2-18.0) Hematocrit 46.5 % (42.0-52.0) Mean Corpuscular Volume 74 FL (80-99) L Mean Corpuscular Hemoglobin 22.9 PG (27.0-31.0) L Mean Corpuscular Hemoglobin Concent 31.2 G/DL (32.0-36.0) L Red Cell Distribution Width 17.4 % (11.6-14.8) H Platelet Count 393 K/UL (150-450) Mean Platelet Volume 7.8 FL (6.5-10.1) Neutrophils (%) (Auto) 74.2 % (45.0-75.0) Lymphocytes (%) (Auto) 14.0 % (20.0-45.0) L Monocytes (%) (Auto) 7.6 % (1.0-10.0) Eosinophils (%) (Auto) 2.7 % (0.0-3.0) Basophils (%) (Auto) 1.6 % (0.0-2.0) Prothrombin Time 9.5 SEC (9.30-11.50) Prothromb Time International Ratio 0.9 (0.9-1.1) Activated Partial Thromboplast Time 19 SEC (23-33) L Sodium Level 139 MMOL/L (136-145) Potassium Level 4.2 MMOL/L (3.5-5.1) Chloride Level 103 MMOL/L (98-107) Carbon Dioxide Level 24 MMOL/L (21-32) Anion Gap 12 mmol/L (5-15) Blood Urea Nitrogen 14 mg/dL (7-18) Creatinine 0.9 MG/DL (0.55-1.30) Estimat Glomerular Filtration Rate > 60 mL/min (>60) Glucose Level 110 MG/DL (74-106) H Lactic Acid Level 2.50 mmol/L (0.4-2.0) H 1.10 mmol/L (0.66-2.22) Calcium Level 8.7 MG/DL (8.5-10.1) Total Bilirubin 0.4 MG/DL (0.2-1.0) Aspartate Amino Transf (AST/SGOT) 32 U/L (15-37) Alanine Aminotransferase (ALT/SGPT) 23 U/L (12-78) Alkaline Phosphatase 92 U/L (46-116) Total Protein 8.2 G/DL (6.4-8.2) Albumin 3.2 G/DL (3.4-5.0) L Globulin 5.0 g/dL Albumin/Globulin Ratio 0.6 (1.0-2.7) L Microbiology Date/Time Source Procedure Growth Status 09/24/18 17:30 Wound Gram Stain - Final Resulted 09/24/18 17:30 Wound Wound Culture Pending Resulted Height (Feet): 6 Height (Inches): 2.00 Weight (Pounds): 230 Medications Current Medications Medications (Trade) Dose Ordered Sig/Michael Route PRN Reason Start Time Stop Time Status Last Admin Dose Admin Acetaminophen (Tylenol) 650 mg Q4H PRN ORAL fever 09/24/18 16:15 10/24/18 16:14 Acetaminophen/ Hydrocodone Bitart ([employer] 5/325) 1 tab Q6H PRN ORAL For Pain 09/24/18 16:15 10/01/18 16:14 Albuterol/ Ipratropium (Albuterol/ Ipratropium) 3 ml Q4H PRN HHN Shortness of Breath 09/24/18 16:15 09/29/18 16:14 Dextrose (Dextrose 50%) 25 ml Q30M PRN IV Hypoglycemia 09/24/18 16:15 10/24/18 16:14 Dextrose (Dextrose 50%) 50 ml Q30M PRN IV Hypoglycemia 09/24/18 16:15 10/24/18 16:14 Heparin Sodium (Porcine) (Heparin 5000 units/ml) 5,000 units EVERY 12 HOURS SUBQ 09/24/18 21:00 10/24/18 20:59 09/24/18 21:02 Morphine Sulfate (Morphine Sulfate) 2 mg Q4H PRN IVP Moderate Pain (Pain Scale 4-6) 09/24/18 16:15 10/01/18 16:14 09/25/18 09:32 Nitroglycerin (Ntg) 0.4 mg Q5M PRN SL Prn Chest Pain 09/24/18 16:15 10/24/18 16:14 Ondansetron HCl (Zofran) 4 mg Q6H PRN IVP Nausea & Vomiting 09/24/18 16:15 10/24/18 16:14 Polyethylene Glycol (Miralax) 17 gm DAILYPRN PRN ORAL Constipation 09/24/18 16:15 10/24/18 16:14 Temazepam (Restoril) 15 mg HSPRN PRN ORAL Insomnia 09/24/18 21:00 10/01/18 20:59 Vancomycin HCl (Vanco rx to dose) 1 ea DAILY PRN MISC Per rx protocol 09/24/18 19:00 10/24/18 18:59 Vancomycin HCl 750 mg/Sodium Chloride 275 ml @ 183.333 mls/hr Q8H IVPB 09/25/18 04:00 09/30/18 03:59 09/25/18 13:01 Assessment/Plan Problem List: (1) Alcohol intoxication ICD Codes: F10.929 - Alcohol use, unspecified with intoxication, unspecified SNOMED: 77141342 (2) Pain ICD Codes: R52 - Pain, unspecified SNOMED: 50450246 (3) Foot infection ICD Codes: L08.9 - Local infection of the skin and subcutaneous tissue, unspecified SNOMED: 981400270 (4) Methamphetamine abuse ICD Codes: F15.10 - Other stimulant abuse, uncomplicated SNOMED: 097387264 (5) UTI (urinary tract infection) ICD Codes: N39.0 - Urinary tract infection SNOMED: 42678480 (6) Acute neck sprain ICD Codes: S13.9XXA - Sprain of joints and ligaments of unspecified parts of neck, initial encounter SNOMED: 416307767 (7) homelessness (8) homelessness (9) Hypersexuality ICD Codes: F52.8 - Other sexual dysfunction not due to a substance or known physiological condition SNOMED: 82315327 (10) Sociopathic personality disorder ICD Codes: F60.2 - Antisocial personality disorder SNOMED: 98817073 (11) Decubitus ulcer, stage 3 with infection ICD Codes: L89.93 - Pressure ulcer of unspecified site, stage 3 SNOMED: 4303622 (12) Paraplegia ICD Codes: G82.20 - Paraplegia, unspecified SNOMED: 47296288 (13) Cellulitis Assessment & Plan: Full thickness pressure injury R ischium with tunneling. Opening 2.5cm x 2cm and tunnels >9cm. (+) Epibole. Small amount of serosanguineous exudate noted. No purulent drainage. Periwound intact but with chronic skin changes. Wound related to wheelchair use and pressure. Patient aware of wound and has been given instructions for care and planning prior but admits he does not adhere to plan Scattered hyperpigmentation noted to L gluteal cleft and L ischium. Almost near circumferential dorsal and ankle dermal loss / ulceration to the right foot. plantar aspect with rugged thick callus tissue. Wounds have continued to deteriorate compared to prior with more tissue loss. bleeding granulation tissue forming. edema with cellulitis noted. draining serosang fluid. no abscess. tender on palpation. Does not tend to wounds and notes this stage 3 ulcer deep wound at distal L tibia. Prior CTA with good runoff. seems to have good vascular flow to foot as well clinically Prior plain films and imaging reviewed. no acute surgical intervention necessary I did discuss worsening condition with patient and possibility of amputation in future if continues to deteriorate. IV Abx as per ID Tx.Plan: Cleanse wound R Ischium with Saline.Loosely pack with Hydrogel impregnated gauze.Cavilon wipe to borders. Cover with Optifoam drsg daily and prn. Cleanse wound R buttocks and sacrum with NS. Apply Cavilon and cover with Optifoam drsg .Change every 7 days and prn. Cleanse wounds R lower ext with Saline. 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 ICD Codes: E11.49 - Type 2 diabetes mellitus with other diabetic neurological complication SNOMED: 27715277, 587491352 (16) Asthma ICD Codes: J45.909 - Unspecified asthma, uncomplicated SNOMED: 899022994 (17) Paraplegia ICD Codes: G82.20 - Paraplegia SNOMED: 79125195 (18) PVD (peripheral vascular disease) ICD Codes: I73.9 - Peripheral vascular disease, unspecified SNOMED: 184389265 (19) Ulcer of foot ICD Codes: L97.509 - Non-pressure chronic ulcer of other part of unspecified foot with unspecified severity SNOMED: 26576460 (20) Depressed bipolar disorder ICD Codes: F31.30 - Depressed bipolar disorder SNOMED: 16566459 Shilo Arrington September 25, 2018 13:44
--- NOTE | 2018-09-25 15:12 | NUR ---
*-* INSURANCE *-* ALL CLINICALS HAVE BEEN FAXED TO: IPA: CORNELIO PERKINS P: [phone] F: [phone] Addendum: 09/25/18 at 1627 by ALIYAH AYALA CM LAINA# [id number] MARISELA: YANIRA P:[phone] F:[phone]
--- NOTE | 2018-09-25 15:37 | NUR ---
Social Work This Sw received a consult due to patient is homeless. This Sw met with patient (who is known to this hospital from multiple admissions here). Patient is alert/oriented, wheelchair bound, and independent with ADL's. Patient stating he is living at [facility], planning to return there upon discharge. Patient denied any income, stating his SSI "was dropped." This SW recommended patient to follow up with Social Security after discharge to reinstate his SSI (therefore, will have income for other housing, ie Board/Care). Patient admitted to using Methamphetamines in the past week, stating he plans to quit. This SW offered homeless and substance abuse resources (patient declined at this time). Patient denied any depression, suicidal or homicidal ideations at this time.
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
[2018-09-25 16:00] VITALS: BP 112/63
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
--- NOTE | 2018-09-25 18:57 | NUR ---
NURSE NOTES: Pt refused wound culture.
--- NOTE | 2018-09-25 19:14 | NUR ---
HAND-OFF: Report given to ELIZABETH Skelton.
--- NOTE | 2018-09-25 19:15 | History and Physical Report ---
DATE OF ADMISSION: 09/24/2018 DATE AND TIME SEEN: On 09/25/2018 at 9 a.m. CONSULTANTS: 1. Hai Jacob M.D. 2. Francheska Armas M.D. 3. Shilo Arrington M.D. 4. Macy Francis M.D. CHIEF COMPLAINT: Right leg cellulitis pain. BRIEF HISTORY: This is a 43-year-old male, who lives at home, presents to [place] ER last night with worsening of right foot ulcer, this was draining, foul-smelling. The patient was assessed and admitted to medical floor for further treatment. Currently, calm in bed. Complains about foot pain. No complaint. REVIEW OF SYSTEMS: No chest pain. No shortness of breath. No nausea, vomiting, or diarrhea. PAST MEDICAL HISTORY: Alcoholism, drug abuse, foot infection, decubitus ulcers, paraplegia, asthma, PVD, depress. PAST SURGICAL HISTORY: None. ALLERGIES: Penicillin. SOCIAL HISTORY: No smoking. Positive alcohol. No intravenous drug use. FAMILY HISTORY: Noncontributory. PHYSICAL EXAMINATION: GENERAL: Calm in bed, oriented x2, in no acute distress. VITAL SIGNS: Temperature is 99, pulse 99, respirations 18, blood pressure 107/63. CARDIOVASCULAR: No murmur. LUNGS: Distant and clear. ABDOMEN: Bowel sound positive. Nontender. Nondistended. EXTREMITIES: No cyanosis, clubbing, or edema. Right foot dressing , foul-smelling, some drainage. LABORATORY DATA: Labs at this time show, CBC is normal. BMP shows glucose 110, lactic acid 2.5, albumin 3.2, and INR 0.9. PTT is 19. MEDICATION: Include vancomycin, temazepam, heparin, hydrocodone, nitroglycerin, Zofran, morphine, Tylenol. ASSESSMENT: 1. Right leg cellulitis. 2. Wound pain. 3. Alcoholism. 4. Drug abuse. 5. Decubitus ulcer. 6. Paraplegia. 7. Asthma. 8. PVD. 9. Depression. 10. Malnutrition. PLAN: 1. Wound care. 2. Antibiotics per Infectious Disease. 3. PT and dietary evaluation. 4. Check labs in the morning. 5. Resume home medications. 6. Pain control. 7. We will continue to follow the patient. [place] D.O. DR: VELIA JOB#: [id number] CC:
[2018-09-25 19:37] LABS: ALANINE AMINOTRANSFERASE 21 U/L (12-78); ALBUMIN 2.7 G/DL (3.4-5.0); ALBUMIN/GLOBULIN RATIO 0.7 (1.0-2.7); ALKALINE PHOSPHATASE 89 U/L (46-116); ANION GAP 10 mmol/L (5-15); ASPARTATE AMINO TRANSFERASE 14 U/L (15-37); BILIRUBIN,TOTAL 0.2 MG/DL (0.2-1.0); BLOOD UREA NITROGEN 11 mg/dL (7-18); CALCIUM 8.3 MG/DL (8.5-10.1); CARBON DIOXIDE 24 MMOL/L (21-32); CHLORIDE 105 MMOL/L (98-107); CREATININE 0.9 MG/DL (0.55-1.30); POTASSIUM 3.7 MMOL/L (3.5-5.1); SODIUM 139 MMOL/L (136-145)
--- NOTE | 2018-09-25 19:39 | NUR ---
NURSE NOTES: Pt received in bed at lowest position, call light within reach, given morphine by morning shift nurse, no c/o pain or signs of distress at the moment. Will ask the patient about swabbing his wound for a wound culture, was told by previous nurse that he refused, will ask him again. will continue to monitor.
[2018-09-25 20:00] VITALS: BP 105/58
[2018-09-25] MEDS: Vancomycin 1.25gm Premix IVPB SCH (20:08)
[2018-09-25] MEDS: Meropenem 1 GM in NS 55 ML IVPB SCH (22:00)
[2018-09-25 22:02] LABS: APPEARANCE,URINE CLEAR; BILIRUBIN, URINE NEGATIVE (NEGATIVE); COLOR,URINE PALE YELLOW; GLUCOSE, URINE (UA) NEGATIVE (NEGATIVE); KETONES,URINE NEGATIVE (NEGATIVE); LEUKOCYTE ESTERASE ,URINE NEGATIVE (NEGATIVE); NITRITE,URINE NEGATIVE (NEGATIVE); PH,URINE 7 (4.5-8.0); PROTEIN,URINE NEGATIVE (NEGATIVE); UROBILINOGEN,URINE NORMAL MG/DL (0.0-1.0)
--- NOTE | 2018-09-25 22:27 | NUR ---
NURSE NOTES: Pt urine positive for amphetamines and opiates. Contacted Dr. Armas and made aware.
[2018-09-26] VITALS (7 sets, daily range): BP systolic 96–118; BP diastolic 53–68
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
[2018-09-26] MEDS: Meropenem 1 GM in NS 55 ML IVPB SCH ×3 (05:40→22:11)
--- NOTE | 2018-09-26 05:45 | NUR ---
NURSE NOTES: Pt refused to have dressing on foot changed stating he will wait until later on to have it done. Charge nurse made aware.
[2018-09-26 06:36] LABS: BASOPHILS % (AUTO) 1.1 % (0.0-2.0); EOSINOPHILS % (AUTO) 3.1 % (0.0-3.0); HEMOGLOBIN 10.6 G/DL (14.2-18.0); LYMPHOCYTES % (AUTO) 24.2 % (20.0-45.0); MEAN CORPUSCULAR VOLUME 73 FL (80-99); MONOCYTES % (AUTO) 10.4 % (1.0-10.0); NEUTROPHILS % (AUTO) 61.2 % (45.0-75.0); PLATELET COUNT 266 K/UL (150-450); RED BLOOD COUNT 4.63 M/UL (4.70-6.10); RED CELL DISTRIBUTION WIDTH 17.3 % (11.6-14.8); WHITE BLOOD COUNT 4.8 K/UL (4.8-10.8)
[2018-09-26 07:00] LABS: ALANINE AMINOTRANSFERASE 8 U/L (12-78); ALBUMIN 2.4 G/DL (3.4-5.0); ALBUMIN/GLOBULIN RATIO 0.6 (1.0-2.7); ALKALINE PHOSPHATASE 72 U/L (46-116); ANION GAP 7 mmol/L (5-15); ASPARTATE AMINO TRANSFERASE 12 U/L (15-37); BILIRUBIN,TOTAL 0.3 MG/DL (0.2-1.0); BLOOD UREA NITROGEN 10 mg/dL (7-18); CALCIUM 8.2 MG/DL (8.5-10.1); CARBON DIOXIDE 26 MMOL/L (21-32); CHLORIDE 106 MMOL/L (98-107); CHOLESTEROL 126 MG/DL (< 200); GAMMA GLUTAMYL TRANSPEPTIDASE 9 U/L (5-85); HDL CHOLESTEROL 39 MG/DL (40-60); PHOSPHORUS 3.3 MG/DL (2.5-4.9); POTASSIUM 3.3 MMOL/L (3.5-5.1); SODIUM 139 MMOL/L (136-145); TRIGLYCERIDES 89 MG/DL (30-150)
--- NOTE | 2018-09-26 07:48 | NUR ---
NURSE NOTES: received report from ELIZABETH Skelton. patient in bed. alert. verbally responsive. no respiratory distress noted. c/o discomfort on rt foot. IV on LH intact. bed in the lowest position. call light within reach. will continue to monitor.
--- NOTE | 2018-09-26 07:48 | NUR ---
HAND-OFF: Report given to ELIZABETH King. Endorsed pt refused to have RT foot dressing changed this morning.
[2018-09-26] MEDS: Morphine Sulfate 2mg/ml Inj(IV/IM USE ONLY) IVP PRN ×4 (08:27→22:11)
[2018-09-26] MEDS: Heparin 5000 units/ml inj SUBQ SCH ×2 (08:30→20:34)
--- NOTE | 2018-09-26 08:32 | General Progress Note ---
Assessment/Plan Problem List: (1) Foot infection ICD Codes: L08.9 - Local infection of the skin and subcutaneous tissue, unspecified SNOMED: 565651729 (2) Pain ICD Codes: R52 - Pain, unspecified SNOMED: 75207413 (3) Alcohol intoxication ICD Codes: F10.929 - Alcohol use, unspecified with intoxication, unspecified SNOMED: 17787818 (4) Paraplegia ICD Codes: G82.20 - Paraplegia, unspecified SNOMED: 32089568 (5) Cellulitis ICD Codes: L03.90 - Cellulitis, unspecified SNOMED: 495199157 (6) Asthma ICD Codes: J45.909 - Unspecified asthma, uncomplicated SNOMED: 406328902 (7) PVD (peripheral vascular disease) ICD Codes: I73.9 - Peripheral vascular disease, unspecified SNOMED: 654505529 (8) Ulcer of foot ICD Codes: L97.509 - Non-pressure chronic ulcer of other part of unspecified foot with unspecified severity SNOMED: 13614722 (9) Depressed bipolar disorder ICD Codes: F31.30 - Depressed bipolar disorder SNOMED: 31553481 Status: stable, progressing Assessment/Plan: wound care sbx pt diet cbc bmp am Subjective Constitutional: Reports: weakness Allergies: Coded Allergies: PENICILLIN G (Verified Allergy, Unknown, 05/05/18) Tolerates carbapenems and cephalosporins UNABLE TO ASSESS (Unverified , 09/24/18) All Systems: reviewed and negative except above Subjective sleepy calm Objective Last 24 Hour Vital Signs Date Time Temp Pulse Resp B/P (MAP) Pulse Ox O2 Delivery O2 Flow Rate FiO2 09/26/18 08:00 97.7 98 18 112/68 (83) 100 09/26/18 04:00 98.4 91 18 111/62 (78) 95 09/26/18 00:00 98.4 88 18 102/53 (69) 97 09/25/18 21:00 Room Air 09/25/18 20:26 98 20 Room Air 21 09/25/18 20:00 98.3 92 17 105/58 (74) 97 09/25/18 19:23 98.1 09/25/18 16:00 98.1 98 20 112/63 (79) 100 09/25/18 09:40 82 18 Room Air 21 09/25/18 09:00 Room Air Intake and Output 09/25/18 09/26/18 19:00 07:00 Intake Total 400 ml 476.666 ml Balance 400 ml 476.666 ml Intake Oral 400 ml IV Total 476.666 ml # Voids 3 2 Laboratory Tests 09/25/18 18:53: Sodium Level 139, Potassium Level 3.7, Chloride Level 105, Carbon Dioxide Level 24, Anion Gap 10, Blood Urea Nitrogen 11, Creatinine 0.9, Estimat Glomerular Filtration Rate > 60, Glucose Level 108H, Calcium Level 8.3L, Total Bilirubin 0.2, Aspartate Amino Transf (AST/SGOT) 14L, Alanine Aminotransferase (ALT/SGPT) 21, Alkaline Phosphatase 89, Total Protein 6.5, Albumin 2.7L, Globulin 3.8, Albumin/Globulin Ratio 0.7L, Vancomycin Level Trough 14.5H 09/25/18 21:40: Urine Color Pale yellow, Urine Appearance Clear, Urine pH 7, Urine Specific [place] 1.010, Urine Protein Negative, Urine Glucose (UA) Negative, Urine Ketones Negative, Urine Blood Negative, Urine Nitrite Negative, Urine Bilirubin Negative, Urine Urobilinogen Normal, Urine Leukocyte Esterase Negative, Urine RBC 0-2H, Urine WBC 0-2, Urine Squamous Epithelial Cells Few, Urine Bacteria None, Urine Opiates Screen PositiveH, Urine Barbiturates Screen Negative, Phencyclidine (PCP) Screen Negative, Urine Amphetamines Screen PositiveH, Urine Benzodiazepines Screen Negative, Urine Cocaine Screen Negative, Urine Marijuana (THC) Screen Negative 09/26/18 05:25: Sodium Level 139, Potassium Level 3.3L, Chloride Level 106, Carbon Dioxide Level 26, Anion Gap 7, Blood Urea Nitrogen 10, Creatinine 1.0, Estimat Glomerular Filtration Rate > 60, Glucose Level 98, Calcium Level 8.2L, Total Bilirubin 0.3, Aspartate Amino Transf (AST/SGOT) 12L, Alanine Aminotransferase ( ALT/SGPT) 8L, Alkaline Phosphatase 72, Total Protein 6.5, Albumin 2.4L, Globulin 4.1, Albumin/Globulin Ratio 0.6L, White Blood Count 4.8, Red Blood Count 4.63L, Hemoglobin 10.6L, Hematocrit 34.0L, Mean Corpuscular Volume 73L, Mean Corpuscular Hemoglobin 22.9L, Mean Corpuscular Hemoglobin Concent 31.2L, Red Cell Distribution Width 17.3H, Platelet Count 266, Mean Platelet Volume 7.6 , Neutrophils (%) (Auto) 61.2, Lymphocytes (%) (Auto) 24.2, Monocytes (%) (Auto ) 10.4H, Eosinophils (%) (Auto) 3.1H, Basophils (%) (Auto) 1.1, Uric Acid 5.9, Phosphorus Level 3.3, Magnesium Level 1.7L, Gamma Glutamyl Transpeptidase 9, C- Reactive Protein, Quantitative 4.5H, Pro-B-Type Natriuretic Peptide 132H, Triglycerides Level 89, Cholesterol Level 126, LDL Cholesterol 73, HDL Cholesterol 39L, Cholesterol/HDL Ratio 3.2L, Vitamin B12 Level 570, Folate 5.4L , Thyroid Stimulating Hormone (TSH) 2.515 Height (Feet): 6 Height (Inches): 2.00 Weight (Pounds): 230 General Appearance: lethargic EENT: normal ENT inspection Neck: normal alignment Cardiovascular: normal peripheral pulses, normal rate, regular rhythm Respiratory/Chest: chest wall non-tender, lungs clear, normal breath sounds Abdomen: normal bowel sounds, non tender, soft Extremities: normal inspection Edema: no edema noted Arm (L), no edema noted Arm (R), no edema noted Leg (L), no edema noted Leg (R), no edema noted Pedal (L), no edema noted Pedal (R), no edema noted Generalized Neurologic: responsive, motor weakness Skin: normal pigmentation, warm/dry Objective r foot dressing sl stained [place] Vickie September 26, 2018 08:32
[2018-09-26] MEDS: Vancomycin 1.25gm Premix IVPB SCH ×2 (08:43→20:00)
[2018-09-26] MEDS: Multivitamin w/Minerals tab ORAL SCH (10:58)
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
--- NOTE | 2018-09-26 12:52 | Surgery Progress Note ---
Surgery Progress Note Subjective Additional Comments no acute events resting comfortable exam with saturated dressings being changed wants food Objective Last 24 Hour Vital Signs Date Time Temp Pulse Resp B/P (MAP) Pulse Ox O2 Delivery O2 Flow Rate FiO2 09/26/18 12:00 97.5 91 20 100/65 (77) 99 09/26/18 08:00 97.7 98 18 112/68 (83) 100 09/26/18 04:00 98.4 91 18 111/62 (78) 95 09/26/18 00:00 98.4 88 18 102/53 (69) 97 09/25/18 21:00 Room Air 09/25/18 20:26 98 20 Room Air 21 09/25/18 20:00 98.3 92 17 105/58 (74) 97 09/25/18 19:23 98.1 09/25/18 16:00 98.1 98 20 112/63 (79) 100 I&O Intake and Output 09/25/18 09/26/18 19:00 07:00 Intake Total 400 ml 476.666 ml Balance 400 ml 476.666 ml Intake Oral 400 ml IV Total 476.666 ml # Voids 3 2 Dressing: saturated Wound: other Cardiovascular: RSR Respiratory: clear Abdomen: soft, flat, non-tender Extremities: edema, tenderness, other Laboratory Tests Test 09/25/18 18:53 09/25/18 21:40 09/26/18 05:25 Sodium Level 139 MMOL/L (136-145) 139 MMOL/L (136-145) Potassium Level 3.7 MMOL/L (3.5-5.1) 3.3 MMOL/L (3.5-5.1) L Chloride Level 105 MMOL/L (98-107) 106 MMOL/L (98-107) Carbon Dioxide Level 24 MMOL/L (21-32) 26 MMOL/L (21-32) Anion Gap 10 mmol/L (5-15) 7 mmol/L (5-15) Blood Urea Nitrogen 11 mg/dL (7-18) 10 mg/dL (7-18) Creatinine 0.9 MG/DL (0.55-1.30) 1.0 MG/DL (0.55-1.30) Estimat Glomerular Filtration Rate > 60 mL/min (>60) > 60 mL/min (>60) Glucose Level 108 MG/DL (74-106) H 98 MG/DL (74-106) Calcium Level 8.3 MG/DL (8.5-10.1) L 8.2 MG/DL (8.5-10.1) L Total Bilirubin 0.2 MG/DL (0.2-1.0) 0.3 MG/DL (0.2-1.0) Aspartate Amino Transf (AST/SGOT) 14 U/L (15-37) L 12 U/L (15-37) L Alanine Aminotransferase (ALT/SGPT) 21 U/L (12-78) 8 U/L (12-78) L Alkaline Phosphatase 89 U/L (46-116) 72 U/L (46-116) Total Protein 6.5 G/DL (6.4-8.2) 6.5 G/DL (6.4-8.2) Albumin 2.7 G/DL (3.4-5.0) L 2.4 G/DL (3.4-5.0) L Globulin 3.8 g/dL 4.1 g/dL Albumin/Globulin Ratio 0.7 (1.0-2.7) L 0.6 (1.0-2.7) L Vancomycin Level Trough 14.5 ug/mL (5.0-12.0) H Urine Color Pale yellow Urine Appearance Clear Urine pH 7 (4.5-8.0) Urine Specific [place] 1.010 (1.005-1.035) Urine Protein Negative (NEGATIVE) Urine Glucose (UA) Negative (NEGATIVE) Urine Ketones Negative (NEGATIVE) Urine Blood Negative (NEGATIVE) Urine Nitrite Negative (NEGATIVE) Urine Bilirubin Negative (NEGATIVE) Urine Urobilinogen Normal MG/DL (0.0-1.0) Urine Leukocyte Esterase Negative (NEGATIVE) Urine RBC 0-2 /HPF (0 - 0) H Urine WBC 0-2 /HPF (0 - 0) Urine Squamous Epithelial Cells Few /LPF (NONE/OCC) Urine Bacteria None /HPF (NONE) Urine Opiates Screen Positive (NEGATIVE) H Urine Barbiturates Screen Negative (NEGATIVE) Phencyclidine (PCP) Screen Negative (NEGATIVE) Urine Amphetamines Screen Positive (NEGATIVE) H Urine Benzodiazepines Screen Negative (NEGATIVE) Urine Cocaine Screen Negative (NEGATIVE) Urine Marijuana (THC) Screen Negative (NEGATIVE) White Blood Count 4.8 K/UL (4.8-10.8) Red Blood Count 4.63 M/UL (4.70-6.10) L Hemoglobin 10.6 G/DL (14.2-18.0) L Hematocrit 34.0 % (42.0-52.0) L Mean Corpuscular Volume 73 FL (80-99) L Mean Corpuscular Hemoglobin 22.9 PG (27.0-31.0) L Mean Corpuscular Hemoglobin Concent 31.2 G/DL (32.0-36.0) L Red Cell Distribution Width 17.3 % (11.6-14.8) H Platelet Count 266 K/UL (150-450) Mean Platelet Volume 7.6 FL (6.5-10.1) Neutrophils (%) (Auto) 61.2 % (45.0-75.0) Lymphocytes (%) (Auto) 24.2 % (20.0-45.0) Monocytes (%) (Auto) 10.4 % (1.0-10.0) H Eosinophils (%) (Auto) 3.1 % (0.0-3.0) H Basophils (%) (Auto) 1.1 % (0.0-2.0) Erythrocyte Sedimentation Rate 33 MM/HR (0-15) H Uric Acid 5.9 MG/DL (2.6-7.2) Phosphorus Level 3.3 MG/DL (2.5-4.9) Magnesium Level 1.7 MG/DL (1.8-2.4) L Gamma Glutamyl Transpeptidase 9 U/L (5-85) C-Reactive Protein, Quantitative 4.5 mg/dL (0.00-0.90) H Pro-B-Type Natriuretic Peptide 132 pg/mL (0-125) H Triglycerides Level 89 MG/DL (30-150) Cholesterol Level 126 MG/DL (< 200) LDL Cholesterol 73 mg/dL (<100) HDL Cholesterol 39 MG/DL (40-60) L Cholesterol/HDL Ratio 3.2 (3.3-4.4) L Vitamin B12 Level 570 PG/ML (193-986) Folate 5.4 NG/ML (8.6-58.9) L Thyroid Stimulating Hormone (TSH) 2.515 uiU/mL (0.358-3.580) Plan Problems: (1) Alcohol intoxication (2) Pain (3) Foot infection (4) Methamphetamine abuse (5) UTI (urinary tract infection) (6) Acute neck sprain (7) homelessness (8) homelessness (9) Hypersexuality (10) Sociopathic personality disorder (11) Decubitus ulcer, stage 3 with infection (12) Paraplegia (13) Cellulitis Assessment & Plan: Full thickness pressure injury R ischium with tunneling. Opening 2.5cm x 2cm and tunnels >9cm. (+) Epibole. Small amount of serosanguineous exudate noted. No purulent drainage. Periwound intact but with chronic skin changes. Wound related to wheelchair use and pressure. Patient aware of wound and has been given instructions for care and planning prior but admits he does not adhere to plan Scattered hyperpigmentation noted to L gluteal cleft and L ischium. Almost near circumferential dorsal and ankle dermal loss / ulceration to the right foot. plantar aspect with rugged thick callus tissue. Wounds have continued to deteriorate compared to prior with more tissue loss. bleeding granulation tissue forming. edema with cellulitis noted. draining serosang fluid. no abscess. tender on palpation. Does not tend to wounds and notes this stage 3 ulcer deep wound at distal L tibia. Prior CTA with good runoff. seems to have good vascular flow to foot as well clinically Prior plain films and imaging reviewed. no acute surgical intervention necessary I did discuss worsening condition with patient and possibility of amputation in future if continues to deteriorate. IV Abx as per ID Tx.Plan: Cleanse wound R Ischium with Saline.Loosely pack with Hydrogel impregnated gauze.Cavilon wipe to borders. Cover with Optifoam drsg daily and prn. Cleanse wound R buttocks and sacrum with NS. Apply Cavilon and cover with Optifoam drsg .Change every 7 days and prn. Cleanse wounds R lower ext with Saline. 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
--- NOTE | 2018-09-26 14:20 | NUR ---
PT Note Patient is independent in bed mobility; refused OOB transfers at this time. No f/u PT services recommended at this time. Addendum: 09/26/18 at 1421 by MADELYN ANTOINE PT Amended: Links added.
[2018-09-26] MEDS ORDERED: D5 1/2NS 1000ml IV ONE (16:05)
[2018-09-26] MEDS ORDERED: Tubing IV Secondary IV ONE (16:05)
[2018-09-26] MEDS ORDERED: NS 275ml ONE (16:05)
--- NOTE | 2018-09-26 16:46 | NUR ---
WET ROOM [employer]PER[employer]OR SI:PVD . CELLULITES VS: BP 96/63, P 98, T 97.5, RR 20, SpO2 100 RBC 3.32, H&H 10.6/34.0, K 3.3 IS:VANCOMYCIN 275ml IVPB K-DUR 40meq MAGNESIUM SULFATE 100ml IVPB MEROPENEM 110mls IVPB MORPHINE SULFATE 2mg IVP MED/SURG STATUS
--- NOTE | 2018-09-26 17:52 | NUR ---
NURSE NOTES: c/o pain on rt foot 12/02. recheck bp 111/62/97. given morphine 2mg/1ml PRN as ordered.
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
--- NOTE | 2018-09-26 18:05 | NUR ---
NURSE NOTES: patient refused to take CT scan today. he wants to take tmrw. notified dr. Jacob and received order to take tmrw. order noted and carried out. signed consent.
--- NOTE | 2018-09-26 19:26 | NUR ---
HAND-OFF: Report given to Nafisa Gutierrez RN.
--- NOTE | 2018-09-26 20:04 | NUR ---
NURSE NOTES: Pt received in bed at lowest position, call light within reach, able to make needs known, no c/o pain or signs of distress at the moment, will continue to monitor.
[2018-09-27] VITALS: BP 100/91
[2018-09-27 04:00] VITALS: BP 101/63
[2018-09-27] MEDS: Meropenem 1 GM in NS 55 ML IVPB SCH ×3 (05:31→22:32)
--- NOTE | 2018-09-27 05:45 | NUR ---
NURSE NOTES: Explained to patient that I would change the dressing on his rt foot and he refused stating he wants to wait until later but wants his bedding changed.
[2018-09-27] MEDS: Morphine Sulfate 2mg/ml Inj(IV/IM USE ONLY) IVP PRN ×4 (05:47→20:18)
--- NOTE | 2018-09-27 05:55 | NUR ---
NURSE NOTES: spoke with patient about an air loss mattress because of his buttocks wound and the benefits but patient refused stating he does not like those type of mattresses, however patient is on a kelle bed.
--- NOTE | 2018-09-27 07:02 | NUR ---
NURSE NOTES: received report from ELIZABETH Skelton. patient in bed. alert. verbally responsive. IV running. wound dressing intact. the bed in the lowest position . call light within reach. will continue to monitor.
--- NOTE | 2018-09-27 07:02 | NUR ---
HAND-OFF: Report given to ELIZABETH King.
[2018-09-27 07:37] LABS: BASOPHILS % (AUTO) 2.1 % (0.0-2.0); EOSINOPHILS % (AUTO) 3.7 % (0.0-3.0); HEMATOCRIT 34.8 % (42.0-52.0); LYMPHOCYTES % (AUTO) 21.5 % (20.0-45.0); MEAN CORPUSCULAR VOLUME 74 FL (80-99); MONOCYTES % (AUTO) 8.9 % (1.0-10.0); NEUTROPHILS % (AUTO) 63.8 % (45.0-75.0); PLATELET COUNT 271 K/UL (150-450); RED BLOOD COUNT 4.73 M/UL (4.70-6.10); RED CELL DISTRIBUTION WIDTH 17.4 % (11.6-14.8)
[2018-09-27 07:58] LABS: ANION GAP 6 mmol/L (5-15); BLOOD UREA NITROGEN 7 mg/dL (7-18); CALCIUM 8.3 MG/DL (8.5-10.1); CARBON DIOXIDE 27 MMOL/L (21-32); CHLORIDE 105 MMOL/L (98-107); CREATININE 0.9 MG/DL (0.55-1.30); SODIUM 138 MMOL/L (136-145)
[2018-09-27 08:00] VITALS: BP 123/81
--- NOTE | 2018-09-27 08:28 | General Progress Note ---
Assessment/Plan Problem List: (1) Foot infection ICD Codes: L08.9 - Local infection of the skin and subcutaneous tissue, unspecified SNOMED: 062398846 (2) Pain ICD Codes: R52 - Pain, unspecified SNOMED: 17158023 (3) Alcohol intoxication ICD Codes: F10.929 - Alcohol use, unspecified with intoxication, unspecified SNOMED: 68746657 (4) Paraplegia ICD Codes: G82.20 - Paraplegia, unspecified SNOMED: 44402458 (5) Cellulitis ICD Codes: L03.90 - Cellulitis, unspecified SNOMED: 721577664 (6) Asthma ICD Codes: J45.909 - Unspecified asthma, uncomplicated SNOMED: 766538136 (7) PVD (peripheral vascular disease) ICD Codes: I73.9 - Peripheral vascular disease, unspecified SNOMED: 493396842 (8) Ulcer of foot ICD Codes: L97.509 - Non-pressure chronic ulcer of other part of unspecified foot with unspecified severity SNOMED: 80569455 (9) Depressed bipolar disorder ICD Codes: F31.30 - Depressed bipolar disorder SNOMED: 37075828 Status: stable, progressing Assessment/Plan: wound care sbx pt diet cbc bmp am dc plan snf Subjective Allergies: Coded Allergies: PENICILLIN G (Verified Allergy, Unknown, 05/05/18) Tolerates carbapenems and cephalosporins UNABLE TO ASSESS (Unverified , 09/24/18) All Systems: reviewed and negative except above Subjective sleepy calm Objective Last 24 Hour Vital Signs Date Time Temp Pulse Resp B/P (MAP) Pulse Ox O2 Delivery O2 Flow Rate FiO2 09/27/18 04:00 97.4 83 19 101/63 (76) 100 09/27/18 00:00 98.8 90 18 100/91 (94) 99 09/26/18 21:00 Room Air 09/26/18 20:00 97.0 85 18 118/62 (80) 99 09/26/18 19:19 92 20 Room Air 21 09/26/18 17:50 111/62 (78) 97 09/26/18 16:00 97.8 92 18 96/63 (74) 98 09/26/18 12:00 97.5 91 20 100/65 (77) 99 09/26/18 09:00 Room Air Intake and Output 09/26/18 09/27/18 19:00 07:00 Intake Total 1436.666 ml 586.666 ml Output Total 1100 ml 1100 ml Balance 336.666 ml -513.334 ml Intake Oral 960 ml IV Total 476.666 ml 586.666 ml Output Urine Total 1100 ml 1100 ml Laboratory Tests 09/27/18 07:00: White Blood Count 4.0L, Red Blood Count 4.73, Hemoglobin 11.0L, Hematocrit 34.8L , Mean Corpuscular Volume 74L, Mean Corpuscular Hemoglobin 23.4L, Mean Corpuscular Hemoglobin Concent 31.7L, Red Cell Distribution Width 17.4H, Platelet Count 271, Mean Platelet Volume 8.4, Neutrophils (%) (Auto) 63.8, Lymphocytes (%) (Auto) 21.5, Monocytes (%) (Auto) 8.9, Eosinophils (%) (Auto) 3.7H, Basophils (%) (Auto) 2.1H, Sodium Level 138, Potassium Level 4.0, Chloride Level 105, Carbon Dioxide Level 27, Anion Gap 6, Blood Urea Nitrogen 7 , Creatinine 0.9, Estimat Glomerular Filtration Rate > 60, Glucose Level 93, Calcium Level 8.3L, Magnesium Level 1.8, Vancomycin Level Trough 12.7H Height (Feet): 6 Height (Inches): 2.00 Weight (Pounds): 230 General Appearance: lethargic EENT: normal ENT inspection Neck: normal alignment Cardiovascular: normal peripheral pulses, normal rate, regular rhythm Respiratory/Chest: chest wall non-tender, lungs clear, normal breath sounds Abdomen: normal bowel sounds, non tender, soft Neurologic: motor weakness Skin: normal pigmentation, warm/dry Objective r foot dressing sl stained Mt CollinsDesire September 27, 2018 08:28
[2018-09-27] MEDS: Multivitamin w/Minerals tab ORAL SCH (08:33)
[2018-09-27] MEDS: Vancomycin 1gm/D5W 275ml IVPB SCH ×4 (08:34→17:11)
[2018-09-27] MEDS: Heparin 5000 units/ml inj SUBQ SCH ×2 (08:35→20:17)
--- NOTE | 2018-09-27 08:45 | Nephrology Progress Note ---
Assessment/Plan Status: stable, progressing Assessment/Plan: A/P 1) Refeeding Syndrome - Homeless patient - now eating well. - will replace Mg today. K+ and phos at goal - recheck levels in am 2) Right lower extremity wound infection. Antibiotics per Infectious Disease. -vancomycin and meropenem. 3) Pain management for right lower extremity is being managed by Pain Management. 4) Dehydration. Resolved Subjective Date patient seen: September 27, 2018 Time patient seen: 08:29 ROS Limited/Unobtainable: No Allergies: Coded Allergies: PENICILLIN G (Verified Allergy, Unknown, 05/05/18) Tolerates carbapenems and cephalosporins UNABLE TO ASSESS (Unverified , 09/24/18) Subjective Patient feeling hungry. No CP or SOB Objective Last 24 Hour Vital Signs Date Time Temp Pulse Resp B/P (MAP) Pulse Ox O2 Delivery O2 Flow Rate FiO2 09/27/18 04:00 97.4 83 19 101/63 (76) 100 09/27/18 00:00 98.8 90 18 100/91 (94) 99 09/26/18 21:00 Room Air 09/26/18 20:00 97.0 85 18 118/62 (80) 99 09/26/18 19:19 92 20 Room Air 21 09/26/18 17:50 111/62 (78) 97 09/26/18 16:00 97.8 92 18 96/63 (74) 98 09/26/18 12:00 97.5 91 20 100/65 (77) 99 09/26/18 09:00 Room Air Intake and Output 09/26/18 09/27/18 19:00 07:00 Intake Total 1436.666 ml 586.666 ml Output Total 1100 ml 1100 ml Balance 336.666 ml -513.334 ml Intake Oral 960 ml IV Total 476.666 ml 586.666 ml Output Urine Total 1100 ml 1100 ml Laboratory Tests 09/27/18 07:00: White Blood Count 4.0L, Red Blood Count 4.73, Hemoglobin 11.0L, Hematocrit 34.8L , Mean Corpuscular Volume 74L, Mean Corpuscular Hemoglobin 23.4L, Mean Corpuscular Hemoglobin Concent 31.7L, Red Cell Distribution Width 17.4H, Platelet Count 271, Mean Platelet Volume 8.4, Neutrophils (%) (Auto) 63.8, Lymphocytes (%) (Auto) 21.5, Monocytes (%) (Auto) 8.9, Eosinophils (%) (Auto) 3.7H, Basophils (%) (Auto) 2.1H, Sodium Level 138, Potassium Level 4.0, Chloride Level 105, Carbon Dioxide Level 27, Anion Gap 6, Blood Urea Nitrogen 7 , Creatinine 0.9, Estimat Glomerular Filtration Rate > 60, Glucose Level 93, Calcium Level 8.3L, Magnesium Level 1.8, Vancomycin Level Trough 12.7H Height (Feet): 6 Height (Inches): 2.00 Weight (Pounds): 230 General Appearance: no apparent distress EENT: normal ENT inspection Neck: normal alignment, supple Cardiovascular: normal rate, regular rhythm Respiratory/Chest: lungs clear, normal breath sounds Abdomen: non tender, soft Edema: no edema noted Arm (L), no edema noted Arm (R), no edema noted Leg (L), no edema noted Leg (R), no edema noted Pedal (L), no edema noted Pedal (R), no edema noted Generalized Yoni Guerrero MD September 27, 2018 08:45
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
[2018-09-27 12:00] VITALS: BP 120/74
--- NOTE | 2018-09-27 13:37 | Surgery Progress Note ---
Surgery Progress Note Subjective Additional Comments no acute events. comfortable. stable. Objective Last 24 Hour Vital Signs Date Time Temp Pulse Resp B/P (MAP) Pulse Ox O2 Delivery O2 Flow Rate FiO2 09/27/18 12:00 98.4 77 17 120/74 (89) 99 09/27/18 09:00 Room Air 09/27/18 08:00 98.9 88 16 123/81 (95) 100 09/27/18 07:39 86 20 Room Air 21 09/27/18 04:00 97.4 83 19 101/63 (76) 100 09/27/18 00:00 98.8 90 18 100/91 (94) 99 09/26/18 21:00 Room Air 09/26/18 20:00 97.0 85 18 118/62 (80) 99 09/26/18 19:19 92 20 Room Air 21 09/26/18 17:50 111/62 (78) 97 09/26/18 16:00 97.8 92 18 96/63 (74) 98 I&O Intake and Output 09/26/18 09/27/18 19:00 07:00 Intake Total 1436.666 ml 586.666 ml Output Total 1100 ml 1100 ml Balance 336.666 ml -513.334 ml Intake Oral 960 ml IV Total 476.666 ml 586.666 ml Output Urine Total 1100 ml 1100 ml Dressing: saturated Wound: other Drains: other Cardiovascular: RSR Respiratory: clear Abdomen: soft, flat, present bowel sounds, non-distended Extremities: no cyanosis Laboratory Tests Test 09/27/18 07:00 White Blood Count 4.0 K/UL (4.8-10.8) L Red Blood Count 4.73 M/UL (4.70-6.10) Hemoglobin 11.0 G/DL (14.2-18.0) L Hematocrit 34.8 % (42.0-52.0) L Mean Corpuscular Volume 74 FL (80-99) L Mean Corpuscular Hemoglobin 23.4 PG (27.0-31.0) L Mean Corpuscular Hemoglobin Concent 31.7 G/DL (32.0-36.0) L Red Cell Distribution Width 17.4 % (11.6-14.8) H Platelet Count 271 K/UL (150-450) Mean Platelet Volume 8.4 FL (6.5-10.1) Neutrophils (%) (Auto) 63.8 % (45.0-75.0) Lymphocytes (%) (Auto) 21.5 % (20.0-45.0) Monocytes (%) (Auto) 8.9 % (1.0-10.0) Eosinophils (%) (Auto) 3.7 % (0.0-3.0) H Basophils (%) (Auto) 2.1 % (0.0-2.0) H Sodium Level 138 MMOL/L (136-145) Potassium Level 4.0 MMOL/L (3.5-5.1) Chloride Level 105 MMOL/L (98-107) Carbon Dioxide Level 27 MMOL/L (21-32) Anion Gap 6 mmol/L (5-15) Blood Urea Nitrogen 7 mg/dL (7-18) Creatinine 0.9 MG/DL (0.55-1.30) Estimat Glomerular Filtration Rate > 60 mL/min (>60) Glucose Level 93 MG/DL (74-106) Calcium Level 8.3 MG/DL (8.5-10.1) L Magnesium Level 1.8 MG/DL (1.8-2.4) Vancomycin Level Trough 12.7 ug/mL (5.0-12.0) H Plan Problems: (1) Alcohol intoxication (2) Pain (3) Foot infection (4) Methamphetamine abuse (5) UTI (urinary tract infection) (6) Acute neck sprain (7) homelessness (8) homelessness (9) Hypersexuality (10) Sociopathic personality disorder (11) Decubitus ulcer, stage 3 with infection (12) Paraplegia (13) Cellulitis Assessment & Plan: Full thickness pressure injury R ischium with tunneling. Opening 2.5cm x 2cm and tunnels >9cm. (+) Epibole. Small amount of serosanguineous exudate noted. No purulent drainage. Periwound intact but with chronic skin changes. Wound related to wheelchair use and pressure. Patient aware of wound and has been given instructions for care and planning prior but admits he does not adhere to plan Scattered hyperpigmentation noted to L gluteal cleft and L ischium. Almost near circumferential dorsal and ankle dermal loss / ulceration to the right foot. plantar aspect with rugged thick callus tissue. Wounds have continued to deteriorate compared to prior with more tissue loss. bleeding granulation tissue forming. edema with cellulitis noted. draining serosang fluid. no abscess. tender on palpation. Does not tend to wounds and notes this stage 3 ulcer deep wound at distal L tibia. Prior CTA with good runoff. seems to have good vascular flow to foot as well clinically Prior plain films and imaging reviewed. no acute surgical intervention necessary I did discuss worsening condition with patient and possibility of amputation in future if continues to deteriorate. IV Abx as per ID Tx.Plan: Cleanse wound R Ischium with Saline.Loosely pack with Hydrogel impregnated gauze.Cavilon wipe to borders. Cover with Optifoam drsg daily and prn. Cleanse wound R buttocks and sacrum with NS. Apply Cavilon and cover with Optifoam drsg .Change every 7 days and prn. Cleanse wounds R lower ext with Saline. 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
[2018-09-27 16:00] VITALS: BP 128/76
--- NOTE | 2018-09-27 16:53 | NUR ---
GAMBLING CASHIERORGANIZATIONAL DEVELOPMENT CONSULTANT SI: PVD . CELLULITES VS: BP 101/63, P 90, T 97.4, RR 20, SpO2 100 H&H 11.0/34.8 MRI: Incidental findings including chronic cystitis, left inguinal hernia containing fat. IS: MAGNESIUM SULFATE 100ml IVPB MEROPENEM 110mls IVPB MORPHINE SULFATE 2mg IVP MED/SURG STATUS
--- NOTE | 2018-09-27 19:23 | NUR ---
HAND-OFF: Report given to ELIZABETH Skelton.
--- NOTE | 2018-09-27 19:54 | NUR ---
NURSE NOTES: Pt received awake, alert, in bed requesting a shower, dressing on foot changed, no c/o pain at the moment, able to make needs known, call light within reach, IV fluid running, will continue to monitor.
[2018-09-27 20:00] VITALS: BP 126/88
[2018-09-28] VITALS: BP 98/57
[2018-09-28] MEDS: Vancomycin 1gm/D5W 275ml IVPB SCH ×6 (01:02→16:37)
[2018-09-28] MEDS: Morphine Sulfate 2mg/ml Inj(IV/IM USE ONLY) IVP PRN ×5 (01:03→20:49)
[2018-09-28 04:00] VITALS: BP 114/63
[2018-09-28] MEDS: Meropenem 1 GM in NS 55 ML IVPB SCH ×3 (05:35→21:06)
--- NOTE | 2018-09-28 07:25 | NUR ---
HAND-OFF: Report given to ELIZABETH Junior.
--- NOTE | 2018-09-28 07:49 | NUR ---
NURSE NOTES: Patient received sleeping in bed, breathing unlabored on room air. No signs of respiratory distress or pain observed. IV site observed on left arm to be patent and intact. Wheelchair by the bedside. Bed locked in lowest position, call light placed within reach. Will continue to monitor.
--- NOTE | 2018-09-28 07:54 | Nephrology Progress Note ---
Assessment/Plan Assessment/Plan: A/P 1) Refeeding Syndrome - Homeless patient, eating well. - will replace Mg, K+, phos prn - recheck levels in am 2) Right lower extremity wound infection. Antibiotics per Infectious Disease. -vancomycin and meropenem. 3) Right lower extremity is being managed by Pain Management. 4) Dehydration. Resolved Subjective Date patient seen: September 28, 2018 Time patient seen: 07:52 ROS Limited/Unobtainable: No Allergies: Coded Allergies: PENICILLIN G (Verified Allergy, Unknown, 05/05/18) Tolerates carbapenems and cephalosporins UNABLE TO ASSESS (Unverified , 09/24/18) Subjective Patient resting, has no complaints Objective Last 24 Hour Vital Signs Date Time Temp Pulse Resp B/P (MAP) Pulse Ox O2 Delivery O2 Flow Rate FiO2 09/28/18 07:32 64 16 Room Air 21 09/28/18 04:00 97.1 80 18 114/63 (80) 100 09/28/18 01:12 81 20 Room Air 21 09/28/18 00:00 98.1 87 18 98/57 (71) 100 09/27/18 21:00 Room Air 09/27/18 20:00 98.2 87 18 126/88 (101) 100 09/27/18 16:00 98.9 94 16 128/76 (93) 100 09/27/18 12:00 98.4 77 17 120/74 (89) 99 09/27/18 09:00 Room Air 09/27/18 08:00 98.9 88 16 123/81 (95) 100 Intake and Output 09/27/18 09/28/18 19:00 07:00 Intake Total 2271.124 ml 1141.124 ml Output Total 1600 ml 860 ml Balance 671.124 ml 281.124 ml Intake Oral 1620 ml 480 ml IV Total 651.124 ml 661.124 ml Output Urine Total 1600 ml 860 ml Height (Feet): 6 Height (Inches): 2.00 Weight (Pounds): 230 General Appearance: no apparent distress, alert EENT: normal ENT inspection Neck: normal alignment, supple Cardiovascular: normal rate, regular rhythm Respiratory/Chest: lungs clear, normal breath sounds Abdomen: non tender, soft Edema: no edema noted Arm (L), no edema noted Arm (R), no edema noted Generalized De Sara,Yoni MD September 28, 2018 07:54
[2018-09-28 08:00] VITALS: BP 107/72
[2018-09-28 08:26] LABS: BASOPHILS % (AUTO) 1.8 % (0.0-2.0); EOSINOPHILS % (AUTO) 3.6 % (0.0-3.0); HEMATOCRIT 37.6 % (42.0-52.0); HEMOGLOBIN 11.9 G/DL (14.2-18.0); LYMPHOCYTES % (AUTO) 21.5 % (20.0-45.0); MEAN CORPUSCULAR VOLUME 72 FL (80-99); MONOCYTES % (AUTO) 8.1 % (1.0-10.0); PLATELET COUNT 275 K/UL (150-450); RED BLOOD COUNT 5.22 M/UL (4.70-6.10); RED CELL DISTRIBUTION WIDTH 16.7 % (11.6-14.8)
[2018-09-28 08:36] LABS: ANION GAP 7 mmol/L (5-15); BLOOD UREA NITROGEN 11 mg/dL (7-18); CALCIUM 8.6 MG/DL (8.5-10.1); CARBON DIOXIDE 26 MMOL/L (21-32); CHLORIDE 106 MMOL/L (98-107); CREATININE 0.9 MG/DL (0.55-1.30); POTASSIUM 3.9 MMOL/L (3.5-5.1); SODIUM 139 MMOL/L (136-145)
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
[2018-09-28] MEDS: Multivitamin w/Minerals tab ORAL SCH (10:33)
[2018-09-28] MEDS: Heparin 5000 units/ml inj SUBQ SCH ×2 (10:43→20:49)
--- NOTE | 2018-09-28 10:46 | NUR ---
RD ASSESSMENT & RECOMMENDATIONS SEE CARE ACTIVITY FOR COMPLETE ASSESSMENT DAILY ESTIMATED NEEDS: Needs based on Advanced wounds/ 91kg abw 25-30 kcals/kg 7991-9625 total kcals 1.5-2.0 g protein/kg 136-182 g total protein 25-30 mL/kg 9893-4026 total fluid mLs NUTRITION DIAGNOSIS: Increased kcal and protein needs r/t wound healing as evidenced by pt admitted w/ multiple advanced wounds including full thickness pressure injury R ischium with tunneling and stage 3 ulcer deep wound at distal L tibia. CURRENT DIET:Regular + Ensure [place] TID w/ meals PO DIET RECOMMENDATIONS: Regular + Double Protein Portions ADDITIONAL RECOMMENDATIONS: * Wound healing: add Vit C 500mg BID and ZnS04 220mg QDx10 days : Aaron 1pkt BID * Calibrated bedscale wt for accurate CBW * Monitor lytes, replete as needed
--- NOTE | 2018-09-28 10:56 | Diagnostic Imaging Report ---
Indication: Pelvic pain. Decubitus ulcer. Abscess Technique: Continuous helical transaxial imaging of the pelvis was obtained from the iliac crest to the pubic symphysis. Coronal 2-D reformats were also obtained. Study obtained in a Siemens sensation [address] Intravenous non-ionic contrast was administered. Total Dose length Product (DLP): 1099.[address] Dose Index Volume (CTDIvol): 28.59 mGy Comparison: None Findings: There is a severe grade 4 decubitus ulcer in the visualized air-filled tract in the posterior decubitus region extending from the skin to the right ischial tuberosity. The right ischial tuberosity is abnormal and partially eroded. Hypertrophic changes and sclerosis are demonstrated indicative of chronic osteomyelitis. Acute osteomyelitis not excluded. There is subcutaneous reticulation and thickening of the skin and distortion of the portions of the hamstring musculature due to cellulitis and chronic infection. There is no abscess. The urinary bladder shows wall thickening and trabeculation. There is a left inguinal hernia containing fat. There is no free fluid within the pelvis. Normal appendix noted. Moderate formed stool in the colon noted. Multiple inguinal lymph nodes are demonstrated nonspecific. Iliac and pelvic sidewall nodes are also present, nonspecific. The visualized part of the lower lumbar spine and sacral spine shows intrathecal hyperdensity which may be calcification. IMPRESSION: Severe right grade 4 posterior decubitus ulcer with cellulitis and abnormal ischial tuberosity indicative of chronic osteomyelitis. Superimposed acute osteomyelitis is not excluded. No abscess identified. Incidental findings including chronic cystitis, left inguinal hernia containing fat, iliac/inguinal lymph nodes likely inflammatory, intramedullary thecal sac calcification of unknown etiology. The CT scanner at [facility] is accredited by the [employer] and the scans are performed using dose optimization techniques as appropriate to a performed exam including Automatic Exposure control.
--- NOTE | 2018-09-28 11:22 | NUR ---
*-* INSURANCE *-* ALL CLINICALS HAVE BEEN FAXED TO: IPA: PREFERRED IPA P: [phone] TRK# [id number] MARISELA: YANIRA P:[phone] F:[phone]
[2018-09-28 12:00] VITALS: BP 107/60
--- NOTE | 2018-09-28 12:35 | NUR ---
NURSE NOTES: Patient allowed RN to change dressing on R foot. Dressing changed per orders. Patient refused dressing change on sacrum and R ischium. RN explained importance of wound cleaning and dressing change. Patient still denied dressing change and stated, "do not touch me."
--- NOTE | 2018-09-28 12:49 | Surgery Progress Note ---
Surgery Progress Note Subjective Additional Comments no acute events. states he likes the food. pain controlled. feeling better left leg much improved right with clean dressings CT noted Objective Last 24 Hour Vital Signs Date Time Temp Pulse Resp B/P (MAP) Pulse Ox O2 Delivery O2 Flow Rate FiO2 09/28/18 12:00 98.4 82 20 107/60 (76) 100 09/28/18 09:00 Room Air 09/28/18 08:00 97.7 90 20 107/72 (84) 100 09/28/18 07:32 64 16 Room Air 21 09/28/18 04:00 97.1 80 18 114/63 (80) 100 09/28/18 01:12 81 20 Room Air 21 09/28/18 00:00 98.1 87 18 98/57 (71) 100 09/27/18 21:00 Room Air 09/27/18 20:00 98.2 87 18 126/88 (101) 100 09/27/18 16:00 98.9 94 16 128/76 (93) 100 I&O Intake and Output 09/27/18 09/28/18 19:00 07:00 Intake Total 2271.124 ml 1141.124 ml Output Total 1600 ml 860 ml Balance 671.124 ml 281.124 ml Intake Oral 1620 ml 480 ml IV Total 651.124 ml 661.124 ml Output Urine Total 1600 ml 860 ml Dressing: dry Wound: clean Drains: other Cardiovascular: RSR Respiratory: clear Abdomen: soft, flat, non-tender, non-distended Extremities: no cyanosis, other Laboratory Tests Test 09/28/18 08:10 White Blood Count 5.0 K/UL (4.8-10.8) Red Blood Count 5.22 M/UL (4.70-6.10) Hemoglobin 11.9 G/DL (14.2-18.0) L Hematocrit 37.6 % (42.0-52.0) L Mean Corpuscular Volume 72 FL (80-99) L Mean Corpuscular Hemoglobin 22.7 PG (27.0-31.0) L Mean Corpuscular Hemoglobin Concent 31.6 G/DL (32.0-36.0) L Red Cell Distribution Width 16.7 % (11.6-14.8) H Platelet Count 275 K/UL (150-450) Mean Platelet Volume 7.5 FL (6.5-10.1) Neutrophils (%) (Auto) 65.0 % (45.0-75.0) Lymphocytes (%) (Auto) 21.5 % (20.0-45.0) Monocytes (%) (Auto) 8.1 % (1.0-10.0) Eosinophils (%) (Auto) 3.6 % (0.0-3.0) H Basophils (%) (Auto) 1.8 % (0.0-2.0) Sodium Level 139 MMOL/L (136-145) Potassium Level 3.9 MMOL/L (3.5-5.1) Chloride Level 106 MMOL/L (98-107) Carbon Dioxide Level 26 MMOL/L (21-32) Anion Gap 7 mmol/L (5-15) Blood Urea Nitrogen 11 mg/dL (7-18) Creatinine 0.9 MG/DL (0.55-1.30) Estimat Glomerular Filtration Rate > 60 mL/min (>60) Glucose Level 99 MG/DL (74-106) Calcium Level 8.6 MG/DL (8.5-10.1) Vancomycin Level Trough 15.5 ug/mL (5.0-12.0) H Plan Problems: (1) Alcohol intoxication (2) Pain (3) Foot infection (4) Methamphetamine abuse (5) UTI (urinary tract infection) (6) Acute neck sprain (7) homelessness (8) homelessness (9) Hypersexuality (10) Sociopathic personality disorder (11) Decubitus ulcer, stage 3 with infection Assessment & Plan: Severe right grade 4 posterior decubitus ulcer with cellulitis and abnormal ischial tuberosity indicative of chronic osteomyelitis. Superimposed acute osteomyelitis is not excluded. No abscess identified. Incidental findings including chronic cystitis, left inguinal hernia containing fat, iliac/inguinal lymph nodes likely inflammatory, intramedullary thecal sac calcification of unknown etiology. Abx as per ID no acute surgical intervention planned (12) Paraplegia (13) Cellulitis Assessment & Plan: 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 Opening 2.5cm x 2cm and tunnels >9cm. (+) Epibole. Small amount of serosanguineous exudate noted. No purulent drainage. Periwound intact but with chronic skin changes. Wound related to wheelchair use and pressure. Patient aware of wound and has been given instructions for care and planning prior but admits he does not adhere to plan Scattered hyperpigmentation noted to L gluteal cleft and L ischium. Almost near circumferential dorsal and ankle dermal loss / ulceration to the right foot. plantar aspect with rugged thick callus tissue. Wounds have continued to deteriorate compared to prior with more tissue loss. bleeding granulation tissue forming. edema with cellulitis noted. draining serosang fluid. no abscess. tender on palpation. Does not tend to wounds and notes this stage 3 ulcer deep wound at distal L tibia slowly improving Prior CTA with good runoff. seems to have good vascular flow to foot as well clinically Prior plain films and imaging reviewed. no acute surgical intervention necessary I did discuss worsening condition with patient and possibility of amputation in future if continues to deteriorate. IV Abx as per ID Tx.Plan: Cleanse wound R Ischium with Saline.Loosely pack with Hydrogel impregnated gauze.Cavilon wipe to borders. Cover with Optifoam drsg daily and prn. Cleanse wound R buttocks and sacrum with NS. Apply Cavilon and cover with Optifoam drsg .Change every 7 days and prn. Cleanse wounds R lower ext with Saline. 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
--- NOTE | 2018-09-28 13:00 | NUR ---
HOMELESS COORDINATOR spoke with patient and he is alert and oriented. Patient utilizes wheelchair which is currently at beside. Patient states he is living at [facility]. HC reached out to [facility] which had no information about the patient. Patient also states he lives at [address] [place] [id number] with his grandma. Patient would not provide any additional info about regan. Patient plans to return after discharge. Patient did no provide any additional representative personal service. Patient states he currently not using any drugs and deny any mental health disorder. Patient requested clothing upon discharge; sweat paints and 2x t-shirt. Patient has a follow-up appointment, October 22 @ 10:15am [facility] [address] [place] [address] Patient continues to require medical intervention, will continue to monitor and assist as needed. Addendum: 09/28/18 at 1611 by DONTE PEREZ CM HC Discussed with SW about patient indicating possible return to back to regan's home in [place]. SW indicated from pervious admit, regan has and does not reside at location in [place].
--- NOTE | 2018-09-28 13:34 | General Progress Note ---
Assessment/Plan Problem List: (1) Foot infection ICD Codes: L08.9 - Local infection of the skin and subcutaneous tissue, unspecified SNOMED: 594962822 (2) Pain ICD Codes: R52 - Pain, unspecified SNOMED: 40273917 (3) Alcohol intoxication ICD Codes: F10.929 - Alcohol use, unspecified with intoxication, unspecified SNOMED: 72582710 (4) Paraplegia ICD Codes: G82.20 - Paraplegia, unspecified SNOMED: 83840439 (5) Cellulitis ICD Codes: L03.90 - Cellulitis, unspecified SNOMED: 586883839 (6) Asthma ICD Codes: J45.909 - Unspecified asthma, uncomplicated SNOMED: 525544762 (7) PVD (peripheral vascular disease) ICD Codes: I73.9 - Peripheral vascular disease, unspecified SNOMED: 766319613 (8) Ulcer of foot ICD Codes: L97.509 - Non-pressure chronic ulcer of other part of unspecified foot with unspecified severity SNOMED: 67066179 (9) Depressed bipolar disorder ICD Codes: F31.30 - Depressed bipolar disorder SNOMED: 83380050 Status: stable, progressing Assessment/Plan: wound care sbx pt diet cbc bmp am dc plan snf Subjective Constitutional: Reports: weakness Allergies: Coded Allergies: PENICILLIN G (Verified Allergy, Unknown, 05/05/18) Tolerates carbapenems and cephalosporins UNABLE TO ASSESS (Unverified , 09/24/18) All Systems: reviewed and negative except above Subjective sleepy calm Objective Last 24 Hour Vital Signs Date Time Temp Pulse Resp B/P (MAP) Pulse Ox O2 Delivery O2 Flow Rate FiO2 09/28/18 12:00 98.4 82 20 107/60 (76) 100 09/28/18 09:00 Room Air 09/28/18 08:00 97.7 90 20 107/72 (84) 100 09/28/18 07:32 64 16 Room Air 21 09/28/18 04:00 97.1 80 18 114/63 (80) 100 09/28/18 01:12 81 20 Room Air 21 09/28/18 00:00 98.1 87 18 98/57 (71) 100 09/27/18 21:00 Room Air 09/27/18 20:00 98.2 87 18 126/88 (101) 100 09/27/18 16:00 98.9 94 16 128/76 (93) 100 Intake and Output 09/27/18 09/28/18 19:00 07:00 Intake Total 2271.124 ml 1141.124 ml Output Total 1600 ml 860 ml Balance 671.124 ml 281.124 ml Intake Oral 1620 ml 480 ml IV Total 651.124 ml 661.124 ml Output Urine Total 1600 ml 860 ml Laboratory Tests 09/28/18 08:10: White Blood Count 5.0, Red Blood Count 5.22, Hemoglobin 11.9L, Hematocrit 37.6L , Mean Corpuscular Volume 72L, Mean Corpuscular Hemoglobin 22.7L, Mean Corpuscular Hemoglobin Concent 31.6L, Red Cell Distribution Width 16.7H, Platelet Count 275, Mean Platelet Volume 7.5, Neutrophils (%) (Auto) 65.0, Lymphocytes (%) (Auto) 21.5, Monocytes (%) (Auto) 8.1, Eosinophils (%) (Auto) 3.6H, Basophils (%) (Auto) 1.8, Sodium Level 139, Potassium Level 3.9, Chloride Level 106, Carbon Dioxide Level 26, Anion Gap 7, Blood Urea Nitrogen 11, Creatinine 0.9, Estimat Glomerular Filtration Rate > 60, Glucose Level 99, Calcium Level 8.6, Vancomycin Level Trough 15.5H Height (Feet): 6 Height (Inches): 2.00 Weight (Pounds): 230 General Appearance: lethargic EENT: normal ENT inspection Neck: normal alignment Cardiovascular: normal peripheral pulses, normal rate, regular rhythm Respiratory/Chest: chest wall non-tender, lungs clear, normal breath sounds Abdomen: normal bowel sounds, non tender, soft Extremities: normal inspection Edema: no edema noted Arm (L), no edema noted Arm (R), no edema noted Leg (L), no edema noted Leg (R), no edema noted Pedal (L), no edema noted Pedal (R), no edema noted Generalized Neurologic: motor weakness Skin: normal pigmentation, warm/dry Objective r foot dressing sl stained [place] ValentinKenyattaDesire MAY September 28, 2018 13:34
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
[2018-09-28 16:00] VITALS: BP 122/69
--- NOTE | 2018-09-28 17:01 | NUR ---
ON SITE COORDINATORBARREL POLISHER INSIDE SI: PVD . CELLULITES VS: BP 107/60, P 90, T 97.1, RR 20, SpO2 100 H&H 11.9/37.6 IS: HEPARIN SUBQ VANCOMYCIN 275ml IVPB MORPHINE SULFATE 2mg IVP MEROPENEM 110mls IVPB MED/SURG STATUS
--- NOTE | 2018-09-28 19:34 | NUR ---
HAND-OFF: Report given to Mireya RN.
--- NOTE | 2018-09-28 19:35 | NUR ---
NURSE NOTES: Received pt from ELIZABETH Bartholomew. Pt is awake, in bed watching tv, AAO x3. Pt is on RA, unlabored breathing, no s/s of distress, denies pain at the moment. Patent IV noted on the R wrist 22g SL. Dressing on R foot is dry and intact, dressing was changed on 5/6 AM shift. Bed is locked at the lowest position, side rails up x2, and call light is within reach. Will continue to mi Addendum: 09/28/18 at 2004 by Mireya Askew RN Will continue to monitor.
[2018-09-28 20:00] VITALS: BP 122/68
[2018-09-29] VITALS: BP 94/57
[2018-09-29 01:00] VITALS: BP 116/68
[2018-09-29] MEDS: Vancomycin 1gm/D5W 275ml IVPB SCH ×4 (01:27→08:50)
[2018-09-29] MEDS: Morphine Sulfate 2mg/ml Inj(IV/IM USE ONLY) IVP PRN ×5 (01:27→21:43)
[2018-09-29] MEDS: Meropenem 1 GM in NS 55 ML IVPB SCH ×2 (05:37→13:14)
[2018-09-29 06:35] LABS: BASOPHILS % (AUTO) 1.6 % (0.0-2.0); EOSINOPHILS % (AUTO) 3.6 % (0.0-3.0); HEMOGLOBIN 11.8 G/DL (14.2-18.0); LYMPHOCYTES % (AUTO) 24.6 % (20.0-45.0); MEAN CORPUSCULAR VOLUME 73 FL (80-99); MONOCYTES % (AUTO) 6.1 % (1.0-10.0); PLATELET COUNT 302 K/UL (150-450); RED BLOOD COUNT 5.18 M/UL (4.70-6.10); RED CELL DISTRIBUTION WIDTH 17.3 % (11.6-14.8); WHITE BLOOD COUNT 4.6 K/UL (4.8-10.8)
[2018-09-29 06:45] LABS: ANION GAP 6 mmol/L (5-15); BLOOD UREA NITROGEN 11 mg/dL (7-18); CALCIUM 8.6 MG/DL (8.5-10.1); CARBON DIOXIDE 27 MMOL/L (21-32); CHLORIDE 106 MMOL/L (98-107); CREATININE 0.8 MG/DL (0.55-1.30); PHOSPHORUS 3.8 MG/DL (2.5-4.9); SODIUM 139 MMOL/L (136-145)
--- NOTE | 2018-09-29 07:35 | NUR ---
HAND-OFF: Report given to ELIZABETH Dominguez.
--- NOTE | 2018-09-29 07:44 | NUR ---
NURSE NOTES: Patient alert x4, on room air, no sign of distress and shortness of breathing; no sign of chest pain; IV Right-wrist, TKO; urinal within reach; bed at lowest position, side rails up x2, breaks engaged; call light within reach; will keep monitoring.
[2018-09-29 08:00] VITALS: BP 117/73
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
[2018-09-29] MEDS: Multivitamin w/Minerals tab ORAL SCH (08:50)
[2018-09-29] MEDS: Heparin 5000 units/ml inj SUBQ SCH ×2 (08:54→21:00)
--- NOTE | 2018-09-29 09:05 | Nephrology Progress Note ---
Assessment/Plan Status: stable, progressing Assessment/Plan: A/P 1) Refeeding Syndrome - Homeless patient, eating well and requiring Mg replacement - 2gm IV ordered 2) Right lower extremity wound infection. Antibiotics per Infectious Disease. -vancomycin and meropenem. 3) Right lower extremity is being managed by Pain Management. 4) Dehydration. PRN IVFs Subjective Date patient seen: September 29, 2018 Time patient seen: 09:04 ROS Limited/Unobtainable: No Allergies: Coded Allergies: PENICILLIN G (Verified Allergy, Unknown, 05/05/18) Tolerates carbapenems and cephalosporins UNABLE TO ASSESS (Unverified , 09/24/18) Subjective Patient with no complaints Objective Last 24 Hour Vital Signs Date Time Temp Pulse Resp B/P (MAP) Pulse Ox O2 Delivery O2 Flow Rate FiO2 09/29/18 08:00 97.9 83 18 117/73 (88) 99 09/29/18 01:00 116/68 (84) 09/29/18 00:00 97.9 82 18 94/57 (69) 99 09/28/18 21:00 Room Air 09/28/18 20:00 98.5 84 18 122/68 (86) 99 09/28/18 19:55 89 20 Room Air 21 09/28/18 16:00 98.4 91 20 122/69 (86) 99 09/28/18 12:00 98.4 82 20 107/60 (76) 100 Intake and Output 09/28/18 09/29/18 18:59 06:59 Intake Total 600 ml 385.000 ml Output Total 1800 ml Balance 600 ml -1415.000 ml Intake Oral 600 ml IV Total 385.000 ml Output Urine Total 1800 ml # Voids 10 Laboratory Tests 09/29/18 05:15: White Blood Count 4.6L, Red Blood Count 5.18, Hemoglobin 11.8L, Hematocrit 38.0L , Mean Corpuscular Volume 73L, Mean Corpuscular Hemoglobin 22.8L, Mean Corpuscular Hemoglobin Concent 31.1L, Red Cell Distribution Width 17.3H, Platelet Count 302, Mean Platelet Volume 7.5, Neutrophils (%) (Auto) 64.0, Lymphocytes (%) (Auto) 24.6, Monocytes (%) (Auto) 6.1, Eosinophils (%) (Auto) 3.6H, Basophils (%) (Auto) 1.6, Sodium Level 139, Potassium Level 4.0, Chloride Level 106, Carbon Dioxide Level 27, Anion Gap 6, Blood Urea Nitrogen 11, Creatinine 0.8, Estimat Glomerular Filtration Rate > 60, Glucose Level 99, Calcium Level 8.6, Phosphorus Level 3.8, Magnesium Level 1.7L Height (Feet): 6 Height (Inches): 2.00 Weight (Pounds): 230 General Appearance: no apparent distress EENT: normal ENT inspection Neck: normal alignment, supple Cardiovascular: normal rate, regular rhythm Respiratory/Chest: lungs clear, normal breath sounds Abdomen: non tender, soft Edema: no edema noted Arm (L), no edema noted Arm (R) Yoni Guerrero MD September 29, 2018 09:05
--- NOTE | 2018-09-29 10:27 | NUR ---
*-* INSURANCE *-* ALL CLINICALS AND REVIEW HAVE BEEN FAXED TO: IPA: CORNELIO PERKINS TRK# [id number] MARISELA: YANIRA P:[phone] F:[phone]
--- NOTE | 2018-09-29 11:34 | Surgery Progress Note ---
Surgery Progress Note Subjective Additional Comments no acute events. comfortable. stable. Objective Last 24 Hour Vital Signs Date Time Temp Pulse Resp B/P (MAP) Pulse Ox O2 Delivery O2 Flow Rate FiO2 09/29/18 09:00 Room Air 09/29/18 08:11 85 14 Room Air 21 09/29/18 08:00 97.9 83 18 117/73 (88) 99 09/29/18 01:00 116/68 (84) 09/29/18 00:00 97.9 82 18 94/57 (69) 99 09/28/18 21:00 Room Air 09/28/18 20:00 98.5 84 18 122/68 (86) 99 09/28/18 19:55 89 20 Room Air 21 09/28/18 16:00 98.4 91 20 122/69 (86) 99 09/28/18 12:00 98.4 82 20 107/60 (76) 100 I&O Intake and Output 09/28/18 09/29/18 19:00 07:00 Intake Total 600 ml 385.000 ml Output Total 1800 ml Balance 600 ml -1415.000 ml Intake Oral 600 ml IV Total 385.000 ml Output Urine Total 1800 ml # Voids 10 Dressing: saturated Wound: other Drains: other Cardiovascular: RSR Respiratory: clear Abdomen: present bowel sounds, non-distended Extremities: edema, tenderness, no cyanosis Laboratory Tests Test 09/29/18 05:15 White Blood Count 4.6 K/UL (4.8-10.8) L Red Blood Count 5.18 M/UL (4.70-6.10) Hemoglobin 11.8 G/DL (14.2-18.0) L Hematocrit 38.0 % (42.0-52.0) L Mean Corpuscular Volume 73 FL (80-99) L Mean Corpuscular Hemoglobin 22.8 PG (27.0-31.0) L Mean Corpuscular Hemoglobin Concent 31.1 G/DL (32.0-36.0) L Red Cell Distribution Width 17.3 % (11.6-14.8) H Platelet Count 302 K/UL (150-450) Mean Platelet Volume 7.5 FL (6.5-10.1) Neutrophils (%) (Auto) 64.0 % (45.0-75.0) Lymphocytes (%) (Auto) 24.6 % (20.0-45.0) Monocytes (%) (Auto) 6.1 % (1.0-10.0) Eosinophils (%) (Auto) 3.6 % (0.0-3.0) H Basophils (%) (Auto) 1.6 % (0.0-2.0) Sodium Level 139 MMOL/L (136-145) Potassium Level 4.0 MMOL/L (3.5-5.1) Chloride Level 106 MMOL/L (98-107) Carbon Dioxide Level 27 MMOL/L (21-32) Anion Gap 6 mmol/L (5-15) Blood Urea Nitrogen 11 mg/dL (7-18) Creatinine 0.8 MG/DL (0.55-1.30) Estimat Glomerular Filtration Rate > 60 mL/min (>60) Glucose Level 99 MG/DL (74-106) Calcium Level 8.6 MG/DL (8.5-10.1) Phosphorus Level 3.8 MG/DL (2.5-4.9) Magnesium Level 1.7 MG/DL (1.8-2.4) L Plan Problems: (1) Alcohol intoxication (2) Pain (3) Foot infection (4) Methamphetamine abuse (5) UTI (urinary tract infection) (6) Acute neck sprain (7) homelessness (8) homelessness (9) Hypersexuality (10) Sociopathic personality disorder (11) Decubitus ulcer, stage 3 with infection Assessment & Plan: Severe right grade 4 posterior decubitus ulcer with cellulitis and abnormal ischial tuberosity indicative of chronic osteomyelitis. Superimposed acute osteomyelitis is not excluded. No abscess identified. Incidental findings including chronic cystitis, left inguinal hernia containing fat, iliac/inguinal lymph nodes likely inflammatory, intramedullary thecal sac calcification of unknown etiology. Abx as per ID no acute surgical intervention planned (12) Paraplegia (13) Cellulitis Assessment & Plan: 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 Opening 2.5cm x 2cm and tunnels >9cm. (+) Epibole. Small amount of serosanguineous exudate noted. No purulent drainage. Periwound intact but with chronic skin changes. Wound related to wheelchair use and pressure. Patient aware of wound and has been given instructions for care and planning prior but admits he does not adhere to plan Scattered hyperpigmentation noted to L gluteal cleft and L ischium. Almost near circumferential dorsal and ankle dermal loss / ulceration to the right foot. plantar aspect with rugged thick callus tissue. Wounds have continued to deteriorate compared to prior with more tissue loss. bleeding granulation tissue forming. edema with cellulitis noted. draining serosang fluid. no abscess. tender on palpation. Does not tend to wounds and notes this stage 3 ulcer deep wound at distal L tibia slowly improving Prior CTA with good runoff. seems to have good vascular flow to foot as well clinically Prior plain films and imaging reviewed. no acute surgical intervention necessary I did discuss worsening condition with patient and possibility of amputation in future if continues to deteriorate. IV Abx as per ID Tx.Plan: Cleanse wound R Ischium with Saline.Loosely pack with Hydrogel impregnated gauze.Cavilon wipe to borders. Cover with Optifoam drsg daily and prn. Cleanse wound R buttocks and sacrum with NS. Apply Cavilon and cover with Optifoam drsg .Change every 7 days and prn. Cleanse wounds R lower ext with Saline. 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
[2018-09-29 12:00] VITALS: BP 110/61
[2018-09-29] MEDS ORDERED: HYDROcodone/Acetamin 5/325 tab ORAL PRN (12:00)
--- NOTE | 2018-09-29 12:18 | NUR ---
PROGRAM MANAGER ENVIRONMENTAL PLANNING NOTES PT DECLINED AT [facility]. MADE AWARE. PT NOTIFIED. REFERRAL SENT TO [facility]. WILL FOLLOW UP.
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
--- NOTE | 2018-09-29 14:42 | General Progress Note ---
Assessment/Plan Problem List: (1) Foot infection ICD Codes: L08.9 - Local infection of the skin and subcutaneous tissue, unspecified SNOMED: 714823302 (2) Pain ICD Codes: R52 - Pain, unspecified SNOMED: 23092992 (3) Alcohol intoxication ICD Codes: F10.929 - Alcohol use, unspecified with intoxication, unspecified SNOMED: 73902468 (4) Paraplegia ICD Codes: G82.20 - Paraplegia, unspecified SNOMED: 13840530 (5) Cellulitis ICD Codes: L03.90 - Cellulitis, unspecified SNOMED: 147928673 (6) Asthma ICD Codes: J45.909 - Unspecified asthma, uncomplicated SNOMED: 779994153 (7) PVD (peripheral vascular disease) ICD Codes: I73.9 - Peripheral vascular disease, unspecified SNOMED: 779086954 (8) Ulcer of foot ICD Codes: L97.509 - Non-pressure chronic ulcer of other part of unspecified foot with unspecified severity SNOMED: 54498689 (9) Depressed bipolar disorder ICD Codes: F31.30 - Depressed bipolar disorder SNOMED: 10038721 Status: stable, progressing Assessment/Plan: wound care sbx pt diet cbc bmp am dc to snf if clear Subjective Constitutional: Reports: weakness Allergies: Coded Allergies: PENICILLIN G (Verified Allergy, Unknown, 05/05/18) Tolerates carbapenems and cephalosporins UNABLE TO ASSESS (Unverified , 09/24/18) All Systems: reviewed and negative except above Subjective sleepy calm Objective Last 24 Hour Vital Signs Date Time Temp Pulse Resp B/P (MAP) Pulse Ox O2 Delivery O2 Flow Rate FiO2 09/29/18 11:39 97.9 09/29/18 09:00 Room Air 09/29/18 08:11 85 14 Room Air 21 09/29/18 08:00 97.9 83 18 117/73 (88) 99 09/29/18 01:00 116/68 (84) 09/29/18 00:00 97.9 82 18 94/57 (69) 99 09/28/18 21:00 Room Air 09/28/18 20:00 98.5 84 18 122/68 (86) 99 09/28/18 19:55 89 20 Room Air 21 09/28/18 16:00 98.4 91 20 122/69 (86) 99 Intake and Output 09/28/18 09/29/18 19:00 07:00 Intake Total 600 ml 385.000 ml Output Total 1800 ml Balance 600 ml -1415.000 ml Intake Oral 600 ml IV Total 385.000 ml Output Urine Total 1800 ml # Voids 10 Laboratory Tests 09/29/18 05:15: White Blood Count 4.6L, Red Blood Count 5.18, Hemoglobin 11.8L, Hematocrit 38.0L , Mean Corpuscular Volume 73L, Mean Corpuscular Hemoglobin 22.8L, Mean Corpuscular Hemoglobin Concent 31.1L, Red Cell Distribution Width 17.3H, Platelet Count 302, Mean Platelet Volume 7.5, Neutrophils (%) (Auto) 64.0, Lymphocytes (%) (Auto) 24.6, Monocytes (%) (Auto) 6.1, Eosinophils (%) (Auto) 3.6H, Basophils (%) (Auto) 1.6, Sodium Level 139, Potassium Level 4.0, Chloride Level 106, Carbon Dioxide Level 27, Anion Gap 6, Blood Urea Nitrogen 11, Creatinine 0.8, Estimat Glomerular Filtration Rate > 60, Glucose Level 99, Calcium Level 8.6, Phosphorus Level 3.8, Magnesium Level 1.7L Height (Feet): 6 Height (Inches): 2.00 Weight (Pounds): 230 General Appearance: lethargic EENT: normal ENT inspection Neck: normal alignment Cardiovascular: normal peripheral pulses, normal rate, regular rhythm Respiratory/Chest: chest wall non-tender, lungs clear, normal breath sounds Abdomen: normal bowel sounds, non tender, soft Extremities: normal inspection Edema: no edema noted Arm (L), no edema noted Arm (R), no edema noted Leg (L), no edema noted Leg (R), no edema noted Pedal (L), no edema noted Pedal (R), no edema noted Generalized Neurologic: motor weakness Skin: normal pigmentation, warm/dry Objective r foot dressing sl stained [place] DO September 29, 2018 14:42
[2018-09-29 16:00] VITALS: BP 113/67
[2018-09-29] MEDS ORDERED: DAPTOMYCIN IV SCH (17:00)
[2018-09-29] MEDS ORDERED: NS IV SCH (17:00)
--- NOTE | 2018-09-29 18:09 | NUR ---
NURSE NOTES: Patient signed consent for PICC line placement. Consent of file.
--- NOTE | 2018-09-29 19:15 | NUR ---
NURSE NOTES: Received report from Katherine Dyer RN. Pt was assisted to use bathroom via wheelchair. He had BM. Currently, pt is resting in the bed w/o any acute distress in RA at this time. Bed in the lowest w/ side rails up x2, and breaks are engaged. Call light, side table and urinal are ready to use, w/in reach. Will follow plans of care.
--- NOTE | 2018-09-29 19:40 | NUR ---
HAND-OFF: Report given to ELIZABETH Rahman.
[2018-09-29 20:00] VITALS: BP 136/86
[2018-09-29] MEDS ORDERED: Dyna-Hex 2% Top Sol 2oz TOPIC SCH (20:00)
[2018-09-29] MEDS ORDERED: Ertapenem 1 GM in NS 55 ML IVPB SCH (21:00)
[2018-09-30] VITALS: BP 118/71
--- NOTE | 2018-09-30 01:00 | NUR ---
NURSE NOTES: Pt is sleeping w/o distress in RA. VSS. Will continue to monitor.
[2018-09-30] MEDS: Morphine Sulfate 2mg/ml Inj(IV/IM USE ONLY) IVP PRN (03:47)
[2018-09-30 04:00] VITALS: BP 127/80
--- NOTE | 2018-09-30 04:09 | NUR ---
NURSE NOTES: IV insertion was removed per pt. New IV insertion was not successful. Pt refused to have another IV insertion especially on his hands. Will continue to monitor. MISAEL made aware. Addendum: 09/30/18 at 0709 by KECIA GALEANA RN Pt refused to have IV insertion at this time. MISAEL made aware.
[2018-09-30 07:01] LABS: BASOPHILS % (AUTO) 1.6 % (0.0-2.0); EOSINOPHILS % (AUTO) 3.2 % (0.0-3.0); HEMOGLOBIN 11.9 G/DL (14.2-18.0); LYMPHOCYTES % (AUTO) 21.2 % (20.0-45.0); MEAN CORPUSCULAR VOLUME 73 FL (80-99); MONOCYTES % (AUTO) 7.2 % (1.0-10.0); NEUTROPHILS % (AUTO) 66.8 % (45.0-75.0); PLATELET COUNT 318 K/UL (150-450); RED BLOOD COUNT 5.17 M/UL (4.70-6.10); RED CELL DISTRIBUTION WIDTH 17.3 % (11.6-14.8); WHITE BLOOD COUNT 5.3 K/UL (4.8-10.8)
[2018-09-30 07:04] LABS: ANION GAP 5 mmol/L (5-15); BLOOD UREA NITROGEN 10 mg/dL (7-18); CALCIUM 9.1 MG/DL (8.5-10.1); CARBON DIOXIDE 30 MMOL/L (21-32); CHLORIDE 106 MMOL/L (98-107); CREATININE 0.9 MG/DL (0.55-1.30); POTASSIUM 4.6 MMOL/L (3.5-5.1); SODIUM 141 MMOL/L (136-145)
[2018-09-30 07:10] LABS: CREATINE KINASE 85 U/L (26-308)
--- NOTE | 2018-09-30 07:10 | NUR ---
HAND-OFF: Report given to Elidia Rahman RN.
[2018-09-30 08:00] VITALS: BP 101/65
[2018-09-30] MEDS: Heparin 5000 units/ml inj SUBQ SCH (08:47)
[2018-09-30] MEDS: Multivitamin w/Minerals tab ORAL SCH (08:47)
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
[2018-09-30] MEDS ORDERED: HYDROcodone/Acetamin 5/325 tab ORAL PRN (09:00)
--- NOTE | 2018-09-30 09:28 | Nephrology Progress Note ---
Assessment/Plan Status: stable, progressing Assessment/Plan: A/P 1) Refeeding Syndrome - Homeless patient, eating well - Cr and electrolytes stable. Will sign off. appreciate consult 2) Right lower extremity wound infection. Antibiotics per Infectious Disease. -vancomycin and meropenem. 3) Right lower extremity is being managed by Pain Management. 4) Dehydration. PRN IVFs Subjective Date patient seen: September 30, 2018 Time patient seen: 09:27 Allergies: Coded Allergies: PENICILLIN G (Verified Allergy, Unknown, 05/05/18) Tolerates carbapenems and cephalosporins UNABLE TO ASSESS (Unverified , 09/24/18) Subjective Patient with no complaints Objective Last 24 Hour Vital Signs Date Time Temp Pulse Resp B/P (MAP) Pulse Ox O2 Delivery O2 Flow Rate FiO2 09/30/18 08:00 98.1 84 20 101/65 (77) 100 09/30/18 04:00 97.8 79 18 127/80 (96) 100 09/30/18 00:00 98.8 83 18 118/71 (87) 99 09/29/18 21:00 Room Air 09/29/18 20:12 83 20 Room Air 21 09/29/18 20:00 97.8 96 18 136/86 (103) 99 09/29/18 17:55 98.2 09/29/18 16:00 98.1 80 20 113/67 (82) 99 09/29/18 12:00 98.2 76 20 110/61 (77) 100 Intake and Output 09/29/18 09/30/18 18:59 06:59 Intake Total 1367.416 ml 1455 ml Output Total 1800 ml Balance 1367.416 ml -345 ml Intake Oral 800 ml 1400 ml IV Total 567.416 ml 55 ml Output Urine Total 1800 ml # Voids 9 9 # Bowel Movements 2 Laboratory Tests 09/30/18 06:00: White Blood Count 5.3, Red Blood Count 5.17, Hemoglobin 11.9L, Hematocrit 38.0L , Mean Corpuscular Volume 73L, Mean Corpuscular Hemoglobin 23.1L, Mean Corpuscular Hemoglobin Concent 31.4L, Red Cell Distribution Width 17.3H, Platelet Count 318, Mean Platelet Volume 8.6, Neutrophils (%) (Auto) 66.8, Lymphocytes (%) (Auto) 21.2, Monocytes (%) (Auto) 7.2, Eosinophils (%) (Auto) 3.2H, Basophils (%) (Auto) 1.6, Sodium Level 141, Potassium Level 4.6, Chloride Level 106, Carbon Dioxide Level 30, Anion Gap 5, Blood Urea Nitrogen 10, Creatinine 0.9, Estimat Glomerular Filtration Rate > 60, Glucose Level 91, Calcium Level 9.1, Magnesium Level 1.9, Total Creatine Kinase 85 Height (Feet): 6 Height (Inches): 2.00 Weight (Pounds): 230 Yoni Guerrero MD September 30, 2018 09:28
--- NOTE | 2018-09-30 10:06 | Diagnostic Imaging Report ---
APPROVED REPORT CPT Code: 36864 Present Symptoms Comments: Pain and swelling Right foot wound BILATERAL: Imaging reveals a patent deep venous system bilaterally. There is no evidence of thrombus within the common femoral, superficial femoral, popliteal or tibial segments. The greater saphenous veins are within normal limits. Doppler indicates normal spontaneous flow within these segments. INCIDENTAL FINDING: Enlarged lymph node noted near groin area, bilaterally.
--- NOTE | 2018-09-30 10:33 | NUR ---
*-* INSURANCE *-* ALL CLINICALS AND REVIEW HAVE BEEN FAXED TO: IPA: CORNELIO PERKINS TRK# [id number] MARISELA: YANIRA P:[phone] F:[phone]
[2018-09-30 12:00] VITALS: BP 119/60
[2018-09-30] MEDS ORDERED: Morphine Sulfate 2mg/ml Inj(IV/IM USE ONLY) IVP PRN (12:15)
[2018-09-30] MEDS ORDERED: Tubing IV Secondary IV ONE (12:36)
[2018-09-30] MEDS ORDERED: NS 275ml ONE (12:36)
--- NOTE | 2018-09-30 12:44 | NUR ---
NURSE NOTES: PT AXOX4, TELLS RN HE'S READY TO LEAVE. RN ASKED PT IF HE HAS A PLACE TO STAY AND IF HE WILL BE GETTING REGULAR MEDICAL ATTENTION. PT STAYS QUIET. RN EDUCATED PT HE NEEDS CONTINUED MEDICAL TREATMENT FOR HIS WOUNDS AND CASE MANAGEMENT WILL HELP HIM FIND A PLACE TO STAY AND TREATMENT FOR WOUND CARE. PT STATES "I GOTTA GO [place]. I HAVE SOME EMERGENCIES TO TAKE CARE OF.". RN EDUCATED PT ON S/S INFECTION AND URGENT MEDICAL ATTENTION, AND CALL OR GO TO EMERGENCY SERVICES (). PT HAS NO IV ACCESS. ID BRACELET TAKEN OFF. PT REFUSED WOUND CARE BEFORE LEAVING AMA. DR BRICEÑO MADE AWARE OF AMA. RN TRIED TO REVIEW PT'S BELONGINGS, BUT PT REFUSED, SAYING "I GOT EVERYTHING". PT SIGNED AMA FORM AND BELONGINGS SHEET. RN ESCORTED PT OUT OF HOSPITAL AND RE-EDUCATED PT TO CALL OR GO TO NEAREST ER IF HE NEEDS IMMEDIATE MEDICAL ATTENTION. PT STATES HE WILL BE TAKING THE BUS BUT WILL NOT TELL RN WHERE HE IS GOING. CRN MADE AWARE. RN LEFT MESSAGE FOR DR HOLGER BARRIOS REGARDING AMA. CRN MADE RN GRATED CHEESE MAKER AWARE.
--- NOTE | 2018-09-30 13:00 | NUR ---
*-* DISCHARGE PLANNING *-* PATIENT HAS BEEN REFERRED TO: LIANA MONTEZ F:[phone]
--- NOTE | 2018-09-30 13:29 | General Progress Note ---
Assessment/Plan Problem List: (1) Foot infection ICD Codes: L08.9 - Local infection of the skin and subcutaneous tissue, unspecified SNOMED: 873120301 (2) Pain ICD Codes: R52 - Pain, unspecified SNOMED: 68155789 (3) Alcohol intoxication ICD Codes: F10.929 - Alcohol use, unspecified with intoxication, unspecified SNOMED: 81826349 (4) Paraplegia ICD Codes: G82.20 - Paraplegia, unspecified SNOMED: 69489537 (5) Cellulitis ICD Codes: L03.90 - Cellulitis, unspecified SNOMED: 700588884 (6) Asthma ICD Codes: J45.909 - Unspecified asthma, uncomplicated SNOMED: 230635634 (7) PVD (peripheral vascular disease) ICD Codes: I73.9 - Peripheral vascular disease, unspecified SNOMED: 235788757 (8) Ulcer of foot ICD Codes: L97.509 - Non-pressure chronic ulcer of other part of unspecified foot with unspecified severity SNOMED: 31778165 (9) Depressed bipolar disorder ICD Codes: F31.30 - Depressed bipolar disorder SNOMED: 04510304 Status: stable, progressing Assessment/Plan: wound care sbx pt diet wants to leave ama dc to snf if clear Subjective Allergies: Coded Allergies: PENICILLIN G (Verified Allergy, Unknown, 05/05/18) Tolerates carbapenems and cephalosporins UNABLE TO ASSESS (Unverified , 09/24/18) All Systems: reviewed and negative except above Subjective sleepy calm Objective Last 24 Hour Vital Signs Date Time Temp Pulse Resp B/P (MAP) Pulse Ox O2 Delivery O2 Flow Rate FiO2 09/30/18 12:00 98.3 86 20 119/60 (79) 99 09/30/18 09:00 Room Air 09/30/18 08:17 81 16 Room Air 21 09/30/18 08:00 98.1 84 20 101/65 (77) 100 09/30/18 04:00 97.8 79 18 127/80 (96) 100 09/30/18 00:00 98.8 83 18 118/71 (87) 99 09/29/18 21:00 Room Air 09/29/18 20:12 83 20 Room Air 21 09/29/18 20:00 97.8 96 18 136/86 (103) 99 09/29/18 17:55 98.2 09/29/18 16:00 98.1 80 20 113/67 (82) 99 Intake and Output 09/29/18 09/30/18 19:00 07:00 Intake Total 1367.416 ml 1455 ml Output Total 1800 ml Balance 1367.416 ml -345 ml Intake Oral 800 ml 1400 ml IV Total 567.416 ml 55 ml Output Urine Total 1800 ml # Voids 9 9 # Bowel Movements 2 Laboratory Tests 09/30/18 06:00: White Blood Count 5.3, Red Blood Count 5.17, Hemoglobin 11.9L, Hematocrit 38.0L , Mean Corpuscular Volume 73L, Mean Corpuscular Hemoglobin 23.1L, Mean Corpuscular Hemoglobin Concent 31.4L, Red Cell Distribution Width 17.3H, Platelet Count 318, Mean Platelet Volume 8.6, Neutrophils (%) (Auto) 66.8, Lymphocytes (%) (Auto) 21.2, Monocytes (%) (Auto) 7.2, Eosinophils (%) (Auto) 3.2H, Basophils (%) (Auto) 1.6, Sodium Level 141, Potassium Level 4.6, Chloride Level 106, Carbon Dioxide Level 30, Anion Gap 5, Blood Urea Nitrogen 10, Creatinine 0.9, Estimat Glomerular Filtration Rate > 60, Glucose Level 91, Calcium Level 9.1, Magnesium Level 1.9, Total Creatine Kinase 85 Height (Feet): 6 Height (Inches): 2.00 Weight (Pounds): 230 General Appearance: lethargic EENT: normal ENT inspection Neck: normal alignment Cardiovascular: normal peripheral pulses, normal rate, regular rhythm Respiratory/Chest: chest wall non-tender, lungs clear, normal breath sounds Abdomen: normal bowel sounds, non tender, soft Extremities: normal inspection Edema: no edema noted Arm (L), no edema noted Arm (R), no edema noted Leg (L), no edema noted Leg (R), no edema noted Pedal (L), no edema noted Pedal (R), no edema noted Generalized Neurologic: motor weakness Skin: normal pigmentation, warm/dry Objective r foot dressing sl stained [place] Collins[place]ire September 30, 2018 13:29
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
== END 2018-09-30 12:37 | disposition left against medical advice (07) | DRG 344 ==
LOC: EDBD 11:20 → EMR 13:10 → 4E 14:00 → EDBEDREQ 18:06
DX: M86.18 Other acute osteomyelitis, other site (principal); L89.894 Pressure ulcer of other site, stage 4; L89.159 Pressure ulcer of sacral region, unspecified stage; E46 Unspecified protein-calorie malnutrition; G62.9 Polyneuropathy, unspecified; E87.8 Other disorders of electrolyte and fluid balance, not elsewhere classified; L03.115 Cellulitis of right lower limb; E13.40 Other specified diabetes mellitus with diabetic neuropathy, unspecified; L89.893 Pressure ulcer of other site, stage 3; G82.20 Paraplegia, unspecified; M86.68 Other chronic osteomyelitis, other site; F10.20 Alcohol dependence, uncomplicated; L97.519 Non-pressure chronic ulcer of other part of right foot with unspecified severity; I73.9 Peripheral vascular disease, unspecified; F32.9 Major depressive disorder, single episode, unspecified; Z88.0 Allergy status to penicillin; Z59.0 Homelessness; T14.8XXS Other injury of unspecified body region, sequela; W34.00XS Accidental discharge from unspecified firearms or gun, sequela; Z99.3 Dependence on wheelchair; F60.2 Antisocial personality disorder; J45.909 Unspecified asthma, uncomplicated; F31.30 Bipolar disorder, current episode depressed, mild or moderate severity, unspecified; F15.10 Other stimulant abuse, uncomplicated; E86.0 Dehydration; S13.9XXA Sprain of joints and ligaments of unspecified parts of neck, initial encounter; X58.XXXA Exposure to other specified factors, initial encounter
CPT/HCPCS: 36415; 72193; 80048; 80053; 80061; 80202; 80307; 81001; 82550; 82607; 82746; 82977; 83605; 83735; 83880; 84100; 84443; 84550; 85025; 85610; 85651; 85730; 86140; 87040; 87070; 87081; 87181; 87205; 93970; 94664; 96361; 96365; 96375; 99285; J8499

== ENCOUNTER 2018-10-05 15:52 | Emergency (ER) | payer OTHER ==
[~2018-10-05] VITALS: Ht 177.8 cm; Wt 81.6 kg
--- NOTE | 2018-10-05 17:00 | NUR ---
ED Nurse Note:pt. was BIBA with non healing right foot ulcer, pt. is A/Ox3, blood sent to labs and iv fluids given, wound on right foot looks infected
[2018-10-05 17:06] LABS: BASOPHILS % (AUTO) 2.1 % (0.0-2.0); EOSINOPHILS % (AUTO) 2.3 % (0.0-3.0); LYMPHOCYTES % (AUTO) 8.8 % (20.0-45.0); MEAN CORPUSCULAR VOLUME 71 FL (80-99); NEUTROPHILS % (AUTO) 80.8 % (45.0-75.0); PLATELET COUNT 301 K/UL (150-450); RED CELL DISTRIBUTION WIDTH 15.9 % (11.6-14.8); WHITE BLOOD COUNT 11.4 K/UL (4.8-10.8)
[2018-10-05 17:08] VITALS: BP 136/87
[2018-10-05] MEDS ORDERED: Morphine Sulfate 4mg/ml Inj (IV USE ONLY) IVP ONE (17:15)
[2018-10-05 17:26] LABS: ALANINE AMINOTRANSFERASE 19 U/L (12-78); ALBUMIN/GLOBULIN RATIO 0.6 (1.0-2.7); ALKALINE PHOSPHATASE 102 U/L (46-116); ANION GAP 7 mmol/L (5-15); ASPARTATE AMINO TRANSFERASE 14 U/L (15-37); BILIRUBIN,TOTAL 0.4 MG/DL (0.2-1.0); BLOOD UREA NITROGEN 13 mg/dL (7-18); CALCIUM 8.9 MG/DL (8.5-10.1); CARBON DIOXIDE 29 MMOL/L (21-32); CHLORIDE 103 MMOL/L (98-107); POTASSIUM 3.4 MMOL/L (3.5-5.1); SODIUM 139 MMOL/L (136-145)
[2018-10-05] MEDS ORDERED: Vancomycin 1.5 GM in NS 275 ML IVPB ONE (18:00)
[2018-10-05 19:09] VITALS: BP 134/87
--- NOTE | 2018-10-05 19:11 | NUR ---
ED Nurse Note:pt. received IV fluids and antibiotics waiting for transfer to different hospital
--- NOTE | 2018-10-05 19:18 | NUR ---
HAND-OFF: Report given to Park.
[2018-10-05 19:54] VITALS: BP 140/84
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
--- NOTE | 2018-10-05 19:56 | NUR ---
ED Nurse Note: telephone report [facility] per ralph, have transport hold at the moment I will call back.
--- NOTE | 2018-10-05 20:11 | NUR ---
ED Nurse Note: attempted to call Troy prasadwashhouse hand twice at [facility]
--- NOTE | 2018-10-05 20:15 | NUR ---
ED Nurse Note: ATTEMPTED TO FOLLOW UP WITH [facility], UNABLE TO CONTACT X3
--- NOTE | 2018-10-05 20:20 | NUR ---
ED Nurse Note: INFORMED NURSING SALES REVIEW CLERK ABOUT [facility] SERV[facility] TECHNICIAN FROM [facility] CALLED BACK AND ACCEPTED REPORT. INFROMED HER OF THE CALLED ATTEMPTS. PER NURSING SALES REVIEW CLERK SEND PT WITH TRANSPORT NOW.
[2018-10-05 20:25] LABS: APPEARANCE,URINE CLEAR; BILIRUBIN, URINE NEGATIVE (NEGATIVE); COLOR,URINE PALE YELLOW; GLUCOSE, URINE (UA) NEGATIVE (NEGATIVE); KETONES,URINE NEGATIVE (NEGATIVE); LEUKOCYTE ESTERASE ,URINE 1+ (NEGATIVE); NITRITE,URINE NEGATIVE (NEGATIVE); PH,URINE 5 (4.5-8.0); PROTEIN,URINE NEGATIVE (NEGATIVE); UROBILINOGEN,URINE NORMAL MG/DL (0.0-1.0)
[2018-10-05 20:30] VITALS: BP 134/79
--- NOTE | 2018-10-05 20:39 | NUR ---
ED Nurse Note: MICHELE FROM [facility] RETURNED PHONE CALL. PT IS GOOD TO TRANSFER
--- NOTE | 2018-10-05 20:40 | NUR ---
ED Nurse Note: TRANSPORT AT BEDSIDE, PT HAS NO BELONGINGS, RIGHT FOOT ULCER HAS BEEN DRESSED. PT DENEIS PAIN AT THIS TIME. PT IS AOX4, ON ROOM AIR, SINUS RHYTHM. PT LEFT DEPARTMENT WITH TRANSPROT
== END 2018-10-05 20:30 | disposition short-term general hospital (02) ==
LOC: EDBD 15:52 → EMR 17:27
DX: I73.9 Peripheral vascular disease, unspecified (principal); L97.519 Non-pressure chronic ulcer of other part of right foot with unspecified severity; G82.20 Paraplegia, unspecified; Z99.3 Dependence on wheelchair; E11.9 Type 2 diabetes mellitus without complications; Z88.0 Allergy status to penicillin
CPT/HCPCS: 36415; 80053; 81003; 83605; 85025; 87040; 96361; 96365; 96366; 96375; 99284; J2270; J3370; J7050

== ENCOUNTER 2018-10-13 22:04 | Inpatient (IN) | payer OTHER ==
[~2018-10-13] VITALS: Ht 185.4 cm; Wt 88.5 kg
[2018-10-13 22:20] VITALS: BP 138/70
--- NOTE | 2018-10-13 22:20 | NUR ---
ER Nurse Note: Pt BIBA c/o 10/10 back pain; pt unable to explain the injury. Pt also presents with left foot diabetic ulcer. Left foot is wrapped in kerlix and xeroform; dressing looks old, dirty, and unkept. Foot is draining slight blood. VSS, no signs of distress. Well continue to montior.
[2018-10-13] MEDS ORDERED: Acetaminophen 500mg (ES) tab ORAL ONE (22:30)
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
[2018-10-13] MEDS ORDERED: Vancomycin 1.5gm/D5W Premix 275 ML IVPB ONE (22:45)
[2018-10-13] MEDS ORDERED: Vancomycin 1.5gm vial IVPB ONE (23:12)
[2018-10-13 23:25] LABS: BASOPHILS % (AUTO) 2.4 % (0.0-2.0); EOSINOPHILS % (AUTO) 1.9 % (0.0-3.0); LYMPHOCYTES % (AUTO) 11.8 % (20.0-45.0); MEAN CORPUSCULAR VOLUME 70 FL (80-99); MONOCYTES % (AUTO) 7.1 % (1.0-10.0); NEUTROPHILS % (AUTO) 76.9 % (45.0-75.0); PLATELET COUNT 349 K/UL (150-450); RED BLOOD COUNT 4.87 M/UL (4.70-6.10); RED CELL DISTRIBUTION WIDTH 15.2 % (11.6-14.8); WHITE BLOOD COUNT 9.6 K/UL (4.8-10.8)
[2018-10-13 23:40] LABS: ALANINE AMINOTRANSFERASE 20 U/L (12-78); ALBUMIN/GLOBULIN RATIO 0.5 (1.0-2.7); ALKALINE PHOSPHATASE 86 U/L (46-116); ANION GAP 11 mmol/L (5-15); ASPARTATE AMINO TRANSFERASE 31 U/L (15-37); BILIRUBIN,TOTAL 0.5 MG/DL (0.2-1.0); BLOOD UREA NITROGEN 12 mg/dL (7-18); CALCIUM 9.1 MG/DL (8.5-10.1); CARBON DIOXIDE 28 MMOL/L (21-32)
[2018-10-13 23:46] LABS: CHLORIDE 106 MMOL/L (98-107); POTASSIUM 3.9 MMOL/L (3.5-5.1); SODIUM 148 MMOL/L (136-145)
--- NOTE | 2018-10-14 01:10 | NUR ---
ER Nurse Note: All orders completed per ERMD orders. Bilateral AC IV; patent but positional. Pt follow commands. Foot cleaned and rewrapped. Pt pending transfer for continuity of care. Will continue to monitor.
--- NOTE | 2018-10-14 01:52 | NUR ---
ER Nurse Note: Pt is refusing to leave with EMS transport. Other nurses, charge nurse Dr Lamas Thomas spoke with pt. Tried to give report, no answer and left message. dynamics ax technical architect called hospital and was told "will call back shortly". Pt
[2018-10-14 01:57] VITALS: BP 134/74
--- NOTE | 2018-10-14 02:29 | NUR ---
ER Nurse Note: Pt refused to leave with EMS. Per EMS, they had to go to another transport.
--- NOTE | 2018-10-14 05:00 | NUR ---
NURSE NOTES: Received a report from ELIZABETH Helm. Waiting for pt's arrival
[2018-10-14 05:10] VITALS: BP 104/62
--- NOTE | 2018-10-14 05:25 | NUR ---
ER Nurse Note: Report given to ELIZABETH Zepeda in [place] for continuity of care. Pt awake; VSS, no signs of distress. Wound photos uploaded. Pt refused CRE/VRE swab, endorsed to receiving nurse. IV inserted; SLIV RT AC. All belongings taken with pt.
--- NOTE | 2018-10-14 05:30 | NUR ---
NURSE NOTES: Pt came in the unit. Very uncooperative. He does not want to be asked questions. Refused to sign the belonging list. He also refused the VRE rectum swabs. IV site is patent and intact. Checked the belongings with ER nurse Alicja. Diabetic ulcer on R foot and wound on L leg. Stage 2 pressure ulcer on the buttocks with pink discoloration. Pictures taken and uploaded. Bed in lowest position. Bed alarm is on. Call light within reach. Will continue to monitor.
--- NOTE | 2018-10-14 07:00 | NUR ---
HAND-OFF: Report given to Katy Britton RN.
--- NOTE | 2018-10-14 07:12 | NUR ---
HAND-OFF: Report given to Katelyn Pinedo RN.
[2018-10-14] MEDS ORDERED: Nitroglycerin Subl 0.4mg tab SL PRN (07:15)
[2018-10-14] MEDS ORDERED: Albuterol/Ipratropium 3ml neb HHN PRN (07:15)
[2018-10-14] MEDS ORDERED: Miralax 17gm pkt ORAL PRN (07:15)
[2018-10-14] MEDS ORDERED: Dextrose 50% 25ml Syringe IV PRN (07:30)
[2018-10-14 08:00] VITALS: BP 110/88
--- NOTE | 2018-10-14 08:05 | NUR ---
NURSE NOTES: Patient is alert and oriented X3. Patient is resting in bed on room air. Bed is locked, side rails up x2, and call light is within reach. Will continue to monitor.
[2018-10-14] MEDS: Morphine Sulfate 2mg/ml Inj(IV/IM USE ONLY) IVP PRN ×3 (08:41→22:23)
[2018-10-14] MEDS: Heparin 5000 units/ml inj SUBQ SCH ×2 (08:47→20:38)
--- NOTE | 2018-10-14 08:48 | NUR ---
COST CLERKPHOTOENGRAVER 43 Y/O MALE [facility]A [facility] [place] [facility] CC:BACK PAIN NO INJURY SI:INTRACTABLE BACK PAIN . CHRONIC WOUND OF EXTREMITY VS: BP 138/70, P 80, T 97.8, RR 18, SpO2 98 H&H 11.0/34.0, Na 148 IS:VANCOMYCIN 275ml IVPB TYLENOL 1,000 mg ADMITTED TO MED/SURG DCP: TO BE DETERMINED ON CARE NEEDED
[2018-10-14] MEDS ORDERED: chlordiazePOXIDE 25mg Cap ORAL PRN (09:45)
--- NOTE | 2018-10-14 10:02 | NUR ---
NURSE NOTES: Patient noted with tremors. Per patient he sometimes shakes when he drinks alcohol. Patient reports he had [address] Armas notified. New order received for Libruim PRN. Attempted to give dose of Librium to patient. Patient refused. Explained risks and benefits. Patient refused.
[2018-10-14] MEDS ORDERED: Vancomycin 1.25gm Premix IVPB SCH (11:00)
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
--- NOTE | 2018-10-14 11:28 | NUR ---
RD ASSESSMENT & RECOMMENDATIONS SEE CARE ACTIVITY FOR COMPLETE ASSESSMENT DAILY ESTIMATED NEEDS: Needs based on Advanced wounds/ 90kg abw 25-30 kcals/kg 4405-8814 total kcals 1.25-2.0 g protein/kg 113-180 g total protein 25-30 mL/kg 3808-9932 total fluid mLs NUTRITION DIAGNOSIS: Increased kcal and protein needs r/t wound healing as evidenced by pt admitted w/ multiple advanced wounds w/ history of full thickness pressure injury R ischium and stage 3 ulcer deep wound at distal L tibia,pending eval update. PO DIET RECOMMENDATIONS: REGULAR + DOUBLE PROTEIN PORTIONS ---- ADDITIONAL RECOMMENDATIONS: * Wound healing: CHARAN BID + MVI w/ min daily + Vit C 250mg BID F/up w/ WC eval * Calibrated bedscale wt for accurate CBW * Monitor lytes, replete as needed * Monitor PO intake
[2018-10-14 12:00] VITALS: BP 108/59
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
--- NOTE | 2018-10-14 14:00 | NUR ---
Social Service Note SW informed patient of possible transfer to contracted facility, [facility] vs. [facility]. Patient was in agreement with plan.
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
--- NOTE | 2018-10-14 14:33 | NUR ---
*-* INSURANCE *-* ALL CLINICALS AND REVIEWS HAVE BEEN FAXED TO: [facility]REFERRED [facility] NCM: STANISLAW P: N/A F:[phone] FAX CLINICALS
--- NOTE | 2018-10-14 15:18 | NUR ---
NURSE NOTES: Patient refused venous duplex. Dr. Armas notified. No new orders received.
--- NOTE | 2018-10-14 15:19 | NUR ---
NURSE NOTES: Dressing changed on right foot. Patient tolerated. Patient refused to have RN assess or change dressing on right ischium/ right buttock.
--- NOTE | 2018-10-14 15:29 | NUR ---
NURSE NOTES:WOUND CARE: pt declined for wounds to be assessed.Pt asked to be left alone>
[2018-10-14 16:00] VITALS: BP 106/64
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
--- NOTE | 2018-10-14 16:16 | NUR ---
NURSE NOTES: Received report from Katelyn,patient alert resting,noted dressings to right foot clean intact.No complaints at this time,call light within reach,bed alarm is on.
--- NOTE | 2018-10-14 16:17 | NUR ---
HAND-OFF: Report given to ELIZABETH Edwards.
[2018-10-14] MEDS: Levofloxacin 750mg tab ORAL SCH (17:45)
[2018-10-14] MEDS: Bactrim-DS 1 tab ORAL SCH (18:00)
[2018-10-14] MEDS: Ascorbic Acid 500mg tab ORAL SCH (18:00)
--- NOTE | 2018-10-14 18:14 | NUR ---
NURSE NOTES: Patient sitting up in bed and eating dinner,patient refusing medication,new order for po antibiotics from Dr Gottlieb.Explain importance of starting antibiotics ,patient state no he does not want to take,he does not want to be bothered.
--- NOTE | 2018-10-14 19:54 | NUR ---
NURSE NOTES: Received patient awake in bed, hands underneath the blanket possibly masturbating. I told him I will not enter the room until he stops. Pt accepted to [facility], awaiting call back for bed. No s/s of acute distress.
[2018-10-14 20:00] VITALS: BP 105/67
--- NOTE | 2018-10-14 22:45 | History and Physical Report ---
DATE OF ADMISSION: 10/14/2018 CONSULTANTS: 1. Francheska Armas M.D. 2. Shilo Arrington M.D. 3. Hai Jacob M.D. CHIEF COMPLAINT: Low back pain and right foot wound getting worse. BRIEF HISTORY: The patient is a 43-year-old homeless man, presents to [facility] with the right foot getting worse and severe back pain, was diagnosed with the above and admitted to medical floor for further treatment. Currently, calm in bed. No complaint. No chest pain. No shortness of breath. No nausea, vomiting, or diarrhea. PAST MEDICAL HISTORY: Includes decubitus, paraplegia, asthma, peripheral vascular disease, foot ulcer, and diabetes. PAST SURGICAL HISTORY: Unknown. MEDICATIONS: Include vancomycin, ascorbic acid, dextrose, nitroglycerin, temazepam, morphine, and albuterol. ALLERGIES: Penicillin. SOCIAL HISTORY: No smoking. Positive alcohol. Positive methamphetamine use. PHYSICAL EXAMINATION: GENERAL: Slightly confused in bed, oriented x2, in no acute distress. VITAL SIGNS: Show temperature is 98 degrees, pulse 112, respirations 20, and blood pressure 108/59. CARDIOVASCULAR: No murmur. LUNGS: Distant and clear. ABDOMEN: Bowel sounds positive. Nontender. Nondistended. EXTREMITIES: Show no cyanosis or edema. Right foot dressing slightly stained. NEUROLOGIC: The patient moves all extremities. Lower extremity weakness noted. LABORATORY DATA: Laboratories, at this time, show hemoglobin 11, otherwise CBC is normal. BMP, sodium 148, otherwise normal. ASSESSMENT: 1. Right foot wound. 2. Paraplegia. 3. Back pain. 4. Decubitus ulcer. 5. Asthma. 6. Peripheral vascular disease. 7. Foot ulcer. 8. Diabetes. 9. Anemia. PLAN: 1. Blood sugar control. 2. Pain control. 3. Dietary followup. 4. Wound care. 5. Antibiotics per Infectious Disease. 6. PT and dietary evaluation. 7. CBC and BMP in the morning. [place] D.O. DR: WILLIAM JOB#: [id number] CC:
[2018-10-15] VITALS: BP 102/62
[2018-10-15] MEDS ORDERED: Vancomycin 1 GM in D5W 275 ML IV SCH (00:30)
[2018-10-15 04:00] VITALS: BP 126/60
[2018-10-15 06:31] LABS: BASOPHILS % (AUTO) 1.5 % (0.0-2.0); EOSINOPHILS % (AUTO) 3.1 % (0.0-3.0); HEMATOCRIT 33.6 % (42.0-52.0); HEMOGLOBIN 10.7 G/DL (14.2-18.0); LYMPHOCYTES % (AUTO) 22.8 % (20.0-45.0); MEAN CORPUSCULAR VOLUME 72 FL (80-99); MONOCYTES % (AUTO) 10.7 % (1.0-10.0); NEUTROPHILS % (AUTO) 61.9 % (45.0-75.0); PLATELET COUNT 349 K/UL (150-450); RED BLOOD COUNT 4.67 M/UL (4.70-6.10); RED CELL DISTRIBUTION WIDTH 16.3 % (11.6-14.8); WHITE BLOOD COUNT 4.8 K/UL (4.8-10.8)
[2018-10-15 06:46] LABS: ALANINE AMINOTRANSFERASE 15 U/L (12-78); ALBUMIN 2.2 G/DL (3.4-5.0); ALBUMIN/GLOBULIN RATIO 0.5 (1.0-2.7); ALKALINE PHOSPHATASE 63 U/L (46-116); ANION GAP 7 mmol/L (5-15); ASPARTATE AMINO TRANSFERASE 11 U/L (15-37); BILIRUBIN,TOTAL 0.2 MG/DL (0.2-1.0); BLOOD UREA NITROGEN 12 mg/dL (7-18); CALCIUM 8.4 MG/DL (8.5-10.1); CARBON DIOXIDE 28 MMOL/L (21-32); CHLORIDE 105 MMOL/L (98-107); CREATININE 0.9 MG/DL (0.55-1.30); POTASSIUM 3.2 MMOL/L (3.5-5.1); SODIUM 140 MMOL/L (136-145)
--- NOTE | 2018-10-15 07:00 | NUR ---
HAND-OFF: Report given to Maximus Rahman RN.
[2018-10-15 08:00] VITALS: BP 116/64
[2018-10-15] MEDS: Morphine Sulfate 2mg/ml Inj(IV/IM USE ONLY) IVP PRN ×4 (08:34→21:30)
[2018-10-15] MEDS: Heparin 5000 units/ml inj SUBQ SCH ×2 (08:38→21:00)
[2018-10-15] MEDS: Levofloxacin 750mg tab ORAL SCH (08:38)
[2018-10-15] MEDS: Ascorbic Acid 500mg tab ORAL SCH ×2 (08:38→17:44)
[2018-10-15] MEDS: Bactrim-DS 1 tab ORAL SCH (08:38)
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
--- NOTE | 2018-10-15 09:30 | NUR ---
P.T Note: P.T evaluation completed. Pt is currently functioning at baseline, W/C level. NO further skilled P.T follow up needed at this time. Addendum: 10/15/18 at 0930 by TAYLOR QUEZADA PT Amended: Links added.
--- NOTE | 2018-10-15 10:00 | NUR ---
NURSE NOTES: PT AXOX3-4, CALM, RESTING IN BED. PT REQUESTED FOR PAIN MEDICATION FOR PAIN 02/02. STATES HIS PAIN IS "ALL OVER". RN ADMINISTERED PRN MORPHINE 2MG ORDERED. PT EDUCATED ON K-DUR 40MEQ FOR SUPPLEMENT DUE TO LOW POTASSIUM LEVEL. BED IN LOWEST POSITION WITH BEDSIDE RAILS X2 RAISED. CALL LIGHT WITHIN REACH. WILL CONTINUE TO MONITOR.
[2018-10-15 12:00] VITALS: BP 115/68
--- NOTE | 2018-10-15 12:14 | NUR ---
[employer] BIOLOG[employer] SI:INTRACTABLE BACK PAIN . CHRONIC WOUND OF EXTREMITY VS: BP 102/62, P 89, T 97.5, RR 20, SpO2 97 RBC 4.67, H&H 10.7/33.6, K 3.2 IS:K-DUR 40meq MORPHINE SULFATE 2mg IVP HEPARIN SUBQ MED/SURG STATUS
--- NOTE | 2018-10-15 12:40 | NUR ---
*-* INSURANCE *-* UPDATED CLINICALS AND REVIEWS HAVE BEEN FAXED TO: CORNELIO PERKINS NCM: STANISLAW P: N/A F:[phone] FAX CLINICALS Addendum: 10/15/18 at 1633 by ALIYAH AYALA NCM:YANIRA P:[phone] F:[phone] REF# [id number]
--- NOTE | 2018-10-15 13:02 | NUR ---
NURSE NOTES: PT REFUSING WOUND CARE AT THIS TIME. PT STATES HE WANTS TO TAKE A SHOWER. RN ASKED PT IF DRESSING CHANGE CAN BE DONE AFTER SHOWER BECAUSE DRESSING WILL GET WET. PT NODDED HIS HEAD IN AGREEMENT. WILL CONTINUE TO MONITOR.
--- NOTE | 2018-10-15 13:16 | General Progress Note ---
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 ICD Codes: E11.49 - Type 2 diabetes mellitus with other diabetic neurological complication SNOMED: 78360242, 910292835 (6) Asthma ICD Codes: J45.909 - Unspecified asthma, uncomplicated SNOMED: 658003748 (7) PVD (peripheral vascular disease) ICD Codes: I73.9 - Peripheral vascular disease, unspecified SNOMED: 128892534 (8) Ulcer of foot ICD Codes: L97.509 - Non-pressure chronic ulcer of other part of unspecified foot with unspecified severity SNOMED: 12335421 (9) Chronic wound of extremity SNOMED: 128072728 (10) Methamphetamine abuse ICD Codes: F15.10 - Other stimulant abuse, uncomplicated SNOMED: 152146414 (11) Intractable back pain ICD Codes: M54.9 - Dorsalgia, unspecified SNOMED: 070494761 Status: unchanged Assessment/Plan: wound care pain control abx pt dietary cbc bmp am Subjective Constitutional: Reports: weakness Allergies: Coded Allergies: PENICILLIN G (Verified Allergy, Unknown, 05/05/18) Tolerates carbapenems and cephalosporins UNABLE TO ASSESS (Unverified , 09/24/18) All Systems: reviewed and negative except above Subjective sleepy calm in bed Objective Last 24 Hour Vital Signs Date Time Temp Pulse Resp B/P (MAP) Pulse Ox O2 Delivery O2 Flow Rate FiO2 10/15/18 12:00 97.5 90 20 115/68 (84) 99 10/15/18 09:00 Room Air 10/15/18 08:00 97.9 100 19 116/64 (81) 98 10/15/18 07:23 89 17 98 Room Air 21 10/15/18 04:00 97.9 88 18 126/60 (82) 97 10/15/18 00:00 98.7 92 18 102/62 (75) 97 10/14/18 21:04 Room Air 10/14/18 20:00 98.0 94 20 105/67 (80) 97 10/14/18 16:00 97.9 107 21 106/64 (78) Intake and Output 10/14/18 10/15/18 19:00 07:00 Intake Total 900 ml Output Total 1000 ml 700 ml Balance -100 ml -700 ml Intake Oral 900 ml Output Urine Total 1000 ml 700 ml # Voids 1 Laboratory Tests 10/15/18 05:05: White Blood Count 4.8, Red Blood Count 4.67L, Hemoglobin 10.7L, Hematocrit 33.6L , Mean Corpuscular Volume 72L, Mean Corpuscular Hemoglobin 23.0L, Mean Corpuscular Hemoglobin Concent 32.0, Red Cell Distribution Width 16.3H, Platelet Count 349, Mean Platelet Volume 6.9, Neutrophils (%) (Auto) 61.9, Lymphocytes (%) (Auto) 22.8, Monocytes (%) (Auto) 10.7H, Eosinophils (%) (Auto) 3.1H, Basophils (%) (Auto) 1.5, Sodium Level 140, Potassium Level 3.2L, Chloride Level 105, Carbon Dioxide Level 28, Anion Gap 7, Blood Urea Nitrogen 12 , Creatinine 0.9, Estimat Glomerular Filtration Rate > 60, Glucose Level 97, Calcium Level 8.4L, Total Bilirubin 0.2, Aspartate Amino Transf (AST/SGOT) 11L, Alanine Aminotransferase (ALT/SGPT) 15, Alkaline Phosphatase 63, Total Protein 6.5, Albumin 2.2L, Globulin 4.3, Albumin/Globulin Ratio 0.5L Height (Feet): 6 Height (Inches): 1.00 Weight (Pounds): 195 General Appearance: lethargic EENT: normal ENT inspection Neck: normal alignment Cardiovascular: normal peripheral pulses, normal rate, regular rhythm Respiratory/Chest: chest wall non-tender, lungs clear, normal breath sounds Abdomen: normal bowel sounds, non tender, soft Extremities: normal inspection Edema: no edema noted Arm (L), no edema noted Arm (R), no edema noted Leg (L), no edema noted Leg (R), no edema noted Pedal (L), no edema noted Pedal (R), no edema noted Generalized Neurologic: responsive, motor weakness Skin: normal pigmentation, warm/dry Objective foot dressing sl stained [place] Collins DO October 15, 2018 13:16
--- NOTE | 2018-10-15 13:37 | Pulmonology Progress Note ---
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 continue abx Subjective ROS Limited/Unobtainable: No Constitutional: Reports: no symptoms Respiratory: Reports: no symptoms Allergies: Coded Allergies: PENICILLIN G (Verified Allergy, Unknown, 05/05/18) Tolerates carbapenems and cephalosporins UNABLE TO ASSESS (Unverified , 09/24/18) Objective Last 24 Hour Vital Signs Date Time Temp Pulse Resp B/P (MAP) Pulse Ox O2 Delivery O2 Flow Rate FiO2 10/15/18 12:00 97.5 90 20 115/68 (84) 99 10/15/18 09:00 Room Air 10/15/18 08:00 97.9 100 19 116/64 (81) 98 10/15/18 07:23 89 17 98 Room Air 21 10/15/18 04:00 97.9 88 18 126/60 (82) 97 10/15/18 00:00 98.7 92 18 102/62 (75) 97 10/14/18 21:04 Room Air 10/14/18 20:00 98.0 94 20 105/67 (80) 97 10/14/18 16:00 97.9 107 21 106/64 (78) Intake and Output 10/14/18 10/15/18 19:00 07:00 Intake Total 900 ml Output Total 1000 ml 700 ml Balance -100 ml -700 ml Intake Oral 900 ml Output Urine Total 1000 ml 700 ml # Voids 1 General Appearance: WD/WN HEENT: normocephalic, mucous membranes moist Respiratory/Chest: chest wall non-tender, chest wall tender Cardiovascular: regularly irregular Abdomen: normal bowel sounds, no mass Extremities: other - soiled dressing Microbiology Date/Time Source Procedure Growth Status 10/13/18 23:05 Blood Blood Culture - Preliminary Gram Positive Cocci Resulted 10/13/18 22:50 Blood Blood Culture - Preliminary Gram Positive Cocci Resulted 10/14/18 05:00 Leg Left Gram Stain - Final Resulted 10/14/18 05:00 Wound Culture - Preliminary Gram Negative Bacillus 1 Resulted Laboratory Tests 10/15/18 05:05: White Blood Count 4.8, Red Blood Count 4.67L, Hemoglobin 10.7L, Hematocrit 33.6L , Mean Corpuscular Volume 72L, Mean Corpuscular Hemoglobin 23.0L, Mean Corpuscular Hemoglobin Concent 32.0, Red Cell Distribution Width 16.3H, Platelet Count 349, Mean Platelet Volume 6.9, Neutrophils (%) (Auto) 61.9, Lymphocytes (%) (Auto) 22.8, Monocytes (%) (Auto) 10.7H, Eosinophils (%) (Auto) 3.1H, Basophils (%) (Auto) 1.5, Sodium Level 140, Potassium Level 3.2L, Chloride Level 105, Carbon Dioxide Level 28, Anion Gap 7, Blood Urea Nitrogen 12 , Creatinine 0.9, Estimat Glomerular Filtration Rate > 60, Glucose Level 97, Calcium Level 8.4L, Total Bilirubin 0.2, Aspartate Amino Transf (AST/SGOT) 11L, Alanine Aminotransferase (ALT/SGPT) 15, Alkaline Phosphatase 63, Total Protein 6.5, Albumin 2.2L, Globulin 4.3, Albumin/Globulin Ratio 0.5L Current Medications Medications (Trade) Dose Ordered Sig/Michael Route PRN Reason Start Time Stop Time Status Last Admin Dose Admin Acetaminophen (Tylenol) 650 mg Q4H PRN ORAL fever 10/14/18 07:15 11/13/18 07:14 Acetaminophen/ Hydrocodone Bitart ([place] 5/325) 1 tab Q6H PRN ORAL moderate pain 10/15/18 09:00 10/22/18 08:59 Albuterol/ Ipratropium (Albuterol/ Ipratropium) 3 ml Q4H PRN HHN Shortness of Breath 10/14/18 07:15 10/19/18 07:14 Ascorbic Acid (Vitamin C) 250 mg TWICE A DAY ORAL 10/14/18 18:00 11/13/18 17:59 Chlordiazepoxide (Librium) 25 mg Q8H PRN ORAL Agitation 10/14/18 09:45 10/21/18 09:44 Dextrose (Dextrose 50%) 25 ml Q30M PRN IV Hypoglycemia 10/14/18 07:30 11/13/18 07:19 Dextrose (Dextrose 50%) 50 ml Q30M PRN IV hypoglycemia 10/14/18 07:30 11/13/18 07:29 Heparin Sodium (Porcine) (Heparin 5000 units/ml) 5,000 units EVERY 12 HOURS SUBQ 10/14/18 09:00 11/13/18 08:59 Levofloxacin (Levaquin) 750 mg DAILY ORAL 10/14/18 17:45 10/21/18 17:44 Morphine Sulfate (Morphine Sulfate) 2 mg Q4H PRN IVP severe pain 10/15/18 09:00 10/21/18 08:59 10/15/18 12:46 Multivitamins (Multivitamins) 1 tab DAILY ORAL 10/15/18 09:00 11/14/18 08:59 Nitroglycerin (Ntg) 0.4 mg Q5M PRN SL Prn Chest Pain 10/14/18 07:15 11/13/18 07:14 Ondansetron HCl (Zofran) 4 mg Q6H PRN IVP Nausea & Vomiting 10/14/18 07:15 11/13/18 07:14 Polyethylene Glycol (Miralax) 17 gm DAILYPRN PRN ORAL Constipation 10/14/18 07:15 11/13/18 07:14 Potassium Chloride (K-Dur) 40 meq DAILY ORAL 10/15/18 09:00 11/14/18 08:59 10/15/18 09:45 Temazepam (Restoril) 15 mg HSPRN PRN ORAL Insomnia 10/14/18 07:15 10/21/18 07:14 Trimethoprim/ Sulfamethoxazole (Bactrim-DS) 1 tab TWICE A DAY ORAL 10/14/18 18:00 10/21/18 17:59 Francheska Armas MD October 15, 2018 13:37
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
--- NOTE | 2018-10-15 15:37 | NUR ---
BUSINESS CONTINUITY MANAGER NOTES SPOKE WITH OSVALDO FROM [facility] NO BEDS AVAILABLE AT THIS TIME SHE WILL CALL WHEN BED IS AVAILABLE. SPOKE WITH THE HOT TAMALE MAN FROM [facility] NO BEDS AVAILABLE AT THIS TIME. PLACED A CALL TO YANIRA ANTONIO FROM [facility] MESSAGE LEFT. WILL FOLLOW UP.
[2018-10-15] MEDS: DAPTOmycin 500 MG in NS 55 ML IV SCH (16:41)
--- NOTE | 2018-10-15 17:00 | Surgery Progress Note ---
Surgery Progress Note Subjective Additional Comments blood cultures positive. patient comfortable labs okay exam stable. Objective Last 24 Hour Vital Signs Date Time Temp Pulse Resp B/P (MAP) Pulse Ox O2 Delivery O2 Flow Rate FiO2 10/15/18 12:00 97.5 90 20 115/68 (84) 99 10/15/18 09:00 Room Air 10/15/18 08:00 97.9 100 19 116/64 (81) 98 10/15/18 07:23 89 17 98 Room Air 21 10/15/18 04:00 97.9 88 18 126/60 (82) 97 10/15/18 00:00 98.7 92 18 102/62 (75) 97 10/14/18 21:04 Room Air 10/14/18 20:00 98.0 94 20 105/67 (80) 97 I&O Intake and Output 10/14/18 10/15/18 19:00 07:00 Intake Total 900 ml Output Total 1000 ml 700 ml Balance -100 ml -700 ml Intake Oral 900 ml Output Urine Total 1000 ml 700 ml # Voids 1 Dressing: saturated Wound: other Drains: other Cardiovascular: RSR Respiratory: clear Abdomen: soft, flat, non-tender, present bowel sounds Extremities: edema, tenderness, cyanosis, other Laboratory Tests Test 10/15/18 05:05 White Blood Count 4.8 K/UL (4.8-10.8) Red Blood Count 4.67 M/UL (4.70-6.10) L Hemoglobin 10.7 G/DL (14.2-18.0) L Hematocrit 33.6 % (42.0-52.0) L Mean Corpuscular Volume 72 FL (80-99) L Mean Corpuscular Hemoglobin 23.0 PG (27.0-31.0) L Mean Corpuscular Hemoglobin Concent 32.0 G/DL (32.0-36.0) Red Cell Distribution Width 16.3 % (11.6-14.8) H Platelet Count 349 K/UL (150-450) Mean Platelet Volume 6.9 FL (6.5-10.1) Neutrophils (%) (Auto) 61.9 % (45.0-75.0) Lymphocytes (%) (Auto) 22.8 % (20.0-45.0) Monocytes (%) (Auto) 10.7 % (1.0-10.0) H Eosinophils (%) (Auto) 3.1 % (0.0-3.0) H Basophils (%) (Auto) 1.5 % (0.0-2.0) Sodium Level 140 MMOL/L (136-145) Potassium Level 3.2 MMOL/L (3.5-5.1) L Chloride Level 105 MMOL/L (98-107) Carbon Dioxide Level 28 MMOL/L (21-32) Anion Gap 7 mmol/L (5-15) Blood Urea Nitrogen 12 mg/dL (7-18) Creatinine 0.9 MG/DL (0.55-1.30) Estimat Glomerular Filtration Rate > 60 mL/min (>60) Glucose Level 97 MG/DL (74-106) Calcium Level 8.4 MG/DL (8.5-10.1) L Total Bilirubin 0.2 MG/DL (0.2-1.0) Aspartate Amino Transf (AST/SGOT) 11 U/L (15-37) L Alanine Aminotransferase (ALT/SGPT) 15 U/L (12-78) Alkaline Phosphatase 63 U/L (46-116) Total Protein 6.5 G/DL (6.4-8.2) Albumin 2.2 G/DL (3.4-5.0) L Globulin 4.3 g/dL Albumin/Globulin Ratio 0.5 (1.0-2.7) L Plan Problems: (1) UTI (urinary tract infection) (2) homelessness (3) Paraplegia (4) Cellulitis Assessment & Plan: 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 Opening approx 3cm x 2cm and tunnels >9cm. (+) Epibole. Small amount of serosanguineous exudate noted. No purulent drainage. Periwound intact but with chronic skin changes. Wound related to wheelchair use and pressure. Patient aware of wound and has been given instructions for care and planning prior but admits he does not adhere to plan Almost near circumferential dorsal and ankle dermal loss / ulceration to the right foot. plantar aspect with rugged thick callus tissue. Wounds have continued to deteriorate bleeding granulation tissue forming. edema with cellulitis noted. draining serosang fluid. no abscess. tender on palpation. Does not tend to wounds and notes this stage 3 ulcer deep wound at distal L tibia. Prior CTA with good runoff. seems to have good vascular flow to foot as well clinically Prior plain films and imaging reviewed. I did discuss worsening condition with patient and possibility of amputation in future if continues to deteriorate. Left foot has made great improvement overall and no longer with large wounds and edema improved. Tx.Plan: Cleanse wound R Ischium with Saline.Loosely pack with Hydrogel impregnated gauze.Cavilon wipe to borders. Cover with Optifoam drsg daily and prn. Cleanse wound R buttocks and sacrum with NS. Apply Cavilon and cover with Optifoam drsg .Change every 7 days and prn. Cleanse wounds R lower ext with Saline. Apply Silvasorb gel .Cover with Xeroform, Abd and wrap with kerlix Daily turn q2h for repositioning Air Mattress (5) Spinal cord injury (6) PVD (peripheral vascular disease) (7) Chronic wound of extremity Assessment & Plan: DAILY ESTIMATED NEEDS: Needs based on Advanced wounds/ 90kg abw 25-30 kcals/kg 9064-8034 total kcals 1.25-2.0 g protein/kg 113-180 g total protein 25-30 mL/kg 9228-3728 total fluid mLs NUTRITION DIAGNOSIS: Increased kcal and protein needs r/t wound healing as evidenced by pt admitted w/ multiple advanced wounds w/ history of full thickness pressure injury R ischium and stage 3 ulcer deep wound at distal L tibia,pending eval update. PO DIET RECOMMENDATIONS: REGULAR + DOUBLE PROTEIN PORTIONS ---- ADDITIONAL RECOMMENDATIONS: * Wound healing: CHARAN BID + MVI w/ min daily + Vit C 250mg BID F/up w/ WC eval * Calibrated bedscale wt for accurate CBW * Monitor lytes, replete as needed * Monitor PO intake (8) Intractable back pain Shilo Arrington October 15, 2018 17:00
--- NOTE | 2018-10-15 18:09 | NUR ---
NURSE NOTES: PT ALLOWED RN TO CHANGE SOILED LINENS AND CHANGE DRESSING ON RIGHT FOOT. WHEN RN ASKED TO CHANGE WOUNDS ON RIGHT BUTTOCK AND SACRAL, PT REFUSED. PT STATES "I DON'T HAVE ANYTHING DOWN THERE". RN EDUCATED PT ON RISKS. PT CONTINUED TO REFUSE. WILL CONTINUE TO MONITOR.
--- NOTE | 2018-10-15 18:10 | NUR ---
NURSE NOTES: RN EDUCATED PT ON NEEDING TO WEIGH PT BY ZEROING THE BED. PT REFUSES TO GET OFF OF BED. UNABLE TO WEIGH PT.
--- NOTE | 2018-10-15 19:28 | NUR ---
HAND-OFF: Report given to G[facility]HAM WE[facility] RN.
--- NOTE | 2018-10-15 19:30 | NUR ---
NURSE NOTES: Received patient in no apparent distress. A&OX4. IV site patent and intact. Dressing on right foot noted, dry and intact. Patient refused assess skin on the back. Explained risk and benefit, but still refused. Patient says "I'm ok". Bed in lowest position. Call light within reach. Will continue to monitor.
[2018-10-16] VITALS: BP 108/60
[2018-10-16] MEDS: Morphine Sulfate 2mg/ml Inj(IV/IM USE ONLY) IVP PRN ×3 (03:17→15:55)
[2018-10-16 04:00] VITALS: BP 98/60
--- NOTE | 2018-10-16 07:30 | NUR ---
NURSE NOTES: Received pt from [facility]. pt is alert and orient x4. pt is in RA, No SOB or acute respiratory distress noted. pt has intact IV access RFA 18G SL. pt has very bad smell and refuse to take a shower x3 attempts and explained risks. all needs attended, bed is locked and is in the lowest position, call light within easy reach. will continue to monitor.
--- NOTE | 2018-10-16 07:30 | NUR ---
HAND-OFF: Report given to Irma JOHNSON.
[2018-10-16 07:33] LABS: BASOPHILS % (AUTO) 0.9 % (0.0-2.0); HEMATOCRIT 32.6 % (42.0-52.0); HEMOGLOBIN 10.6 G/DL (14.2-18.0); LYMPHOCYTES % (AUTO) 21.5 % (20.0-45.0); MEAN CORPUSCULAR VOLUME 71 FL (80-99); NEUTROPHILS % (AUTO) 67.7 % (45.0-75.0); PLATELET COUNT 351 K/UL (150-450); RED BLOOD COUNT 4.57 M/UL (4.70-6.10); RED CELL DISTRIBUTION WIDTH 16.1 % (11.6-14.8); WHITE BLOOD COUNT 5.3 K/UL (4.8-10.8)
[2018-10-16 08:00] VITALS: BP 134/81
[2018-10-16 08:09] LABS: ANION GAP 7 mmol/L (5-15); BLOOD UREA NITROGEN 11 mg/dL (7-18); CALCIUM 8.4 MG/DL (8.5-10.1); CARBON DIOXIDE 27 MMOL/L (21-32); CHLORIDE 105 MMOL/L (98-107); CREATININE 0.9 MG/DL (0.55-1.30); POTASSIUM 3.3 MMOL/L (3.5-5.1); SODIUM 139 MMOL/L (136-145)
[2018-10-16] MEDS: Levofloxacin 750mg tab ORAL SCH (08:17)
[2018-10-16] MEDS: Ascorbic Acid 500mg tab ORAL SCH ×2 (08:17→17:52)
[2018-10-16] MEDS: Zinc Sulfate 220mg cap ORAL SCH (08:17)
[2018-10-16 08:18] LABS: CREATINE KINASE 100 U/L (26-308)
[2018-10-16] MEDS: Heparin 5000 units/ml inj SUBQ SCH ×2 (08:19→20:04)
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
--- NOTE | 2018-10-16 09:00 | NUR ---
NURSE NOTES: Dr campbell is aware about K. will continue to monitor.
--- NOTE | 2018-10-16 10:58 | NUR ---
*-* INSURANCE *-* UPDATED CLINICALS AND REVIEWS HAVE BEEN FAXED TO: [facility] NCM:YANIRA P:[phone] F:[phone] REF# [id number]
--- NOTE | 2018-10-16 11:55 | Pulmonology Progress Note ---
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 continue abx refusing care at times Subjective ROS Limited/Unobtainable: No Constitutional: Reports: no symptoms HEENT: Repors: no symptoms Respiratory: Reports: other Allergies: Coded Allergies: PENICILLIN G (Verified Allergy, Unknown, 05/05/18) Tolerates carbapenems and cephalosporins UNABLE TO ASSESS (Unverified , 09/24/18) Objective Last 24 Hour Vital Signs Date Time Temp Pulse Resp B/P (MAP) Pulse Ox O2 Delivery O2 Flow Rate FiO2 10/16/18 09:00 Room Air 10/16/18 08:44 98.2 10/16/18 08:02 80 18 98 Room Air 21 10/16/18 08:00 98.4 100 18 134/81 (98) 96 10/16/18 04:00 98.2 78 18 98/60 (73) 98 10/16/18 00:00 98.5 94 19 108/60 (76) 96 10/15/18 21:00 Room Air 10/15/18 20:10 87 18 97 Room Air 21 10/15/18 20:00 18 10/15/18 12:00 97.5 90 20 115/68 (84) 99 Intake and Output 10/15/18 10/16/18 19:00 07:00 Intake Total 1055 ml Output Total 600 ml Balance 1055 ml -600 ml Intake Oral 1000 ml IV Total 55 ml Output Urine Total 600 ml # Voids 3 General Appearance: WD/WN HEENT: atraumatic, mucous membranes moist Respiratory/Chest: lungs clear, no respiratory distress Cardiovascular: normal peripheral pulses, normal rate Abdomen: normal bowel sounds, soft, non tender Genitourinary: normal external genitalia Extremities: no clubbing Skin: no rash Microbiology Date/Time Source Procedure Growth Status 10/13/18 23:05 Blood Blood Culture - Preliminary Streptococcus Species Resulted 10/13/18 22:50 Blood Blood Culture - Preliminary Streptococcus Species Resulted 10/14/18 05:00 Nasal Nares MRSA Culture - Final NO METHICILLIN RESISTANT STAPH AUREUS... Complete 10/14/18 05:00 Leg Left Gram Stain - Final Resulted 10/14/18 05:00 Wound Culture - Preliminary Gram Negative Bacillus 1 Resulted Laboratory Tests 10/16/18 06:00: White Blood Count 5.3, Red Blood Count 4.57L, Hemoglobin 10.6L, Hematocrit 32.6L , Mean Corpuscular Volume 71L, Mean Corpuscular Hemoglobin 23.1L, Mean Corpuscular Hemoglobin Concent 32.4, Red Cell Distribution Width 16.1H, Platelet Count 351, Mean Platelet Volume 7.0, Neutrophils (%) (Auto) 67.7, Lymphocytes (%) (Auto) 21.5, Monocytes (%) (Auto) 7.0, Eosinophils (%) (Auto) 3.0, Basophils (%) (Auto) 0.9, Sodium Level 139, Potassium Level 3.3L, Chloride Level 105, Carbon Dioxide Level 27, Anion Gap 7, Blood Urea Nitrogen 11, Creatinine 0.9, Estimat Glomerular Filtration Rate > 60, Glucose Level 86, Calcium Level 8.4L, Total Creatine Kinase 100 Current Medications Medications (Trade) Dose Ordered Sig/Michael Route PRN Reason Start Time Stop Time Status Last Admin Dose Admin Acetaminophen (Tylenol) 650 mg Q4H PRN ORAL fever 10/14/18 07:15 11/13/18 07:14 Acetaminophen/ Hydrocodone Bitart ([place] 5/325) 1 tab Q6H PRN ORAL moderate pain 10/15/18 09:00 10/22/18 08:59 Albuterol/ Ipratropium (Albuterol/ Ipratropium) 3 ml Q4H PRN HHN Shortness of Breath 10/14/18 07:15 10/19/18 07:14 Ascorbic Acid (Vitamin C) 250 mg TWICE A DAY ORAL 10/14/18 18:00 11/13/18 17:59 10/16/18 08:17 Chlordiazepoxide (Librium) 25 mg Q8H PRN ORAL Agitation 10/14/18 09:45 10/21/18 09:44 Daptomycin 500 mg/ Sodium Chloride 55 ml @ 100 mls/hr Q24H IV 10/15/18 16:00 10/22/18 15:59 10/15/18 16:41 Dextrose (Dextrose 50%) 25 ml Q30M PRN IV Hypoglycemia 10/14/18 07:30 11/13/18 07:19 Dextrose (Dextrose 50%) 50 ml Q30M PRN IV hypoglycemia 10/14/18 07:30 11/13/18 07:29 Heparin Sodium (Porcine) (Heparin 5000 units/ml) 5,000 units EVERY 12 HOURS SUBQ 10/14/18 09:00 11/13/18 08:59 Levofloxacin (Levaquin) 750 mg DAILY ORAL 10/14/18 17:45 10/21/18 17:44 10/16/18 08:17 Morphine Sulfate (Morphine Sulfate) 2 mg Q4H PRN IVP severe pain 10/15/18 09:00 10/21/18 08:59 10/16/18 08:14 Multivitamins (Multivitamins) 1 tab DAILY ORAL 10/15/18 09:00 11/14/18 08:59 10/16/18 08:17 Nitroglycerin (Ntg) 0.4 mg Q5M PRN SL Prn Chest Pain 10/14/18 07:15 11/13/18 07:14 Ondansetron HCl (Zofran) 4 mg Q6H PRN IVP Nausea & Vomiting 10/14/18 07:15 11/13/18 07:14 Polyethylene Glycol (Miralax) 17 gm DAILYPRN PRN ORAL Constipation 10/14/18 07:15 11/13/18 07:14 Potassium Chloride (K-Dur) 40 meq BID ORAL 10/16/18 18:00 11/14/18 08:59 Temazepam (Restoril) 15 mg HSPRN PRN ORAL Insomnia 10/14/18 07:15 10/21/18 07:14 Zinc Sulfate (Zinc Sulfate) 220 mg DAILY ORAL 10/16/18 09:00 10/26/18 08:59 10/16/18 08:17 Francheska Armas MD October 16, 2018 11:55
[2018-10-16 12:00] VITALS: BP 96/59
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
[2018-10-16 13:14] LABS: ALANINE AMINOTRANSFERASE 16 U/L (12-78); ALBUMIN 2.4 G/DL (3.4-5.0); ALKALINE PHOSPHATASE 64 U/L (46-116); ASPARTATE AMINO TRANSFERASE 11 U/L (15-37); BILIRUBIN,DIRECT < 0.1 MG/DL (0.0-0.3); BILIRUBIN,TOTAL < 0.1 MG/DL (0.2-1.0); CHOLESTEROL 121 MG/DL (< 200); FERRITIN 70 NG/ML (8-388); HDL CHOLESTEROL 29 MG/DL (40-60); PHOSPHORUS 3.7 MG/DL (2.5-4.9); TRIGLYCERIDES 108 MG/DL (30-150)
--- NOTE | 2018-10-16 13:23 | NUR ---
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 PO DIET RECOMMENDATIONS: REGULAR + DOUBLE PROTEIN PORTIONS ADDITIONAL RECOMMENDATIONS: * Wound healing: CHARAN BID + MVI w/ min daily + Vit C 250mg BID + Zn SO4 220mg daily x 10 days * Calibrated bedscale wt for accurate CBW * Monitor lytes, replete as needed (K 3.3) * Monitor PO intake - good intake of all meals * Bowel regimen
[2018-10-16 13:26] LABS: % IRON SATURATION 13 % (15-50); IRON 25 ug/dL (50-175); TOTAL IRON BINDING CAPACITY 194 ug/dL (250-450)
--- NOTE | 2018-10-16 13:44 | Surgery Progress Note ---
Surgery Progress Note Subjective Additional Comments no acute events labs stable exam stable dressings changed states he feels okay no complaints Objective Last 24 Hour Vital Signs Date Time Temp Pulse Resp B/P (MAP) Pulse Ox O2 Delivery O2 Flow Rate FiO2 10/16/18 12:00 97.7 91 20 96/59 (71) 99 10/16/18 09:00 Room Air 10/16/18 08:44 98.2 10/16/18 08:02 80 18 98 Room Air 21 10/16/18 08:00 98.4 100 18 134/81 (98) 96 10/16/18 04:00 98.2 78 18 98/60 (73) 98 10/16/18 00:00 98.5 94 19 108/60 (76) 96 10/15/18 21:00 Room Air 10/15/18 20:10 87 18 97 Room Air 21 10/15/18 20:00 18 I&O Intake and Output 10/15/18 10/16/18 19:00 07:00 Intake Total 1055 ml Output Total 600 ml Balance 1055 ml -600 ml Intake Oral 1000 ml IV Total 55 ml Output Urine Total 600 ml # Voids 3 Dressing: saturated Wound: other Drains: other Cardiovascular: RSR Respiratory: clear Abdomen: soft, flat, non-tender, present bowel sounds, non-distended Extremities: cyanosis Laboratory Tests Test 10/16/18 06:00 White Blood Count 5.3 K/UL (4.8-10.8) Red Blood Count 4.57 M/UL (4.70-6.10) L Hemoglobin 10.6 G/DL (14.2-18.0) L Hematocrit 32.6 % (42.0-52.0) L Mean Corpuscular Volume 71 FL (80-99) L Mean Corpuscular Hemoglobin 23.1 PG (27.0-31.0) L Mean Corpuscular Hemoglobin Concent 32.4 G/DL (32.0-36.0) Red Cell Distribution Width 16.1 % (11.6-14.8) H Platelet Count 351 K/UL (150-450) Mean Platelet Volume 7.0 FL (6.5-10.1) Neutrophils (%) (Auto) 67.7 % (45.0-75.0) Lymphocytes (%) (Auto) 21.5 % (20.0-45.0) Monocytes (%) (Auto) 7.0 % (1.0-10.0) Eosinophils (%) (Auto) 3.0 % (0.0-3.0) Basophils (%) (Auto) 0.9 % (0.0-2.0) Sodium Level 139 MMOL/L (136-145) Potassium Level 3.3 MMOL/L (3.5-5.1) L Chloride Level 105 MMOL/L (98-107) Carbon Dioxide Level 27 MMOL/L (21-32) Anion Gap 7 mmol/L (5-15) Blood Urea Nitrogen 11 mg/dL (7-18) Creatinine 0.9 MG/DL (0.55-1.30) Estimat Glomerular Filtration Rate > 60 mL/min (>60) Glucose Level 86 MG/DL (74-106) Hemoglobin A1c 5.5 % (4.3-6.0) Uric Acid 5.5 MG/DL (2.6-7.2) Calcium Level 8.4 MG/DL (8.5-10.1) L Phosphorus Level 3.7 MG/DL (2.5-4.9) Magnesium Level 1.7 MG/DL (1.8-2.4) L Iron Level 25 ug/dL (50-175) L Total Iron Binding Capacity 194 ug/dL (250-450) L Percent Iron Saturation 13 % (15-50) L Unsaturated Iron Binding 169 ug/dL (112-346) Ferritin 70 NG/ML (8-388) Total Bilirubin < 0.1 MG/DL (0.2-1.0) L Direct Bilirubin < 0.1 MG/DL (0.0-0.3) Aspartate Amino Transf (AST/SGOT) 11 U/L (15-37) L Alanine Aminotransferase (ALT/SGPT) 16 U/L (12-78) Alkaline Phosphatase 64 U/L (46-116) Total Creatine Kinase 100 U/L (26-308) Total Protein 6.3 G/DL (6.4-8.2) L Albumin 2.4 G/DL (3.4-5.0) L Triglycerides Level 108 MG/DL (30-150) Cholesterol Level 121 MG/DL (< 200) LDL Cholesterol 70 mg/dL (<100) HDL Cholesterol 29 MG/DL (40-60) L Cholesterol/HDL Ratio 4.2 (3.3-4.4) Vitamin B12 Level 617 PG/ML (193-986) Folate 5.7 NG/ML (8.6-58.9) L Thyroid Stimulating Hormone (TSH) 1.673 uiU/mL (0.358-3.740) Plan Problems: (1) UTI (urinary tract infection) (2) homelessness (3) Paraplegia (4) Cellulitis Assessment & Plan: 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 Opening approx 3cm x 2cm and tunnels >9cm. (+) Epibole. Small amount of serosanguineous exudate noted. No purulent drainage. Periwound intact but with chronic skin changes. Wound related to wheelchair use and pressure. Patient aware of wound and has been given instructions for care and planning prior but admits he does not adhere to plan Almost near circumferential dorsal and ankle dermal loss / ulceration to the right foot. plantar aspect with rugged thick callus tissue. Wounds have continued to deteriorate bleeding granulation tissue forming. edema with cellulitis noted. draining serosang fluid. no abscess. tender on palpation. Does not tend to wounds and notes this stage 3 ulcer deep wound at distal L tibia. Prior CTA with good runoff. seems to have good vascular flow to foot as well clinically Prior plain films and imaging reviewed. I did discuss worsening condition with patient and possibility of amputation in future if continues to deteriorate. Left foot has made great improvement overall and no longer with large wounds and edema improved. Tx.Plan: Cleanse wound R Ischium with Saline.Loosely pack with Hydrogel impregnated gauze.Cavilon wipe to borders. Cover with Optifoam drsg daily and prn. Cleanse wound R buttocks and sacrum with NS. Apply Cavilon and cover with Optifoam drsg .Change every 7 days and prn. Cleanse wounds R lower ext with Saline. Apply Silvasorb gel .Cover with Xeroform, Abd and wrap with kerlix Daily turn q2h for repositioning Air Mattress (5) Spinal cord injury (6) PVD (peripheral vascular disease) (7) Chronic wound of extremity Assessment & Plan: DAILY ESTIMATED NEEDS: Needs based on Advanced wounds/ 90kg abw 25-30 kcals/kg 5533-6060 total kcals 1.25-2.0 g protein/kg 113-180 g total protein 25-30 mL/kg 6463-1045 total fluid mLs NUTRITION DIAGNOSIS: Increased kcal and protein needs r/t wound healing as evidenced by pt admitted w/ multiple advanced wounds w/ history of full thickness pressure injury R ischium and stage 3 ulcer deep wound at distal L tibia,pending eval update. PO DIET RECOMMENDATIONS: REGULAR + DOUBLE PROTEIN PORTIONS ---- ADDITIONAL RECOMMENDATIONS: * Wound healing: CHARAN BID + MVI w/ min daily + Vit C 250mg BID F/up w/ WC eval * Calibrated bedscale wt for accurate CBW * Monitor lytes, replete as needed * Monitor PO intake (8) Intractable back pain Shilo Arrington October 16, 2018 13:44
--- NOTE | 2018-10-16 14:22 | General Progress Note ---
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 ICD Codes: E11.49 - Type 2 diabetes mellitus with other diabetic neurological complication SNOMED: 66366422, 402367430 (6) Asthma ICD Codes: J45.909 - Unspecified asthma, uncomplicated SNOMED: 143685827 (7) PVD (peripheral vascular disease) ICD Codes: I73.9 - Peripheral vascular disease, unspecified SNOMED: 730003093 (8) Ulcer of foot ICD Codes: L97.509 - Non-pressure chronic ulcer of other part of unspecified foot with unspecified severity SNOMED: 54525821 (9) Chronic wound of extremity SNOMED: 154321449 (10) Methamphetamine abuse ICD Codes: F15.10 - Other stimulant abuse, uncomplicated SNOMED: 589612733 (11) Intractable back pain ICD Codes: M54.9 - Dorsalgia, unspecified SNOMED: 419737682 Status: stable, progressing Assessment/Plan: wound care pain control abx pt dietary cbc bmp am Subjective Constitutional: Reports: weakness Allergies: Coded Allergies: PENICILLIN G (Verified Allergy, Unknown, 05/05/18) Tolerates carbapenems and cephalosporins UNABLE TO ASSESS (Unverified , 09/24/18) All Systems: reviewed and negative except above Subjective sleepy calm in bed Objective Last 24 Hour Vital Signs Date Time Temp Pulse Resp B/P (MAP) Pulse Ox O2 Delivery O2 Flow Rate FiO2 10/16/18 12:00 97.7 91 20 96/59 (71) 99 10/16/18 09:00 Room Air 10/16/18 08:44 98.2 10/16/18 08:02 80 18 98 Room Air 21 10/16/18 08:00 98.4 100 18 134/81 (98) 96 10/16/18 04:00 98.2 78 18 98/60 (73) 98 10/16/18 00:00 98.5 94 19 108/60 (76) 96 10/15/18 21:00 Room Air 10/15/18 20:10 87 18 97 Room Air 21 10/15/18 20:00 18 Intake and Output 10/15/18 10/16/18 19:00 07:00 Intake Total 1055 ml Output Total 600 ml Balance 1055 ml -600 ml Intake Oral 1000 ml IV Total 55 ml Output Urine Total 600 ml # Voids 3 Laboratory Tests 10/16/18 06:00: White Blood Count 5.3, Red Blood Count 4.57L, Hemoglobin 10.6L, Hematocrit 32.6L , Mean Corpuscular Volume 71L, Mean Corpuscular Hemoglobin 23.1L, Mean Corpuscular Hemoglobin Concent 32.4, Red Cell Distribution Width 16.1H, Platelet Count 351, Mean Platelet Volume 7.0, Neutrophils (%) (Auto) 67.7, Lymphocytes (%) (Auto) 21.5, Monocytes (%) (Auto) 7.0, Eosinophils (%) (Auto) 3.0, Basophils (%) (Auto) 0.9, Sodium Level 139, Potassium Level 3.3L, Chloride Level 105, Carbon Dioxide Level 27, Anion Gap 7, Blood Urea Nitrogen 11, Creatinine 0.9, Estimat Glomerular Filtration Rate > 60, Glucose Level 86, Hemoglobin A1c 5.5, Uric Acid 5.5, Calcium Level 8.4L, Phosphorus Level 3.7, Magnesium Level 1.7L, Iron Level 25L, Total Iron Binding Capacity 194L, Percent Iron Saturation 13L, Unsaturated Iron Binding 169, Ferritin 70, Total Bilirubin < 0.1L, Direct Bilirubin < 0.1, Aspartate Amino Transf (AST/SGOT) 11L, Alanine Aminotransferase (ALT/SGPT) 16, Alkaline Phosphatase 64, Total Creatine Kinase 100, Total Protein 6.3L, Albumin 2.4L, Triglycerides Level 108, Cholesterol Level 121, LDL Cholesterol 70, HDL Cholesterol 29L, Cholesterol/HDL Ratio 4.2, Vitamin B12 Level 617, Folate 5.7L, Thyroid Stimulating Hormone (TSH) 1.673 Height (Feet): 6 Height (Inches): 1.00 Weight (Pounds): 195 General Appearance: lethargic EENT: normal ENT inspection Neck: normal alignment Cardiovascular: normal peripheral pulses, normal rate, regular rhythm Respiratory/Chest: chest wall non-tender, lungs clear, normal breath sounds Abdomen: normal bowel sounds, non tender, soft Extremities: normal inspection Edema: no edema noted Arm (L), no edema noted Arm (R), no edema noted Leg (L), no edema noted Leg (R), no edema noted Pedal (L), no edema noted Pedal (R), no edema noted Generalized Neurologic: motor weakness Skin: normal pigmentation, warm/dry Objective foot dressing sl stained [place] DO October 16, 2018 14:22
--- NOTE | 2018-10-16 15:01 | NUR ---
*-* INSURANCE *-* ALL CLINICALS AND REVIEWS HAVE BEEN FAXED TO: [facility] NCM:PHILL Hudson:[phone] F; [phone].
--- NOTE | 2018-10-16 15:56 | NUR ---
CAFE WORKERLENO SEWER SI:INTRACTABLE BACK PAIN . CHRONIC WOUND OF EXTREMITY VS: BP 96/59, P 100, T 97.7, RR 20, SpO2 99 RBC 4.57, H&H 10.6/32.6, K 3.3 IS:MORPHINE 2mg IVP K-DUR 40meq LEVAQUIN 750mg ZINC SULFATE 220mg MED/SURG STATUS
[2018-10-16 16:00] VITALS: BP 116/83
--- NOTE | 2018-10-16 16:00 | NUR ---
NURSE NOTES: pt took shower and tolerate well. wound treatment done with accompany of wound nurse ASHOK and tolerate well. will continue to monitor.
--- NOTE | 2018-10-16 16:35 | NUR ---
HOMELESS COORDINATOR Homeless Checklist available if required. Please check patients chart. Please provide medical resource list for patient follow-up appointment in chart. Homeless Checklist and Medical resource list are both available in yellow homeless binder as well. Patient continues to require medical intervention. Will continue to monitor and assist as needed.
[2018-10-16] MEDS: DAPTOmycin 500 MG in NS 55 ML IV SCH (16:36)
[2018-10-16] MEDS: HYDROcodone/Acetamin 5/325 tab ORAL PRN (17:54)
--- NOTE | 2018-10-16 19:30 | NUR ---
HAND-OFF: Report given to ELIZABETH HOLLAND.
[2018-10-16 20:00] VITALS: BP 127/68
--- NOTE | 2018-10-16 20:00 | NUR ---
NURSE NOTES: PATIENT IN BED. ON RA, NO SOB, NO ACUTE DISTRESS, DENIES PAIN. WOUND DRESSINGS INTACT, DRY. RFA IV INTACT, PATENT. BED IN LOWEST POSITION, LOCKED, ALARMS ON. CALL LIGHT IN REACH.
[2018-10-17] VITALS: BP 126/76
[2018-10-17 04:00] VITALS: BP 107/66
--- NOTE | 2018-10-17 07:24 | NUR ---
HAND-OFF: Report given to Irma JOHNSON.
--- NOTE | 2018-10-17 07:27 | NUR ---
NURSE NOTES: Received pt from ELIZABETH WEST. pt is alert and orient x4. pt is in RA, No SOB or acute respiratory distress noted. pt has intact IV access RFA 18G SL. all needs attended, bed is locked and is in the lowest position, call light within easy reach. will continue to monitor.
[2018-10-17 07:30] LABS: BASOPHILS % (AUTO) 1.3 % (0.0-2.0); EOSINOPHILS % (AUTO) 2.5 % (0.0-3.0); HEMATOCRIT 35.5 % (42.0-52.0); HEMOGLOBIN 11.1 G/DL (14.2-18.0); LYMPHOCYTES % (AUTO) 23.7 % (20.0-45.0); MEAN CORPUSCULAR VOLUME 72 FL (80-99); MONOCYTES % (AUTO) 5.1 % (1.0-10.0); NEUTROPHILS % (AUTO) 67.4 % (45.0-75.0); PLATELET COUNT 384 K/UL (150-450); RED BLOOD COUNT 4.96 M/UL (4.70-6.10); RED CELL DISTRIBUTION WIDTH 16.1 % (11.6-14.8); WHITE BLOOD COUNT 4.4 K/UL (4.8-10.8)
[2018-10-17 07:57] LABS: ANION GAP 9 mmol/L (5-15); BLOOD UREA NITROGEN 8 mg/dL (7-18); CALCIUM 8.8 MG/DL (8.5-10.1); CARBON DIOXIDE 25 MMOL/L (21-32); CHLORIDE 104 MMOL/L (98-107); CREATININE 0.9 MG/DL (0.55-1.30); POTASSIUM 3.7 MMOL/L (3.5-5.1); SODIUM 138 MMOL/L (136-145)
[2018-10-17 08:00] VITALS: BP 114/61
--- NOTE | 2018-10-17 08:16 | General Progress Note ---
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 ICD Codes: E11.49 - Type 2 diabetes mellitus with other diabetic neurological complication SNOMED: 71506581, 147798848 (6) Asthma ICD Codes: J45.909 - Unspecified asthma, uncomplicated SNOMED: 348964875 (7) PVD (peripheral vascular disease) ICD Codes: I73.9 - Peripheral vascular disease, unspecified SNOMED: 369738864 (8) Ulcer of foot ICD Codes: L97.509 - Non-pressure chronic ulcer of other part of unspecified foot with unspecified severity SNOMED: 34969177 (9) Chronic wound of extremity SNOMED: 950630514 (10) Methamphetamine abuse ICD Codes: F15.10 - Other stimulant abuse, uncomplicated SNOMED: 332609558 (11) Intractable back pain ICD Codes: M54.9 - Dorsalgia, unspecified SNOMED: 482271529 Status: stable, progressing Assessment/Plan: wound care pain control abx pt dietary cbc bmp am dc plan snf Subjective Constitutional: Reports: weakness Allergies: Coded Allergies: PENICILLIN G (Verified Allergy, Unknown, 05/05/18) Tolerates carbapenems and cephalosporins UNABLE TO ASSESS (Unverified , 09/24/18) All Systems: reviewed and negative except above Subjective sleepy calm in bed Objective Last 24 Hour Vital Signs Date Time Temp Pulse Resp B/P (MAP) Pulse Ox O2 Delivery O2 Flow Rate FiO2 10/17/18 04:00 97.4 88 18 107/66 (80) 98 10/17/18 00:00 97.9 90 18 126/76 (93) 98 10/16/18 21:00 Room Air 10/16/18 21:00 87 20 98 Room Air 21 10/16/18 20:00 98.7 89 18 127/68 (87) 99 10/16/18 18:24 97.7 10/16/18 16:25 97.7 10/16/18 16:00 98.1 90 20 116/83 (94) 99 10/16/18 12:00 97.7 91 20 96/59 (71) 99 10/16/18 09:00 Room Air Intake and Output 10/16/18 10/17/18 18:59 06:59 Intake Total 775 ml 600 ml Output Total 1700 ml 950 ml Balance -925 ml -350 ml Intake Oral 720 ml 600 ml IV Total 55 ml Output Urine Total 1700 ml 950 ml Laboratory Tests 10/17/18 05:40: White Blood Count 4.4L, Red Blood Count 4.96, Hemoglobin 11.1L, Hematocrit 35.5L , Mean Corpuscular Volume 72L, Mean Corpuscular Hemoglobin 22.4L, Mean Corpuscular Hemoglobin Concent 31.3L, Red Cell Distribution Width 16.1H, Platelet Count 384, Mean Platelet Volume 5.9L, Neutrophils (%) (Auto) 67.4, Lymphocytes (%) (Auto) 23.7, Monocytes (%) (Auto) 5.1, Eosinophils (%) (Auto) 2.5, Basophils (%) (Auto) 1.3, Sodium Level 138, Potassium Level 3.7, Chloride Level 104, Carbon Dioxide Level 25, Anion Gap 9, Blood Urea Nitrogen 8, Creatinine 0.9, Estimat Glomerular Filtration Rate > 60, Glucose Level 84, Calcium Level 8.8 Height (Feet): 6 Height (Inches): 1.00 Weight (Pounds): 195 General Appearance: lethargic EENT: normal ENT inspection Neck: normal alignment Cardiovascular: normal peripheral pulses, normal rate, regular rhythm Respiratory/Chest: chest wall non-tender, lungs clear, normal breath sounds Abdomen: normal bowel sounds, non tender, soft Extremities: normal inspection Edema: no edema noted Arm (L), no edema noted Arm (R), no edema noted Leg (L), no edema noted Leg (R), no edema noted Pedal (L), no edema noted Pedal (R), no edema noted Generalized Neurologic: motor weakness Skin: normal pigmentation, warm/dry Objective foot dressing sl stained Mt Collins DO October 17, 2018 08:16
[2018-10-17] MEDS: Levofloxacin 750mg tab ORAL SCH (08:48)
[2018-10-17] MEDS: Zinc Sulfate 220mg cap ORAL SCH (08:48)
[2018-10-17] MEDS: Ascorbic Acid 500mg tab ORAL SCH ×2 (08:48→17:11)
[2018-10-17] MEDS: Morphine Sulfate 2mg/ml Inj(IV/IM USE ONLY) IVP PRN ×3 (08:48→17:12)
[2018-10-17] MEDS: Heparin 5000 units/ml inj SUBQ SCH ×2 (08:49→21:19)
[2018-10-17 12:00] VITALS: BP 121/71
--- NOTE | 2018-10-17 15:13 | Nephrology Progress Note ---
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 (6) Paraplegia (7) Decubitus ulcer, stage 3 with infection (8) Sociopathic personality disorder (9) Hypersexuality (10) homelessness (11) Methamphetamine abuse (12) Anemia Plan plan ; Po KCL ordered labs checked new labs ordered Subjective ROS Limited/Unobtainable: No Constitutional: Reports: malaise Objective Objective Last 24 Hour Vital Signs Date Time Temp Pulse Resp B/P (MAP) Pulse Ox O2 Delivery O2 Flow Rate FiO2 10/17/18 13:22 98.9 10/17/18 12:00 98.9 92 20 121/71 (88) 98 10/17/18 09:00 Room Air 10/17/18 08:00 97.9 98 19 114/61 (78) 99 10/17/18 07:43 100 20 99 Room Air 21 10/17/18 04:00 97.4 88 18 107/66 (80) 98 10/17/18 00:00 97.9 90 18 126/76 (93) 98 10/16/18 21:00 Room Air 10/16/18 21:00 87 20 98 Room Air 21 10/16/18 20:00 98.7 89 18 127/68 (87) 99 10/16/18 18:24 97.7 10/16/18 16:00 98.1 90 20 116/83 (94) 99 Intake and Output 10/16/18 10/17/18 19:00 07:00 Intake Total 775 ml 600 ml Output Total 1700 ml 950 ml Balance -925 ml -350 ml Intake Oral 720 ml 600 ml IV Total 55 ml Output Urine Total 1700 ml 950 ml Laboratory Tests 10/17/18 05:40: White Blood Count 4.4L, Red Blood Count 4.96, Hemoglobin 11.1L, Hematocrit 35.5L , Mean Corpuscular Volume 72L, Mean Corpuscular Hemoglobin 22.4L, Mean Corpuscular Hemoglobin Concent 31.3L, Red Cell Distribution Width 16.1H, Platelet Count 384, Mean Platelet Volume 5.9L, Neutrophils (%) (Auto) 67.4, Lymphocytes (%) (Auto) 23.7, Monocytes (%) (Auto) 5.1, Eosinophils (%) (Auto) 2.5, Basophils (%) (Auto) 1.3, Sodium Level 138, Potassium Level 3.7, Chloride Level 104, Carbon Dioxide Level 25, Anion Gap 9, Blood Urea Nitrogen 8, Creatinine 0.9, Estimat Glomerular Filtration Rate > 60, Glucose Level 84, Calcium Level 8.8 Height (Feet): 6 Height (Inches): 1.00 Weight (Pounds): 195 General Appearance: no apparent distress Objective no change Woody Cruz MD October 17, 2018 15:13
--- NOTE | 2018-10-17 15:34 | NUR ---
CASE MANAGEMENT: REVIEW SI: INTRACTABLE BACK PAIN T 97.4 HR 88 RR 18 BP 107/66 SAT 98% ROOM AIR WBC 4.4 H/H 11.1/35.5 IS: DAPTOMYCIN IV Q24HR LIBRIUM PO Q8HR PRN MORPHINE IV Q4HR PRN MED/SURG STATUS DCP: PATIENT REPORT HOMELESSNESS
[2018-10-17 16:00] VITALS: BP 114/61
[2018-10-17] MEDS ORDERED: NS 275ml ONE (16:55)
[2018-10-17] MEDS ORDERED: Tubing IV Secondary IV ONE (16:55)
[2018-10-17] MEDS: DAPTOmycin 500 MG in NS 55 ML IV SCH (17:11)
--- NOTE | 2018-10-17 19:22 | Pulmonology Progress Note ---
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 continue abx refusing care at times Subjective ROS Limited/Unobtainable: No Constitutional: Reports: no symptoms HEENT: Repors: no symptoms Allergies: Coded Allergies: PENICILLIN G (Verified Allergy, Unknown, 05/05/18) Tolerates carbapenems and cephalosporins UNABLE TO ASSESS (Unverified , 09/24/18) Objective Last 24 Hour Vital Signs Date Time Temp Pulse Resp B/P (MAP) Pulse Ox O2 Delivery O2 Flow Rate FiO2 10/17/18 17:42 97.9 10/17/18 16:00 97.9 98 19 114/61 (78) 99 10/17/18 12:00 98.9 92 20 121/71 (88) 98 10/17/18 09:00 Room Air 10/17/18 08:00 97.9 98 19 114/61 (78) 99 10/17/18 07:43 100 20 99 Room Air 21 10/17/18 04:00 97.4 88 18 107/66 (80) 98 10/17/18 00:00 97.9 90 18 126/76 (93) 98 10/16/18 21:00 Room Air 10/16/18 21:00 87 20 98 Room Air 21 10/16/18 20:00 98.7 89 18 127/68 (87) 99 Intake and Output 10/16/18 10/17/18 19:00 07:00 Intake Total 775 ml 600 ml Output Total 1700 ml 950 ml Balance -925 ml -350 ml Intake Oral 720 ml 600 ml IV Total 55 ml Output Urine Total 1700 ml 950 ml General Appearance: WD/WN HEENT: normocephalic, atraumatic Respiratory/Chest: chest wall non-tender, lungs clear Cardiovascular: normal rate, regularly irregular Abdomen: normal bowel sounds, no organomegaly, no scars Genitourinary: normal external genitalia Extremities: no clubbing Skin: no rash Microbiology Date/Time Source Procedure Growth Status 10/15/18 16:34 Blood Blood Culture - Preliminary NO GROWTH AFTER 24 HOURS Resulted 10/15/18 16:14 Blood Blood Culture - Preliminary NO GROWTH AFTER 24 HOURS Resulted Laboratory Tests 10/17/18 05:40: White Blood Count 4.4L, Red Blood Count 4.96, Hemoglobin 11.1L, Hematocrit 35.5L , Mean Corpuscular Volume 72L, Mean Corpuscular Hemoglobin 22.4L, Mean Corpuscular Hemoglobin Concent 31.3L, Red Cell Distribution Width 16.1H, Platelet Count 384, Mean Platelet Volume 5.9L, Neutrophils (%) (Auto) 67.4, Lymphocytes (%) (Auto) 23.7, Monocytes (%) (Auto) 5.1, Eosinophils (%) (Auto) 2.5, Basophils (%) (Auto) 1.3, Sodium Level 138, Potassium Level 3.7, Chloride Level 104, Carbon Dioxide Level 25, Anion Gap 9, Blood Urea Nitrogen 8, Creatinine 0.9, Estimat Glomerular Filtration Rate > 60, Glucose Level 84, Calcium Level 8.8 Current Medications Medications (Trade) Dose Ordered Sig/Michael Route PRN Reason Start Time Stop Time Status Last Admin Dose Admin Acetaminophen (Tylenol) 650 mg Q4H PRN ORAL fever 10/14/18 07:15 11/13/18 07:14 Acetaminophen/ Hydrocodone Bitart (Excel 5/325) 1 tab Q6H PRN ORAL moderate pain 10/15/18 09:00 10/22/18 08:59 10/16/18 17:54 Albuterol/ Ipratropium (Albuterol/ Ipratropium) 3 ml Q4H PRN HHN Shortness of Breath 10/14/18 07:15 10/19/18 07:14 Ascorbic Acid (Vitamin C) 250 mg TWICE A DAY ORAL 10/14/18 18:00 11/13/18 17:59 10/17/18 17:11 Chlordiazepoxide (Librium) 25 mg Q8H PRN ORAL Agitation 10/14/18 09:45 10/21/18 09:44 Daptomycin 500 mg/ Sodium Chloride 55 ml @ 100 mls/hr Q24H IV 10/15/18 16:00 10/22/18 15:59 10/17/18 17:11 Dextrose (Dextrose 50%) 25 ml Q30M PRN IV Hypoglycemia 10/14/18 07:30 11/13/18 07:19 Dextrose (Dextrose 50%) 50 ml Q30M PRN IV hypoglycemia 10/14/18 07:30 11/13/18 07:29 Heparin Sodium (Porcine) (Heparin 5000 units/ml) 5,000 units EVERY 12 HOURS SUBQ 10/14/18 09:00 11/13/18 08:59 10/16/18 20:04 Levofloxacin (Levaquin) 750 mg DAILY ORAL 10/14/18 17:45 10/21/18 17:44 10/17/18 08:48 Morphine Sulfate (Morphine Sulfate) 2 mg Q4H PRN IVP severe pain 10/15/18 09:00 10/21/18 08:59 10/17/18 17:12 Multivitamins (Multivitamins) 1 tab DAILY ORAL 10/15/18 09:00 11/14/18 08:59 10/17/18 08:48 Nitroglycerin (Ntg) 0.4 mg Q5M PRN SL Prn Chest Pain 10/14/18 07:15 11/13/18 07:14 Ondansetron HCl (Zofran) 4 mg Q6H PRN IVP Nausea & Vomiting 10/14/18 07:15 11/13/18 07:14 Polyethylene Glycol (Miralax) 17 gm DAILYPRN PRN ORAL Constipation 10/14/18 07:15 11/13/18 07:14 Potassium Chloride (K-Dur) 40 meq BID ORAL 10/16/18 18:00 11/14/18 08:59 10/17/18 17:11 Temazepam (Restoril) 15 mg HSPRN PRN ORAL Insomnia 10/14/18 07:15 10/21/18 07:14 10/16/18 20:04 Zinc Sulfate (Zinc Sulfate) 220 mg DAILY ORAL 10/16/18 09:00 10/26/18 08:59 10/17/18 08:48 Francheska Armas MD October 17, 2018 19:22
--- NOTE | 2018-10-17 19:33 | NUR ---
HAND-OFF: Report given to ELIZABETH HOLLAND.
[2018-10-17 20:00] VITALS: BP 111/64
[2018-10-17] MEDS: HYDROcodone/Acetamin 5/325 tab ORAL PRN (21:15)
[2018-10-18] MEDS: Morphine Sulfate 2mg/ml Inj(IV/IM USE ONLY) IVP PRN ×5 (00:57→21:20)
[2018-10-18 04:00] VITALS: BP 120/67
--- NOTE | 2018-10-18 07:25 | NUR ---
HAND-OFF: Report given to ISHAN JOHNSON.
[2018-10-18 08:00] VITALS: BP 116/80
--- NOTE | 2018-10-18 08:00 | NUR ---
NURSE NOTES: received pt lying on bed, no complaint of pain or discomfort at this time. There's a bad smelling in his bed, pt refuses to have his body cleansed. Has saline locked RFA IV access. Bed locked at the lowest position possible, call light within easy reach, siderails up x2. Will continueto monitor patient and follow up with the plan of care.
[2018-10-18 08:06] LABS: BASOPHILS % (AUTO) 1.2 % (0.0-2.0); EOSINOPHILS % (AUTO) 3.5 % (0.0-3.0); HEMATOCRIT 37.4 % (42.0-52.0); HEMOGLOBIN 11.8 G/DL (14.2-18.0); LYMPHOCYTES % (AUTO) 28.9 % (20.0-45.0); MEAN CORPUSCULAR VOLUME 72 FL (80-99); MONOCYTES % (AUTO) 4.7 % (1.0-10.0); NEUTROPHILS % (AUTO) 61.8 % (45.0-75.0); PLATELET COUNT 421 K/UL (150-450); RED BLOOD COUNT 5.18 M/UL (4.70-6.10); RED CELL DISTRIBUTION WIDTH 16.1 % (11.6-14.8)
[2018-10-18 08:19] LABS: ANION GAP 5 mmol/L (5-15); BLOOD UREA NITROGEN 11 mg/dL (7-18); CALCIUM 9.2 MG/DL (8.5-10.1); CARBON DIOXIDE 29 MMOL/L (21-32); CHLORIDE 105 MMOL/L (98-107); CREATININE 0.9 MG/DL (0.55-1.30); POTASSIUM 4.4 MMOL/L (3.5-5.1); SODIUM 139 MMOL/L (136-145)
[2018-10-18] MEDS: Zinc Sulfate 220mg cap ORAL SCH ×2 (08:32→08:48)
[2018-10-18] MEDS: Levofloxacin 750mg tab ORAL SCH ×2 (08:33→08:48)
[2018-10-18] MEDS: Ascorbic Acid 500mg tab ORAL SCH ×3 (08:33→17:32)
[2018-10-18] MEDS: Heparin 5000 units/ml inj SUBQ SCH ×2 (08:34→21:24)
--- NOTE | 2018-10-18 08:49 | NUR ---
NURSE NOTES: patient refused all am PO meds, nurse told patient importance of taking it, specially the antibiotic, but pt still refused.
--- NOTE | 2018-10-18 08:51 | General Progress Note ---
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 ICD Codes: E11.49 - Type 2 diabetes mellitus with other diabetic neurological complication SNOMED: 52045421, 131774272 (6) Asthma ICD Codes: J45.909 - Unspecified asthma, uncomplicated SNOMED: 580617607 (7) PVD (peripheral vascular disease) ICD Codes: I73.9 - Peripheral vascular disease, unspecified SNOMED: 829606217 (8) Ulcer of foot ICD Codes: L97.509 - Non-pressure chronic ulcer of other part of unspecified foot with unspecified severity SNOMED: 05576634 (9) Chronic wound of extremity SNOMED: 300890925 (10) Methamphetamine abuse ICD Codes: F15.10 - Other stimulant abuse, uncomplicated SNOMED: 230998065 (11) Intractable back pain ICD Codes: M54.9 - Dorsalgia, unspecified SNOMED: 681722242 Status: stable, progressing Assessment/Plan: wound care pain control abx pt dietary cbc bmp am dc plan snf Subjective Constitutional: Reports: weakness Allergies: Coded Allergies: PENICILLIN G (Verified Allergy, Unknown, 05/05/18) Tolerates carbapenems and cephalosporins UNABLE TO ASSESS (Unverified , 09/24/18) All Systems: reviewed and negative except above Subjective sleepy calm in bed Objective Last 24 Hour Vital Signs Date Time Temp Pulse Resp B/P (MAP) Pulse Ox O2 Delivery O2 Flow Rate FiO2 10/18/18 08:30 89 20 99 Room Air 21 10/18/18 04:00 98.6 85 19 120/67 (84) 98 10/17/18 21:00 Room Air 10/17/18 20:10 96 20 99 Room Air 21 10/17/18 20:00 99.1 99 18 111/64 (80) 98 10/17/18 17:42 97.9 10/17/18 16:00 97.9 98 19 114/61 (78) 99 10/17/18 12:00 98.9 92 20 121/71 (88) 98 10/17/18 09:00 Room Air Intake and Output 10/17/18 10/18/18 19:00 07:00 Intake Total 1255 ml 1800 ml Balance 1255 ml 1800 ml Intake Oral 1000 ml IV Total 55 ml Other 1200 ml 800 ml Laboratory Tests 10/18/18 07:10: White Blood Count 4.0L, Red Blood Count 5.18, Hemoglobin 11.8L, Hematocrit 37.4L , Mean Corpuscular Volume 72L, Mean Corpuscular Hemoglobin 22.9L, Mean Corpuscular Hemoglobin Concent 31.7L, Red Cell Distribution Width 16.1H, Platelet Count 421, Mean Platelet Volume 5.9L, Neutrophils (%) (Auto) 61.8, Lymphocytes (%) (Auto) 28.9, Monocytes (%) (Auto) 4.7, Eosinophils (%) (Auto) 3.5H, Basophils (%) (Auto) 1.2, Sodium Level [Pending], Potassium Level [Pending ], Chloride Level [Pending], Carbon Dioxide Level [Pending], Blood Urea Nitrogen [Pending], Creatinine [Pending], Estimat Glomerular Filtration Rate [ Pending], Glucose Level [Pending], Calcium Level [Pending] Height (Feet): 6 Height (Inches): 1.00 Weight (Pounds): 195 General Appearance: lethargic EENT: normal ENT inspection Neck: normal alignment Cardiovascular: normal peripheral pulses, normal rate, regular rhythm Respiratory/Chest: chest wall non-tender, lungs clear, normal breath sounds Abdomen: normal bowel sounds, non tender, soft Extremities: normal inspection Edema: no edema noted Arm (L), no edema noted Arm (R), no edema noted Leg (L), no edema noted Leg (R), no edema noted Pedal (L), no edema noted Pedal (R), no edema noted Generalized Neurologic: motor weakness Skin: normal pigmentation, warm/dry Objective foot dressing sl stained [place] Collins[place] DO October 18, 2018 08:51
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
[2018-10-18 12:00] VITALS: BP 111/71
--- NOTE | 2018-10-18 13:08 | Nephrology Progress Note ---
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 (6) Paraplegia (7) Decubitus ulcer, stage 3 with infection (8) Sociopathic personality disorder (9) Hypersexuality (10) homelessness (11) Methamphetamine abuse (12) Anemia Plan plan ; Po KCL ordered labs checked new labs ordered Subjective ROS Limited/Unobtainable: No Constitutional: Reports: malaise Objective Objective Last 24 Hour Vital Signs Date Time Temp Pulse Resp B/P (MAP) Pulse Ox O2 Delivery O2 Flow Rate FiO2 10/18/18 09:01 98.6 10/18/18 08:30 89 20 99 Room Air 21 10/18/18 04:00 98.6 85 19 120/67 (84) 98 10/17/18 21:00 Room Air 10/17/18 20:10 96 20 99 Room Air 21 10/17/18 20:00 99.1 99 18 111/64 (80) 98 10/17/18 16:00 97.9 98 19 114/61 (78) 99 Intake and Output 10/17/18 10/18/18 18:59 06:59 Intake Total 1255 ml 1800 ml Balance 1255 ml 1800 ml Intake Oral 1000 ml IV Total 55 ml Other 1200 ml 800 ml Laboratory Tests 10/18/18 07:10: White Blood Count 4.0L, Red Blood Count 5.18, Hemoglobin 11.8L, Hematocrit 37.4L , Mean Corpuscular Volume 72L, Mean Corpuscular Hemoglobin 22.9L, Mean Corpuscular Hemoglobin Concent 31.7L, Red Cell Distribution Width 16.1H, Platelet Count 421, Mean Platelet Volume 5.9L, Neutrophils (%) (Auto) 61.8, Lymphocytes (%) (Auto) 28.9, Monocytes (%) (Auto) 4.7, Eosinophils (%) (Auto) 3.5H, Basophils (%) (Auto) 1.2, Sodium Level 139, Potassium Level 4.4, Chloride Level 105, Carbon Dioxide Level 29, Anion Gap 5, Blood Urea Nitrogen 11, Creatinine 0.9, Estimat Glomerular Filtration Rate > 60, Glucose Level 91, Calcium Level 9.2 Height (Feet): 6 Height (Inches): 1.00 Weight (Pounds): 195 General Appearance: no apparent distress Objective no change Woody Cruz MD October 18, 2018 13:08
--- NOTE | 2018-10-18 15:11 | NUR ---
CASE MANAGEMENT: REVIEW SI: INTRACTABLE BACK PAIN . CELLULITIS T 98.5 HR 83 RR 19 BP 116/80 SAT 98% ROOM AIR WBC 4.0 H/H 11.8/37.4 IS: DAPTOMYCIN IV Q24HR LEVAQUIN PO QD LIBRIUM PO Q8HR PRN MORPHINE IV Q4HR PRN MED/SURG STATUS DCP: PATIENT REPORT HOMELESSNESS
[2018-10-18] MEDS: DAPTOmycin 500 MG in NS 55 ML IV SCH (15:40)
[2018-10-18 16:00] VITALS: BP 130/70
--- NOTE | 2018-10-18 16:11 | Surgery Progress Note ---
Surgery Progress Note Subjective Symptoms: improved, tolerating diet, passing flatus Objective Last 24 Hour Vital Signs Date Time Temp Pulse Resp B/P (MAP) Pulse Ox O2 Delivery O2 Flow Rate FiO2 10/18/18 13:01 98.6 10/18/18 12:00 98.5 85 18 111/71 (84) 100 10/18/18 09:00 Room Air 10/18/18 08:30 89 20 99 Room Air 21 10/18/18 08:00 98.7 83 19 116/80 (92) 99 10/18/18 04:00 98.6 85 19 120/67 (84) 98 10/17/18 21:00 Room Air 10/17/18 20:10 96 20 99 Room Air 21 10/17/18 20:00 99.1 99 18 111/64 (80) 98 I&O Intake and Output 10/17/18 10/18/18 18:59 06:59 Intake Total 1255 ml 1800 ml Balance 1255 ml 1800 ml Intake Oral 1000 ml IV Total 55 ml Other 1200 ml 800 ml Dressing: dry Wound: other Drains: other Cardiovascular: RSR Respiratory: clear Abdomen: soft, flat, present bowel sounds, non-distended Extremities: edema, tenderness, cyanosis Laboratory Tests Test 10/18/18 07:10 White Blood Count 4.0 K/UL (4.8-10.8) L Red Blood Count 5.18 M/UL (4.70-6.10) Hemoglobin 11.8 G/DL (14.2-18.0) L Hematocrit 37.4 % (42.0-52.0) L Mean Corpuscular Volume 72 FL (80-99) L Mean Corpuscular Hemoglobin 22.9 PG (27.0-31.0) L Mean Corpuscular Hemoglobin Concent 31.7 G/DL (32.0-36.0) L Red Cell Distribution Width 16.1 % (11.6-14.8) H Platelet Count 421 K/UL (150-450) Mean Platelet Volume 5.9 FL (6.5-10.1) L Neutrophils (%) (Auto) 61.8 % (45.0-75.0) Lymphocytes (%) (Auto) 28.9 % (20.0-45.0) Monocytes (%) (Auto) 4.7 % (1.0-10.0) Eosinophils (%) (Auto) 3.5 % (0.0-3.0) H Basophils (%) (Auto) 1.2 % (0.0-2.0) Sodium Level 139 MMOL/L (136-145) Potassium Level 4.4 MMOL/L (3.5-5.1) Chloride Level 105 MMOL/L (98-107) Carbon Dioxide Level 29 MMOL/L (21-32) Anion Gap 5 mmol/L (5-15) Blood Urea Nitrogen 11 mg/dL (7-18) Creatinine 0.9 MG/DL (0.55-1.30) Estimat Glomerular Filtration Rate > 60 mL/min (>60) Glucose Level 91 MG/DL (74-106) Calcium Level 9.2 MG/DL (8.5-10.1) Plan Problems: (1) UTI (urinary tract infection) (2) homelessness (3) Paraplegia (4) Cellulitis Assessment & Plan: 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 Opening approx 3cm x 2cm and tunnels >9cm. (+) Epibole. Small amount of serosanguineous exudate noted. No purulent drainage. Periwound intact but with chronic skin changes. Wound related to wheelchair use and pressure. Patient aware of wound and has been given instructions for care and planning prior but admits he does not adhere to plan Almost near circumferential dorsal and ankle dermal loss / ulceration to the right foot. plantar aspect with rugged thick callus tissue. Wounds have continued to deteriorate bleeding granulation tissue forming. edema with cellulitis noted. draining serosang fluid. no abscess. tender on palpation. Does not tend to wounds and notes this stage 3 ulcer deep wound at distal L tibia. Prior CTA with good runoff. seems to have good vascular flow to foot as well clinically Prior plain films and imaging reviewed. I did discuss worsening condition with patient and possibility of amputation in future if continues to deteriorate. Left foot has made great improvement overall and no longer with large wounds and edema improved. Tx.Plan: Cleanse wound R Ischium with Saline.Loosely pack with Hydrogel impregnated gauze.Cavilon wipe to borders. Cover with Optifoam drsg daily and prn. Cleanse wound R buttocks and sacrum with NS. Apply Cavilon and cover with Optifoam drsg .Change every 7 days and prn. Cleanse wounds R lower ext with Saline. Apply Silvasorb gel .Cover with Xeroform, Abd and wrap with kerlix Daily turn q2h for repositioning Air Mattress (5) Spinal cord injury (6) PVD (peripheral vascular disease) (7) Chronic wound of extremity Assessment & Plan: DAILY ESTIMATED NEEDS: Needs based on Advanced wounds/ 90kg abw 25-30 kcals/kg 2270-2312 total kcals 1.25-2.0 g protein/kg 113-180 g total protein 25-30 mL/kg 2420-4238 total fluid mLs NUTRITION DIAGNOSIS: Increased kcal and protein needs r/t wound healing as evidenced by pt admitted w/ multiple advanced wounds w/ history of full thickness pressure injury R ischium and stage 3 ulcer deep wound at distal L tibia,pending eval update. PO DIET RECOMMENDATIONS: REGULAR + DOUBLE PROTEIN PORTIONS ---- ADDITIONAL RECOMMENDATIONS: * Wound healing: CHARAN BID + MVI w/ min daily + Vit C 250mg BID F/up w/ WC eval * Calibrated bedscale wt for accurate CBW * Monitor lytes, replete as needed * Monitor PO intake (8) Intractable back pain Shilo Arrington October 18, 2018 16:11
--- NOTE | 2018-10-18 18:00 | NUR ---
NURSE NOTES: patient refused PO meds, nurse told possible outcomes but pt still refused it. Patient also refused change of dressing throughout the shift, said he'll do it tomorrow. Provided 3 blankets as requested, says feels very cold.
--- NOTE | 2018-10-18 19:22 | NUR ---
HAND-OFF: Report given to DONAL Tejeda.
[2018-10-18 20:00] VITALS: BP 112/60
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
[2018-10-19] VITALS (7 sets, daily range): BP systolic 86–121; BP diastolic 57–71
[2018-10-19 06:50] LABS: EOSINOPHILS % (AUTO) 2.5 % (0.0-3.0); HEMATOCRIT 36.8 % (42.0-52.0); HEMOGLOBIN 11.7 G/DL (14.2-18.0); LYMPHOCYTES % (AUTO) 19.6 % (20.0-45.0); MEAN CORPUSCULAR VOLUME 72 FL (80-99); MONOCYTES % (AUTO) 5.9 % (1.0-10.0); PLATELET COUNT 431 K/UL (150-450); RED BLOOD COUNT 5.14 M/UL (4.70-6.10); RED CELL DISTRIBUTION WIDTH 16.2 % (11.6-14.8); WHITE BLOOD COUNT 4.8 K/UL (4.8-10.8)
[2018-10-19 07:04] LABS: ANION GAP 7 mmol/L (5-15); BLOOD UREA NITROGEN 12 mg/dL (7-18); CALCIUM 9.1 MG/DL (8.5-10.1); CARBON DIOXIDE 28 MMOL/L (21-32); CHLORIDE 103 MMOL/L (98-107); CREATININE 0.9 MG/DL (0.55-1.30); SODIUM 138 MMOL/L (136-145)
--- NOTE | 2018-10-19 07:23 | NUR ---
NURSE NOTES: Received report from ELIZABETH Mijares. Pt in bed, awake, talkative, no complaints of pain, no apparent distress noted, bed in lowest position, call light within reach.
[2018-10-19] MEDS: Morphine Sulfate 2mg/ml Inj(IV/IM USE ONLY) IVP PRN ×4 (07:33→20:50)
--- NOTE | 2018-10-19 08:13 | General Progress Note ---
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 ICD Codes: E11.49 - Type 2 diabetes mellitus with other diabetic neurological complication SNOMED: 86464783, 801603385 (6) Asthma ICD Codes: J45.909 - Unspecified asthma, uncomplicated SNOMED: 673784759 (7) PVD (peripheral vascular disease) ICD Codes: I73.9 - Peripheral vascular disease, unspecified SNOMED: 168890042 (8) Ulcer of foot ICD Codes: L97.509 - Non-pressure chronic ulcer of other part of unspecified foot with unspecified severity SNOMED: 00753909 (9) Chronic wound of extremity SNOMED: 939588790 (10) Methamphetamine abuse ICD Codes: F15.10 - Other stimulant abuse, uncomplicated SNOMED: 658003904 (11) Intractable back pain ICD Codes: M54.9 - Dorsalgia, unspecified SNOMED: 064425118 Status: stable, progressing Assessment/Plan: wound care pain control abx pt dietary cbc bmp am dc plan snf Subjective Constitutional: Reports: weakness Allergies: Coded Allergies: PENICILLIN G (Verified Allergy, Unknown, 05/05/18) Tolerates carbapenems and cephalosporins UNABLE TO ASSESS (Unverified , 09/24/18) All Systems: reviewed and negative except above Subjective sleepy calm in bed Objective Last 24 Hour Vital Signs Date Time Temp Pulse Resp B/P (MAP) Pulse Ox O2 Delivery O2 Flow Rate FiO2 10/19/18 08:03 98.4 10/19/18 08:00 98.4 86 18 111/69 (83) 98 10/19/18 06:59 87 18 99 Room Air 21 10/19/18 04:00 98.4 80 18 110/71 (84) 97 10/19/18 00:00 97.5 87 18 107/67 (80) 96 10/18/18 21:00 Room Air 10/18/18 20:00 98.3 90 18 112/60 (77) 98 10/18/18 19:40 92 20 98 Room Air 21 10/18/18 16:00 98.1 70 18 130/70 (90) 96 10/18/18 12:00 98.5 85 18 111/71 (84) 100 10/18/18 09:00 Room Air 10/18/18 08:30 89 20 99 Room Air 21 Intake and Output 10/18/18 10/19/18 19:00 07:00 Intake Total 355 ml Output Total 1250 ml 500 ml Balance -895 ml -500 ml Intake Oral 300 ml IV Total 55 ml Output Urine Total 1250 ml 500 ml Laboratory Tests 10/19/18 05:40: White Blood Count 4.8, Red Blood Count 5.14, Hemoglobin 11.7L, Hematocrit 36.8L , Mean Corpuscular Volume 72L, Mean Corpuscular Hemoglobin 22.7L, Mean Corpuscular Hemoglobin Concent 31.7L, Red Cell Distribution Width 16.2H, Platelet Count 431, Mean Platelet Volume 6.8, Neutrophils (%) (Auto) 70.0, Lymphocytes (%) (Auto) 19.6L, Monocytes (%) (Auto) 5.9, Eosinophils (%) (Auto) 2.5, Basophils (%) (Auto) 2.0, Sodium Level 138, Potassium Level 4.0, Chloride Level 103, Carbon Dioxide Level 28, Anion Gap 7, Blood Urea Nitrogen 12, Creatinine 0.9, Estimat Glomerular Filtration Rate > 60, Glucose Level 102, Calcium Level 9.1 Height (Feet): 6 Height (Inches): 1.00 Weight (Pounds): 195 General Appearance: lethargic EENT: normal ENT inspection Neck: normal alignment Cardiovascular: normal peripheral pulses, normal rate, regular rhythm Respiratory/Chest: chest wall non-tender, lungs clear, normal breath sounds Abdomen: normal bowel sounds, non tender, soft Extremities: normal inspection Edema: no edema noted Arm (L), no edema noted Arm (R), no edema noted Leg (L), no edema noted Leg (R), no edema noted Pedal (L), no edema noted Pedal (R), no edema noted Generalized Neurologic: motor weakness Skin: normal pigmentation, warm/dry Objective foot dressing sl stained [place] DO October 19, 2018 08:13
[2018-10-19] MEDS: HYDROcodone/Acetamin 5/325 tab ORAL PRN ×2 (08:33→14:40)
[2018-10-19] MEDS: Levofloxacin 750mg tab ORAL SCH ×2 (08:33→08:34)
[2018-10-19] MEDS: Ascorbic Acid 500mg tab ORAL SCH ×2 (08:34→16:58)
[2018-10-19] MEDS: Zinc Sulfate 220mg cap ORAL SCH (08:35)
[2018-10-19] MEDS: Heparin 5000 units/ml inj SUBQ SCH ×2 (08:35→21:00)
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
--- NOTE | 2018-10-19 13:12 | Nephrology Progress Note ---
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 (6) Paraplegia (7) Decubitus ulcer, stage 3 with infection (8) Sociopathic personality disorder (9) Hypersexuality (10) homelessness (11) Methamphetamine abuse (12) Anemia Plan plan ; Po KCL ordered labs checked new labs ordered not much to add from renal stand Subjective ROS Limited/Unobtainable: No Constitutional: Reports: malaise Objective Objective Last 24 Hour Vital Signs Date Time Temp Pulse Resp B/P (MAP) Pulse Ox O2 Delivery O2 Flow Rate FiO2 10/19/18 12:50 98.5 10/19/18 12:00 98.5 82 18 121/69 (86) 97 10/19/18 09:03 98.4 10/19/18 09:00 Room Air 10/19/18 08:00 98.4 86 18 111/69 (83) 98 10/19/18 06:59 87 18 99 Room Air 21 10/19/18 04:00 98.4 80 18 110/71 (84) 97 10/19/18 00:00 97.5 87 18 107/67 (80) 96 10/18/18 21:00 Room Air 10/18/18 20:00 98.3 90 18 112/60 (77) 98 10/18/18 19:40 92 20 98 Room Air 21 10/18/18 16:00 98.1 70 18 130/70 (90) 96 Intake and Output 10/18/18 10/19/18 18:59 06:59 Intake Total 355 ml Output Total 1250 ml 500 ml Balance -895 ml -500 ml Intake Oral 300 ml IV Total 55 ml Output Urine Total 1250 ml 500 ml Laboratory Tests 10/19/18 05:40: White Blood Count 4.8, Red Blood Count 5.14, Hemoglobin 11.7L, Hematocrit 36.8L , Mean Corpuscular Volume 72L, Mean Corpuscular Hemoglobin 22.7L, Mean Corpuscular Hemoglobin Concent 31.7L, Red Cell Distribution Width 16.2H, Platelet Count 431, Mean Platelet Volume 6.8, Neutrophils (%) (Auto) 70.0, Lymphocytes (%) (Auto) 19.6L, Monocytes (%) (Auto) 5.9, Eosinophils (%) (Auto) 2.5, Basophils (%) (Auto) 2.0, Sodium Level 138, Potassium Level 4.0, Chloride Level 103, Carbon Dioxide Level 28, Anion Gap 7, Blood Urea Nitrogen 12, Creatinine 0.9, Estimat Glomerular Filtration Rate > 60, Glucose Level 102, Calcium Level 9.1 Height (Feet): 6 Height (Inches): 1.00 Weight (Pounds): 195 General Appearance: no apparent distress Objective no change Woody Cruz MD October 19, 2018 13:12
--- NOTE | 2018-10-19 14:35 | Cardiology Report ---
APPROVED REPORT EXAM: Two-dimensional and M-mode echocardiogram with Doppler and color Doppler. INDICATION Vegetation M-Mode DIMENSIONS IVSd1.3 (0.7-1.1cm)Left Atrium (MM)3.2 (1.6-4.0cm) LVDd4.7 (3.5-5.6cm)Aortic Root3.7 (2.0-3.7cm) PWd1.2 (0.7-1.1cm)Aortic Cusp Exc.2.0 (1.5-2.0cm) LVDs3.2 (2.5-4.0cm) PWs1.5 cm Normal left ventricular chamber size, systolic function and wall motion. Left ventricular ejection fraction estimated to be 55 %. Mild left ventricular hypertrophy. No evidence of pericardial effusion. All other cardiac chamber sizes are within normal limits. Normal appearing aortic, mitral, pulonic and tricuspid valves. Mitral annulus and aortic root calcification. IVC is normal in size with physiological collapse. No discrete vegetation's seen. A color flow and spectral Doppler study was performed and revealed: No aortic insufficiency. No mitral regurgitation. Mitral diastolic velocities suggest mild left ventricular diastolic dysfunction (Grade I). Trace tricuspid regurgitation. Tricuspid systolic velocities suggests peak right ventricular systolic pressure of 19 mmHg. No pulmonic regurgitation present.
--- NOTE | 2018-10-19 15:35 | Pulmonology Progress Note ---
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 continue abx refusing care at times Subjective Allergies: Coded Allergies: PENICILLIN G (Verified Allergy, Unknown, 05/05/18) Tolerates carbapenems and cephalosporins UNABLE TO ASSESS (Unverified , 09/24/18) Objective Last 24 Hour Vital Signs Date Time Temp Pulse Resp B/P (MAP) Pulse Ox O2 Delivery O2 Flow Rate FiO2 10/19/18 12:50 98.5 10/19/18 12:00 98.5 82 18 121/69 (86) 97 10/19/18 09:03 98.4 10/19/18 09:00 Room Air 10/19/18 08:00 98.4 86 18 111/69 (83) 98 10/19/18 06:59 87 18 99 Room Air 21 10/19/18 04:00 98.4 80 18 110/71 (84) 97 10/19/18 00:00 97.5 87 18 107/67 (80) 96 10/18/18 21:00 Room Air 10/18/18 20:00 98.3 90 18 112/60 (77) 98 10/18/18 19:40 92 20 98 Room Air 21 10/18/18 16:00 98.1 70 18 130/70 (90) 96 Intake and Output 10/18/18 10/19/18 18:59 06:59 Intake Total 355 ml Output Total 1250 ml 500 ml Balance -895 ml -500 ml Intake Oral 300 ml IV Total 55 ml Output Urine Total 1250 ml 500 ml Objective HEENT: normocephalic, atraumatic Respiratory/Chest: chest wall non-tender, lungs clear Cardiovascular: normal peripheral pulses, normal rate Abdomen: normal bowel sounds, no organomegaly Extremities: no cyanosis Skin: no lesions, clean dressing Laboratory Tests 10/19/18 05:40: White Blood Count 4.8, Red Blood Count 5.14, Hemoglobin 11.7L, Hematocrit 36.8L , Mean Corpuscular Volume 72L, Mean Corpuscular Hemoglobin 22.7L, Mean Corpuscular Hemoglobin Concent 31.7L, Red Cell Distribution Width 16.2H, Platelet Count 431, Mean Platelet Volume 6.8, Neutrophils (%) (Auto) 70.0, Lymphocytes (%) (Auto) 19.6L, Monocytes (%) (Auto) 5.9, Eosinophils (%) (Auto) 2.5, Basophils (%) (Auto) 2.0, Sodium Level 138, Potassium Level 4.0, Chloride Level 103, Carbon Dioxide Level 28, Anion Gap 7, Blood Urea Nitrogen 12, Creatinine 0.9, Estimat Glomerular Filtration Rate > 60, Glucose Level 102, Calcium Level 9.1 Current Medications Medications (Trade) Dose Ordered Sig/Michael Route PRN Reason Start Time Stop Time Status Last Admin Dose Admin Acetaminophen (Tylenol) 650 mg Q4H PRN ORAL fever 10/14/18 07:15 11/13/18 07:14 Acetaminophen/ Hydrocodone Bitart ([place] 5/325) 1 tab Q6H PRN ORAL moderate pain 10/15/18 09:00 10/22/18 08:59 10/19/18 14:40 Ascorbic Acid (Vitamin C) 250 mg TWICE A DAY ORAL 10/14/18 18:00 11/13/18 17:59 10/17/18 17:11 Chlordiazepoxide (Librium) 25 mg Q8H PRN ORAL Agitation 10/14/18 09:45 10/21/18 09:44 Dextrose (Dextrose 50%) 25 ml Q30M PRN IV Hypoglycemia 10/14/18 07:30 11/13/18 07:19 Dextrose (Dextrose 50%) 50 ml Q30M PRN IV hypoglycemia 10/14/18 07:30 11/13/18 07:29 Heparin Sodium (Porcine) (Heparin 5000 units/ml) 5,000 units EVERY 12 HOURS SUBQ 10/14/18 09:00 11/13/18 08:59 10/18/18 21:24 Levofloxacin (Levaquin) 750 mg DAILY ORAL 10/14/18 17:45 10/21/18 17:44 10/17/18 08:48 Linezolid 300 ml @ 300 mls/hr Q12HR IVPB 10/18/18 22:00 10/25/18 21:59 10/19/18 08:33 Morphine Sulfate (Morphine Sulfate) 2 mg Q4H PRN IVP severe pain 10/15/18 09:00 10/21/18 08:59 10/19/18 12:20 Multivitamins (Multivitamins) 1 tab DAILY ORAL 10/15/18 09:00 11/14/18 08:59 10/17/18 08:48 Nitroglycerin (Ntg) 0.4 mg Q5M PRN SL Prn Chest Pain 10/14/18 07:15 11/13/18 07:14 Ondansetron HCl (Zofran) 4 mg Q6H PRN IVP Nausea & Vomiting 10/14/18 07:15 11/13/18 07:14 Polyethylene Glycol (Miralax) 17 gm DAILYPRN PRN ORAL Constipation 10/14/18 07:15 11/13/18 07:14 Potassium Chloride (K-Dur) 40 meq BID ORAL 10/16/18 18:00 11/14/18 08:59 10/17/18 17:11 Temazepam (Restoril) 15 mg HSPRN PRN ORAL Insomnia 10/14/18 07:15 10/21/18 07:14 10/18/18 21:20 Zinc Sulfate (Zinc Sulfate) 220 mg DAILY ORAL 10/16/18 09:00 10/26/18 08:59 10/17/18 08:48 Francheska Armas MD October 19, 2018 15:35
--- NOTE | 2018-10-19 19:21 | NUR ---
HAND-OFF: Report given to ELIZABETH Stanton.
--- NOTE | 2018-10-19 19:25 | NUR ---
NURSE NOTES: patient received. patient in no acute distress at this time. patient complains of pain at this time. patient awake alert and oriented x4.
--- NOTE | 2018-10-19 19:35 | NUR ---
NURSE NOTES: patient IV intact patent and asymptomatic. urinal at bedside. Right foot wound dry and intact was changed today by day shift nurse. will endorse to morning shift nurse to change dressing. Wound on Left leg dry and intact. bandage is not soiled. bed in lowest position and locked. call light within reach. will continue to monitor.
--- NOTE | 2018-10-19 19:41 | Surgery Progress Note ---
Surgery Progress Note Subjective Additional Comments no acute events. refusing some care at times. otherwise improving. no complaints Objective Last 24 Hour Vital Signs Date Time Temp Pulse Resp B/P (MAP) Pulse Ox O2 Delivery O2 Flow Rate FiO2 10/19/18 16:51 98.3 10/19/18 16:00 98.3 83 19 112/65 (81) 97 10/19/18 15:10 98.5 10/19/18 12:00 98.5 82 18 121/69 (86) 97 10/19/18 09:00 Room Air 10/19/18 08:00 98.4 86 18 111/69 (83) 98 10/19/18 06:59 87 18 99 Room Air 21 10/19/18 04:00 98.4 80 18 110/71 (84) 97 10/19/18 00:00 97.5 87 18 107/67 (80) 96 10/18/18 21:00 Room Air 10/18/18 20:00 98.3 90 18 112/60 (77) 98 I&O Intake and Output 10/18/18 10/19/18 18:59 06:59 Intake Total 355 ml Output Total 1250 ml 500 ml Balance -895 ml -500 ml Intake Oral 300 ml IV Total 55 ml Output Urine Total 1250 ml 500 ml Dressing: saturated Wound: other Drains: other Cardiovascular: RSR Respiratory: clear Abdomen: soft, flat, non-tender, present bowel sounds, non-distended Extremities: edema, tenderness, cyanosis Laboratory Tests Test 10/19/18 05:40 White Blood Count 4.8 K/UL (4.8-10.8) Red Blood Count 5.14 M/UL (4.70-6.10) Hemoglobin 11.7 G/DL (14.2-18.0) L Hematocrit 36.8 % (42.0-52.0) L Mean Corpuscular Volume 72 FL (80-99) L Mean Corpuscular Hemoglobin 22.7 PG (27.0-31.0) L Mean Corpuscular Hemoglobin Concent 31.7 G/DL (32.0-36.0) L Red Cell Distribution Width 16.2 % (11.6-14.8) H Platelet Count 431 K/UL (150-450) Mean Platelet Volume 6.8 FL (6.5-10.1) Neutrophils (%) (Auto) 70.0 % (45.0-75.0) Lymphocytes (%) (Auto) 19.6 % (20.0-45.0) L Monocytes (%) (Auto) 5.9 % (1.0-10.0) Eosinophils (%) (Auto) 2.5 % (0.0-3.0) Basophils (%) (Auto) 2.0 % (0.0-2.0) Sodium Level 138 MMOL/L (136-145) Potassium Level 4.0 MMOL/L (3.5-5.1) Chloride Level 103 MMOL/L (98-107) Carbon Dioxide Level 28 MMOL/L (21-32) Anion Gap 7 mmol/L (5-15) Blood Urea Nitrogen 12 mg/dL (7-18) Creatinine 0.9 MG/DL (0.55-1.30) Estimat Glomerular Filtration Rate > 60 mL/min (>60) Glucose Level 102 MG/DL (74-106) Calcium Level 9.1 MG/DL (8.5-10.1) Plan Problems: (1) UTI (urinary tract infection) (2) homelessness (3) Paraplegia (4) Cellulitis Assessment & Plan: 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 Opening approx 3cm x 2cm and tunnels >9cm. (+) Epibole. Small amount of serosanguineous exudate noted. No purulent drainage. Periwound intact but with chronic skin changes. Wound related to wheelchair use and pressure. Patient aware of wound and has been given instructions for care and planning prior but admits he does not adhere to plan Almost near circumferential dorsal and ankle dermal loss / ulceration to the right foot. plantar aspect with rugged thick callus tissue. Wounds have continued to deteriorate bleeding granulation tissue forming. edema with cellulitis noted. draining serosang fluid. no abscess. tender on palpation. Does not tend to wounds and notes this stage 3 ulcer deep wound at distal L tibia. Prior CTA with good runoff. seems to have good vascular flow to foot as well clinically Prior plain films and imaging reviewed. I did discuss worsening condition with patient and possibility of amputation in future if continues to deteriorate. Left foot has made great improvement overall and no longer with large wounds and edema improved. Tx.Plan: Cleanse wound R Ischium with Saline.Loosely pack with Hydrogel impregnated gauze.Cavilon wipe to borders. Cover with Optifoam drsg daily and prn. Cleanse wound R buttocks and sacrum with NS. Apply Cavilon and cover with Optifoam drsg .Change every 7 days and prn. Cleanse wounds R lower ext with Saline. Apply Silvasorb gel .Cover with Xeroform, Abd and wrap with kerlix Daily turn q2h for repositioning Air Mattress (5) Spinal cord injury (6) PVD (peripheral vascular disease) (7) Chronic wound of extremity Assessment & Plan: DAILY ESTIMATED NEEDS: Needs based on Advanced wounds/ 90kg abw 25-30 kcals/kg 3622-7213 total kcals 1.25-2.0 g protein/kg 113-180 g total protein 25-30 mL/kg 4235-3601 total fluid mLs NUTRITION DIAGNOSIS: Increased kcal and protein needs r/t wound healing as evidenced by pt admitted w/ multiple advanced wounds w/ history of full thickness pressure injury R ischium and stage 3 ulcer deep wound at distal L tibia,pending eval update. PO DIET RECOMMENDATIONS: REGULAR + DOUBLE PROTEIN PORTIONS ---- ADDITIONAL RECOMMENDATIONS: * Wound healing: CHARAN BID + MVI w/ min daily + Vit C 250mg BID F/up w/ WC eval * Calibrated bedscale wt for accurate CBW * Monitor lytes, replete as needed * Monitor PO intake (8) Intractable back pain Additional Comments d/c planning. okay to d/c from surgical standpoint with outpatient wound care Shilo Arrington October 19, 2018 19:41
[2018-10-20] VITALS: BP 132/73
[2018-10-20] MEDS: HYDROcodone/Acetamin 5/325 tab ORAL PRN (01:04)
[2018-10-20] MEDS: Morphine Sulfate 2mg/ml Inj(IV/IM USE ONLY) IVP PRN ×5 (01:10→20:53)
[2018-10-20 04:00] VITALS: BP 100/65
[2018-10-20 06:24] LABS: BASOPHILS % (AUTO) 1.3 % (0.0-2.0); HEMATOCRIT 34.4 % (42.0-52.0); LYMPHOCYTES % (AUTO) 19.5 % (20.0-45.0); MEAN CORPUSCULAR VOLUME 72 FL (80-99); MONOCYTES % (AUTO) 8.3 % (1.0-10.0); NEUTROPHILS % (AUTO) 67.9 % (45.0-75.0); PLATELET COUNT 397 K/UL (150-450); RED BLOOD COUNT 4.78 M/UL (4.70-6.10); RED CELL DISTRIBUTION WIDTH 16.1 % (11.6-14.8); WHITE BLOOD COUNT 5.1 K/UL (4.8-10.8)
[2018-10-20 07:12] LABS: ANION GAP 8 mmol/L (5-15); BLOOD UREA NITROGEN 12 mg/dL (7-18); CALCIUM 9.1 MG/DL (8.5-10.1); CARBON DIOXIDE 27 MMOL/L (21-32); CHLORIDE 106 MMOL/L (98-107); CREATININE 0.9 MG/DL (0.55-1.30); POTASSIUM 3.9 MMOL/L (3.5-5.1); SODIUM 141 MMOL/L (136-145)
--- NOTE | 2018-10-20 07:28 | NUR ---
HAND-OFF: Report given to leonie vizcarra patietn is stable.
--- NOTE | 2018-10-20 07:30 | NUR ---
NURSE NOTES: Patient sitting in bed eating breakfast. No complain of pain or distress at this time. Wound dressing intact and dry. IV dressing intact and dry. Bed lowest position. Call light within reach. Will continue to monitor.
[2018-10-20 08:00] VITALS: BP 125/73
[2018-10-20] MEDS: Ascorbic Acid 500mg tab ORAL SCH ×2 (09:00→18:00)
[2018-10-20] MEDS: Heparin 5000 units/ml inj SUBQ SCH ×2 (09:00→20:59)
[2018-10-20] MEDS: Zinc Sulfate 220mg cap ORAL SCH (09:00)
[2018-10-20] MEDS: Levofloxacin 750mg tab ORAL SCH (09:00)
--- NOTE | 2018-10-20 09:40 | NUR ---
NURSE NOTES: Patient refused scheduled morning medications. Explained risks and benefits but still refuse.
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
[2018-10-20 12:00] VITALS: BP 101/67
--- NOTE | 2018-10-20 12:01 | General Progress Note ---
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 ICD Codes: E11.49 - Type 2 diabetes mellitus with other diabetic neurological complication SNOMED: 42998712, 668893241 (6) Asthma ICD Codes: J45.909 - Unspecified asthma, uncomplicated SNOMED: 173152233 (7) PVD (peripheral vascular disease) ICD Codes: I73.9 - Peripheral vascular disease, unspecified SNOMED: 785098849 (8) Ulcer of foot ICD Codes: L97.509 - Non-pressure chronic ulcer of other part of unspecified foot with unspecified severity SNOMED: 68104786 (9) Chronic wound of extremity SNOMED: 814900967 (10) Methamphetamine abuse ICD Codes: F15.10 - Other stimulant abuse, uncomplicated SNOMED: 440845103 (11) Intractable back pain ICD Codes: M54.9 - Dorsalgia, unspecified SNOMED: 742357020 Status: stable, progressing Assessment/Plan: wound care pain control abx pt dietary dc to snf if clear Subjective Constitutional: Reports: weakness Allergies: Coded Allergies: PENICILLIN G (Verified Allergy, Unknown, 05/05/18) Tolerates carbapenems and cephalosporins UNABLE TO ASSESS (Unverified , 09/24/18) All Systems: reviewed and negative except above Subjective sleepy calm in bed Objective Last 24 Hour Vital Signs Date Time Temp Pulse Resp B/P (MAP) Pulse Ox O2 Delivery O2 Flow Rate FiO2 10/20/18 09:00 Room Air 10/20/18 08:00 97.4 90 14 125/73 (90) 99 10/20/18 08:00 88 16 99 Room Air 21 10/20/18 04:00 98.0 92 16 100/65 (77) 98 10/20/18 00:00 98.4 98 16 132/73 (92) 96 10/19/18 21:37 97 14 113/70 (84) 88 10/19/18 21:00 Room Air 10/19/18 20:37 93 16 98 Room Air 21 10/19/18 20:00 98.1 97 14 86/57 (67) 99 10/19/18 16:51 98.3 10/19/18 16:00 98.3 83 19 112/65 (81) 97 10/19/18 15:10 98.5 Intake and Output 10/19/18 10/20/18 19:00 07:00 Intake Total 1500 ml 1000 ml Balance 1500 ml 1000 ml Other 1500 ml 1000 ml # Voids 1 Laboratory Tests 10/20/18 05:30: White Blood Count 5.1, Red Blood Count 4.78, Hemoglobin 11.0L, Hematocrit 34.4L , Mean Corpuscular Volume 72L, Mean Corpuscular Hemoglobin 22.9L, Mean Corpuscular Hemoglobin Concent 31.9L, Red Cell Distribution Width 16.1H, Platelet Count 397, Mean Platelet Volume 7.4, Neutrophils (%) (Auto) 67.9, Lymphocytes (%) (Auto) 19.5L, Monocytes (%) (Auto) 8.3, Eosinophils (%) (Auto) 3.0, Basophils (%) (Auto) 1.3, Sodium Level 141, Potassium Level 3.9, Chloride Level 106, Carbon Dioxide Level 27, Anion Gap 8, Blood Urea Nitrogen 12, Creatinine 0.9, Estimat Glomerular Filtration Rate > 60, Glucose Level 102, Calcium Level 9.1 Height (Feet): 6 Height (Inches): 1.00 Weight (Pounds): 195 General Appearance: lethargic EENT: normal ENT inspection Neck: normal alignment Cardiovascular: normal peripheral pulses, normal rate, regular rhythm Respiratory/Chest: chest wall non-tender, lungs clear, normal breath sounds Abdomen: normal bowel sounds, non tender, soft Extremities: normal inspection Edema: 1+ Arm (L), 1+ Arm (R), 1+ Leg (L), 1+ Leg (R), 1+ Pedal (L), 1+ Pedal ( R), 1+ Generalized Edema: trace edema Neurologic: motor weakness Skin: normal pigmentation, warm/dry Objective foot dressing sl stained Pedro Luis Collinsmy RodDesire October 20, 2018 12:01
--- NOTE | 2018-10-20 12:25 | NUR ---
NURSE NOTES: Offered wound dressing change but patient refused. Explained risks and benefits but still refuse. Will offer again.
--- NOTE | 2018-10-20 13:01 | Pulmonology Progress Note ---
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 continue abx refusing care at times Subjective ROS Limited/Unobtainable: No Constitutional: Reports: no symptoms HEENT: Repors: no symptoms Respiratory: Reports: no symptoms Allergies: Coded Allergies: PENICILLIN G (Verified Allergy, Unknown, 05/05/18) Tolerates carbapenems and cephalosporins UNABLE TO ASSESS (Unverified , 09/24/18) Objective Last 24 Hour Vital Signs Date Time Temp Pulse Resp B/P (MAP) Pulse Ox O2 Delivery O2 Flow Rate FiO2 10/20/18 12:00 98.3 89 15 101/67 (78) 100 10/20/18 09:00 Room Air 10/20/18 08:00 97.4 90 14 125/73 (90) 99 10/20/18 08:00 88 16 99 Room Air 21 10/20/18 04:00 98.0 92 16 100/65 (77) 98 10/20/18 00:00 98.4 98 16 132/73 (92) 96 10/19/18 21:37 97 14 113/70 (84) 88 10/19/18 21:00 Room Air 10/19/18 20:37 93 16 98 Room Air 21 10/19/18 20:00 98.1 97 14 86/57 (67) 99 10/19/18 16:51 98.3 10/19/18 16:00 98.3 83 19 112/65 (81) 97 10/19/18 15:10 98.5 Intake and Output 10/19/18 10/20/18 19:00 07:00 Intake Total 1500 ml 1000 ml Balance 1500 ml 1000 ml Other 1500 ml 1000 ml # Voids 1 Objective HEENT: normocephalic, atraumatic Respiratory/Chest: chest wall non-tender, lungs clear Cardiovascular: normal peripheral pulses, normal rate Abdomen: normal bowel sounds, no organomegaly Extremities: no cyanosis Skin: no lesions, clean dressing Laboratory Tests 10/20/18 05:30: White Blood Count 5.1, Red Blood Count 4.78, Hemoglobin 11.0L, Hematocrit 34.4L , Mean Corpuscular Volume 72L, Mean Corpuscular Hemoglobin 22.9L, Mean Corpuscular Hemoglobin Concent 31.9L, Red Cell Distribution Width 16.1H, Platelet Count 397, Mean Platelet Volume 7.4, Neutrophils (%) (Auto) 67.9, Lymphocytes (%) (Auto) 19.5L, Monocytes (%) (Auto) 8.3, Eosinophils (%) (Auto) 3.0, Basophils (%) (Auto) 1.3, Sodium Level 141, Potassium Level 3.9, Chloride Level 106, Carbon Dioxide Level 27, Anion Gap 8, Blood Urea Nitrogen 12, Creatinine 0.9, Estimat Glomerular Filtration Rate > 60, Glucose Level 102, Calcium Level 9.1 Current Medications Medications (Trade) Dose Ordered Sig/Michael Route PRN Reason Start Time Stop Time Status Last Admin Dose Admin Acetaminophen (Tylenol) 650 mg Q4H PRN ORAL fever 10/14/18 07:15 11/13/18 07:14 Acetaminophen/ Hydrocodone Bitart ([place] 5/325) 1 tab Q6H PRN ORAL moderate pain 10/15/18 09:00 10/22/18 08:59 10/19/18 14:40 Ascorbic Acid (Vitamin C) 250 mg TWICE A DAY ORAL 10/14/18 18:00 11/13/18 17:59 10/17/18 17:11 Chlordiazepoxide (Librium) 25 mg Q8H PRN ORAL Agitation 10/14/18 09:45 10/21/18 09:44 Dextrose (Dextrose 50%) 25 ml Q30M PRN IV Hypoglycemia 10/14/18 07:30 11/13/18 07:19 Dextrose (Dextrose 50%) 50 ml Q30M PRN IV hypoglycemia 10/14/18 07:30 11/13/18 07:29 Heparin Sodium (Porcine) (Heparin 5000 units/ml) 5,000 units EVERY 12 HOURS SUBQ 10/14/18 09:00 11/13/18 08:59 10/18/18 21:24 Levofloxacin (Levaquin) 750 mg DAILY ORAL 10/14/18 17:45 10/21/18 17:44 10/17/18 08:48 Linezolid 300 ml @ 300 mls/hr Q12HR IVPB 10/18/18 22:00 10/25/18 21:59 10/20/18 09:33 Morphine Sulfate (Morphine Sulfate) 2 mg Q4H PRN IVP severe pain 10/15/18 09:00 10/21/18 08:59 10/20/18 12:13 Multivitamins (Multivitamins) 1 tab DAILY ORAL 10/15/18 09:00 11/14/18 08:59 10/17/18 08:48 Nitroglycerin (Ntg) 0.4 mg Q5M PRN SL Prn Chest Pain 10/14/18 07:15 11/13/18 07:14 Ondansetron HCl (Zofran) 4 mg Q6H PRN IVP Nausea & Vomiting 10/14/18 07:15 11/13/18 07:14 Polyethylene Glycol (Miralax) 17 gm DAILYPRN PRN ORAL Constipation 10/14/18 07:15 11/13/18 07:14 Potassium Chloride (K-Dur) 40 meq BID ORAL 10/16/18 18:00 11/14/18 08:59 10/17/18 17:11 Temazepam (Restoril) 15 mg HSPRN PRN ORAL Insomnia 10/14/18 07:15 10/21/18 07:14 10/18/18 21:20 Zinc Sulfate (Zinc Sulfate) 220 mg DAILY ORAL 10/16/18 09:00 10/26/18 08:59 10/17/18 08:48 Francheska Armas MD October 20, 2018 13:01
--- NOTE | 2018-10-20 14:22 | Nephrology Progress Note ---
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 (6) Paraplegia (7) Decubitus ulcer, stage 3 with infection (8) Sociopathic personality disorder (9) Hypersexuality (10) homelessness (11) Methamphetamine abuse (12) Anemia Plan plan ; Po KCL ordered labs checked new labs ordered not much to add from renal stand Subjective Constitutional: Reports: malaise Objective Objective Last 24 Hour Vital Signs Date Time Temp Pulse Resp B/P (MAP) Pulse Ox O2 Delivery O2 Flow Rate FiO2 10/20/18 12:00 98.3 89 15 101/67 (78) 100 10/20/18 09:00 Room Air 10/20/18 08:00 97.4 90 14 125/73 (90) 99 10/20/18 08:00 88 16 99 Room Air 21 10/20/18 04:00 98.0 92 16 100/65 (77) 98 10/20/18 00:00 98.4 98 16 132/73 (92) 96 10/19/18 21:37 97 14 113/70 (84) 88 10/19/18 21:00 Room Air 10/19/18 20:37 93 16 98 Room Air 21 10/19/18 20:00 98.1 97 14 86/57 (67) 99 10/19/18 16:51 98.3 10/19/18 16:00 98.3 83 19 112/65 (81) 97 10/19/18 15:10 98.5 Intake and Output 10/19/18 10/20/18 19:00 07:00 Intake Total 1500 ml 1000 ml Balance 1500 ml 1000 ml Other 1500 ml 1000 ml # Voids 1 Laboratory Tests 10/20/18 05:30: White Blood Count 5.1, Red Blood Count 4.78, Hemoglobin 11.0L, Hematocrit 34.4L , Mean Corpuscular Volume 72L, Mean Corpuscular Hemoglobin 22.9L, Mean Corpuscular Hemoglobin Concent 31.9L, Red Cell Distribution Width 16.1H, Platelet Count 397, Mean Platelet Volume 7.4, Neutrophils (%) (Auto) 67.9, Lymphocytes (%) (Auto) 19.5L, Monocytes (%) (Auto) 8.3, Eosinophils (%) (Auto) 3.0, Basophils (%) (Auto) 1.3, Sodium Level 141, Potassium Level 3.9, Chloride Level 106, Carbon Dioxide Level 27, Anion Gap 8, Blood Urea Nitrogen 12, Creatinine 0.9, Estimat Glomerular Filtration Rate > 60, Glucose Level 102, Calcium Level 9.1 Height (Feet): 6 Height (Inches): 1.00 Weight (Pounds): 195 General Appearance: no apparent distress Objective no change Woody Cruz MD October 20, 2018 14:22
--- NOTE | 2018-10-20 15:28 | NUR ---
*-* INSURANCE *-* ALL CLINICALS AND REVIEWS HAVE BEEN FAXED TO: [facility] NCM:[facility] P:[phone] F; [phone]
[2018-10-20 16:00] VITALS: BP 106/67
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
--- NOTE | 2018-10-20 17:30 | NUR ---
NURSE NOTES: Wound dressing changed as ordered. No complain of pain or discomfort at this time. Patient tolerated procedure well. Will continue to monitor.
--- NOTE | 2018-10-20 19:24 | NUR ---
HAND-OFF: Report given to Mireya RN. Patient in stable condition.
--- NOTE | 2018-10-20 19:30 | NUR ---
NURSE NOTES: RECEIVED PT FROM ELIZABETH LOPEZ. PT IS ASLEEP, ON ROOM AIR, NO ACUTE DISTRESS NOTED. DRESSING ON R FOOT IS DRY AND INTACT. IV ON LEFT AC 22G IS INTACT AND PATENT. BED IS AT THE LOWEST POSITION, BED ALARMS ACTIVE, SIDE RAILS UP X2, AND CALL LIGHT IS WITHIN REACH. WILL CONTINUE TO MONITOR.
[2018-10-20 20:00] VITALS: BP 125/76
[2018-10-21 00:11] VITALS: BP 100/51
[2018-10-21] MEDS: Morphine Sulfate 2mg/ml Inj(IV/IM USE ONLY) IVP PRN ×4 (00:53→19:40)
[2018-10-21 04:21] VITALS: BP 134/73
--- NOTE | 2018-10-21 07:30 | NUR ---
NURSE NOTES: Patient awake, alert x3; on room air, no sing of distress, no sign of shortness of breath; no sign of chest pain; IV LAC flushes well; bed at lowest position, side rails up x2, breaks engaged; call light within reach; will keep monitoring.
[2018-10-21 08:00] VITALS: BP 109/65
--- NOTE | 2018-10-21 08:05 | NUR ---
HAND-OFF: Report given to ELIZABETH MEDELLIN.
[2018-10-21] MEDS: Ascorbic Acid 500mg tab ORAL SCH ×2 (08:33→17:08)
[2018-10-21] MEDS: Levofloxacin 750mg tab ORAL SCH ×2 (08:33→08:48)
[2018-10-21] MEDS: Zinc Sulfate 220mg cap ORAL SCH ×2 (08:33→08:48)
[2018-10-21] MEDS: Heparin 5000 units/ml inj SUBQ SCH ×2 (08:35→20:43)
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
--- NOTE | 2018-10-21 11:35 | Pulmonology Progress Note ---
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 (6) Paraplegia (7) Decubitus ulcer, stage 3 with infection (8) Sociopathic personality disorder (9) Hypersexuality (10) homelessness (11) Methamphetamine abuse Assessment/Plan continue current regimen no new complains continue abx refusing care at times Subjective ROS Limited/Unobtainable: No Constitutional: Reports: no symptoms HEENT: Repors: no symptoms Respiratory: Reports: no symptoms Allergies: Coded Allergies: PENICILLIN G (Verified Allergy, Unknown, 05/05/18) Tolerates carbapenems and cephalosporins UNABLE TO ASSESS (Unverified , 09/24/18) Objective Last 24 Hour Vital Signs Date Time Temp Pulse Resp B/P (MAP) Pulse Ox O2 Delivery O2 Flow Rate FiO2 10/21/18 09:00 Room Air 10/21/18 08:54 84 18 99 Room Air 21 10/21/18 08:00 97.9 90 19 109/65 (80) 97 10/21/18 04:21 97.6 74 18 134/73 (93) 96 10/21/18 00:11 98.0 80 18 100/51 (67) 98 10/20/18 21:00 Room Air 10/20/18 20:00 97.9 87 18 125/76 (92) 100 10/20/18 19:49 81 18 99 Room Air 21 10/20/18 16:00 98.1 88 18 106/67 (80) 98 10/20/18 12:00 98.3 89 15 101/67 (78) 100 Intake and Output 10/20/18 10/21/18 19:00 07:00 Intake Total 1400 ml 300 ml Output Total 500 ml Balance 1400 ml -200 ml Intake Oral 1400 ml IV Total 300 ml Output Urine Total 500 ml # Voids 7 Objective HEENT: normocephalic, atraumatic Respiratory/Chest: chest wall non-tender, lungs clear Cardiovascular: normal peripheral pulses, normal rate Abdomen: normal bowel sounds, no organomegaly Extremities: no cyanosis Skin: no lesions, clean dressing Current Medications Medications (Trade) Dose Ordered Sig/Michael Route PRN Reason Start Time Stop Time Status Last Admin Dose Admin Acetaminophen (Tylenol) 650 mg Q4H PRN ORAL fever 10/14/18 07:15 11/13/18 07:14 Acetaminophen/ Hydrocodone Bitart ([place] 5/325) 1 tab Q6H PRN ORAL moderate pain 10/15/18 09:00 10/22/18 08:59 10/19/18 14:40 Ascorbic Acid (Vitamin C) 250 mg TWICE A DAY ORAL 10/14/18 18:00 11/13/18 17:59 10/21/18 08:33 Dextrose (Dextrose 50%) 25 ml Q30M PRN IV Hypoglycemia 10/14/18 07:30 11/13/18 07:19 Dextrose (Dextrose 50%) 50 ml Q30M PRN IV hypoglycemia 10/14/18 07:30 11/13/18 07:29 Heparin Sodium (Porcine) (Heparin 5000 units/ml) 5,000 units EVERY 12 HOURS SUBQ 10/14/18 09:00 11/13/18 08:59 10/21/18 08:35 Levofloxacin (Levaquin) 750 mg DAILY ORAL 10/14/18 17:45 10/27/18 17:44 10/17/18 08:48 Linezolid 300 ml @ 300 mls/hr Q12HR IVPB 10/18/18 22:00 10/25/18 21:59 10/21/18 08:34 Multivitamins (Multivitamins) 1 tab DAILY ORAL 10/15/18 09:00 11/14/18 08:59 10/17/18 08:48 Nitroglycerin (Ntg) 0.4 mg Q5M PRN SL Prn Chest Pain 10/14/18 07:15 11/13/18 07:14 Ondansetron HCl (Zofran) 4 mg Q6H PRN IVP Nausea & Vomiting 10/14/18 07:15 11/13/18 07:14 Polyethylene Glycol (Miralax) 17 gm DAILYPRN PRN ORAL Constipation 10/14/18 07:15 11/13/18 07:14 Potassium Chloride (K-Dur) 40 meq BID ORAL 10/16/18 18:00 11/14/18 08:59 10/17/18 17:11 Zinc Sulfate (Zinc Sulfate) 220 mg DAILY ORAL 10/16/18 09:00 10/26/18 08:59 10/17/18 08:48 Francheska Armas MD October 21, 2018 11:35
[2018-10-21 12:00] VITALS: BP 110/69
--- NOTE | 2018-10-21 13:23 | NUR ---
NURSE NOTES: I received order from MD Collins to renew Morphine Sulfate 2mg IVP Q4H for sever pain; carried the order as ordered.
--- NOTE | 2018-10-21 13:41 | General Progress Note ---
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 ICD Codes: E11.49 - Type 2 diabetes mellitus with other diabetic neurological complication SNOMED: 49278697, 684818266 (6) Asthma ICD Codes: J45.909 - Unspecified asthma, uncomplicated SNOMED: 903725002 (7) PVD (peripheral vascular disease) ICD Codes: I73.9 - Peripheral vascular disease, unspecified SNOMED: 292949201 (8) Ulcer of foot ICD Codes: L97.509 - Non-pressure chronic ulcer of other part of unspecified foot with unspecified severity SNOMED: 16974883 (9) Chronic wound of extremity SNOMED: 001265183 (10) Methamphetamine abuse ICD Codes: F15.10 - Other stimulant abuse, uncomplicated SNOMED: 181496833 (11) Intractable back pain ICD Codes: M54.9 - Dorsalgia, unspecified SNOMED: 523515531 Status: stable, progressing Assessment/Plan: wound care pain control abx pt dietary cbc bmp am dc to snf if clear Subjective Constitutional: Reports: weakness Allergies: Coded Allergies: PENICILLIN G (Verified Allergy, Unknown, 05/05/18) Tolerates carbapenems and cephalosporins UNABLE TO ASSESS (Unverified , 09/24/18) All Systems: reviewed and negative except above Subjective sleepy calm in bed Objective Last 24 Hour Vital Signs Date Time Temp Pulse Resp B/P (MAP) Pulse Ox O2 Delivery O2 Flow Rate FiO2 10/21/18 12:00 98.2 79 19 110/69 (83) 95 10/21/18 09:02 97.9 10/21/18 09:00 Room Air 10/21/18 08:54 84 18 99 Room Air 21 10/21/18 08:00 97.9 90 19 109/65 (80) 97 10/21/18 04:21 97.6 74 18 134/73 (93) 96 10/21/18 00:11 98.0 80 18 100/51 (67) 98 10/20/18 21:00 Room Air 10/20/18 20:00 97.9 87 18 125/76 (92) 100 10/20/18 19:49 81 18 99 Room Air 21 10/20/18 16:00 98.1 88 18 106/67 (80) 98 Intake and Output 10/20/18 10/21/18 19:00 07:00 Intake Total 1400 ml 300 ml Output Total 500 ml Balance 1400 ml -200 ml Intake Oral 1400 ml IV Total 300 ml Output Urine Total 500 ml # Voids 7 Height (Feet): 6 Height (Inches): 1.00 Weight (Pounds): 195 General Appearance: lethargic EENT: normal ENT inspection Neck: normal alignment Cardiovascular: normal peripheral pulses, normal rate, regular rhythm Respiratory/Chest: chest wall non-tender, lungs clear, normal breath sounds Abdomen: normal bowel sounds, non tender, soft Extremities: normal inspection Edema: no edema noted Arm (L), no edema noted Arm (R), no edema noted Leg (L), no edema noted Leg (R), no edema noted Pedal (L), no edema noted Pedal (R), no edema noted Generalized Neurologic: motor weakness Skin: normal pigmentation, warm/dry Objective foot dressing sl stained [place] DO October 21, 2018 13:41
--- NOTE | 2018-10-21 14:31 | NUR ---
*-* INSURANCE *-* UPDATED CLINCALS HAVE BEEN FAXED TO: [facility] NCM:[facility] P:[phone] F; [phone]
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
[2018-10-21 16:00] VITALS: BP 102/59
--- NOTE | 2018-10-21 16:01 | Nephrology Progress Note ---
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 (6) Paraplegia (7) Decubitus ulcer, stage 3 with infection (8) Sociopathic personality disorder (9) Hypersexuality (10) homelessness (11) Methamphetamine abuse (12) Anemia Plan plan ; Po KCL ordered labs checked new labs ordered not much to add from renal stand Subjective ROS Limited/Unobtainable: No Objective Objective Last 24 Hour Vital Signs Date Time Temp Pulse Resp B/P (MAP) Pulse Ox O2 Delivery O2 Flow Rate FiO2 10/21/18 15:01 98.2 10/21/18 12:00 98.2 79 19 110/69 (83) 95 10/21/18 09:02 97.9 10/21/18 09:00 Room Air 10/21/18 08:54 84 18 99 Room Air 21 10/21/18 08:00 97.9 90 19 109/65 (80) 97 10/21/18 04:21 97.6 74 18 134/73 (93) 96 10/21/18 00:11 98.0 80 18 100/51 (67) 98 10/20/18 21:00 Room Air 10/20/18 20:00 97.9 87 18 125/76 (92) 100 10/20/18 19:49 81 18 99 Room Air 21 Intake and Output 10/20/18 10/21/18 19:00 07:00 Intake Total 1400 ml 300 ml Output Total 500 ml Balance 1400 ml -200 ml Intake Oral 1400 ml IV Total 300 ml Output Urine Total 500 ml # Voids 7 Height (Feet): 6 Height (Inches): 1.00 Weight (Pounds): 195 General Appearance: no apparent distress Objective no change Woody Cruz MD October 21, 2018 16:01
--- NOTE | 2018-10-21 16:05 | Surgery Progress Note ---
Surgery Progress Note Subjective Additional Comments no acute events. wants his wheelchair so he can leave. does not want to stay here anylonger. states he will take care of wound and dressings upon discharge. Objective Last 24 Hour Vital Signs Date Time Temp Pulse Resp B/P (MAP) Pulse Ox O2 Delivery O2 Flow Rate FiO2 10/21/18 16:00 98.7 91 18 102/59 (73) 99 10/21/18 15:01 98.2 10/21/18 12:00 98.2 79 19 110/69 (83) 95 10/21/18 09:02 97.9 10/21/18 09:00 Room Air 10/21/18 08:54 84 18 99 Room Air 21 10/21/18 08:00 97.9 90 19 109/65 (80) 97 10/21/18 04:21 97.6 74 18 134/73 (93) 96 10/21/18 00:11 98.0 80 18 100/51 (67) 98 10/20/18 21:00 Room Air 10/20/18 20:00 97.9 87 18 125/76 (92) 100 10/20/18 19:49 81 18 99 Room Air 21 I&O Intake and Output 10/20/18 10/21/18 19:00 07:00 Intake Total 1400 ml 300 ml Output Total 500 ml Balance 1400 ml -200 ml Intake Oral 1400 ml IV Total 300 ml Output Urine Total 500 ml # Voids 7 Dressing: dry Wound: other Drains: other Cardiovascular: RSR Respiratory: clear Abdomen: soft, non-tender, present bowel sounds Extremities: edema, tenderness, cyanosis Plan Problems: (1) UTI (urinary tract infection) (2) homelessness (3) Paraplegia (4) Cellulitis Assessment & Plan: 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 Opening approx 3cm x 2cm and tunnels >9cm. (+) Epibole. Small amount of serosanguineous exudate noted. No purulent drainage. Periwound intact but with chronic skin changes. Wound related to wheelchair use and pressure. Patient aware of wound and has been given instructions for care and planning prior but admits he does not adhere to plan Almost near circumferential dorsal and ankle dermal loss / ulceration to the right foot. plantar aspect with rugged thick callus tissue. Wounds have continued to deteriorate bleeding granulation tissue forming. edema with cellulitis noted. draining serosang fluid. no abscess. tender on palpation. Does not tend to wounds and notes this stage 3 ulcer deep wound at distal L tibia. Prior CTA with good runoff. seems to have good vascular flow to foot as well clinically Prior plain films and imaging reviewed. I did discuss worsening condition with patient and possibility of amputation in future if continues to deteriorate. Left foot has made great improvement overall and no longer with large wounds and edema improved. Tx.Plan: Cleanse wound R Ischium with Saline.Loosely pack with Hydrogel impregnated gauze.Cavilon wipe to borders. Cover with Optifoam drsg daily and prn. Cleanse wound R buttocks and sacrum with NS. Apply Cavilon and cover with Optifoam drsg .Change every 7 days and prn. Cleanse wounds R lower ext with Saline. Apply Silvasorb gel .Cover with Xeroform, Abd and wrap with kerlix Daily turn q2h for repositioning Air Mattress (5) Spinal cord injury (6) PVD (peripheral vascular disease) (7) Chronic wound of extremity Assessment & Plan: DAILY ESTIMATED NEEDS: Needs based on Advanced wounds/ 90kg abw 25-30 kcals/kg 7101-1274 total kcals 1.25-2.0 g protein/kg 113-180 g total protein 25-30 mL/kg 1939-5646 total fluid mLs NUTRITION DIAGNOSIS: Increased kcal and protein needs r/t wound healing as evidenced by pt admitted w/ multiple advanced wounds w/ history of full thickness pressure injury R ischium and stage 3 ulcer deep wound at distal L tibia,pending eval update. PO DIET RECOMMENDATIONS: REGULAR + DOUBLE PROTEIN PORTIONS ---- ADDITIONAL RECOMMENDATIONS: * Wound healing: CHARAN BID + MVI w/ min daily + Vit C 250mg BID F/up w/ WC eval * Calibrated bedscale wt for accurate CBW * Monitor lytes, replete as needed * Monitor PO intake (8) Intractable back pain Additional Comments okay to d/c from surgical standpoint patient will need to seek outpatient wound care but states he will care for wounds himself. Shilo Arrington October 21, 2018 16:05
--- NOTE | 2018-10-21 16:40 | NUR ---
NURSE NOTES: Wound care provided to Left and Right foot; dressing changed; patient tolerated well.
--- NOTE | 2018-10-21 17:07 | NUR ---
CASE MANAGEMENT: REVIEW SI: INTRACTABLE BACK PAIN . CELLULITIS VS: BP 102/59, P 91, T 98.7, RR 18, SpO2 99 NO LABS TODAY IS:MORPHINE 2mg IVP HEPARIN SUBQ LINEZOLID 300ml IVPB MED/SURG STATUS
--- NOTE | 2018-10-21 19:45 | NUR ---
HAND-OFF: Report given to ELIZABETH Wood.
[2018-10-21 20:00] VITALS: BP 143/97
[2018-10-22] VITALS: BP 143/97
[2018-10-22] MEDS: Morphine Sulfate 2mg/ml Inj(IV/IM USE ONLY) IVP PRN ×6 (00:07→21:19)
[2018-10-22 04:00] VITALS: BP 128/79
--- NOTE | 2018-10-22 07:30 | NUR ---
NURSE NOTES: Received pt from ELIZABETH BARAKAT. Pt is alert and orient x4. pt is in RA, No SOB or acute respiratory distress noted. pt has intact iv access LAC 22G SL. Pt is eating breakfast. all needs attended, bed is locked and is in the lowest position, call light within easy reach. will continue to monitor.
[2018-10-22 07:45] LABS: BASOPHILS % (AUTO) 1.1 % (0.0-2.0); EOSINOPHILS % (AUTO) 3.2 % (0.0-3.0); HEMATOCRIT 36.7 % (42.0-52.0); HEMOGLOBIN 11.5 G/DL (14.2-18.0); LYMPHOCYTES % (AUTO) 21.6 % (20.0-45.0); MEAN CORPUSCULAR VOLUME 72 FL (80-99); MONOCYTES % (AUTO) 6.6 % (1.0-10.0); NEUTROPHILS % (AUTO) 67.6 % (45.0-75.0); PLATELET COUNT 363 K/UL (150-450); RED BLOOD COUNT 5.09 M/UL (4.70-6.10); RED CELL DISTRIBUTION WIDTH 16.8 % (11.6-14.8); WHITE BLOOD COUNT 5.7 K/UL (4.8-10.8)
[2018-10-22 07:57] LABS: ANION GAP 7 mmol/L (5-15); BLOOD UREA NITROGEN 14 mg/dL (7-18); CARBON DIOXIDE 29 MMOL/L (21-32); CHLORIDE 103 MMOL/L (98-107); CREATININE 1.1 MG/DL (0.55-1.30); POTASSIUM 3.9 MMOL/L (3.5-5.1); SODIUM 139 MMOL/L (136-145)
[2018-10-22 08:00] VITALS: BP 117/65
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
[2018-10-22] MEDS: Heparin 5000 units/ml inj SUBQ SCH ×2 (09:00→21:00)
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
[2018-10-22] MEDS: Ascorbic Acid 500mg tab ORAL SCH ×2 (09:18→17:28)
[2018-10-22] MEDS: Levofloxacin 750mg tab ORAL SCH (09:19)
[2018-10-22] MEDS: Zinc Sulfate 220mg cap ORAL SCH (09:19)
--- NOTE | 2018-10-22 11:15 | Nephrology Progress Note ---
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 (6) Paraplegia (7) Decubitus ulcer, stage 3 with infection (8) Sociopathic personality disorder (9) Hypersexuality (10) homelessness (11) Methamphetamine abuse (12) Anemia Plan plan ; Po KCL ordered labs checked new labs ordered not much to add from renal stand Objective Objective Last 24 Hour Vital Signs Date Time Temp Pulse Resp B/P (MAP) Pulse Ox O2 Delivery O2 Flow Rate FiO2 10/22/18 09:50 98.2 10/22/18 08:00 98.2 80 20 117/65 (82) 97 10/22/18 07:29 72 18 98 Room Air 21 10/22/18 04:00 97.3 67 18 128/79 (95) 98 10/22/18 00:00 97.7 69 18 143/97 (112) 100 10/21/18 21:00 Room Air 10/21/18 20:00 96.8 79 18 143/97 (112) 98 10/21/18 19:52 79 18 98 Room Air 21 10/21/18 16:00 98.7 91 18 102/59 (73) 99 10/21/18 12:00 98.2 79 19 110/69 (83) 95 Intake and Output 10/21/18 10/22/18 19:00 07:00 Intake Total 1260 ml Output Total 1500 ml 900 ml Balance -240 ml -900 ml Intake Oral 960 ml IV Total 300 ml Output Urine Total 1500 ml 900 ml # Voids 4 Laboratory Tests 10/22/18 06:19: White Blood Count 5.7, Red Blood Count 5.09, Hemoglobin 11.5L, Hematocrit 36.7L , Mean Corpuscular Volume 72L, Mean Corpuscular Hemoglobin 22.5L, Mean Corpuscular Hemoglobin Concent 31.2L, Red Cell Distribution Width 16.8H, Platelet Count 363, Mean Platelet Volume 7.3, Neutrophils (%) (Auto) 67.6, Lymphocytes (%) (Auto) 21.6, Monocytes (%) (Auto) 6.6, Eosinophils (%) (Auto) 3.2H, Basophils (%) (Auto) 1.1, Sodium Level 139, Potassium Level 3.9, Chloride Level 103, Carbon Dioxide Level 29, Anion Gap 7, Blood Urea Nitrogen 14, Creatinine 1.1, Estimat Glomerular Filtration Rate > 60, Glucose Level 80, Calcium Level 9.0 Height (Feet): 6 Height (Inches): 1.00 Weight (Pounds): 195 Objective no change Woody Cruz MD October 22, 2018 11:15
[2018-10-22 12:00] VITALS: BP 121/94
--- NOTE | 2018-10-22 12:05 | Pulmonology Progress Note ---
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 (6) Paraplegia (7) Decubitus ulcer, stage 3 with infection (8) Sociopathic personality disorder (9) Hypersexuality (10) homelessness (11) Methamphetamine abuse Assessment/Plan pt wants to leave continue current regimen no new complains continue abx refusing care at times Subjective ROS Limited/Unobtainable: No Constitutional: Reports: no symptoms HEENT: Repors: no symptoms Respiratory: Reports: no symptoms Allergies: Coded Allergies: PENICILLIN G (Verified Allergy, Unknown, 05/05/18) Tolerates carbapenems and cephalosporins UNABLE TO ASSESS (Unverified , 09/24/18) Objective Last 24 Hour Vital Signs Date Time Temp Pulse Resp B/P (MAP) Pulse Ox O2 Delivery O2 Flow Rate FiO2 10/22/18 09:50 98.2 10/22/18 09:00 Room Air 10/22/18 08:00 98.2 80 20 117/65 (82) 97 10/22/18 07:29 72 18 98 Room Air 21 10/22/18 04:00 97.3 67 18 128/79 (95) 98 10/22/18 00:00 97.7 69 18 143/97 (112) 100 10/21/18 21:00 Room Air 10/21/18 20:00 96.8 79 18 143/97 (112) 98 10/21/18 19:52 79 18 98 Room Air 21 10/21/18 16:00 98.7 91 18 102/59 (73) 99 Intake and Output 10/21/18 10/22/18 19:00 07:00 Intake Total 1260 ml Output Total 1500 ml 900 ml Balance -240 ml -900 ml Intake Oral 960 ml IV Total 300 ml Output Urine Total 1500 ml 900 ml # Voids 4 Objective HEENT: normocephalic, atraumatic Respiratory/Chest: chest wall non-tender, lungs clear Cardiovascular: normal peripheral pulses, normal rate Abdomen: normal bowel sounds, no organomegaly Extremities: no cyanosis Skin: no lesions, clean dressing Laboratory Tests 10/22/18 06:19: White Blood Count 5.7, Red Blood Count 5.09, Hemoglobin 11.5L, Hematocrit 36.7L , Mean Corpuscular Volume 72L, Mean Corpuscular Hemoglobin 22.5L, Mean Corpuscular Hemoglobin Concent 31.2L, Red Cell Distribution Width 16.8H, Platelet Count 363, Mean Platelet Volume 7.3, Neutrophils (%) (Auto) 67.6, Lymphocytes (%) (Auto) 21.6, Monocytes (%) (Auto) 6.6, Eosinophils (%) (Auto) 3.2H, Basophils (%) (Auto) 1.1, Sodium Level 139, Potassium Level 3.9, Chloride Level 103, Carbon Dioxide Level 29, Anion Gap 7, Blood Urea Nitrogen 14, Creatinine 1.1, Estimat Glomerular Filtration Rate > 60, Glucose Level 80, Calcium Level 9.0 Current Medications Medications (Trade) Dose Ordered Sig/Michael Route PRN Reason Start Time Stop Time Status Last Admin Dose Admin Acetaminophen (Tylenol) 650 mg Q4H PRN ORAL fever 10/14/18 07:15 11/13/18 07:14 Ascorbic Acid (Vitamin C) 250 mg TWICE A DAY ORAL 10/14/18 18:00 11/13/18 17:59 10/22/18 09:18 Dextrose (Dextrose 50%) 25 ml Q30M PRN IV Hypoglycemia 10/14/18 07:30 11/13/18 07:19 Dextrose (Dextrose 50%) 50 ml Q30M PRN IV hypoglycemia 10/14/18 07:30 11/13/18 07:29 Heparin Sodium (Porcine) (Heparin 5000 units/ml) 5,000 units EVERY 12 HOURS SUBQ 10/14/18 09:00 11/13/18 08:59 10/21/18 20:43 Levofloxacin (Levaquin) 750 mg DAILY ORAL 10/14/18 17:45 10/27/18 17:44 10/22/18 09:19 Linezolid (Zyvox) 600 mg Q12HR ORAL 10/21/18 21:00 10/25/18 23:00 10/22/18 09:18 Morphine Sulfate (Morphine Sulfate) 2 mg Q4H PRN IVP Severe Pain (Pain Scale 7-10) 10/21/18 13:30 10/28/18 13:29 10/22/18 09:20 Multivitamins (Multivitamins) 1 tab DAILY ORAL 10/15/18 09:00 11/14/18 08:59 10/22/18 09:19 Nitroglycerin (Ntg) 0.4 mg Q5M PRN SL Prn Chest Pain 10/14/18 07:15 11/13/18 07:14 Ondansetron HCl (Zofran) 4 mg Q6H PRN IVP Nausea & Vomiting 10/14/18 07:15 11/13/18 07:14 Polyethylene Glycol (Miralax) 17 gm DAILYPRN PRN ORAL Constipation 10/14/18 07:15 11/13/18 07:14 Potassium Chloride (K-Dur) 40 meq BID ORAL 10/16/18 18:00 11/14/18 08:59 10/22/18 09:18 Zinc Sulfate (Zinc Sulfate) 220 mg DAILY ORAL 10/16/18 09:00 10/26/18 08:59 10/22/18 09:19 Francheska Armas MD October 22, 2018 12:05
--- NOTE | 2018-10-22 13:17 | NUR ---
*-* INSURANCE *-* UPDATED CLINCALS HAVE BEEN FAXED TO: [facility] NCM:PHILL P:[phone] F; [phone]
--- NOTE | 2018-10-22 14:31 | General Progress Note ---
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 ICD Codes: E11.49 - Type 2 diabetes mellitus with other diabetic neurological complication SNOMED: 80384702, 360097020 (6) Asthma ICD Codes: J45.909 - Unspecified asthma, uncomplicated SNOMED: 691614911 (7) PVD (peripheral vascular disease) ICD Codes: I73.9 - Peripheral vascular disease, unspecified SNOMED: 931645465 (8) Ulcer of foot ICD Codes: L97.509 - Non-pressure chronic ulcer of other part of unspecified foot with unspecified severity SNOMED: 08937001 (9) Chronic wound of extremity SNOMED: 512379227 (10) Methamphetamine abuse ICD Codes: F15.10 - Other stimulant abuse, uncomplicated SNOMED: 048268415 (11) Intractable back pain ICD Codes: M54.9 - Dorsalgia, unspecified SNOMED: 938361295 Status: stable, progressing Assessment/Plan: wound care pain control abx pt dietary cbc bmp am dc to snf if clear Subjective Constitutional: Reports: weakness Allergies: Coded Allergies: PENICILLIN G (Verified Allergy, Unknown, 05/05/18) Tolerates carbapenems and cephalosporins UNABLE TO ASSESS (Unverified , 09/24/18) All Systems: reviewed and negative except above Subjective sitting in chair calm Objective Last 24 Hour Vital Signs Date Time Temp Pulse Resp B/P (MAP) Pulse Ox O2 Delivery O2 Flow Rate FiO2 10/22/18 13:53 98.2 10/22/18 12:00 98.2 100 20 121/94 (103) 95 10/22/18 09:00 Room Air 10/22/18 08:00 98.2 80 20 117/65 (82) 97 10/22/18 07:29 72 18 98 Room Air 21 10/22/18 04:00 97.3 67 18 128/79 (95) 98 10/22/18 00:00 97.7 69 18 143/97 (112) 100 10/21/18 21:00 Room Air 10/21/18 20:00 96.8 79 18 143/97 (112) 98 10/21/18 19:52 79 18 98 Room Air 21 10/21/18 16:00 98.7 91 18 102/59 (73) 99 Intake and Output 10/21/18 10/22/18 19:00 07:00 Intake Total 1260 ml Output Total 1500 ml 900 ml Balance -240 ml -900 ml Intake Oral 960 ml IV Total 300 ml Output Urine Total 1500 ml 900 ml # Voids 4 Laboratory Tests 10/22/18 06:19: White Blood Count 5.7, Red Blood Count 5.09, Hemoglobin 11.5L, Hematocrit 36.7L , Mean Corpuscular Volume 72L, Mean Corpuscular Hemoglobin 22.5L, Mean Corpuscular Hemoglobin Concent 31.2L, Red Cell Distribution Width 16.8H, Platelet Count 363, Mean Platelet Volume 7.3, Neutrophils (%) (Auto) 67.6, Lymphocytes (%) (Auto) 21.6, Monocytes (%) (Auto) 6.6, Eosinophils (%) (Auto) 3.2H, Basophils (%) (Auto) 1.1, Sodium Level 139, Potassium Level 3.9, Chloride Level 103, Carbon Dioxide Level 29, Anion Gap 7, Blood Urea Nitrogen 14, Creatinine 1.1, Estimat Glomerular Filtration Rate > 60, Glucose Level 80, Calcium Level 9.0 Height (Feet): 6 Height (Inches): 1.00 Weight (Pounds): 195 General Appearance: lethargic EENT: normal ENT inspection Neck: normal alignment Cardiovascular: normal peripheral pulses, normal rate, regular rhythm Respiratory/Chest: chest wall non-tender, lungs clear, normal breath sounds Abdomen: normal bowel sounds, non tender, soft Extremities: normal inspection Edema: no edema noted Arm (L), no edema noted Arm (R), no edema noted Leg (L), no edema noted Leg (R), no edema noted Pedal (L), no edema noted Pedal (R), no edema noted Generalized Neurologic: responsive, motor weakness Skin: normal pigmentation, warm/dry Objective foot dressing sl stained [place] DO October 22, 2018 14:31
--- NOTE | 2018-10-22 15:07 | NUR ---
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 CURRENT DIET: REGULAR PO DIET RECOMMENDATIONS: REGULAR + DOUBLE PROTEIN PORTIONS ADDITIONAL RECOMMENDATIONS: * Wound healing: CHARAN BID + MVI w/ min daily + Vit C 250mg BID + Zn SO4 220mg daily x 10 days * Calibrated bedscale wt for accurate CBW * Monitor lytes, replete as needed * Monitor PO intake - good intake of all meals * Bowel regimen -> last noted on 10/16
--- NOTE | 2018-10-22 15:19 | Surgery Progress Note ---
Surgery Progress Note Subjective Symptoms: improved, pain same, tolerating diet, passing flatus, BM Objective Last 24 Hour Vital Signs Date Time Temp Pulse Resp B/P (MAP) Pulse Ox O2 Delivery O2 Flow Rate FiO2 10/22/18 13:53 98.2 10/22/18 12:00 98.2 100 20 121/94 (103) 95 10/22/18 09:00 Room Air 10/22/18 08:00 98.2 80 20 117/65 (82) 97 10/22/18 07:29 72 18 98 Room Air 21 10/22/18 04:00 97.3 67 18 128/79 (95) 98 10/22/18 00:00 97.7 69 18 143/97 (112) 100 10/21/18 21:00 Room Air 10/21/18 20:00 96.8 79 18 143/97 (112) 98 10/21/18 19:52 79 18 98 Room Air 21 10/21/18 16:00 98.7 91 18 102/59 (73) 99 I&O Intake and Output 10/21/18 10/22/18 19:00 07:00 Intake Total 1260 ml Output Total 1500 ml 900 ml Balance -240 ml -900 ml Intake Oral 960 ml IV Total 300 ml Output Urine Total 1500 ml 900 ml # Voids 4 Dressing: saturated Wound: other Drains: other Cardiovascular: RSR Respiratory: clear Abdomen: soft, present bowel sounds, non-distended Extremities: edema, tenderness, cyanosis Laboratory Tests Test 10/22/18 06:19 White Blood Count 5.7 K/UL (4.8-10.8) Red Blood Count 5.09 M/UL (4.70-6.10) Hemoglobin 11.5 G/DL (14.2-18.0) L Hematocrit 36.7 % (42.0-52.0) L Mean Corpuscular Volume 72 FL (80-99) L Mean Corpuscular Hemoglobin 22.5 PG (27.0-31.0) L Mean Corpuscular Hemoglobin Concent 31.2 G/DL (32.0-36.0) L Red Cell Distribution Width 16.8 % (11.6-14.8) H Platelet Count 363 K/UL (150-450) Mean Platelet Volume 7.3 FL (6.5-10.1) Neutrophils (%) (Auto) 67.6 % (45.0-75.0) Lymphocytes (%) (Auto) 21.6 % (20.0-45.0) Monocytes (%) (Auto) 6.6 % (1.0-10.0) Eosinophils (%) (Auto) 3.2 % (0.0-3.0) H Basophils (%) (Auto) 1.1 % (0.0-2.0) Sodium Level 139 MMOL/L (136-145) Potassium Level 3.9 MMOL/L (3.5-5.1) Chloride Level 103 MMOL/L (98-107) Carbon Dioxide Level 29 MMOL/L (21-32) Anion Gap 7 mmol/L (5-15) Blood Urea Nitrogen 14 mg/dL (7-18) Creatinine 1.1 MG/DL (0.55-1.30) Estimat Glomerular Filtration Rate > 60 mL/min (>60) Glucose Level 80 MG/DL (74-106) Calcium Level 9.0 MG/DL (8.5-10.1) Plan Problems: (1) UTI (urinary tract infection) (2) homelessness (3) Paraplegia (4) Cellulitis Assessment & Plan: 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 Opening approx 3cm x 2cm and tunnels >9cm. (+) Epibole. Small amount of serosanguineous exudate noted. No purulent drainage. Periwound intact but with chronic skin changes. Wound related to wheelchair use and pressure. Patient aware of wound and has been given instructions for care and planning prior but admits he does not adhere to plan Almost near circumferential dorsal and ankle dermal loss / ulceration to the right foot. plantar aspect with rugged thick callus tissue. Wounds have continued to deteriorate bleeding granulation tissue forming. edema with cellulitis noted. draining serosang fluid. no abscess. tender on palpation. Does not tend to wounds and notes this stage 3 ulcer deep wound at distal L tibia. Prior CTA with good runoff. seems to have good vascular flow to foot as well clinically Prior plain films and imaging reviewed. I did discuss worsening condition with patient and possibility of amputation in future if continues to deteriorate. Left foot has made great improvement overall and no longer with large wounds and edema improved. Tx.Plan: Cleanse wound R Ischium with Saline.Loosely pack with Hydrogel impregnated gauze.Cavilon wipe to borders. Cover with Optifoam drsg daily and prn. Cleanse wound R buttocks and sacrum with NS. Apply Cavilon and cover with Optifoam drsg .Change every 7 days and prn. Cleanse wounds R lower ext with Saline. Apply Silvasorb gel .Cover with Xeroform, Abd and wrap with kerlix Daily turn q2h for repositioning Air Mattress (5) Spinal cord injury (6) PVD (peripheral vascular disease) (7) Chronic wound of extremity Assessment & Plan: DAILY ESTIMATED NEEDS: Needs based on Advanced wounds/ 90kg abw 25-30 kcals/kg 6149-4591 total kcals 1.25-2.0 g protein/kg 113-180 g total protein 25-30 mL/kg 4500-9234 total fluid mLs NUTRITION DIAGNOSIS: Increased kcal and protein needs r/t wound healing as evidenced by pt admitted w/ multiple advanced wounds w/ history of full thickness pressure injury R ischium and stage 3 ulcer deep wound at distal L tibia,pending eval update. PO DIET RECOMMENDATIONS: REGULAR + DOUBLE PROTEIN PORTIONS ---- ADDITIONAL RECOMMENDATIONS: * Wound healing: CHARAN BID + MVI w/ min daily + Vit C 250mg BID F/up w/ WC eval * Calibrated bedscale wt for accurate CBW * Monitor lytes, replete as needed * Monitor PO intake (8) Intractable back pain Additional Comments d/c planning okay to continue current wound care plan f/u outpatient with wound care clinic Shilo Arrington October 22, 2018 15:19
[2018-10-22 16:00] VITALS: BP 104/78
--- NOTE | 2018-10-22 16:51 | NUR ---
PARACHUTE MENDERLEASE PICKER SI:INTRACTABLE BACK PAIN . CELLULITIS VS: BP 104/78, P 64, T 98.2, RR 20, SpO2 95 H&H 11.5/36.7 IS:MORPHINE SULFATE 2mg IVP LEVAQUIN 750mg K-DUR 40meq ZYVOX 600mg MED/SURG STATUS
--- NOTE | 2018-10-22 17:00 | NUR ---
NURSE NOTES: wound treatment done as order, pt tolerate well. will continue to monitor.
--- NOTE | 2018-10-22 19:34 | NUR ---
HAND-OFF: Report given to [facility].
--- NOTE | 2018-10-22 19:35 | NUR ---
NURSE NOTES: Received patient in no apparent distress. A&OX4, talking himself, shouting at this time. IV site patent and intact. Dressing on foot, dry and intact. Patient refused to assess the skin, explained risk and benefit nut still refused. Patient says I'm ok". Bed in lowest position. Call light within reach. Will continue to monitor.
[2018-10-22 20:00] VITALS: BP 109/62
[2018-10-22] MEDS ORDERED: HYDROcodone/Acetamin 5/325 tab ORAL PRN (22:00)
[2018-10-23] VITALS: BP 111/80
[2018-10-23] MEDS: Morphine Sulfate 2mg/ml Inj(IV/IM USE ONLY) IVP PRN ×6 (01:40→22:20)
[2018-10-23 04:00] VITALS: BP 109/79
[2018-10-23 07:12] LABS: BASOPHILS % (AUTO) 1.1 % (0.0-2.0); EOSINOPHILS % (AUTO) 2.2 % (0.0-3.0); HEMATOCRIT 37.3 % (42.0-52.0); HEMOGLOBIN 11.9 G/DL (14.2-18.0); LYMPHOCYTES % (AUTO) 23.8 % (20.0-45.0); MEAN CORPUSCULAR VOLUME 72 FL (80-99); MONOCYTES % (AUTO) 6.7 % (1.0-10.0); NEUTROPHILS % (AUTO) 66.2 % (45.0-75.0); PLATELET COUNT 378 K/UL (150-450); RED CELL DISTRIBUTION WIDTH 16.5 % (11.6-14.8); WHITE BLOOD COUNT 5.5 K/UL (4.8-10.8)
--- NOTE | 2018-10-23 07:25 | NUR ---
HAND-OFF: Report given to Irma JOHNSON.
--- NOTE | 2018-10-23 07:30 | NUR ---
NURSE NOTES: Received pt from [facility]. Pt is alert and orient x4. pt is in RA, No SOB or acute respiratory distress noted. pt has intact iv access LAC 22G SL. Pt is eating breakfast. all needs attended, bed is locked and is in the lowest position, call light within easy reach. will continue to monitor.
[2018-10-23 07:34] LABS: ANION GAP 9 mmol/L (5-15); BLOOD UREA NITROGEN 17 mg/dL (7-18); CARBON DIOXIDE 24 MMOL/L (21-32); CHLORIDE 104 MMOL/L (98-107); POTASSIUM 4.1 MMOL/L (3.5-5.1); SODIUM 137 MMOL/L (136-145)
[2018-10-23 08:00] VITALS: BP 109/55
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
[2018-10-23] MEDS: Zinc Sulfate 220mg cap ORAL SCH (09:31)
[2018-10-23] MEDS: Heparin 5000 units/ml inj SUBQ SCH ×2 (09:31→21:00)
[2018-10-23] MEDS: Ascorbic Acid 500mg tab ORAL SCH ×2 (09:31→18:18)
[2018-10-23] MEDS: Levofloxacin 750mg tab ORAL SCH (09:31)
--- NOTE | 2018-10-23 11:23 | NUR ---
*-* INSURANCE *-* UPDATED CLINCALS HAVE BEEN FAXED TO: [facility] [employer] NCM:[facility]ILL P:[phone] F; [phone]
[2018-10-23 12:00] VITALS: BP 106/63
--- NOTE | 2018-10-23 12:32 | Nephrology Progress Note ---
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 (6) Paraplegia (7) Decubitus ulcer, stage 3 with infection (8) Sociopathic personality disorder (9) Hypersexuality (10) homelessness (11) Methamphetamine abuse (12) Anemia Plan plan ; Po KCL ordered labs checked new labs ordered not much to add from renal stand Subjective ROS Limited/Unobtainable: No Objective Objective Last 24 Hour Vital Signs Date Time Temp Pulse Resp B/P (MAP) Pulse Ox O2 Delivery O2 Flow Rate FiO2 10/23/18 12:00 98.1 86 18 106/63 (77) 97 10/23/18 10:10 98.2 10/23/18 09:00 Room Air 10/23/18 08:00 98.2 82 19 109/55 (73) 99 10/23/18 07:39 78 18 98 Room Air 21 10/23/18 04:00 97.9 67 18 109/79 (89) 97 10/23/18 00:00 97.5 79 18 111/80 (90) 97 10/22/18 21:00 Room Air 10/22/18 20:44 81 20 97 Room Air 21 10/22/18 20:00 97.8 82 18 109/62 (78) 97 10/22/18 16:00 98.6 64 20 104/78 (87) 98 Intake and Output 10/22/18 10/23/18 19:00 07:00 Intake Total 900 ml Output Total 1400 ml 400 ml Balance -500 ml -400 ml Intake Oral 900 ml Output Urine Total 1400 ml 400 ml # Voids 4 Laboratory Tests 10/23/18 06:00: White Blood Count 5.5, Red Blood Count 5.20, Hemoglobin 11.9L, Hematocrit 37.3L , Mean Corpuscular Volume 72L, Mean Corpuscular Hemoglobin 22.9L, Mean Corpuscular Hemoglobin Concent 31.9L, Red Cell Distribution Width 16.5H, Platelet Count 378, Mean Platelet Volume 7.0, Neutrophils (%) (Auto) 66.2, Lymphocytes (%) (Auto) 23.8, Monocytes (%) (Auto) 6.7, Eosinophils (%) (Auto) 2.2, Basophils (%) (Auto) 1.1, Sodium Level 137, Potassium Level 4.1, Chloride Level 104, Carbon Dioxide Level 24, Anion Gap 9, Blood Urea Nitrogen 17, Creatinine 1.0, Estimat Glomerular Filtration Rate > 60, Glucose Level 86, Calcium Level 9.0 Height (Feet): 6 Height (Inches): 1.00 Weight (Pounds): 195 General Appearance: no apparent distress Objective no change Woody Cruz MD October 23, 2018 12:32
--- NOTE | 2018-10-23 12:47 | Pulmonology Progress Note ---
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 (6) Paraplegia (7) Decubitus ulcer, stage 3 with infection (8) Sociopathic personality disorder (9) Hypersexuality (10) homelessness (11) Methamphetamine abuse Assessment/Plan no new complains all reviewed continue current regimen no new complains continue abx refusing care at times Subjective ROS Limited/Unobtainable: No Constitutional: Reports: no symptoms HEENT: Repors: no symptoms Allergies: Coded Allergies: PENICILLIN G (Verified Allergy, Unknown, 05/05/18) Tolerates carbapenems and cephalosporins UNABLE TO ASSESS (Unverified , 09/24/18) Objective Last 24 Hour Vital Signs Date Time Temp Pulse Resp B/P (MAP) Pulse Ox O2 Delivery O2 Flow Rate FiO2 10/23/18 12:00 98.1 86 18 106/63 (77) 97 10/23/18 10:10 98.2 10/23/18 09:00 Room Air 10/23/18 08:00 98.2 82 19 109/55 (73) 99 10/23/18 07:39 78 18 98 Room Air 21 10/23/18 04:00 97.9 67 18 109/79 (89) 97 10/23/18 00:00 97.5 79 18 111/80 (90) 97 10/22/18 21:00 Room Air 10/22/18 20:44 81 20 97 Room Air 21 10/22/18 20:00 97.8 82 18 109/62 (78) 97 10/22/18 16:00 98.6 64 20 104/78 (87) 98 Intake and Output 10/22/18 10/23/18 19:00 07:00 Intake Total 900 ml Output Total 1400 ml 400 ml Balance -500 ml -400 ml Intake Oral 900 ml Output Urine Total 1400 ml 400 ml # Voids 4 Objective HEENT: normocephalic, atraumatic Respiratory/Chest: chest wall non-tender, lungs clear Cardiovascular: normal peripheral pulses, normal rate Abdomen: normal bowel sounds, no organomegaly Extremities: no cyanosis Skin: no lesions, clean dressing Laboratory Tests 10/23/18 06:00: White Blood Count 5.5, Red Blood Count 5.20, Hemoglobin 11.9L, Hematocrit 37.3L , Mean Corpuscular Volume 72L, Mean Corpuscular Hemoglobin 22.9L, Mean Corpuscular Hemoglobin Concent 31.9L, Red Cell Distribution Width 16.5H, Platelet Count 378, Mean Platelet Volume 7.0, Neutrophils (%) (Auto) 66.2, Lymphocytes (%) (Auto) 23.8, Monocytes (%) (Auto) 6.7, Eosinophils (%) (Auto) 2.2, Basophils (%) (Auto) 1.1, Sodium Level 137, Potassium Level 4.1, Chloride Level 104, Carbon Dioxide Level 24, Anion Gap 9, Blood Urea Nitrogen 17, Creatinine 1.0, Estimat Glomerular Filtration Rate > 60, Glucose Level 86, Calcium Level 9.0 Current Medications Medications (Trade) Dose Ordered Sig/Michael Route PRN Reason Start Time Stop Time Status Last Admin Dose Admin Acetaminophen (Tylenol) 650 mg Q4H PRN ORAL fever 10/14/18 07:15 11/13/18 07:14 Acetaminophen/ Hydrocodone Bitart ([place] 5/325) 1 tab Q6H PRN ORAL Moderate Pain (Pain Scale 4-6) 10/22/18 22:00 10/29/18 21:59 Ascorbic Acid (Vitamin C) 250 mg TWICE A DAY ORAL 10/14/18 18:00 11/13/18 17:59 10/23/18 09:31 Dextrose (Dextrose 50%) 25 ml Q30M PRN IV Hypoglycemia 10/14/18 07:30 11/13/18 07:19 Dextrose (Dextrose 50%) 50 ml Q30M PRN IV hypoglycemia 10/14/18 07:30 11/13/18 07:29 Heparin Sodium (Porcine) (Heparin 5000 units/ml) 5,000 units EVERY 12 HOURS SUBQ 10/14/18 09:00 11/13/18 08:59 10/21/18 20:43 Linezolid (Zyvox) 600 mg Q12HR ORAL 10/21/18 21:00 10/25/18 23:00 10/23/18 09:30 Morphine Sulfate (Morphine Sulfate) 2 mg Q4H PRN IVP Severe Pain (Pain Scale 7-10) 10/21/18 13:30 10/28/18 13:29 10/23/18 09:40 Multivitamins (Multivitamins) 1 tab DAILY ORAL 10/15/18 09:00 11/14/18 08:59 10/23/18 09:31 Nitroglycerin (Ntg) 0.4 mg Q5M PRN SL Prn Chest Pain 10/14/18 07:15 11/13/18 07:14 Ondansetron HCl (Zofran) 4 mg Q6H PRN IVP Nausea & Vomiting 10/14/18 07:15 11/13/18 07:14 Polyethylene Glycol (Miralax) 17 gm DAILYPRN PRN ORAL Constipation 10/14/18 07:15 11/13/18 07:14 Potassium Chloride (K-Dur) 40 meq BID ORAL 10/16/18 18:00 11/14/18 08:59 10/23/18 09:31 Zinc Sulfate (Zinc Sulfate) 220 mg DAILY ORAL 10/16/18 09:00 10/26/18 08:59 10/23/18 09:31 Francheska Armas MD October 23, 2018 12:47
--- NOTE | 2018-10-23 13:02 | Surgery Progress Note ---
Surgery Progress Note Subjective Additional Comments no acute events. states he likes watching TV comfortable at times allows for wound care. Objective Last 24 Hour Vital Signs Date Time Temp Pulse Resp B/P (MAP) Pulse Ox O2 Delivery O2 Flow Rate FiO2 10/23/18 12:00 98.1 86 18 106/63 (77) 97 10/23/18 10:10 98.2 10/23/18 09:00 Room Air 10/23/18 08:00 98.2 82 19 109/55 (73) 99 10/23/18 07:39 78 18 98 Room Air 21 10/23/18 04:00 97.9 67 18 109/79 (89) 97 10/23/18 00:00 97.5 79 18 111/80 (90) 97 10/22/18 21:00 Room Air 10/22/18 20:44 81 20 97 Room Air 21 10/22/18 20:00 97.8 82 18 109/62 (78) 97 10/22/18 16:00 98.6 64 20 104/78 (87) 98 I&O Intake and Output 10/22/18 10/23/18 19:00 07:00 Intake Total 900 ml Output Total 1400 ml 400 ml Balance -500 ml -400 ml Intake Oral 900 ml Output Urine Total 1400 ml 400 ml # Voids 4 Dressing: saturated Wound: other Drains: other Cardiovascular: RSR Respiratory: clear Abdomen: soft, flat, non-tender, present bowel sounds, non-distended Extremities: edema, tenderness, cyanosis Laboratory Tests Test 10/23/18 06:00 White Blood Count 5.5 K/UL (4.8-10.8) Red Blood Count 5.20 M/UL (4.70-6.10) Hemoglobin 11.9 G/DL (14.2-18.0) L Hematocrit 37.3 % (42.0-52.0) L Mean Corpuscular Volume 72 FL (80-99) L Mean Corpuscular Hemoglobin 22.9 PG (27.0-31.0) L Mean Corpuscular Hemoglobin Concent 31.9 G/DL (32.0-36.0) L Red Cell Distribution Width 16.5 % (11.6-14.8) H Platelet Count 378 K/UL (150-450) Mean Platelet Volume 7.0 FL (6.5-10.1) Neutrophils (%) (Auto) 66.2 % (45.0-75.0) Lymphocytes (%) (Auto) 23.8 % (20.0-45.0) Monocytes (%) (Auto) 6.7 % (1.0-10.0) Eosinophils (%) (Auto) 2.2 % (0.0-3.0) Basophils (%) (Auto) 1.1 % (0.0-2.0) Sodium Level 137 MMOL/L (136-145) Potassium Level 4.1 MMOL/L (3.5-5.1) Chloride Level 104 MMOL/L (98-107) Carbon Dioxide Level 24 MMOL/L (21-32) Anion Gap 9 mmol/L (5-15) Blood Urea Nitrogen 17 mg/dL (7-18) Creatinine 1.0 MG/DL (0.55-1.30) Estimat Glomerular Filtration Rate > 60 mL/min (>60) Glucose Level 86 MG/DL (74-106) Calcium Level 9.0 MG/DL (8.5-10.1) Plan Problems: (1) UTI (urinary tract infection) (2) homelessness (3) Paraplegia (4) Cellulitis Assessment & Plan: 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 Opening approx 3cm x 2cm and tunnels >9cm. (+) Epibole. Small amount of serosanguineous exudate noted. No purulent drainage. Periwound intact but with chronic skin changes. Wound related to wheelchair use and pressure. Patient aware of wound and has been given instructions for care and planning prior but admits he does not adhere to plan Almost near circumferential dorsal and ankle dermal loss / ulceration to the right foot. plantar aspect with rugged thick callus tissue. Wounds have continued to deteriorate bleeding granulation tissue forming. edema with cellulitis noted. draining serosang fluid. no abscess. tender on palpation. Does not tend to wounds and notes this stage 3 ulcer deep wound at distal L tibia. Prior CTA with good runoff. seems to have good vascular flow to foot as well clinically Prior plain films and imaging reviewed. I did discuss worsening condition with patient and possibility of amputation in future if continues to deteriorate. Left foot has made great improvement overall and no longer with large wounds and edema improved. Tx.Plan: Cleanse wound R Ischium with Saline.Loosely pack with Hydrogel impregnated gauze.Cavilon wipe to borders. Cover with Optifoam drsg daily and prn. Cleanse wound R buttocks and sacrum with NS. Apply Cavilon and cover with Optifoam drsg .Change every 7 days and prn. Cleanse wounds R lower ext with Saline. Apply Silvasorb gel .Cover with Xeroform, Abd and wrap with kerlix Daily turn q2h for repositioning Air Mattress (5) Spinal cord injury (6) PVD (peripheral vascular disease) (7) Chronic wound of extremity Assessment & Plan: DAILY ESTIMATED NEEDS: Needs based on Advanced wounds/ 90kg abw 25-30 kcals/kg 8504-3529 total kcals 1.25-2.0 g protein/kg 113-180 g total protein 25-30 mL/kg 3450-0806 total fluid mLs NUTRITION DIAGNOSIS: Increased kcal and protein needs r/t wound healing as evidenced by pt admitted w/ multiple advanced wounds w/ history of full thickness pressure injury R ischium and stage 3 ulcer deep wound at distal L tibia,pending eval update. PO DIET RECOMMENDATIONS: REGULAR + DOUBLE PROTEIN PORTIONS ---- ADDITIONAL RECOMMENDATIONS: * Wound healing: CHARAN BID + MVI w/ min daily + Vit C 250mg BID F/up w/ WC eval * Calibrated bedscale wt for accurate CBW * Monitor lytes, replete as needed * Monitor PO intake (8) Intractable back pain Shilo Arrington October 23, 2018 13:02
--- NOTE | 2018-10-23 14:13 | General Progress Note ---
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 ICD Codes: E11.49 - Type 2 diabetes mellitus with other diabetic neurological complication SNOMED: 68483585, 412855618 (6) Asthma ICD Codes: J45.909 - Unspecified asthma, uncomplicated SNOMED: 997366670 (7) PVD (peripheral vascular disease) ICD Codes: I73.9 - Peripheral vascular disease, unspecified SNOMED: 819287489 (8) Ulcer of foot ICD Codes: L97.509 - Non-pressure chronic ulcer of other part of unspecified foot with unspecified severity SNOMED: 21302963 (9) Chronic wound of extremity SNOMED: 662907928 (10) Methamphetamine abuse ICD Codes: F15.10 - Other stimulant abuse, uncomplicated SNOMED: 103938218 (11) Intractable back pain ICD Codes: M54.9 - Dorsalgia, unspecified SNOMED: 475461846 Status: stable, progressing Assessment/Plan: wound care pain control abx pt dietary cbc bmp am dc to snf if clear Subjective Constitutional: Reports: weakness Allergies: Coded Allergies: PENICILLIN G (Verified Allergy, Unknown, 05/05/18) Tolerates carbapenems and cephalosporins UNABLE TO ASSESS (Unverified , 09/24/18) All Systems: reviewed and negative except above Subjective sleepy calm Objective Last 24 Hour Vital Signs Date Time Temp Pulse Resp B/P (MAP) Pulse Ox O2 Delivery O2 Flow Rate FiO2 10/23/18 12:00 98.1 86 18 106/63 (77) 97 10/23/18 10:10 98.2 10/23/18 09:00 Room Air 10/23/18 08:00 98.2 82 19 109/55 (73) 99 10/23/18 07:39 78 18 98 Room Air 21 10/23/18 04:00 97.9 67 18 109/79 (89) 97 10/23/18 00:00 97.5 79 18 111/80 (90) 97 10/22/18 21:00 Room Air 10/22/18 20:44 81 20 97 Room Air 21 10/22/18 20:00 97.8 82 18 109/62 (78) 97 10/22/18 16:00 98.6 64 20 104/78 (87) 98 Intake and Output 10/22/18 10/23/18 19:00 07:00 Intake Total 900 ml Output Total 1400 ml 400 ml Balance -500 ml -400 ml Intake Oral 900 ml Output Urine Total 1400 ml 400 ml # Voids 4 Laboratory Tests 10/23/18 06:00: White Blood Count 5.5, Red Blood Count 5.20, Hemoglobin 11.9L, Hematocrit 37.3L , Mean Corpuscular Volume 72L, Mean Corpuscular Hemoglobin 22.9L, Mean Corpuscular Hemoglobin Concent 31.9L, Red Cell Distribution Width 16.5H, Platelet Count 378, Mean Platelet Volume 7.0, Neutrophils (%) (Auto) 66.2, Lymphocytes (%) (Auto) 23.8, Monocytes (%) (Auto) 6.7, Eosinophils (%) (Auto) 2.2, Basophils (%) (Auto) 1.1, Sodium Level 137, Potassium Level 4.1, Chloride Level 104, Carbon Dioxide Level 24, Anion Gap 9, Blood Urea Nitrogen 17, Creatinine 1.0, Estimat Glomerular Filtration Rate > 60, Glucose Level 86, Calcium Level 9.0 Height (Feet): 6 Height (Inches): 1.00 Weight (Pounds): 195 General Appearance: lethargic EENT: normal ENT inspection Neck: normal alignment Cardiovascular: normal peripheral pulses, normal rate, regular rhythm Respiratory/Chest: chest wall non-tender, lungs clear, normal breath sounds Abdomen: normal bowel sounds, non tender, soft Extremities: normal inspection Edema: no edema noted Arm (L), no edema noted Arm (R), no edema noted Leg (L), no edema noted Leg (R), no edema noted Pedal (L), no edema noted Pedal (R), no edema noted Generalized Neurologic: motor weakness Skin: normal pigmentation, warm/dry Objective foot dressing sl stained Mt Collins DO October 23, 2018 14:13
[2018-10-23 16:00] VITALS: BP 110/69
--- NOTE | 2018-10-23 16:58 | NUR ---
PLUMBING TECHNICIANOVERLOCK OPERATOR SI:INTRACTABLE BACK PAIN . CELLULITIS VS: BP 109/55, P 82, T 98.2, RR 18, SpO2 97 H&H 11.9/37.3 IS: MORPHINE SULFATE 2mg IVP LEVAQUIN 750mg K-DUR 40meq ZYVOX 600mg MED/SURG STATUS
--- NOTE | 2018-10-23 17:36 | NUR ---
PRESS P[employer]ER NOTES SPOKE WITH YANIRA FROM THE INS[employer]ANCE [employer], MADE AWARE OF CHALLENGES BEING FACED FOR DC. ORDER GIVEN TO REPLACE WHEELCHAIR TO INS[employer]ANCE COMPANY. PER YANIRA SHE WANTS TO SEE IF PT CAN GO TO [facility]. WILL FOLLOW UP WITH [facility].
--- NOTE | 2018-10-23 17:44 | NUR ---
NURSE NOTES: legs treatment done as order and pt tolerate well. will continue to monitor.
--- NOTE | 2018-10-23 19:22 | NUR ---
HAND-OFF: Report given to [facility].
--- NOTE | 2018-10-23 19:30 | NUR ---
NURSE NOTES: Received patient in no apparent distress. A&OX4. IV site patent and intact. Dressing on foot, dry and intact. Patient refused to assess the skin, explained risk and benefit nut still refused. Bed in lowest position. Call light within reach. Will continue to monitor.
[2018-10-23 20:00] VITALS: BP 100/69
[2018-10-24] VITALS: BP 101/62
[2018-10-24] MEDS: Morphine Sulfate 2mg/ml Inj(IV/IM USE ONLY) IVP PRN ×2 (03:04→06:59)
[2018-10-24 04:00] VITALS: BP 102/60
[2018-10-24 06:47] LABS: BASOPHILS % (AUTO) 1.6 % (0.0-2.0); EOSINOPHILS % (AUTO) 3.6 % (0.0-3.0); HEMATOCRIT 37.9 % (42.0-52.0); LYMPHOCYTES % (AUTO) 24.5 % (20.0-45.0); MEAN CORPUSCULAR VOLUME 72 FL (80-99); MONOCYTES % (AUTO) 10.6 % (1.0-10.0); NEUTROPHILS % (AUTO) 59.7 % (45.0-75.0); PLATELET COUNT 366 K/UL (150-450); RED BLOOD COUNT 5.25 M/UL (4.70-6.10); RED CELL DISTRIBUTION WIDTH 16.6 % (11.6-14.8)
[2018-10-24 06:54] LABS: ANION GAP 6 mmol/L (5-15); BLOOD UREA NITROGEN 14 mg/dL (7-18); CALCIUM 8.8 MG/DL (8.5-10.1); CARBON DIOXIDE 28 MMOL/L (21-32); CHLORIDE 104 MMOL/L (98-107); CREATININE 1.1 MG/DL (0.55-1.30); POTASSIUM 4.2 MMOL/L (3.5-5.1); SODIUM 138 MMOL/L (136-145)
--- NOTE | 2018-10-24 07:30 | NUR ---
HAND-OFF: Report given to Kirill JOHNSON.
--- NOTE | 2018-10-24 07:50 | NUR ---
NURSE NOTES: Received patient on bed, awake. IV site intact and patent. dressings dry and intact. Bed in low and locked position, call light in reach. No signs of respiratory distress or pain. Room board updated, will continue to monitor.
--- NOTE | 2018-10-24 07:59 | General Progress Note ---
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 ICD Codes: E11.49 - Type 2 diabetes mellitus with other diabetic neurological complication SNOMED: 28963418, 585839119 (6) Asthma ICD Codes: J45.909 - Unspecified asthma, uncomplicated SNOMED: 093580309 (7) PVD (peripheral vascular disease) ICD Codes: I73.9 - Peripheral vascular disease, unspecified SNOMED: 809428973 (8) Ulcer of foot ICD Codes: L97.509 - Non-pressure chronic ulcer of other part of unspecified foot with unspecified severity SNOMED: 47636842 (9) Chronic wound of extremity SNOMED: 125959069 (10) Methamphetamine abuse ICD Codes: F15.10 - Other stimulant abuse, uncomplicated SNOMED: 230737287 (11) Intractable back pain ICD Codes: M54.9 - Dorsalgia, unspecified SNOMED: 418666438 Status: stable, progressing Assessment/Plan: wound care pain control abx pt dietary cbc bmp am dc to snf if clear Subjective Constitutional: Reports: weakness Allergies: Coded Allergies: PENICILLIN G (Verified Allergy, Unknown, 05/05/18) Tolerates carbapenems and cephalosporins UNABLE TO ASSESS (Unverified , 09/24/18) All Systems: reviewed and negative except above Subjective sleepy calm Objective Last 24 Hour Vital Signs Date Time Temp Pulse Resp B/P (MAP) Pulse Ox O2 Delivery O2 Flow Rate FiO2 10/24/18 04:00 97.2 76 18 102/60 (74) 98 10/24/18 00:00 97.7 72 18 101/62 (75) 99 10/23/18 20:00 97.6 78 18 100/69 (79) 98 10/23/18 19:54 Room Air 10/23/18 18:49 98.6 10/23/18 16:00 98.6 80 19 110/69 (83) 98 10/23/18 12:00 98.1 86 18 106/63 (77) 97 10/23/18 09:00 Room Air 10/23/18 08:00 98.2 82 19 109/55 (73) 99 Intake and Output 10/23/18 10/24/18 18:59 06:59 Intake Total 1200 ml 1400 ml Output Total 700 ml Balance 1200 ml 700 ml Intake Oral 400 ml Other 1200 ml 1000 ml Output Urine Total 700 ml # Voids 2 # Bowel Movements 2 Laboratory Tests 10/24/18 05:40: White Blood Count 4.0L, Red Blood Count 5.25, Hemoglobin 12.0L, Hematocrit 37.9L , Mean Corpuscular Volume 72L, Mean Corpuscular Hemoglobin 22.8L, Mean Corpuscular Hemoglobin Concent 31.5L, Red Cell Distribution Width 16.6H, Platelet Count 366, Mean Platelet Volume 7.5, Neutrophils (%) (Auto) 59.7, Lymphocytes (%) (Auto) 24.5, Monocytes (%) (Auto) 10.6H, Eosinophils (%) (Auto) 3.6H, Basophils (%) (Auto) 1.6, Sodium Level 138, Potassium Level 4.2, Chloride Level 104, Carbon Dioxide Level 28, Anion Gap 6, Blood Urea Nitrogen 14, Creatinine 1.1, Estimat Glomerular Filtration Rate > 60, Glucose Level 91, Calcium Level 8.8 Height (Feet): 6 Height (Inches): 1.00 Weight (Pounds): 195 General Appearance: lethargic EENT: normal ENT inspection Neck: normal alignment Cardiovascular: normal peripheral pulses, normal rate, regular rhythm Respiratory/Chest: chest wall non-tender, lungs clear, normal breath sounds Abdomen: normal bowel sounds, non tender, soft Extremities: normal inspection Edema: no edema noted Arm (L), no edema noted Arm (R), no edema noted Leg (L), no edema noted Leg (R), no edema noted Pedal (L), no edema noted Pedal (R), no edema noted Generalized Neurologic: motor weakness Skin: normal pigmentation, warm/dry Objective foot dressing sl stained Mt Collins DO Oct 24, 2018 07:59
[2018-10-24 08:00] VITALS: BP 91/57
[2018-10-24] MEDS: Heparin 5000 units/ml inj SUBQ SCH ×2 (09:30→10:02)
[2018-10-24] MEDS: Zinc Sulfate 220mg cap ORAL SCH ×2 (09:30→10:00)
[2018-10-24] MEDS: Ascorbic Acid 500mg tab ORAL SCH (10:00)
--- NOTE | 2018-10-24 10:00 | NUR ---
NURSE NOTES: Patient refused all scheduled medications except the vitamin C. Risks versus benefits explained to the patient.
--- NOTE | 2018-10-24 12:00 | NUR ---
NURSE NOTES: patient was not in his room. He asked MAT TESTER to sit in a wheelchair. When one was brought to him, he sat in the wheelchair. When rounding patient was not in the room. The floor was searched as well as [address] but patient was not present. Security was notified and they were unable to locate patient. Charge nurse, warehouse associate and TANMAY Collins were made aware. patient still had IV in his left arm when he left.
--- NOTE | 2018-10-24 13:54 | Surgery Progress Note ---
Surgery Progress Note Subjective Additional Comments no acute events Objective Last 24 Hour Vital Signs Date Time Temp Pulse Resp B/P (MAP) Pulse Ox O2 Delivery O2 Flow Rate FiO2 10/24/18 09:00 Room Air 10/24/18 08:00 97.6 93 18 91/57 (68) 97 10/24/18 04:00 97.2 76 18 102/60 (74) 98 10/24/18 00:00 97.7 72 18 101/62 (75) 99 10/23/18 20:00 97.6 78 18 100/69 (79) 98 10/23/18 19:54 Room Air 10/23/18 18:49 98.6 10/23/18 16:00 98.6 80 19 110/69 (83) 98 I&O Intake and Output 10/23/18 10/24/18 19:00 07:00 Intake Total 1200 ml 1400 ml Output Total 700 ml Balance 1200 ml 700 ml Intake Oral 400 ml Other 1200 ml 1000 ml Output Urine Total 700 ml # Voids 2 # Bowel Movements 2 Laboratory Tests Test 10/24/18 05:40 White Blood Count 4.0 K/UL (4.8-10.8) L Red Blood Count 5.25 M/UL (4.70-6.10) Hemoglobin 12.0 G/DL (14.2-18.0) L Hematocrit 37.9 % (42.0-52.0) L Mean Corpuscular Volume 72 FL (80-99) L Mean Corpuscular Hemoglobin 22.8 PG (27.0-31.0) L Mean Corpuscular Hemoglobin Concent 31.5 G/DL (32.0-36.0) L Red Cell Distribution Width 16.6 % (11.6-14.8) H Platelet Count 366 K/UL (150-450) Mean Platelet Volume 7.5 FL (6.5-10.1) Neutrophils (%) (Auto) 59.7 % (45.0-75.0) Lymphocytes (%) (Auto) 24.5 % (20.0-45.0) Monocytes (%) (Auto) 10.6 % (1.0-10.0) H Eosinophils (%) (Auto) 3.6 % (0.0-3.0) H Basophils (%) (Auto) 1.6 % (0.0-2.0) Sodium Level 138 MMOL/L (136-145) Potassium Level 4.2 MMOL/L (3.5-5.1) Chloride Level 104 MMOL/L (98-107) Carbon Dioxide Level 28 MMOL/L (21-32) Anion Gap 6 mmol/L (5-15) Blood Urea Nitrogen 14 mg/dL (7-18) Creatinine 1.1 MG/DL (0.55-1.30) Estimat Glomerular Filtration Rate > 60 mL/min (>60) Glucose Level 91 MG/DL (74-106) Calcium Level 8.8 MG/DL (8.5-10.1) Plan Problems: (1) UTI (urinary tract infection) (2) homelessness (3) Paraplegia (4) Cellulitis Assessment & Plan: 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 Opening approx 3cm x 2cm and tunnels >9cm. (+) Epibole. Small amount of serosanguineous exudate noted. No purulent drainage. Periwound intact but with chronic skin changes. Wound related to wheelchair use and pressure. Patient aware of wound and has been given instructions for care and planning prior but admits he does not adhere to plan Almost near circumferential dorsal and ankle dermal loss / ulceration to the right foot. plantar aspect with rugged thick callus tissue. Wounds have continued to deteriorate bleeding granulation tissue forming. edema with cellulitis noted. draining serosang fluid. no abscess. tender on palpation. Does not tend to wounds and notes this stage 3 ulcer deep wound at distal L tibia. Prior CTA with good runoff. seems to have good vascular flow to foot as well clinically Prior plain films and imaging reviewed. I did discuss worsening condition with patient and possibility of amputation in future if continues to deteriorate. Left foot has made great improvement overall and no longer with large wounds and edema improved. Tx.Plan: Cleanse wound R Ischium with Saline.Loosely pack with Hydrogel impregnated gauze.Cavilon wipe to borders. Cover with Optifoam drsg daily and prn. Cleanse wound R buttocks and sacrum with NS. Apply Cavilon and cover with Optifoam drsg .Change every 7 days and prn. Cleanse wounds R lower ext with Saline. Apply Silvasorb gel .Cover with Xeroform, Abd and wrap with kerlix Daily turn q2h for repositioning Air Mattress (5) Spinal cord injury (6) PVD (peripheral vascular disease) (7) Chronic wound of extremity Assessment & Plan: DAILY ESTIMATED NEEDS: Needs based on Advanced wounds/ 90kg abw 25-30 kcals/kg 7821-3602 total kcals 1.25-2.0 g protein/kg 113-180 g total protein 25-30 mL/kg 2245-3223 total fluid mLs NUTRITION DIAGNOSIS: Increased kcal and protein needs r/t wound healing as evidenced by pt admitted w/ multiple advanced wounds w/ history of full thickness pressure injury R ischium and stage 3 ulcer deep wound at distal L tibia,pending eval update. PO DIET RECOMMENDATIONS: REGULAR + DOUBLE PROTEIN PORTIONS ---- ADDITIONAL RECOMMENDATIONS: * Wound healing: CHARAN BID + MVI w/ min daily + Vit C 250mg BID F/up w/ WC eval * Calibrated bedscale wt for accurate CBW * Monitor lytes, replete as needed * Monitor PO intake (8) Intractable back pain Shiol Arrington Oct 24, 2018 13:54
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
== END 2018-10-24 12:00 | disposition left against medical advice (07) | DRG 380 ==
LOC: EDBD 22:04 → EDUNIT# 22:04 → EMR 22:22 → 4E 10-14 03:45 → EDBEDREQ 10-14 04:26
DX: L89.214 Pressure ulcer of right hip, stage 4 (principal); E11.40 Type 2 diabetes mellitus with diabetic neuropathy, unspecified; E87.8 Other disorders of electrolyte and fluid balance, not elsewhere classified; R78.81 Bacteremia; G82.20 Paraplegia, unspecified; L89.893 Pressure ulcer of other site, stage 3; E11.621 Type 2 diabetes mellitus with foot ulcer; M86.659 Other chronic osteomyelitis, unspecified thigh; S34.10 Unspecified injury to lumbar spinal cord; M86.68 Other chronic osteomyelitis, other site; L03.116 Cellulitis of left lower limb; L03.115 Cellulitis of right lower limb; X93.XXXS Assault by handgun discharge, sequela; I73.9 Peripheral vascular disease, unspecified; D64.9 Anemia, unspecified; F15.10 Other stimulant abuse, uncomplicated; F31.30 Bipolar disorder, current episode depressed, mild or moderate severity, unspecified; F60.2 Antisocial personality disorder; F52.8 Other sexual dysfunction not due to a substance or known physiological condition; Z99.3 Dependence on wheelchair; G40.909 Epilepsy, unspecified, not intractable, without status epilepticus; Z91.14 Patient's other noncompliance with medication regimen; E87.6 Hypokalemia; N39.0 Urinary tract infection, site not specified
CPT/HCPCS: 36415; 80048; 80053; 80061; 80076; 82550; 82607; 82728; 82746; 83036; 83540; 83550; 83735; 84100; 84443; 84550; 85025; 87040; 87070; 87081; 87181; 87205; 93306; 94664; 96365; 96366; 99285; J8499

== ENCOUNTER 2018-11-15 15:41 | Inpatient (IN) | payer OTHER ==
[~2018-11-15] VITALS: Ht 190.5 cm; Wt 90.7 kg
--- NOTE | 2018-11-15 | NUR ---
NURSE NOTES: PT'S TEMPERATURE WENT DOWN TO 98.3
[2018-11-15 15:45] VITALS: BP 136/84
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
[2018-11-15] MEDS ORDERED: Hydrogen Peroxide 473ml Bottle TOPIC ONE (16:04)
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
[2018-11-15 16:29] LABS: BASOPHILS % (AUTO) 1.8 % (0.0-2.0); EOSINOPHILS % (AUTO) 1.1 % (0.0-3.0); HEMATOCRIT 34.9 % (42.0-52.0); HEMOGLOBIN 11.3 G/DL (14.2-18.0); LYMPHOCYTES % (AUTO) 9.7 % (20.0-45.0); MEAN CORPUSCULAR VOLUME 67 FL (80-99); MONOCYTES % (AUTO) 5.6 % (1.0-10.0); NEUTROPHILS % (AUTO) 81.8 % (45.0-75.0); PLATELET COUNT 361 K/UL (150-450); RED BLOOD COUNT 5.17 M/UL (4.70-6.10); RED CELL DISTRIBUTION WIDTH 14.5 % (11.6-14.8); WHITE BLOOD COUNT 9.6 K/UL (4.8-10.8)
--- NOTE | 2018-11-15 16:30 | NUR ---
ED Nurse Note: pt was able to give urine sample and was sent to the lab.
[2018-11-15 16:33] LABS: ANION GAP 12 mmol/L (5-15); BLOOD UREA NITROGEN 10 mg/dL (7-18); CALCIUM 9.1 MG/DL (8.5-10.1); CARBON DIOXIDE 24 MMOL/L (21-32); CHLORIDE 103 MMOL/L (98-107); POTASSIUM 3.2 MMOL/L (3.5-5.1); SODIUM 139 MMOL/L (136-145)
[2018-11-15 16:35] LABS: APPEARANCE,URINE CLEAR; BILIRUBIN, URINE NEGATIVE (NEGATIVE); GLUCOSE, URINE (UA) NEGATIVE (NEGATIVE); KETONES,URINE 1+ (NEGATIVE); LEUKOCYTE ESTERASE ,URINE 1+ (NEGATIVE); NITRITE,URINE NEGATIVE (NEGATIVE); PH,URINE 5 (4.5-8.0); PROTEIN,URINE 1+ (NEGATIVE); UROBILINOGEN,URINE 1 MG/DL (0.0-1.0)
[2018-11-15 16:36] LABS: COLOR,URINE YELLOW
[2018-11-15 16:38] LABS: ALANINE AMINOTRANSFERASE 12 U/L (12-78); ALBUMIN 2.9 G/DL (3.4-5.0); ALBUMIN/GLOBULIN RATIO 0.6 (1.0-2.7); ALKALINE PHOSPHATASE 94 U/L (46-116); ASPARTATE AMINO TRANSFERASE 17 U/L (15-37); BILIRUBIN,TOTAL 0.2 MG/DL (0.2-1.0)
[2018-11-15 18:00] VITALS: BP 130/80
--- NOTE | 2018-11-15 18:10 | NUR ---
ED Nurse Note: attempted to give report to recieving nurse but rn is on another pt.
--- NOTE | 2018-11-15 18:20 | NUR ---
ED Nurse Note: report given to Ailyn hadley.
--- NOTE | 2018-11-15 18:30 | NUR ---
ED Nurse Note: pt was transfered to med surg 405 and belongings endorsed to smita mosquera rn
--- NOTE | 2018-11-15 18:35 | NUR ---
NURSE NOTES: Received patient from ER via gurney. Patient is awake, alert and oriented x2-3. All belongings accounted for. Patient has his cellphone Maze speed in his bag, no vargas or cards. Patient had bowel movement, proper incontinent care done. IV on left AC with G20 intact, no s/s of infiltration. Orientation given about the unit. Instructed patient to call nurses if needed. bed is in lowest position and locked. Bed alarm is on. Dr. Collins was paged for admission order.
--- NOTE | 2018-11-15 19:10 | NUR ---
NURSE NOTES: Endorsed to Askew to continue with admission.
--- NOTE | 2018-11-15 19:11 | NUR ---
HAND-OFF: Report given to Askew.
--- NOTE | 2018-11-15 19:30 | NUR ---
NURSE NOTES: RECEIVED PT FROM NATHANAEL JOHNSON. PT IS AWAKE, AAOX2. ON ROOM AIR, NO ACUTE DISTRESS NOTED. PT IS VERY RESISTANCE TO CARE. REFUSED TO BE TOUCH AND REFUSED TO HAVE HIS DRESSINGS CHANGE AT THE MOMENT. DENIES PAIN. FOUL WOUNDS NOTED ON BILATERAL ANKLE AND FOOT, AND RIGHT BUTTOCKS. IV ON L AC 20G IS INTACT AND PATENT. BED IS LOCKED AT THE LOWEST POSITION, BED ALARMS ACTIVE, SIDE RAILS UP X2, AND CALL LIGHT IS WITHIN REACH. WILL CONTINUE TO MONITOR.
[2018-11-15 20:00] VITALS: BP 112/61
--- NOTE | 2018-11-15 20:00 | NUR ---
NURSE NOTES: PT HAS A TEMP OF 101.2, VISIBLY SHIVERING. PT REFUSED TYLENOL, OFFERED ICE PACKS BUT PT ALSO REFUSED. NOTIFIED . CHARGE NURSE AWARE. WILL CONTINUE TO MONITOR.
[2018-11-15] MEDS ORDERED: LORazepam Inj 2mg/ml 1ml IV PRN (20:15)
[2018-11-15] MEDS ORDERED: Miralax 17gm pkt ORAL PRN (20:15)
[2018-11-15] MEDS ORDERED: Zolpidem 5mg tab ORAL PRN (20:15)
[2018-11-15] MEDS ORDERED: Morphine Sulfate 2mg/ml Inj(IV/IM USE ONLY) IVP PRN (20:15)
[2018-11-16] VITALS: BP 100/59
--- NOTE | 2018-11-16 06:00 | NUR ---
NURSE NOTES: TOOK PICTURES OF WOUNDS AND CHANGED DRESSINGS.
--- NOTE | 2018-11-16 07:30 | NUR ---
HAND-OFF: Report given to ELIZABETH SHORE.
[2018-11-16 08:00] VITALS: BP 119/61
[2018-11-16 08:25] LABS: BASOPHILS % (AUTO) 1.4 % (0.0-2.0); EOSINOPHILS % (AUTO) 1.2 % (0.0-3.0); HEMATOCRIT 34.8 % (42.0-52.0); HEMOGLOBIN 11.3 G/DL (14.2-18.0); LYMPHOCYTES % (AUTO) 16.2 % (20.0-45.0); MEAN CORPUSCULAR VOLUME 69 FL (80-99); MONOCYTES % (AUTO) 9.3 % (1.0-10.0); PLATELET COUNT 336 K/UL (150-450); RED BLOOD COUNT 5.03 M/UL (4.70-6.10); RED CELL DISTRIBUTION WIDTH 15.2 % (11.6-14.8); WHITE BLOOD COUNT 7.7 K/UL (4.8-10.8)
--- NOTE | 2018-11-16 08:41 | NUR ---
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
[2018-11-16 09:03] LABS: ALANINE AMINOTRANSFERASE 13 U/L (12-78); ALBUMIN 2.6 G/DL (3.4-5.0); ALBUMIN/GLOBULIN RATIO 0.6 (1.0-2.7); ALKALINE PHOSPHATASE 83 U/L (46-116); ANION GAP 9 mmol/L (5-15); ASPARTATE AMINO TRANSFERASE 14 U/L (15-37); BILIRUBIN,TOTAL 0.6 MG/DL (0.2-1.0); BLOOD UREA NITROGEN 8 mg/dL (7-18); CALCIUM 8.7 MG/DL (8.5-10.1); CARBON DIOXIDE 27 MMOL/L (21-32); CHLORIDE 102 MMOL/L (98-107); CHOLESTEROL 114 MG/DL (< 200); CREATININE 0.9 MG/DL (0.55-1.30); HDL CHOLESTEROL 41 MG/DL (40-60); POTASSIUM 3.1 MMOL/L (3.5-5.1); SODIUM 138 MMOL/L (136-145); TRIGLYCERIDES 62 MG/DL (30-150)
--- NOTE | 2018-11-16 10:00 | NUR ---
NURSE NOTES: Pt's nurse and wound care nurse Phill, with help of GLYNN John changed dressing of right lower leg. While trying to do the change of dressing of left lower leg, pt refused it, yelling and pulling his leg towards his body, using his hands. Nurse and wound care nurse explained to pt reason why the leg needs to be dressed, but pt still refused. Security was called. Patient allowed the have the left leg dressed but refused inspection and dressing of his posterior wound on the right buttock. Then dr. Arrington visit pt and allow pt to go into a wheelchair to shower.
--- NOTE | 2018-11-16 13:12 | Consultation ---
History of Present Illness General Date patient seen: Nov 16, 2018 Chief Complaint: Pain Present Illness HPI 43-year-old male with recurrent hospitalization at [facility] for nonhealing foot ulcer , paraplegia brought in by EMS after increased right lower extremity pain. Pt is wheelchair dependent. Patient a prior history of substance abuse as well as chronic nonhealing wounds to his extremities. He is admitted for further treatment. Allergies: Coded Allergies: PENICILLIN G (Verified Allergy, Unknown, 05/05/18) Tolerates carbapenems and cephalosporins PENICILLINS (Unverified Allergy, Unknown, 11/15/18) Medication History No Active Prescriptions or Reported Meds Patient History Healthcare decision maker N Resuscitation status Full Code Advanced Directive on File Past Medical/Surgical History Past Medical/Surgical History: (1) Methamphetamine abuse (2) Diabetes mellitus type 2 with neurological manifestations (3) Spinal cord injury (4) Paraplegia (5) homelessness Review of Systems All Other Systems: negative except mentioned in HPI Physical Exam General Appearance: WD/WN Lines, tubes and drains: peripheral, PICC HEENT: normocephalic, atraumatic Neck: non-tender, supple, abnormal alignment, limited range of motion Respiratory/Chest: no respiratory distress Breasts: no masses Cardiovascular/Chest: normal rate Last 24 Hour Vital Signs Date Time Temp Pulse Resp B/P (MAP) Pulse Ox O2 Delivery O2 Flow Rate FiO2 11/16/18 09:00 Room Air 11/16/18 08:00 98.6 101 18 119/61 (80) 100 11/16/18 00:00 98.3 124 18 100/59 (73) 100 11/15/18 21:00 Room Air 11/15/18 20:00 101.2 137 20 112/61 (78) 99 11/15/18 19:24 Room Air 11/15/18 18:30 98.6 98 14 136/84 98 11/15/18 18:00 98.6 88 16 130/80 98 11/15/18 15:45 98.6 98 14 136/84 98 11/15/18 15:37 98.6 82 14 136/84 (101) 98 Intake and Output 11/15/18 11/16/18 19:00 07:00 Intake Total 492 ml Balance 492 ml Intake Oral 492 ml # Voids 3 5 # Bowel Movements 3 Laboratory Tests Test 6/23/19 16:01 11/15/18 16:02 11/16/18 06:37 Urine Color Yellow Urine Appearance Clear Urine pH 5 (4.5-8.0) Urine Specific [place] 1.015 (1.005-1.035) Urine Protein 1+ (NEGATIVE) H Urine Glucose (UA) Negative (NEGATIVE) Urine Ketones 1+ (NEGATIVE) H Urine Blood Negative (NEGATIVE) Urine Nitrite Negative (NEGATIVE) Urine Bilirubin Negative (NEGATIVE) Urine Urobilinogen 1 MG/DL (0.0-1.0) H Urine Leukocyte Esterase 1+ (NEGATIVE) H Urine RBC 0-2 /HPF (0 - 0) H Urine WBC 2-4 /HPF (0 - 0) Urine Squamous Epithelial Cells Many /LPF (NONE/OCC) H Urine Bacteria Occasional /HPF (NONE) White Blood Count 9.6 K/UL (4.8-10.8) 7.7 K/UL (4.8-10.8) Red Blood Count 5.17 M/UL (4.70-6.10) 5.03 M/UL (4.70-6.10) Hemoglobin 11.3 G/DL (14.2-18.0) L 11.3 G/DL (14.2-18.0) L Hematocrit 34.9 % (42.0-52.0) L 34.8 % (42.0-52.0) L Mean Corpuscular Volume 67 FL (80-99) L 69 FL (80-99) L Mean Corpuscular Hemoglobin 21.9 PG (27.0-31.0) L 22.5 PG (27.0-31.0) L Mean Corpuscular Hemoglobin Concent 32.4 G/DL (32.0-36.0) 32.5 G/DL (32.0-36.0) Red Cell Distribution Width 14.5 % (11.6-14.8) 15.2 % (11.6-14.8) H Platelet Count 361 K/UL (150-450) 336 K/UL (150-450) Mean Platelet Volume 6.4 FL (6.5-10.1) L 6.8 FL (6.5-10.1) Neutrophils (%) (Auto) 81.8 % (45.0-75.0) H 72.0 % (45.0-75.0) Lymphocytes (%) (Auto) 9.7 % (20.0-45.0) L 16.2 % (20.0-45.0) L Monocytes (%) (Auto) 5.6 % (1.0-10.0) 9.3 % (1.0-10.0) Eosinophils (%) (Auto) 1.1 % (0.0-3.0) 1.2 % (0.0-3.0) Basophils (%) (Auto) 1.8 % (0.0-2.0) 1.4 % (0.0-2.0) Sodium Level 139 MMOL/L (136-145) 138 MMOL/L (136-145) Potassium Level 3.2 MMOL/L (3.5-5.1) L 3.1 MMOL/L (3.5-5.1) L Chloride Level 103 MMOL/L (98-107) 102 MMOL/L (98-107) Carbon Dioxide Level 24 MMOL/L (21-32) 27 MMOL/L (21-32) Anion Gap 12 mmol/L (5-15) 9 mmol/L (5-15) Blood Urea Nitrogen 10 mg/dL (7-18) 8 mg/dL (7-18) Creatinine 1.0 MG/DL (0.55-1.30) 0.9 MG/DL (0.55-1.30) Estimat Glomerular Filtration Rate > 60 mL/min (>60) > 60 mL/min (>60) Glucose Level 105 MG/DL (74-106) 93 MG/DL (74-106) Calcium Level 9.1 MG/DL (8.5-10.1) 8.7 MG/DL (8.5-10.1) Total Bilirubin 0.2 MG/DL (0.2-1.0) 0.6 MG/DL (0.2-1.0) Aspartate Amino Transf (AST/SGOT) 17 U/L (15-37) 14 U/L (15-37) L Alanine Aminotransferase (ALT/SGPT) 12 U/L (12-78) 13 U/L (12-78) Alkaline Phosphatase 94 U/L (46-116) 83 U/L (46-116) Total Protein 7.6 G/DL (6.4-8.2) 6.9 G/DL (6.4-8.2) Albumin 2.9 G/DL (3.4-5.0) L 2.6 G/DL (3.4-5.0) L Globulin 4.7 g/dL 4.3 g/dL Albumin/Globulin Ratio 0.6 (1.0-2.7) L 0.6 (1.0-2.7) L Serum Alcohol 30 mg/dL Triglycerides Level 62 MG/DL (30-150) Cholesterol Level 114 MG/DL (< 200) LDL Cholesterol 62 mg/dL (<100) HDL Cholesterol 41 MG/DL (40-60) Cholesterol/HDL Ratio 2.8 (3.3-4.4) L Thyroid Stimulating Hormone (TSH) 1.060 uiU/mL (0.358-3.740) Microbiology Date/Time Source Procedure Growth Status 11/15/18 17:40 Rectum Received Height (Feet): 6 Height (Inches): 3.00 Weight (Pounds): 200 Medications Current Medications Medications (Trade) Dose Ordered Sig/Michael Route PRN Reason Start Time Stop Time Status Last Admin Dose Admin Acetaminophen (Tylenol) 650 mg Q4H PRN ORAL fever 11/15/18 20:15 12/15/18 20:14 Dextrose (Dextrose 50%) 25 ml Q30M PRN IV Hypoglycemia 11/15/18 20:15 12/15/18 20:14 Dextrose (Dextrose 50%) 50 ml Q30M PRN IV Hypoglycemia 11/15/18 20:15 12/15/18 20:14 Lorazepam (Ativan 2mg/ml 1ml) 0.5 mg Q4H PRN IV For Anxiety 11/15/18 20:15 11/22/18 20:14 Morphine Sulfate (Morphine Sulfate) 1 mg Q4H PRN IVP For Pain 11/15/18 20:15 11/22/18 20:14 Ondansetron HCl (Zofran) 4 mg Q6H PRN IVP Nausea & Vomiting 11/15/18 20:15 12/15/18 20:14 Polyethylene Glycol (Miralax) 17 gm HSPRN PRN ORAL Constipation 11/15/18 20:15 12/15/18 20:14 Potassium Chloride (K-Dur) 40 meq ONCE ORAL 11/16/18 12:41 11/16/18 14:00 Zolpidem Tartrate (Ambien) 5 mg HSPRN PRN ORAL Insomnia 11/15/18 20:15 11/22/18 20:14 Assessment/Plan Problem List: (1) Decubitus ulcer, stage 3 with infection ICD Codes: L89.93 - Pressure ulcer of unspecified site, stage 3 SNOMED: 2452710 (2) Diabetes mellitus type 2 with neurological manifestations ICD Codes: E11.49 - Type 2 diabetes mellitus with other diabetic neurological complication SNOMED: 54868450, 105090304 (3) Sociopathic personality disorder ICD Codes: F60.2 - Antisocial personality disorder SNOMED: 51820468 (4) homelessness (5) Spinal cord injury SNOMED: 64437716 (6) Paraplegia ICD Codes: G82.20 - Paraplegia, unspecified SNOMED: 57641226 Assessment/Plan: wound care baptiste cultures symptomatic treatment dvt prophylaxis. Francheska Armas MD Nov 16, 2018 13:12
--- NOTE | 2018-11-16 13:30 | NUR ---
NURSE NOTES: Pt left AMA accompanied by security, left by wheelchair, wheels self. Pt took his IV access by himself and gave it to the nurse. Pt left with all his belongings, refused to sign belongings sheet. CN, nurse supervisor weaving Amalia and Dr. Collins was notified.
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
--- NOTE | 2018-11-16 15:30 | History and Physical Report ---
DATE OF ADMISSION: 11/15/2018 TIME SEEN: 1 p.m. CONSULTANTS: 1. Francheska Armas M.D. 2. Hai Jacob M.D. 3. Shilo Arrington M.D. CHIEF COMPLAINT: Chronic foot wound getting worse, diabetes, and paraplegia. BRIEF HISTORY: The patient is a 43-year-old male, who is homeless with history of chronic foot wound, comes in, wound looking worse, a lot of pain and the patient admitted to medical floor for further treatment. Currently, bilateral foot gauze dressing slightly stained and slight pain. No complaint. REVIEW OF SYSTEMS: No chest pain. No shortness of breath. No nausea, vomiting, or diarrhea. PAST MEDICAL HISTORY: Paraplegia, chronic lower extremity wound, diabetes, decubitus, PVD, asthma, and drug abuse. PAST SURGICAL HISTORY: Unknown. MEDICATIONS: Include potassium, Tylenol, morphine, Zofran, lorazepam, and levofloxacin. ALLERGIES: Penicillin. SOCIAL HISTORY: No smoking. Positive alcohol and positive drug abuse, amphetamines. PHYSICAL EXAMINATION: GENERAL: Calm in bed, oriented x2, in no acute distress. VITAL SIGNS: Temperature is 98 degrees, pulse 101, respirations 18, blood pressure 119/61. CARDIOVASCULAR: No murmurs. LUNGS: Poor air exchange. ABDOMEN: Bowel sounds distant. EXTREMITIES: No cyanosis, clubbing, or edema. Bilateral foot dressing slightly stained. NEUROLOGIC: The patient moves all extremities, slightly weak. LABORATORY AND DIAGNOSTIC DATA: Labs at this time show hemoglobin and hematocrit 11/34. BMP shows potassium 3.1. AST 14. Albumin 2.6. TSH 1.06. Urinalysis 1+ leukocyte esterase. Urine tox, serum alcohol is 30. ASSESSMENT: 1. Chronic lower extremity wound. 2. Paraplegia. 3. UTI. 4. Diabetes. 5. Decubitus ulcer. 6. PVD. 7. Asthma. 8. Drug abuse. 9. Anemia. 10. Malnutrition. PLAN: PT and dietary evaluation. CBC and BMP in the morning. Wound care and antibiotics per Infectious Disease. Pain control. Blood sugar control. Dietary followup. Continue to follow this patient. Mt Collins D.O. DR: GLORIA JOB#: [id number] CC:
--- NOTE | 2018-11-16 16:41 | Consultation ---
History of Present Illness General Date patient seen: Nov 16, 2018 Reason for Hospitalization: Pain Present Illness HPI 43 year old male well known to me from prior visits presented with worsening slow healing lower extremity wounds. on admission I was called to evaluate patient and cont to assist with care while in hospital. patient seen this AM and wounds evaluated. patient states he is still not interested in surgery and still does not provide care to wounds when discharge. he is here asking for a wheelchair. patient states he is going to leave today and just wants to take a shower. Allergies: Coded Allergies: PENICILLIN G (Verified Allergy, Unknown, 05/05/18) Tolerates carbapenems and cephalosporins PENICILLINS (Unverified Allergy, Unknown, 11/15/18) Medication History No Active Prescriptions or Reported Meds Patient History History Provided By: Patient, Medical Record Healthcare decision maker N Resuscitation status Full Code Advanced Directive on File Past Medical/Surgical History Past Medical/Surgical History: (1) Hypokalemia (2) Electrolyte imbalance (3) UTI (urinary tract infection) (4) Acute neck sprain (5) homelessness (6) Hypersexuality (7) Sociopathic personality disorder (8) Decubitus ulcer, stage 3 with infection (9) Paraplegia (10) Cellulitis (11) Spinal cord injury (12) Diabetes mellitus type 2 with neurological manifestations (13) Asthma (14) PVD (peripheral vascular disease) (15) Ulcer of foot (16) Depressed bipolar disorder (17) Alcohol intoxication (18) Methamphetamine abuse Review of Systems Review of Symptoms General ROS: no weight loss or fever Psychological ROS: no depression or mood changes, no memory loss Ophthalmic ROS: no visual changes or eye irritation ENT ROS: no nasal congestion, hearing loss, dizziness Allergy and Immunology ROS: no allergic symptoms or urticaria Hematological and Lymphatic ROS: no swollen glands, unusual bleeding or bruising Endocrine ROS: no polyuria, polydipsia, weight changes, temperature intolerance Respiratory ROS: no cough, shortness of breath, or wheezing Cardiovascular ROS: no chest pain or dyspnea on exertion Gastrointestinal ROS: denies abdominal pain, no bright red blood in stool. Musculoskeletal ROS: no myalgias or arthralgias Neurological ROS: no TIA or stroke symptoms Dermatological ROS: no new or changing skin lesions, rashes or pruritis Physical Exam Physical Exam General appearance: alert, cooperative, no distress, appears stated age Head: Normocephalic, without obvious abnormality, atraumatic Eyes: conjunctivae/corneas clear. PERRL, EOM's intact. Fundi benign Throat: Lips, mucosa, and tongue normal. Teeth and gums normal Neck: supple, symmetrical, trachea midline, no adenopathy, thyroid: not enlarged, symmetric, no tenderness/mass/nodules, no carotid bruit and no JVD Lungs: clear to auscultation bilaterally Heart: regular rate and rhythm, S1, S2 normal, no murmur, click, rub or gallop Abdomen: soft, non-tender. Bowel sounds normal. No masses, no organomegaly Extremities: see photos Pulses: 2+ and symmetric Skin: Skin color, texture, turgor normal. No rashes or lesions Neurologic: Grossly normal Last 24 Hour Vital Signs Date Time Temp Pulse Resp B/P (MAP) Pulse Ox O2 Delivery O2 Flow Rate FiO2 11/16/18 09:00 Room Air 11/16/18 08:00 98.6 101 18 119/61 (80) 100 11/16/18 00:00 98.3 124 18 100/59 (73) 100 11/15/18 21:00 Room Air 11/15/18 20:00 101.2 137 20 112/61 (78) 99 11/15/18 19:24 Room Air 11/15/18 18:30 98.6 98 14 136/84 98 11/15/18 18:00 98.6 88 16 130/80 98 Intake and Output 11/15/18 11/16/18 19:00 07:00 Intake Total 492 ml Balance 492 ml Intake Oral 492 ml # Voids 3 5 # Bowel Movements 3 Laboratory Tests Test 11/16/18 06:37 White Blood Count 7.7 K/UL (4.8-10.8) Red Blood Count 5.03 M/UL (4.70-6.10) Hemoglobin 11.3 G/DL (14.2-18.0) L Hematocrit 34.8 % (42.0-52.0) L Mean Corpuscular Volume 69 FL (80-99) L Mean Corpuscular Hemoglobin 22.5 PG (27.0-31.0) L Mean Corpuscular Hemoglobin Concent 32.5 G/DL (32.0-36.0) Red Cell Distribution Width 15.2 % (11.6-14.8) H Platelet Count 336 K/UL (150-450) Mean Platelet Volume 6.8 FL (6.5-10.1) Neutrophils (%) (Auto) 72.0 % (45.0-75.0) Lymphocytes (%) (Auto) 16.2 % (20.0-45.0) L Monocytes (%) (Auto) 9.3 % (1.0-10.0) Eosinophils (%) (Auto) 1.2 % (0.0-3.0) Basophils (%) (Auto) 1.4 % (0.0-2.0) Sodium Level 138 MMOL/L (136-145) Potassium Level 3.1 MMOL/L (3.5-5.1) L Chloride Level 102 MMOL/L (98-107) Carbon Dioxide Level 27 MMOL/L (21-32) Anion Gap 9 mmol/L (5-15) Blood Urea Nitrogen 8 mg/dL (7-18) Creatinine 0.9 MG/DL (0.55-1.30) Estimat Glomerular Filtration Rate > 60 mL/min (>60) Glucose Level 93 MG/DL (74-106) Calcium Level 8.7 MG/DL (8.5-10.1) Total Bilirubin 0.6 MG/DL (0.2-1.0) Aspartate Amino Transf (AST/SGOT) 14 U/L (15-37) L Alanine Aminotransferase (ALT/SGPT) 13 U/L (12-78) Alkaline Phosphatase 83 U/L (46-116) Total Protein 6.9 G/DL (6.4-8.2) Albumin 2.6 G/DL (3.4-5.0) L Globulin 4.3 g/dL Albumin/Globulin Ratio 0.6 (1.0-2.7) L Triglycerides Level 62 MG/DL (30-150) Cholesterol Level 114 MG/DL (< 200) LDL Cholesterol 62 mg/dL (<100) HDL Cholesterol 41 MG/DL (40-60) Cholesterol/HDL Ratio 2.8 (3.3-4.4) L Thyroid Stimulating Hormone (TSH) 1.060 uiU/mL (0.358-3.740) Microbiology Date/Time Source Procedure Growth Status 11/15/18 17:40 Rectum Received Height (Feet): 6 Height (Inches): 3.00 Weight (Pounds): 200 Assessment/Plan Problem List: (1) Cellulitis ICD Codes: L03.90 - Cellulitis, unspecified SNOMED: 593535441 (2) Ulcer of foot Assessment & Plan: right leg ulceration slow healing wounds open see photos and prior notes for details patient does not care for wounds upon discharge and notes this wounds washed and new dressings applied patient planning on leaving today. states he will sign out AMA at time of this note he has already left. thank you ICD Codes: L97.509 - Non-pressure chronic ulcer of other part of unspecified foot with unspecified severity SNOMED: 51038168 Shilo Arrington Nov 16, 2018 16:41
--- NOTE | 2018-11-16 16:45 | NUR ---
HOMELESS COORDINATOR HC attempted to assess patient for homelessness. Patient has went AMA.
--- NOTE | 2018-11-17 10:59 | NUR ---
*-* INSURANCE *-* ALL CLINICALS HAVE BEEN FAXED TO: FARZANA ANTONIO: JAYNE P:[phone] F;[phone] TRK# [id number]
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
== END 2018-11-16 13:52 | disposition left against medical advice (07) | DRG 380 ==
LOC: EDBD 15:41 → EMR 16:00 → 4E 17:15 → EDBEDREQ 17:43
DX: L89.893 Pressure ulcer of other site, stage 3 (principal); E11.49 Type 2 diabetes mellitus with other diabetic neurological complication; E46 Unspecified protein-calorie malnutrition; E11.621 Type 2 diabetes mellitus with foot ulcer; G82.20 Paraplegia, unspecified; L03.115 Cellulitis of right lower limb; T14.8XXS Other injury of unspecified body region, sequela; W34.00XS Accidental discharge from unspecified firearms or gun, sequela; N39.0 Urinary tract infection, site not specified; Z59.0 Homelessness; Z88.0 Allergy status to penicillin; I73.9 Peripheral vascular disease, unspecified; J45.909 Unspecified asthma, uncomplicated; Z99.3 Dependence on wheelchair; F60.2 Antisocial personality disorder; F15.21 Other stimulant dependence, in remission
CPT/HCPCS: 36415; 80053; 80061; 80329; 81001; 84443; 85025; 87081; 96365; 99285; J8499

== ENCOUNTER 2018-11-22 06:55 | Emergency (ER) | payer OTHER ==
[~2018-11-22] VITALS: Ht 180.3 cm; Wt 99.8 kg
--- NOTE | 2018-11-22 07:03 | NUR ---
ED Nurse Note: RECIEVED PT EDY FROM [facility] WITH C/O RIGHT FOOT AND LEG PAIN AT 03/04, PT HAS SEVERE WOUND, DIRTY, DRESSING FALLING OFF, PT IS Addendum: 11/22/18 at 0704 by ROB ED Nurse Note: PT IS AWAKE, ALERT AND ORIENTED X 4, PT HAS PERSONAL WHEELCHAIR, RATES PAIN AT 03/04, PT DENIES ANY OTHER COMPLAINTS OR DISCOMFORTS, PT IS SELECTIVELY MUTE WITH STAFF, DENIES CP, NO SOB OR LABORED BREATHING NOTED, MD AT BEDSIDE, WILL RESUME CARE ORDERED AND CLOSELY MONITOR, ER-TECH AT BEDSIDE CLEANING WOUND.
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
[2018-11-22] MEDS ORDERED: Bacitracin Oint 15gm Tube TOPIC ONE (07:10)
--- NOTE | 2018-11-22 07:30 | NUR ---
ED Nurse Note: dressing changed by EMT and ointment applied. pt tolerated the procedure.
[2018-11-22 07:44] VITALS: BP 130/88
--- NOTE | 2018-11-22 08:06 | NUR ---
ED Nurse Note: clothes and food provide. pt refuesed to be on dress. RN called security and help pt to get dress.
--- NOTE | 2018-11-22 08:40 | NUR ---
ED Nurse Note: pt refused to take tylenol for the pain. Dr. Mackey notified.
--- NOTE | 2018-11-22 08:45 | NUR ---
ED Nurse Note: pt refused any information for [facility]. clinic information provide for follow up.
--- NOTE | 2018-11-22 08:59 | NUR ---
ER DISCHARGE NOTE: Patient is cleared to be discharged per ERMD, pt is aox4, on room air, with stable vital signs. pt was given dc instructions, pt refused to sign the papaer work, pt id band removed. pt took all belongings. security call to escort pt out.
[2018-11-22] MEDS ORDERED: Bacitracin Oint 15gm Tube TOPIC SCH (09:00)
[2018-11-22 09:07] VITALS: BP 127/78
== END 2018-11-22 08:59 | disposition home or self-care (01) ==
LOC: EDBD 06:55 → EMR 07:15
DX: E11.621 Type 2 diabetes mellitus with foot ulcer (principal); L97.419 Non-pressure chronic ulcer of right heel and midfoot with unspecified severity; G82.20 Paraplegia, unspecified; L97.529 Non-pressure chronic ulcer of other part of left foot with unspecified severity; I87.2 Venous insufficiency (chronic) (peripheral); Z88.0 Allergy status to penicillin
CPT/HCPCS: 99282

== ENCOUNTER 2018-12-04 08:14 | Emergency (ER) | payer OTHER ==
[~2018-12-04] VITALS: Ht 177.8 cm; Wt 81.6 kg
--- NOTE | 2018-12-04 08:17 | NUR ---
ED Nurse Note: PT BROUGHT IN BY EMS RA [address] DUE TO BACK PAIN. DENIES INJURY AND STATES HE HAS IT FOR MONTHS. PT UNABLE TO PROVIDE MORE INFORMATION. AAO X4, USES HIS WHEELCHAIR TO GET AROUND.
--- NOTE | 2018-12-04 08:20 | NUR ---
HOMELESS PAPERWORK HAS BEEN INITIATED
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
--- NOTE | 2018-12-04 09:00 | NUR ---
ED Nurse Note: COLLECTED BLOOD/URINE THEN SENT.
--- NOTE | 2018-12-04 09:00 | NUR ---
ED Nurse Note: PT REFUSED TO SIGN IN HOMELESS DC FORM AND NOT COOPERATIVE WITH QUESTIONS.
[2018-12-04] MEDS: Morphine Sulfate 4mg/ml Inj (IV USE ONLY) IVP ONE (09:02)
[2018-12-04 09:07] VITALS: BP 122/75
[2018-12-04 09:15] LABS: APPEARANCE,URINE SLIGHTLY CLOUDY; BILIRUBIN, URINE NEGATIVE (NEGATIVE); COLOR,URINE PALE YELLOW; GLUCOSE, URINE (UA) NEGATIVE (NEGATIVE); KETONES,URINE 1+ (NEGATIVE); LEUKOCYTE ESTERASE ,URINE 3+ (NEGATIVE); NITRITE,URINE NEGATIVE (NEGATIVE); PH,URINE 6 (4.5-8.0); PROTEIN,URINE 1+ (NEGATIVE); UROBILINOGEN,URINE NORMAL MG/DL (0.0-1.0)
--- NOTE | 2018-12-04 09:16 | NUR ---
ED Nurse Note: PT TAKEN TO CT. VSS.
[2018-12-04 09:17] LABS: BASOPHILS % (AUTO) 1.8 % (0.0-2.0); EOSINOPHILS % (AUTO) 3.3 % (0.0-3.0); HEMATOCRIT 38.2 % (42.0-52.0); HEMOGLOBIN 11.7 G/DL (14.2-18.0); LYMPHOCYTES % (AUTO) 15.8 % (20.0-45.0); MEAN CORPUSCULAR VOLUME 72 FL (80-99); MONOCYTES % (AUTO) 7.2 % (1.0-10.0); PLATELET COUNT 382 K/UL (150-450); RED BLOOD COUNT 5.29 M/UL (4.70-6.10); RED CELL DISTRIBUTION WIDTH 14.5 % (11.6-14.8); WHITE BLOOD COUNT 6.7 K/UL (4.8-10.8)
--- NOTE | 2018-12-04 09:30 | NUR ---
ED Nurse Note: PT CAME BACK FROM CT. CT STAFF SAID THEY ARE UNABLE TO DO THE PROCEDURE D/T PT NOT MOVING/TURNING ON RIGHT POSITION FOR IMAGING. DR BERRIOS NOTIFIED.
[2018-12-04 09:35] LABS: ANION GAP 8 mmol/L (5-15); BLOOD UREA NITROGEN 12 mg/dL (7-18); CALCIUM 9.6 MG/DL (8.5-10.1); CARBON DIOXIDE 27 MMOL/L (21-32); CHLORIDE 106 MMOL/L (98-107); POTASSIUM 3.6 MMOL/L (3.5-5.1); SODIUM 141 MMOL/L (136-145)
[2018-12-04 09:40] LABS: ALANINE AMINOTRANSFERASE 14 U/L (12-78); ALBUMIN/GLOBULIN RATIO 0.5 (1.0-2.7); ALKALINE PHOSPHATASE 85 U/L (46-116); ASPARTATE AMINO TRANSFERASE 18 U/L (15-37); BILIRUBIN,TOTAL 0.4 MG/DL (0.2-1.0)
[2018-12-04] MEDS: Cefepime HCl 1 GM in D5W 55 ML IVPB ONE (10:56)
[2018-12-04 11:05] VITALS: BP 132/70
--- NOTE | 2018-12-04 11:14 | NUR ---
ED Nurse Note: RN APPLIED XEROFORM TO OPEN WOUNDS AND WRAPPED WITH KERLIX THEN SECURED WITH TAPE.
[2018-12-04] MEDS: Vancomycin 1 GM in NS 275 ML IVPB ONE (11:16)
--- NOTE | 2018-12-04 11:56 | NUR ---
ED Nurse Note: SANDWICH AND JUICE PROVIDED.
--- NOTE | 2018-12-04 12:24 | NUR ---
call recived from [facility] per operations supervisor chemical cleaning no isolation be avilable. so unable to accomadate the patient
--- NOTE | 2018-12-04 12:25 | NUR ---
telephonic nurse case manager has been notified . spoke to genaro regarding the patient waiting for telephonic nurse case manager to call us with bed assignment
--- NOTE | 2018-12-04 12:45 | NUR ---
ED Nurse Note: REPORT GIVEN TO JOZEF JOHNSON OF [facility].
[2018-12-04 13:00] VITALS: BP 128/76
--- NOTE | 2018-12-04 13:00 | NUR ---
ED Nurse Note: PT TRANSFERRED TO [facility] VIA GURNEY. ALL BELONGINGS SENT INCLUDING PT'S WHEELCHAIR. VSS.
== END 2018-12-04 13:00 | disposition short-term general hospital (02) ==
LOC: EDBD 08:14 → EMR 08:31
DX: M86.9 Osteomyelitis, unspecified (principal); L97.521 Non-pressure chronic ulcer of other part of left foot limited to breakdown of skin; S91.301A Unspecified open wound, right foot, initial encounter; G89.29 Other chronic pain; G82.20 Paraplegia, unspecified; E11.9 Type 2 diabetes mellitus without complications; Z88.0 Allergy status to penicillin
CPT/HCPCS: 36415; 80053; 81003; 83605; 85025; 85651; 86140; 87040; 87086; 96361; 96365; 96368; 96375; 99285; J0692; J2270; J2405; J3370; J7050

== ENCOUNTER 2019-05-02 20:48 | Emergency (ER) | payer OTHER ==
[~2019-05-02] VITALS: Ht 180.3 cm; Wt 86.2 kg
--- NOTE | 2019-05-02 20:55 | NUR ---
ED Nurse Note: pt presents to ED via EMS arrival RA [id number] for chronic bilat leg pain that worsened today. px is exacerbated by movement and weight bearing. pt denies taking any medication for the px ONLINE CONTENT COORDINATOR. pt does not c/o any other symptoms at this time.
[2019-05-02 20:57] VITALS: BP 128/76
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
--- NOTE | 2019-05-02 21:31 | NUR ---
ED Nurse Note: pt's right foot dressing is saturated in pus and blood. The foot appears to be edematou, open wound that is macerated, and bleeding. foot wound was cleaned and redressed by nursing staff.
--- NOTE | 2019-05-02 23:59 | NUR ---
ED Nurse Note: pt appears to be asleep in his bed. no acute distress is noted. breathing is even and non-labored. pt is compliant with care. will continue to monitor
[2019-05-03] VITALS: BP 125/74
--- NOTE | 2019-05-03 02:02 | Emergency Room Report ---
History of Present Illness General Chief Complaint: Pain Source: Patient Present Illness HPI Patient presents with paramedics for complaints of left leg pain patient reports that he has had this pain for many years Also reports that he is paraplegic Denies any chest pain or shortness of breath denies any vomiting Patient was brought in with his wheelchair Patient appears to have been here in November and transfer to another facility With previous chronic wounds Allergies: Coded Allergies: PENICILLIN G (Verified Allergy, Unknown, 05/05/18) Tolerates carbapenems and cephalosporins PENICILLINS (Unverified Allergy, Unknown, 11/15/18) Patient History Past Medical History: see triage record Reviewed Nursing Documentation: PMH: Agreed; PSxH: Agreed Nursing Documentation-PM Past Medical History: No History, Except For Hx Hypertension: Yes Review of Systems All Other Systems: negative except mentioned in HPI Physical Exam Vital Signs Date Time Temp Pulse Resp B/P (MAP) Pulse Ox O2 Delivery O2 Flow Rate FiO2 05/02/19 20:42 98.6 70 18 128/76 (93) 98 Room Air Sp02 EP Interpretation: reviewed, normal General Appearance: no apparent distress Head: normocephalic, atraumatic ENT: normal pharynx Neck: supple, no meningismus Respiratory: lungs clear, no respiratory distress, no retraction Cardiovascular #1: regular rate, rhythm Gastrointestinal: non tender, soft Musculoskeletal: other - Patient reports paraplegia, chronic open wound left dorsal foot no obvious surrounding erythema Neurologic: alert, oriented x3 Psychiatric: normal inspection Skin: other - As above Lymphatic: no adenopathy Medical Decision Making Diagnostic Impression: Primary Impression: homelessness Additional Impression: Chronic wound of extremity ER Course Upon arrival the patient's wound is cleansed and dressed appropriately Patient essentially reporting that it was raining outside and very cold he needed a place to stay patient is allowed to rest after prolonged observation patient remains hemodynamically stable the wound on the lower leg is chronic in nature and secondarily healing Patient does require close outpatient follow-up and after prolonged observation patient feels improved to follow-up closely as an outpatient process Last Vital Signs Date Time Temp Pulse Resp B/P (MAP) Pulse Ox O2 Delivery O2 Flow Rate FiO2 05/03/19 00:00 98.6 15 125/74 99 Room Air 05/02/19 20:42 70 Status: improved Disposition: HOME, SELF-CARE Condition: Improved Scripts No Active Prescriptions or Reported Meds Referrals: [facility],REFERRING (PCP) Additional Instructions: Patient is provided with the discharge instructions notified to follow up with primary doctor in the next 2-3 days otherwise return to the er with any worsening symptoms. Please note that this report is being documented using [employer]Key technology. This can lead to erroneous entry secondary to incorrect interpretation by the dictating instrument. Licha Llamas DO May 03, 2019 02:02
[2019-05-03 04:19] VITALS: BP 129/80
--- NOTE | 2019-05-03 04:20 | NUR ---
ED Nurse Note: pt provided ham percywhich that he ate and 2 cups of orange juice. pt is requesting additional beverages such as ice water and hot coffee. pt able to void into urinal at bedside. no other complaints at this time. pt does not appear to be in any acute distress at this time.
[2019-05-03 05:50] VITALS: BP 129/80
--- NOTE | 2019-05-03 05:50 | NUR ---
ER DISCHARGE NOTE: Patient is cleared to be discharged per ERMD, pt is aox4, on room air, with stable vital signs. pt was given dc instructions, food and weather appropriate clothing. pt was able to verbalize understanding, pt id band removed without complications. pt took all belongings and left in wheelchair that he arrived with.
== END 2019-05-03 05:50 | disposition home or self-care (01) ==
LOC: EDBD 20:48 → EDUNIT# 20:48 → EMR 21:15
DX: S91.302A Unspecified open wound, left foot, initial encounter (principal); X58.XXXA Exposure to other specified factors, initial encounter; Y92.9 Unspecified place or not applicable; Z59.0 Homelessness; G82.20 Paraplegia, unspecified; Z88.0 Allergy status to penicillin; I10 Essential (primary) hypertension
CPT/HCPCS: 99282

== ENCOUNTER 2019-06-07 22:00 | Emergency (ER) | payer OTHER ==
[~2019-06-07] VITALS: Ht 170.2 cm; Wt 79.4 kg
--- NOTE | 2019-06-07 22:00 | NUR ---
ED Nurse Note: PT EDY RA 61. PT FOUND ON STREET C/O GENERALIZED WEAKNESS AND BILAT FOOT ISSUE. PT WOUND DRESSING NOTED ON BILAT FOOT FROM [facility] WITH DATE 06-03-19. ERMD AT BEDSIDE. WILL CONTINUE TO MONITOR PATIENT.
[2019-06-07] MEDS ORDERED: Clindamycin 900mg 50 ML IVPB ONE (22:15)
--- NOTE | 2019-06-07 22:15 | NUR ---
ED Nurse Note: IV ESTABLISHED ON R AC WITH 20 G. BLOOD DRAWN AND SENT TO LAB. LINE PATENT AND INTACT.
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
[2019-06-07 22:35] LABS: BASOPHILS % (AUTO) 1.1 % (0.0-2.0); EOSINOPHILS % (AUTO) 0.8 % (0.0-3.0); HEMATOCRIT 37.6 % (42.0-52.0); HEMOGLOBIN 11.2 G/DL (14.2-18.0); LYMPHOCYTES % (AUTO) 8.8 % (20.0-45.0); MEAN CORPUSCULAR VOLUME 70 FL (80-99); MONOCYTES % (AUTO) 7.1 % (1.0-10.0); NEUTROPHILS % (AUTO) 82.2 % (45.0-75.0); PLATELET COUNT 608 K/UL (150-450); RED CELL DISTRIBUTION WIDTH 14.4 % (11.6-14.8); WHITE BLOOD COUNT 12.3 K/UL (4.8-10.8)
[2019-06-07 22:42] LABS: ANION GAP 10 mmol/L (5-15); BLOOD UREA NITROGEN 17 mg/dL (7-18); CALCIUM 8.2 MG/DL (8.5-10.1); CARBON DIOXIDE 26 MMOL/L (21-32); CHLORIDE 101 MMOL/L (98-107); CREATININE 1.2 MG/DL (0.55-1.30); POTASSIUM 4.3 MMOL/L (3.5-5.1); SODIUM 137 MMOL/L (136-145)
--- NOTE | 2019-06-07 22:59 | NUR ---
ED Nurse Note: gave report to Opal JOHNSON
--- NOTE | 2019-06-07 23:00 | NUR ---
ED Nurse Note: Received pt from [facility].
[2019-06-07 23:58] VITALS: BP 94/61
--- NOTE | 2019-06-08 01:30 | NUR ---
ED Nurse Note: Pt is awake, resting comfortably in bed. No acute distress noted. Juice provided, warm blanket offered for comfort. Will continue to monitor.
[2019-06-08] MEDS ORDERED: Ketorolac 30mg Inj IV ONE (03:00)
[2019-06-08 04:30] VITALS: BP 108/66
--- NOTE | 2019-06-08 04:30 | NUR ---
ED Nurse Note: Pt bilat foot wounds dressed and bandaged by tech as requested by ERMD.
--- NOTE | 2019-06-08 05:45 | NUR ---
ED Nurse Note: Report given to ELIZABETH Gonzalez at [facility].
[2019-06-08 06:00] VITALS: BP 96/54
--- NOTE | 2019-06-08 06:00 | NUR ---
ED Nurse Note: Pt is aaox4, resting comfortably in bed at this time, no acute distress noted. Pt vitals are stable for pt as charted. [place] [facility] [place] at this [place].
--- NOTE | 2019-06-08 06:50 | NUR ---
ED Nurse Note: ambulance transport at bedside, pt is now refusing to be transferred to [place] [facility]. ERMD at bedside explaining risks of pt leaving AMA.
[2019-06-08] MEDS ORDERED: HYDROmorphone 1mg/ml Carpuject IVP ONE (07:00)
[2019-06-08 07:15] VITALS: BP 96/54
--- NOTE | 2019-06-08 07:15 | NUR ---
AMA: SEE AMA FORM.
--- NOTE | 2019-06-08 07:15 | NUR ---
ER DISCHARGE NOTE: Constantly attempting to verbally have patient understand risks of leaving AMA. ERMD at bedside x3 different times explaining risks of leaving. Pt was offered pain medication for en route to [facility], pt refused to be transferred to [facility]. Pt verbalized understanding of risks associated with leaving AMA. Pt is wheelchair bound, still refusing care. Pt refused to disclose his location and plan after leaving AMA. Pt being uncooperative at this time. Pt signed AMA form.
== END 2019-06-08 07:30 | disposition left against medical advice (07) ==
LOC: EDBD 22:00 → EMR 22:26
DX: L03.116 Cellulitis of left lower limb (principal); L03.115 Cellulitis of right lower limb; F15.10 Other stimulant abuse, uncomplicated; L89.154 Pressure ulcer of sacral region, stage 4; Z59.0 Homelessness; Z99.3 Dependence on wheelchair; Z88.0 Allergy status to penicillin; E11.9 Type 2 diabetes mellitus without complications; I10 Essential (primary) hypertension
CPT/HCPCS: 36415; 80048; 80307; 85025; 87070; 87181; 87205; 96361; 96365; 96375; G0480; J1885; S0077; Z7502; 99284; J2405

== ENCOUNTER 2020-01-23 16:14 | Inpatient (IN) | payer OTHER ==
[~2020-01-23] VITALS: Ht 190.5 cm; Wt 92.3 kg
--- NOTE | 2020-01-23 16:19 | NUR ---
ED Nurse Note: pt EDY RAGSDALEMehreen [id number] from a bus stop for c/o bilat leg pain. pt has chronic leg pain, has a BKA of R leg. L leg appears to have a large wound on it that is causing pt pain. pt does not know how he injured the leg. pt has poor hygiene, strong foul odor with food specs in hair and dried dirt covery clothes and body. pt is drowsy, falls asleep during questioning but arousable to his name and follows commands.
[2020-01-23] MEDS ORDERED: Ketorolac 30mg Inj IV ONE (16:30)
--- NOTE | 2020-01-23 17:11 | Diagnostic Imaging Report ---
History: WEAK Exam: XR CXR 1 VIEW Comparison: 09/22/2018 FINDINGS: Mild patchy ill-defined opacity suggested at the bases may represent atelectasis with developing infiltrate not excluded. The cardiac and mediastinal contours appear within limits. The visualized osseous structures appear within limits. IMPRESSION: Mild patchy ill-defined opacity suggested at the bases may represent atelectasis with developing infiltrate not excluded.
[2020-01-23 17:17] LABS: BASOPHILS % (AUTO) 1.4 % (0.0-2.0); EOSINOPHILS % (AUTO) 1.1 % (0.0-3.0); HEMATOCRIT 31.6 % (42.0-52.0); HEMOGLOBIN 9.7 G/DL (14.2-18.0); LYMPHOCYTES % (AUTO) 7.3 % (20.0-45.0); MEAN CORPUSCULAR VOLUME 64 FL (80-99); MONOCYTES % (AUTO) 7.1 % (1.0-10.0); PLATELET COUNT 460 K/UL (150-450); RED BLOOD COUNT 4.94 M/UL (4.70-6.10); RED CELL DISTRIBUTION WIDTH 19.6 % (11.6-14.8); WHITE BLOOD COUNT 10.7 K/UL (4.8-10.8)
[2020-01-23 17:24] VITALS: BP 118/70
[2020-01-23 17:32] LABS: ANION GAP 17 mmol/L (5-15); BLOOD UREA NITROGEN 17 mg/dL (7-18); CALCIUM 8.5 MG/DL (8.5-10.1); CARBON DIOXIDE 19 MMOL/L (21-32); CHLORIDE 105 MMOL/L (98-107); CREATININE 1.4 MG/DL (0.55-1.30); POTASSIUM 2.8 MMOL/L (3.5-5.1); SODIUM 141 MMOL/L (136-145)
[2020-01-23 17:36] LABS: ALANINE AMINOTRANSFERASE 7 U/L (12-78); ALBUMIN 2.3 G/DL (3.4-5.0); ALBUMIN/GLOBULIN RATIO 0.4 (1.0-2.7); ALKALINE PHOSPHATASE 72 U/L (46-116); ASPARTATE AMINO TRANSFERASE 12 U/L (15-37); BILIRUBIN,TOTAL 0.3 MG/DL (0.2-1.0)
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
[2020-01-23] MEDS ORDERED: Tetanus/Diptheria/Pertussis IM ONE (17:45)
--- NOTE | 2020-01-23 18:38 | NUR ---
ED Nurse Note: Repeat lactic sent to lab
[2020-01-23] MEDS: NS w/KCl 40mEq 1,000 ML IV SCH (18:42)
[2020-01-23] MEDS ORDERED: Miralax 17gm pkt ORAL PRN (19:00)
--- NOTE | 2020-01-23 19:00 | NUR ---
ED Nurse Note: Urine sent to lab
--- NOTE | 2020-01-23 19:05 | NUR ---
ED Nurse Note: Wet to dry dressing applied to left leg
[2020-01-23 20:00] VITALS: BP 100/61
--- NOTE | 2020-01-23 20:10 | NUR ---
ED Nurse Note: Report given to ISSA JOHNSON
[2020-01-23] MEDS ORDERED: Vancomycin 1.5gm/NS Premix q24h IVPB SCH (20:15)
--- NOTE | 2020-01-23 20:30 | NUR ---
TRANSFER TO FLOOR: Patient transferred to TELE at rm 202-1 via gurney with patient monitor, accompanied by RN. Belongings checked and given to RN. Patient transferred safely to bed and endorsed to RN
--- NOTE | 2020-01-23 20:32 | NUR ---
NURSE NOTES: Received pt from ED via [facility]. Pt transferred to without any incident. Pt is A/Ox4. Phelps pt to room and unit. Received report from ELIZABETH Villasenor. electronic device monitor is in placed; pt is ST (105 bpm). IV site intact, asymptomatic, and patent. Belongings list checked and signed. Bed is in the lowest position and locked. Call light and bedside table is within reach. No signs/symptoms of acute distress noted at this time. Received admission orders from Dr. Mcgowan. Will note and carry out.
--- NOTE | 2020-01-23 20:40 | NUR ---
NURSE NOTES: Pt refused to be clean and refused to put on a clean gown.
[2020-01-23] MEDS ORDERED: Zolpidem 5mg tab ORAL PRN (21:00)
[2020-01-23] MEDS: Heparin 5000 units/ml inj SUBQ SCH (21:24)
--- NOTE | 2020-01-23 23:05 | NUR ---
NURSE NOTES: Wound care completed and photos taken. Pt originally refused to be assessed, but later agreed and RN was able to assess back area and lower extremities only. Pt refused to be assess anywhere else on the body. Sacral area of concern noted. Right leg stump observed to be pink and raw. Left lower leg cellulites noted; wound care completed by ED.
[2020-01-24] VITALS: BP 106/64
--- NOTE | 2020-01-24 02:15 | NUR ---
NURSE NOTES: Unable to obtain IV access. Multiple nurses attempted, but was unsuccessful. Will notify Dr. Mcgowan.
[2020-01-24] MEDS: NS w/KCl 40mEq 1,000 ML IV SCH (03:45)
[2020-01-24 04:00] VITALS: BP 102/61
[2020-01-24 06:44] LABS: BASOPHILS % (AUTO) 0.8 % (0.0-2.0); EOSINOPHILS % (AUTO) 2.4 % (0.0-3.0); HEMATOCRIT 31.2 % (42.0-52.0); HEMOGLOBIN 9.5 G/DL (14.2-18.0); LYMPHOCYTES % (AUTO) 13.3 % (20.0-45.0); MEAN CORPUSCULAR VOLUME 64 FL (80-99); MONOCYTES % (AUTO) 8.7 % (1.0-10.0); NEUTROPHILS % (AUTO) 74.9 % (45.0-75.0); PLATELET COUNT 438 K/UL (150-450); RED BLOOD COUNT 4.87 M/UL (4.70-6.10); RED CELL DISTRIBUTION WIDTH 17.8 % (11.6-14.8); WHITE BLOOD COUNT 5.9 K/UL (4.8-10.8)
[2020-01-24 07:23] LABS: ALANINE AMINOTRANSFERASE < 6 U/L (12-78); ALBUMIN 1.9 G/DL (3.4-5.0); ALBUMIN/GLOBULIN RATIO 0.4 (1.0-2.7); ALKALINE PHOSPHATASE 63 U/L (46-116); ANION GAP 7 mmol/L (5-15); ASPARTATE AMINO TRANSFERASE 10 U/L (15-37); BILIRUBIN,TOTAL 0.2 MG/DL (0.2-1.0); BLOOD UREA NITROGEN 15 mg/dL (7-18); CALCIUM 7.7 MG/DL (8.5-10.1); CARBON DIOXIDE 25 MMOL/L (21-32); CHLORIDE 105 MMOL/L (98-107); FERRITIN 57 NG/ML (8-388); POTASSIUM 3.7 MMOL/L (3.5-5.1); SODIUM 137 MMOL/L (136-145)
--- NOTE | 2020-01-24 07:24 | NUR ---
NURSE HAND-OFF REPORT: Important Events on Shift: Pt admitted for Lt lower extremity cellulitis. Unable to obtain IV access. Endorsed to dayshift nurse. Patient Status: Stable Diet: Regular Pending Orders: AM LABS Pending Results/Labs: AM LABS Latest Vital Signs: Temperature 96.6 , Pulse 98 , B/P 102 /61 , Respiratory Rate 17 , O2 SAT 100 , Room Air, O2 Flow Rate . EKG Rhythm: Sinus Rhythm Rhythm change?: Y MD Notified?: N - Latest [place] Fall Score: 55 Fall Risk: High Risk Safety Measures: Call light Within Reach, Bed Alarm Zone 1, Side Rails Side Rails x2, Bed position Low and Locked. Fall Precautions: Yellow Socks Yellow Gown Door Sign Patient Fall Education Report given to ELIZABETH Reese.
--- NOTE | 2020-01-24 07:24 | NUR ---
NURSE NOTES: Received report from ELIZABETH Zuluaga. Pt is AOx4, stable and resting in bed. Pt lower extremity swelling and amputation. Both lower extremities are covered. Pt w/ no IV access at this time. Pt refuses to wear gown, Pt in own shorts. Pt call light in reach, bed low and locked, bed alarm on and Pt instructed to call for help. Pt verbalizes understanding. No S/S or complaints of distress at this time. Will continue to monitor.
[2020-01-24 07:29] LABS: % IRON SATURATION 9 % (15-50); IRON 17 ug/dL (50-175); TOTAL IRON BINDING CAPACITY 181 ug/dL (250-450)
--- NOTE | 2020-01-24 07:42 | NUR ---
NURSE NOTES: Dr Mcgowan notified of Pt no IV access/hard stick and need for Md Wound consult. Dr Mcgowan to see Pt later on the day.
[2020-01-24 08:00] VITALS: BP 114/55
[2020-01-24] MEDS: Heparin 5000 units/ml inj SUBQ SCH ×2 (08:41→20:37)
[2020-01-24] MEDS: Levofloxacin 500mg tab ORAL SCH ×2 (08:41→08:53)
[2020-01-24] MEDS: LORazepam 1mg tab ORAL SCH ×3 (09:00→18:00)
[2020-01-24] MEDS ORDERED: LORazepam Inj 2mg/ml 1ml IV PRN (09:00)
[2020-01-24] MEDS: Thiamine 100mg tab ORAL SCH (09:00)
--- NOTE | 2020-01-24 09:30 | NUR ---
NURSE NOTES: Patient refusing all PO medications and no IV access. Left message on Dr García machine. Awaiting call back
[2020-01-24] MEDS: Folic Acid 1 MG, Magnesium Sulfate 2,000 MG, Multivitamin - 12 Injection 10 ML in Sodiu... IV SCH (10:00)
--- NOTE | 2020-01-24 11:30 | History and Physical Report ---
DATE OF ADMISSION: 01/23/2020 HISTORY OF PRESENT ILLNESS: The patient was brought to the hospital. Apparently, fell from his wheelchair and has multiple wounds and possible cellulitis and/or osteomyelitis of the legs. He is paraplegic, history of alcoholism, history of homeless intermittently. SURGICAL HISTORY: Right below-knee amputation and lumbar spine surgery. HABITS: He is a heavy alcohol user. He smokes intermittently. He has used other drugs in the past. HOME MEDICATIONS: He states he takes [place]. ALLERGIES: . SYSTEM REVIEW: HEAD, EYES, EARS, NOSE, AND THROAT: Vision and hearing is good. ENDOCRINE: He is not aware of any diabetes or thyroid disease. PULMONARY: No asthma, TB, or chronic cough. CARDIAC: No angina or MA. GASTROINTESTINAL: No GI bleeding or ulcers. GENITOURINARY: No dysuria or hematuria. Occasionally incontinent. MUSCULOSKELETAL: History of paraplegia, right BKA. PHYSICAL EXAMINATION: GENERAL: The patient is alert, well-developed man, in no acute distress. VITAL SIGNS: Temperature 96.6, , respiratory rate 17, blood pressure 102/61. HEAD, EYES, EARS, NOSE, AND THROAT: Sclerae are nonicteric. Ocular motions intact in all directions. Oral mucosa moist. NECK: No adenopathy or thyroid enlargement. LUNGS: Clear. HEART: Regular rhythm. No murmur. ABDOMEN: Soft without organomegaly or masses. EXTREMITIES: Right below-knee amputation with denuded skin on the stump. He has a left leg with multiple ulcerations and denuded skin and excoriation and possible cellulitis. NEUROLOGIC: The patient is alert, oriented. He is paraplegic. There is a tremor in the right hand. PERTINENT LABORATORY DATA: White count 10.7, hemoglobin 9.7, microcytic. Sodium 141, potassium 2.8, BUN 17, creatinine 1.4 on admission. Iron saturation 9%. IMPRESSION: 1. Multiple wounds on the legs with possible cellulitis, possible osteomyelitis. 2. Paraplegia. 3. Homeless. 4. Alcoholism with a prior history of alcohol withdrawal symptoms and beginning tremor. PLAN: Broad-spectrum antibiotics. Wound care. Check imaging for osteomyelitis. Willy Mcgowan M.D. DR: ALLA JOB#: [id number] CC:
[2020-01-24] MEDS: Thiamine 100mg IVPB (Q24H) IVPB SCH ×2 (11:47)
[2020-01-24] MEDS: Vancomycin 1gm/D5W 275ml IVPB SCH ×4 (11:47→16:45)
[2020-01-24 12:00] VITALS: BP 114/55
--- NOTE | 2020-01-24 13:23 | Consultation ---
History of Present Illness General Date patient seen: Jan 24, 2020 Reason for Hospitalization: Pain Present Illness HPI This is a 44-year-old male well-known to me from prior admissions and care plan. Patient was brought in from EMS when found on the streets complaining of left leg pain. States he cannot find his wheelchair as it was misplaced and was near a bus stop with dried blood around him. In emergency department [facility] complaining of 7 out of 10 nonradiating throbbing pain in his back and left leg. Was admitted further care and management. Surgery called to evaluate and assist with care. Patient seen, patient evaluated, chart reviewed. I have seen patient in the past for lower extremity wounds and including maggots in the past. He has had lower extremity edema cellulitis on multiple occasions. He now presents with a right lower extremity BKA which she states was done at [facility]. The wound has dehisced and the flap is open with exposure of granulated tissue but fortunately no bone or other abnormalities noted. On the left lower extremity he has less edema than prior. Sacral wounds. Allergies: Coded Allergies: PENICILLIN G (Verified Allergy, Unknown, 05/05/18) Tolerates carbapenems and cephalosporins PENICILLINS (Unverified Allergy, Unknown, 11/15/18) COVID-19 Screening Contact w/high risk pt: Yes Experienced COVID-19 symptoms?: No Medication History Unable to Obtain Active Prescriptions or Reported Meds Patient History History Provided By: Patient, Medical Record, PMD Healthcare decision maker N Resuscitation status Advanced Directive on File Past Medical/Surgical History Past Medical/Surgical History: (1) Electrolyte imbalance (2) Sepsis (3) Pneumonia (4) Hypokalemia (5) Chronic wound of extremity (6) UTI (urinary tract infection) (7) Acute neck sprain (8) homelessness (9) Hypersexuality (10) Sociopathic personality disorder (11) Decubitus ulcer, stage 3 with infection (12) Paraplegia (13) Cellulitis (14) Spinal cord injury (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 (16) Asthma (17) PVD (peripheral vascular disease) (18) Ulcer of foot (19) Depressed bipolar disorder (20) Alcohol intoxication (21) Methamphetamine abuse Review of Systems Review of Symptoms General ROS: no weight loss or fever Psychological ROS: no depression or mood changes, no memory loss Ophthalmic ROS: no visual changes or eye irritation ENT ROS: no nasal congestion, hearing loss, dizziness Allergy and Immunology ROS: no allergic symptoms or urticaria Hematological and Lymphatic ROS: no swollen glands, unusual bleeding or bruising Endocrine ROS: no polyuria, polydipsia, weight changes, temperature intolerance Respiratory ROS: no cough, shortness of breath, or wheezing Cardiovascular ROS: no chest pain or dyspnea on exertion Gastrointestinal ROS: denies abdominal pain, bright red blood in stool. Musculoskeletal ROS: no myalgias or arthralgias Neurological ROS: no TIA or stroke symptoms Dermatological ROS: no new or changing skin lesions, rashes or pruritis Physical Exam Physical Exam General appearance: alert, cooperative, no distress, appears stated age Head: Normocephalic, without obvious abnormality, atraumatic Eyes: conjunctivae/corneas clear. PERRL, EOM's intact. Fundi benign Throat: Lips, mucosa, and tongue normal. Teeth and gums normal Neck: supple, symmetrical, trachea midline, no adenopathy, thyroid: not enlarged, symmetric, no tenderness/mass/nodules, no carotid bruit and no JVD Lungs: clear to auscultation bilaterally Heart: regular rate and rhythm, S1, S2 normal, no murmur, click, rub or gallop Abdomen: soft, non-tender. Bowel sounds normal. No masses, no organomegaly Extremities: extremities right BKA open wound Pulses: 2+ and symmetric Skin: Skin see below Neurologic: Grossly normal Last 24 Hour Vital Signs Date Time Temp Pulse Resp B/P (MAP) Pulse Ox O2 Delivery O2 Flow Rate FiO2 01/24/20 12:00 98.8 103 20 114/55 (74) 100 01/24/20 09:00 Room Air 01/24/20 08:00 102 01/24/20 08:00 98.8 103 18 114/55 (74) 100 01/24/20 04:00 107 01/24/20 04:00 96.6 98 17 102/61 (75) 100 01/24/20 00:00 96 01/24/20 00:00 98.2 98 18 106/64 (78) 97 01/23/20 22:00 105 01/23/20 21:44 Room Air 01/23/20 20:30 98.0 102 18 138/84 100 Room Air 8/30/20 20:00 97.1 66 18 100/61 (74) 95 01/23/20 17:27 97.9 01/23/20 17:24 97.9 18 118/70 98 Room Air 01/23/20 16:10 97.9 88 18 118/70 (86) 98 Room Air Intake and Output 01/23/20 01/24/20 19:00 07:00 Intake Total 1000 ml Balance 1000 ml Intake Oral 1000 ml # Voids 2 Laboratory Tests Test 01/23/20 16:55 01/23/20 18:15 01/23/20 18:40 01/24/20 06:10 White Blood Count 10.7 K/UL (4.8-10.8) 5.9 K/UL (4.8-10.8) Red Blood Count 4.94 M/UL (4.70-6.10) 4.87 M/UL (4.70-6.10) Hemoglobin 9.7 G/DL (14.2-18.0) L 9.5 G/DL (14.2-18.0) L Hematocrit 31.6 % (42.0-52.0) L 31.2 % (42.0-52.0) L Mean Corpuscular Volume 64 FL (80-99) L 64 FL (80-99) L Mean Corpuscular Hemoglobin 19.6 PG (27.0-31.0) L 19.4 PG (27.0-31.0) L Mean Corpuscular Hemoglobin Concent 30.7 G/DL (32.0-36.0) L 30.3 G/DL (32.0-36.0) L Red Cell Distribution Width 19.6 % (11.6-14.8) H 17.8 % (11.6-14.8) H Platelet Count 460 K/UL (150-450) H 438 K/UL (150-450) Mean Platelet Volume 7.0 FL (6.5-10.1) 7.0 FL (6.5-10.1) Neutrophils (%) (Auto) 83.0 % (45.0-75.0) H 74.9 % (45.0-75.0) Lymphocytes (%) (Auto) 7.3 % (20.0-45.0) L 13.3 % (20.0-45.0) L Monocytes (%) (Auto) 7.1 % (1.0-10.0) 8.7 % (1.0-10.0) Eosinophils (%) (Auto) 1.1 % (0.0-3.0) 2.4 % (0.0-3.0) Basophils (%) (Auto) 1.4 % (0.0-2.0) 0.8 % (0.0-2.0) Sodium Level 141 MMOL/L (136-145) 137 MMOL/L (136-145) Potassium Level 2.8 MMOL/L (3.5-5.1) L 3.7 MMOL/L (3.5-5.1) Chloride Level 105 MMOL/L (98-107) 105 MMOL/L (98-107) Carbon Dioxide Level 19 MMOL/L (21-32) L 25 MMOL/L (21-32) Anion Gap 17 mmol/L (5-15) H 7 mmol/L (5-15) Blood Urea Nitrogen 17 mg/dL (7-18) 15 mg/dL (7-18) Creatinine 1.4 MG/DL (0.55-1.30) H 1.0 MG/DL (0.55-1.30) Estimat Glomerular Filtration Rate > 60 mL/min (>60) > 60 mL/min (>60) Glucose Level 98 MG/DL (74-106) 134 MG/DL (74-106) H Lactic Acid Level 3.60 mmol/L (0.4-2.0) H 3.00 mmol/L (0.66-2.22) H Calcium Level 8.5 MG/DL (8.5-10.1) 7.7 MG/DL (8.5-10.1) L Total Bilirubin 0.3 MG/DL (0.2-1.0) 0.2 MG/DL (0.2-1.0) Aspartate Amino Transf (AST/SGOT) 12 U/L (15-37) L 10 U/L (15-37) L Alanine Aminotransferase (ALT/SGPT) 7 U/L (12-78) L < 6 U/L (12-78) L Alkaline Phosphatase 72 U/L (46-116) 63 U/L (46-116) Total Protein 7.6 G/DL (6.4-8.2) 6.6 G/DL (6.4-8.2) Albumin 2.3 G/DL (3.4-5.0) L 1.9 G/DL (3.4-5.0) L Globulin 5.3 g/dL 4.7 g/dL Albumin/Globulin Ratio 0.4 (1.0-2.7) L 0.4 (1.0-2.7) L Urine Opiates Screen Negative (NEGATIVE) Urine Barbiturates Screen Negative (NEGATIVE) Phencyclidine (PCP) Screen Positive (NEGATIVE) H Urine Amphetamines Screen Positive (NEGATIVE) H Urine Benzodiazepines Screen Negative (NEGATIVE) Urine Cocaine Screen Negative (NEGATIVE) Urine Marijuana (THC) Screen Negative (NEGATIVE) Magnesium Level 1.6 MG/DL (1.8-2.4) L Iron Level 17 ug/dL (50-175) L Total Iron Binding Capacity 181 ug/dL (250-450) L Percent Iron Saturation 9 % (15-50) L Unsaturated Iron Binding 164 ug/dL (112-346) Ferritin 57 NG/ML (8-388) Random Vancomycin Level 8.3 ug/mL Microbiology Date/Time Source Procedure Growth Status 01/23/20 16:55 Nasopharynx SARS-CoV-2 RdRp Gene Assay - Final Complete 01/23/20 21:00 Rectum Received 01/23/20 18:00 Leg Left Gram Stain - Final Resulted 01/23/20 18:00 Leg Left Wound Culture Pending Resulted Height (Feet): 6 Height (Inches): 3.00 Weight (Pounds): 193 Medications Current Medications Medications (Trade) Dose Ordered Sig/Michael Route PRN Reason Start Time Stop Time Status Last Admin Dose Admin Acetaminophen (Tylenol) 650 mg Q4H PRN ORAL Mild Pain (Pain Scale 1-3) 01/23/20 19:00 02/22/20 18:59 Acetaminophen (Tylenol) 650 mg Q4H PRN ORAL Temp >100.5 01/23/20 19:00 02/22/20 18:59 Dextrose (Dextrose 50%) 25 ml Q30M PRN IV Hypoglycemia 01/23/20 19:00 04/22/20 18:59 Dextrose (Dextrose 50%) 50 ml Q30M PRN IV Hypoglycemia 01/23/20 19:00 04/22/20 18:59 Famotidine (Pepcid) 20 mg BID ORAL 01/24/20 09:00 04/23/20 08:59 Folic Acid 1 mg/ Magnesium Sulfate 2000 mg/ Multivitamins 10 ml/Sodium Chloride 1,014.2 ml @ 125 mls/ hr Q24H IV 01/24/20 10:00 02/23/20 09:59 Heparin Sodium (Porcine) (Heparin 5000 units/ml) 5,000 units EVERY 12 HOURS SUBQ 01/23/20 21:00 03/08/20 20:59 01/24/20 08:41 Iron Sucrose 100 mg/Sodium Chloride 60 ml @ 240 mls/hr BEDTIME IVPB 01/24/20 21:00 01/28/20 21:14 Levofloxacin (Levaquin) 500 mg DAILY ORAL 01/24/20 09:00 01/31/20 08:59 Lorazepam (Ativan 2mg/ml 1ml) 1 mg Q4H PRN IV For Anxiety 01/24/20 09:00 01/31/20 08:59 Lorazepam (Ativan) 1 mg THREE TIMES A DAY ORAL 01/24/20 09:00 01/31/20 08:59 Multivitamins (Multivitamins) 1 tab DAILY ORAL 01/24/20 09:00 02/23/20 08:59 Ondansetron HCl (Zofran) 4 mg Q6H PRN IVP Nausea & Vomiting 01/23/20 19:00 02/22/20 18:59 Polyethylene Glycol (Miralax) 17 gm HSPRN PRN ORAL Constipation 01/23/20 19:00 02/22/20 18:59 Thiamine HCl (Vitamin B1) 100 mg DAILY ORAL 01/24/20 09:00 02/23/20 08:59 Thiamine HCl 100 mg/Dextrose 56 ml @ 112 mls/hr Q24H IVPB 01/24/20 10:00 02/23/20 09:59 01/24/20 11:47 Vancomycin HCl (Vanco pharmacy to dose) 1 ea DAILY PRN MISC Per rx protocol 01/23/20 19:00 02/22/20 18:59 Vancomycin HCl 1 gm/Dextrose 275 ml @ 183.708 mls/hr Q8HR@0100,0900,1700 IVPB 01/24/20 09:00 01/29/20 08:59 01/24/20 11:47 Zolpidem Tartrate (Ambien) 5 mg HSPRN PRN ORAL Insomnia 01/23/20 21:00 01/30/20 20:59 Assessment/Plan Problem List: (1) Sepsis ICD Codes: A41.9 - Sepsis, unspecified organism SNOMED: 60482316 Qualifiers: Qualified Codes: A41.9 - Sepsis, unspecified organism (2) Pneumonia ICD Codes: J18.9 - Pneumonia, unspecified organism SNOMED: 822579461 Qualifiers: Qualified Codes: J18.9 - Pneumonia, unspecified organism (3) Hypokalemia ICD Codes: E87.6 - Hypokalemia SNOMED: 25412638 (4) Chronic wound of extremity Assessment & Plan: Since I last seen 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 States it was a debridement a few months back. The wound flap has not healed properly and there is a large extensive open area but it is covered with muscle and the bone is not exposed. May be dermal sloughing. No active infection or drainage. Wound cleansed and dressings applied. I discussed the patient the potential of needing a skin graft or a higher amputation at a later date given the appearance and the likelihood that this is going to spontaneously heal. Patient is fairly noncompliant overall with care plan and declines any further surgical intervention to his lower extremity at this time. SNOMED: 934280018, 53638631, 533649270 (5) Electrolyte imbalance ICD Codes: E87.8 - Other disorders of electrolyte and fluid balance, not elsewhere classified SNOMED: 991493830 (6) UTI (urinary tract infection) ICD Codes: N39.0 - Urinary tract infection SNOMED: 00356162 (7) Acute neck sprain ICD Codes: S13.9XXA - Sprain of joints and ligaments of unspecified parts of neck, initial encounter SNOMED: 090511940 (8) homelessness (9) Hypersexuality ICD Codes: F52.8 - Other sexual dysfunction not due to a substance or known physiological condition SNOMED: 86468286 (10) Sociopathic personality disorder ICD Codes: F60.2 - Antisocial personality disorder SNOMED: 98343326 (11) Decubitus ulcer, stage 3 with infection ICD Codes: L89.93 - Pressure ulcer of unspecified site, stage 3 SNOMED: 6470578 (12) Paraplegia ICD Codes: G82.20 - Paraplegia, unspecified SNOMED: 01221289 (13) Cellulitis Assessment & Plan: Patient presents with mild cellulitis open wound in the right BKA. Wound evaluated bedside. Cleanse with Dakin's. Care plan dressings of initiated. Patient with mild cellulitis of the left lower extremity at the level of the foot. Is compared to prior significantly improved overall. Wound dressings applied. 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 Wound cleansed and dressings applied. Will continue with care plan and management ICD Codes: L97.509 - Non-pressure chronic ulcer of other part of unspecified foot with unspecified severity SNOMED: 13624222 (19) Depressed bipolar disorder ICD Codes: F31.30 - Depressed bipolar disorder SNOMED: 70879222 (20) Alcohol intoxication ICD Codes: F10.929 - Alcohol use, unspecified with intoxication, unspecified SNOMED: 08569944 (21) Methamphetamine abuse ICD Codes: F15.10 - Other stimulant abuse, uncomplicated SNOMED: 746814520 Shilo Arrington Jan 24, 2020 13:23
--- NOTE | 2020-01-24 13:51 | NUR ---
NURSE NOTES:WOUND CARE NOTES:Pt presented on admission with large wound at base of R BKA. Base of wound is lillie with 10% necrosis, scattered slough. Edges flat and adherent to base of wound. Small amt serous exudate. Wound is malodorous. Periwound skin tone is darker, dry and peeling. Full thickness Wound dorsal L foot (L)2.5cm x (W)3cm. Base of wound is beefy red and hyper granular. Edges are macerated. Small amt malodorous serous exudate noted . Resolving wound medial L malleolus. [place] epithelial with surrounding hyperpigmentation noted. Resolving wound lateral L foot . Base of wound is pink ,moist with small amt Biofilm. Surrounding hyperpigmentation. Wound is malodorous.. Pt declined to have wounds on Buttocks and Ischium evaluated. Tx.Plan: Cleanse wound R BKA with Saline. Apply Xeroform gauze. Apply Cavilon Skin Barrier Periwound. Cover with ABD Pad. Wrap with Kerlix Daily and prn. Apply Betadine to wounds L foot . Cover with ABD Pad. Wrap with Kerlix Daily and prn.
--- NOTE | 2020-01-24 14:00 | NUR ---
NURSE NOTES: Pt no IV access. Previous 3 IV infiltrated. Pt hardstick. Dr Mcgowan previously made aware, no call back. Intervention radiology--systems technicianBin came to attempt IV. pt refused and said "well come back late" PO meds still refused.
--- NOTE | 2020-01-24 14:19 | NUR ---
Social Work This SW received a consult due to homelessness. This SW met with patient who remains alert/oriented, independent with ADLs, ambulation (does not require any DME). Patient denied homelessness, stating he lives with his grandmother, but leaves when he is using alcohol or drugs (Crack). This SW encouraged discontinuation of substance abuse. Patient refusing resources at this time (homeless or substance abuse). Patient currently does not verbalize any SI/HI and planning to discharge to the following location: [address] [place] [address].
--- NOTE | 2020-01-24 14:40 | NUR ---
CASE MANAGEMENT: SEE INTERQUAL....CRITERIA MET
--- NOTE | 2020-01-24 14:41 | NUR ---
INSURANCE [facility] CLINICALS AND [facility] T: [phone] F: [phone] REF # [id number]
[2020-01-24 16:00] VITALS: BP 115/65
--- NOTE | 2020-01-24 18:32 | NUR ---
NURSE NOTES: Patient continues to refuses all PO medications. Dr Mcgowan notified on machine, awaiting call back. Pt IV access was now able to be obtained via interventional radiology. R AC 22g , asymptomatic and intact. IV medications given as order. Pt given full bed bath, full assistance required. Pt refused gown after.
--- NOTE | 2020-01-24 19:25 | NUR ---
NURSE NOTES: RECEIVED REPORT FROM ELIZABETH DOZIER. PATIENT AWAKE IN BED, AOX4, VERBALLY RESPONSIVE AND ABLE TO MAKE NEEDS KNOWN. PATIENT COMPLAINS OF "A LITTLE PAIN", BUT REFUSES TO TAKE PRESCRIBED PAIN MEDICATION. BREATHING IS EVEN AND UNLABORED ON ROOM AIR, NO S/SX OF DISTRESS NOTED. IV SITE ON RFA PATENT, INTACT, ASYMPTOMATIC, SALINE-LOCKED. FALL PRECAUTIONS IN PLACE. CONTACT ISOLATION IMPLEMENTED. BED LOCKED AND IN LOWEST POSITION, SIDERAILS UP X 3. CALL LIGHT WITHIN REACH, WILL CONTINUE TO MONITOR FOR ANY CHANGES.
--- NOTE | 2020-01-24 19:35 | NUR ---
NURSE HAND-OFF REPORT: Important Events on Shift: No IV meds given in morning d/t lack of IV access, PO meds all refused, wound consult done, Patient Status: FC, stable Diet: regular, regular texture Pending Orders: Pt need to change to all IV meds d/t Pt refuse PO meds, Md aware, awaiting call back Pending Results/Labs: Pending MD notification: see above Latest Vital Signs: Temperature 98.1 , Pulse 106 , B/P 115 /65 , Respiratory Rate 20 , O2 SAT 98 , Room Air, O2 Flow Rate . Vital Sign Comment: EKG Rhythm: Sinus Tachycardia Rhythm change?: N MD Notified?: N - MD Response: Latest Zaragoza Fall Score: 55 Fall Risk: High Risk Safety Measures: Call light Within Reach, Bed Alarm Zone 1, Side Rails Side Rails x2, Bed position Low and Locked. Fall Precautions: Patient Fall Education Report given to Katelyn JOHNSON.
[2020-01-24 20:00] VITALS: BP 116/64
[2020-01-24] MEDS: Iron Sucrose 100 MG in NS 55 ML IVPB SCH (20:32)
[2020-01-25] VITALS: BP 111/74
[2020-01-25] MEDS: Vancomycin 1gm/D5W 275ml IVPB SCH ×4 (00:39→08:17)
--- NOTE | 2020-01-25 01:00 | NUR ---
NURSE NOTES: ATTEMPTED TO PUT OPTIFOAM ON SACRAL AREA, BUT PATIENT REFUSED DESPITE BEING EDUCATED ON RISKS AND BENEFITS; STATES "I'M GOOD. I DON'T NEED THAT."
[2020-01-25 04:00] VITALS: BP 109/61
--- NOTE | 2020-01-25 05:00 | NUR ---
NURSE NOTES: IV SITE DRESSING CHANGED, WRAPPED IN KERLIX.
--- NOTE | 2020-01-25 05:54 | NUR ---
NURSE NOTES: PATIENT REFUSED TO HAVE BED CLEANED UP. PATIENT STATED "IT'S TOO EARLY FOR THIS!". EXPLAINED TO PATIENT FOR NEED TO CLEAN HIM UP, BUT PATIENT STATES HE'LL CLEAN HIMSELF ON HIS OWN.
--- NOTE | 2020-01-25 06:08 | NUR ---
NURSE NOTES: PATIENT'S WEIGHT TODAY PER BEDSCALE IS 93.1 KG, WHICH AMOUNTS TO 5.4KG DISCREPANCY FROM THE PREVIOUS NIGHT. ASKED THE PATIENT IF I CAN REMOVED ADDITIONAL PILLOWS/BLANKETS ON HIS BED FOR A MORE ACCURATE WEIGHT, BUT PATIENT REFUSED AND REQUESTED IT BE DONE AT A LATER TIME. WILL TRY AGAIN BEFORE BREAKFAST.
--- NOTE | 2020-01-25 07:15 | NUR ---
NURSE NOTES: PATIENT AGREED TO HAVE WEIGHT TAKEN WITHOUT EXTRA BLANKETS. SOILED BLANKETS REMOVED FROM BED.
--- NOTE | 2020-01-25 07:15 | NUR ---
NURSE HAND-OFF REPORT: Important Events on Shift: FEVER X 1, REFUSAL OF CARE Patient Status: STABLE Diet: REGULAR Pending Orders: CT: LEFT FOOT, RIGHT KNEE, BILATERAL TIB/FIB FOR TODAY Pending Results/Labs: 9 AM LABS Pending MD notification: N/A Latest Vital Signs: Temperature 98.4 , Pulse 79 , B/P 109 /61 , Respiratory Rate 16 , O2 SAT 100 , Room Air, O2 Flow Rate . Vital Sign Comment: STABLE EKG Rhythm: Sinus Rhythm Rhythm change?: N MD Notified?: N - MD Response: Latest Zaragoza Fall Score: 40 Fall Risk: Medium Risk Safety Measures: Call light Within Reach, Bed Alarm Zone 1, Side Rails Side Rails x2, Bed position Low and Locked. Fall Precautions: Patient Fall Education Report given to ELIZABETH DOZIER.
--- NOTE | 2020-01-25 07:30 | NUR ---
NURSE NOTES: received report from ELIZABETH Zepeda. Pt AOx4, stable and resting in bed. Pt appears disheveled, linens soiled, and food in bed. Pt linens changed. Pt RA 22g, patent and intact. Pt reports no pain at this time. No s/s or complaints of distress at this time.contact isolation implemented. Pt bed low and locked, call light in reach, bed alarm on and Pt education regarding falls provided. Pt verbalized understanding. Will continue to monitor.
[2020-01-25 08:00] VITALS: BP 113/71
[2020-01-25] MEDS: Heparin 5000 units/ml inj SUBQ SCH ×2 (08:19→21:08)
[2020-01-25] MEDS: Levofloxacin 500mg tab ORAL SCH (08:28)
[2020-01-25] MEDS: Thiamine 100mg tab ORAL SCH (08:29)
[2020-01-25] MEDS: LORazepam 1mg tab ORAL SCH ×3 (08:29→17:00)
--- NOTE | 2020-01-25 08:30 | NUR ---
NURSE NOTES: patient refused PO medications. benefits and risks explained. Pt still refuses PO meds, says he will only take PO pain medications and IV meds.
--- NOTE | 2020-01-25 09:13 | NUR ---
CASE MANAGEMENT: 01/25/20 INTERQUAL CRITERIA MET
--- NOTE | 2020-01-25 09:15 | NUR ---
NURSE NOTES: Pt off floor for CT scan. Stable
[2020-01-25 09:42] LABS: BASOPHILS % (AUTO) 4.2 % (0.0-2.0); EOSINOPHILS % (AUTO) 3.1 % (0.0-3.0); HEMATOCRIT 32.6 % (42.0-52.0); HEMOGLOBIN 9.9 G/DL (14.2-18.0); LYMPHOCYTES % (AUTO) 21.1 % (20.0-45.0); MEAN CORPUSCULAR VOLUME 64 FL (80-99); MONOCYTES % (AUTO) 9.2 % (1.0-10.0); NEUTROPHILS % (AUTO) 62.3 % (45.0-75.0); PLATELET COUNT 414 K/UL (150-450); RED BLOOD COUNT 5.12 M/UL (4.70-6.10); RED CELL DISTRIBUTION WIDTH 18.4 % (11.6-14.8); WHITE BLOOD COUNT 4.9 K/UL (4.8-10.8)
--- NOTE | 2020-01-25 09:52 | NUR ---
NURSE NOTES: Pt back from CT scan. Stable, on tele monitor.
[2020-01-25] MEDS: Folic Acid 1 MG, Magnesium Sulfate 2,000 MG, Multivitamin - 12 Injection 10 ML in Sodiu... IV SCH (10:07)
[2020-01-25] MEDS: Thiamine 100mg IVPB (Q24H) IVPB SCH ×2 (10:08)
[2020-01-25 10:13] LABS: ALANINE AMINOTRANSFERASE 9 U/L (12-78); ALBUMIN 1.9 G/DL (3.4-5.0); ALBUMIN/GLOBULIN RATIO 0.4 (1.0-2.7); ALKALINE PHOSPHATASE 61 U/L (46-116); AMYLASE 72 U/L (25-115); ANION GAP 6 mmol/L (5-15); ASPARTATE AMINO TRANSFERASE 12 U/L (15-37); BILIRUBIN,TOTAL 0.1 MG/DL (0.2-1.0); BLOOD UREA NITROGEN 6 mg/dL (7-18); CALCIUM 8.4 MG/DL (8.5-10.1); CARBON DIOXIDE 27 MMOL/L (21-32); CHLORIDE 105 MMOL/L (98-107); CREATININE 0.8 MG/DL (0.55-1.30); POTASSIUM 3.4 MMOL/L (3.5-5.1); SODIUM 138 MMOL/L (136-145)
[2020-01-25 11:48] VITALS: BP 118/79
--- NOTE | 2020-01-25 11:57 | NUR ---
INSURANCE [facility] [phone] F: [phone] REF # [id number]
--- NOTE | 2020-01-25 12:39 | General Progress Note ---
Assessment/Plan Problem List: (1) Alcohol withdrawal ICD Codes: F10.239 - Alcohol dependence with withdrawal, unspecified SNOMED: 470200701 (2) Osteomyelitis ICD Codes: M86.9 - Osteomyelitis, unspecified SNOMED: 28120967 (3) Cellulitis ICD Codes: L03.90 - Cellulitis, unspecified SNOMED: 748145421 (4) Paraplegia ICD Codes: G82.20 - Paraplegia, unspecified SNOMED: 58206687 (5) Spinal cord injury SNOMED: 82191619 (6) Ulcer of foot ICD Codes: L97.509 - Non-pressure chronic ulcer of other part of unspecified foot with unspecified severity SNOMED: 29117627 (7) Methamphetamine abuse ICD Codes: F15.10 - Other stimulant abuse, uncomplicated SNOMED: 695607477 Assessment/Plan: ct to eval for osteo, encourage cooperation Subjective Constitutional: Reports: weakness HEENT: Reports: no symptoms Cardiovascular: Reports: no symptoms Respiratory: Reports: no symptoms Gastrointestinal/Abdominal: Reports: no symptoms Genitourinary: Reports: no symptoms Neurologic/Psychiatric: Reports: pre-existing deficit Endocrine: Reports: no symptoms Hematologic/Lymphatic: Reports: anemia Allergies: Coded Allergies: PENICILLIN G (Verified Allergy, Unknown, 05/05/18) Tolerates carbapenems and cephalosporins PENICILLINS (Unverified Allergy, Unknown, 11/15/18) Objective Last 24 Hour Vital Signs Date Time Temp Pulse Resp B/P (MAP) Pulse Ox O2 Delivery O2 Flow Rate FiO2 01/25/20 12:00 80 01/25/20 11:48 97.7 85 20 118/79 (92) 100 01/25/20 09:00 Room Air 01/25/20 08:00 98.0 81 18 113/71 (85) 98 01/25/20 08:00 86 01/25/20 04:00 98.4 84 16 109/61 (77) 100 01/25/20 04:00 79 01/25/20 01:09 99.9 01/25/20 00:00 100.6 89 20 111/74 (86) 100 01/25/20 00:00 78 01/24/20 21:00 Room Air 01/24/20 20:00 99.1 97 20 116/64 (81) 99 01/24/20 20:00 97 01/24/20 16:00 106 01/24/20 16:00 98.1 98 20 115/65 (82) 98 Intake and Output 01/24/20 01/25/20 19:00 07:00 Intake Total 1200 ml 3000 ml Output Total 950 ml 1200 ml Balance 250 ml 1800 ml Intake Oral 3000 ml Other 1200 ml Output Urine Total 950 ml 1200 ml # Voids 5 3 Laboratory Tests 01/25/20 08:10: White Blood Count 4.9, Red Blood Count 5.12, Hemoglobin 9.9L, Hematocrit 32.6L, Mean Corpuscular Volume 64L, Mean Corpuscular Hemoglobin 19.3L, Mean Corpuscular Hemoglobin Concent 30.2L, Red Cell Distribution Width 18.4H, Platelet Count 414, Mean Platelet Volume 6.2L, Neutrophils (%) (Auto) 62.3, Lymphocytes (%) (Auto) 21.1, Monocytes (%) (Auto) 9.2, Eosinophils (%) (Auto) 3.1H, Basophils (%) (Auto) 4.2H, Erythrocyte Sedimentation Rate 57H, Prothrombin Time 10.7, Prothromb Time International Ratio 1.0, Activated Partial Thromboplast Time 30, Sodium Level 138, Potassium Level 3.4L, Chloride Level 105, Carbon Dioxide Level 27, Anion Gap 6, Blood Urea Nitrogen 6L, Creatinine 0.8, Estimat Glomerular Filtration Rate > 60, Glucose Level 93, Lactic Acid Level 1.10, Calcium Level 8.4L, Total Bilirubin 0.1L, Aspartate Amino Transf (AST/SGOT) 12L, Alanine Aminotransferase (ALT/SGPT) 9L, Alkaline Phosphatase 61, C-Reactive Protein, Quantitative 5.5H, Total Protein 7.0, Albumin 1.9L, Globulin 5.1, Albumin/Globulin Ratio 0.4L, Amylase Level 72, Lipase 133, Vancomycin Level Trough 11.1 Height (Feet): 6 Height (Inches): 3.00 Weight (Pounds): 200 General Appearance: no apparent distress, alert EENT: normal ENT inspection Neck: normal alignment Cardiovascular: normal rate, regular rhythm Respiratory/Chest: lungs clear, normal breath sounds Abdomen: non tender, soft Extremities: other - rbka, dressings both legs Willy Mcgowan MD Jan 25, 2020 12:39
--- NOTE | 2020-01-25 13:47 | Surgery Progress Note ---
Surgery Progress Note Subjective Additional Comments no acute events comfortable Objective Last 24 Hour Vital Signs Date Time Temp Pulse Resp B/P (MAP) Pulse Ox O2 Delivery O2 Flow Rate FiO2 01/25/20 12:00 80 01/25/20 11:48 97.7 85 20 118/79 (92) 100 01/25/20 09:00 Room Air 01/25/20 08:00 98.0 81 18 113/71 (85) 98 01/25/20 08:00 86 01/25/20 04:00 98.4 84 16 109/61 (77) 100 01/25/20 04:00 79 01/25/20 01:09 99.9 01/25/20 00:00 100.6 89 20 111/74 (86) 100 01/25/20 00:00 78 01/24/20 21:00 Room Air 01/24/20 20:00 99.1 97 20 116/64 (81) 99 01/24/20 20:00 97 01/24/20 16:00 106 01/24/20 16:00 98.1 98 20 115/65 (82) 98 I&O Intake and Output 01/24/20 01/25/20 19:00 07:00 Intake Total 1200 ml 3000 ml Output Total 950 ml 1200 ml Balance 250 ml 1800 ml Intake Oral 3000 ml Other 1200 ml Output Urine Total 950 ml 1200 ml # Voids 5 3 Dressing: saturated Cardiovascular: RSR Respiratory: decreased breath sounds Abdomen: soft, non-tender, present bowel sounds Extremities: edema, pulses, other Laboratory Tests Test 01/25/20 08:10 White Blood Count 4.9 K/UL (4.8-10.8) Red Blood Count 5.12 M/UL (4.70-6.10) Hemoglobin 9.9 G/DL (14.2-18.0) L Hematocrit 32.6 % (42.0-52.0) L Mean Corpuscular Volume 64 FL (80-99) L Mean Corpuscular Hemoglobin 19.3 PG (27.0-31.0) L Mean Corpuscular Hemoglobin Concent 30.2 G/DL (32.0-36.0) L Red Cell Distribution Width 18.4 % (11.6-14.8) H Platelet Count 414 K/UL (150-450) Mean Platelet Volume 6.2 FL (6.5-10.1) L Neutrophils (%) (Auto) 62.3 % (45.0-75.0) Lymphocytes (%) (Auto) 21.1 % (20.0-45.0) Monocytes (%) (Auto) 9.2 % (1.0-10.0) Eosinophils (%) (Auto) 3.1 % (0.0-3.0) H Basophils (%) (Auto) 4.2 % (0.0-2.0) H Erythrocyte Sedimentation Rate 57 MM/HR (0-15) H Prothrombin Time 10.7 SEC (9.30-11.50) Prothromb Time International Ratio 1.0 (0.9-1.1) Activated Partial Thromboplast Time 30 SEC (23-33) Sodium Level 138 MMOL/L (136-145) Potassium Level 3.4 MMOL/L (3.5-5.1) L Chloride Level 105 MMOL/L (98-107) Carbon Dioxide Level 27 MMOL/L (21-32) Anion Gap 6 mmol/L (5-15) Blood Urea Nitrogen 6 mg/dL (7-18) L Creatinine 0.8 MG/DL (0.55-1.30) Estimat Glomerular Filtration Rate > 60 mL/min (>60) Glucose Level 93 MG/DL (74-106) Lactic Acid Level 1.10 mmol/L (0.4-2.0) Calcium Level 8.4 MG/DL (8.5-10.1) L Total Bilirubin 0.1 MG/DL (0.2-1.0) L Aspartate Amino Transf (AST/SGOT) 12 U/L (15-37) L Alanine Aminotransferase (ALT/SGPT) 9 U/L (12-78) L Alkaline Phosphatase 61 U/L (46-116) C-Reactive Protein, Quantitative 5.5 mg/dL (0.00-0.90) H Total Protein 7.0 G/DL (6.4-8.2) Albumin 1.9 G/DL (3.4-5.0) L Globulin 5.1 g/dL Albumin/Globulin Ratio 0.4 (1.0-2.7) L Amylase Level 72 U/L (25-115) Lipase 133 U/L (73-393) Vancomycin Level Trough 11.1 ug/mL (5.0-12.0) Plan Problems: (1) Sepsis (2) Pneumonia (3) Hypokalemia (4) Chronic wound of extremity Assessment & Plan: Since I last seen 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 States it was a debridement a few months back. The wound flap has not healed properly and there is a large extensive open area but it is covered with muscle and the bone is not exposed. May be dermal sloughing. No active infection or drainage. Wound cleansed and dressings applied. I discussed the patient the potential of needing a skin graft or a higher amputation at a later date given the appearance and the likelihood that this is going to spontaneously heal. Patient is fairly noncompliant overall with care plan and declines any further surgical intervention to his lower extremity at this time. Pt presented on admission with large wound at base of R BKA. Base of wound is lillie with 10% necrosis, scattered slough. Edges flat and adherent to base of wound. Small amt serous exudate. Wound is malodorous. Periwound skin tone is darker, dry and peeling. Full thickness Wound dorsal L foot (L)2.5cm x (W)3cm. Base of wound is beefy red and hyper granular. Edges are macerated. Small amt malodorous serous exudate noted . Resolving wound medial L malleolus. [place] epithelial with surrounding hyperpigmentation noted. Resolving wound lateral L foot . Base of wound is pink ,moist with small amt Biofilm. Surrounding hyperpigmentation. Wound is malodorous.. Pt declined to have wounds on Buttocks and Ischium evaluated. Tx.Plan: Cleanse wound R BKA with Saline. Apply Xeroform gauze. Apply Cavilon Skin Barrier Periwound. Cover with ABD Pad. Wrap with Kerlix Daily and prn. Apply Betadine to wounds L foot . Cover with ABD Pad. Wrap with Kerlix Daily and prn. (5) Electrolyte imbalance (6) UTI (urinary tract infection) (7) Acute neck sprain (8) homelessness (9) Hypersexuality (10) Sociopathic personality disorder (11) Decubitus ulcer, stage 3 with infection (12) Paraplegia (13) Cellulitis Assessment & Plan: Patient presents with mild cellulitis open wound in the right BKA. Wound evaluated bedside. Cleanse with Dakin's. Care plan dressings of initiated. Patient with mild cellulitis of the left lower extremity at the level of the foot. Is compared to prior significantly improved overall. Wound dressings applied. 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 Wound cleansed and dressings applied. Will continue with care plan and management (19) Depressed bipolar disorder (20) Alcohol intoxication (21) Methamphetamine abuse Shilo Arrington Jan 25, 2020 13:47
--- NOTE | 2020-01-25 14:18 | Diagnostic Imaging Report ---
Indication: Pain, trauma, right knee wound and cellulitis Technique: Noncontrast spiral acquisitions obtained through the right knee Multiplanar reconstructions were generated. Total dose length product 246 mGycm. CTDIvol(s) 3 mGy. Radiation dose was minimized using automated exposure control Comparison: none Findings: Patient is status post [id number] amputation. The bony amputation margins are clean. The skin surface about and just above the stomach appears irregular. Uncertain as whether this is due to overlying bandages or true surface irregularity. There is also marked skin thickening distally. There is diffuse edema of the subcutaneous fat, particularly laterally, as well as the deeper fat. No definite discrete fluid collections are demonstrated. There is slight indistinctness of the cortices of the lateral tibial plateau and the lateral aspect of the medial condyle. More questionable indistinctness of the medial femoral condylar cortex is also noted. There is prepatellar skin thickening. A small osseous fragment projects cephalad to the patella, appearing to be within the quadriceps tendon. No acute fractures. No suprapatellar effusion demonstrated. There are degenerative changes of the medial and patellofemoral joint compartments. Impression: Marked skin thickening of the stump and distal residual thigh, possibly reflecting cellulitis. Some irregularity of the skin surface noted. This may be in part artifact of overlying bandages, but could represent skin surface ulceration. Correlate with clinical appearance. No definite discrete fluid collection demonstrated to suggest abscess, although evaluation for such is limited in the absence of IV contrast Indistinctness of the cortical surfaces of the tibia and femur. 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 However, the possibility of acute osteomyelitis should also be considered. There consider MRI for better characterization. All osseous fragment cephalad to the patella, probably some heterotopic ossification or could represent an old injury Degenerative changes, as described The CT scanner at [facility] is accredited by the [employer] and the scans are performed using protocols designed to limit radiation exposure to as low as reasonably achievable to attain images of sufficient resolution adequate for diagnostic evaluation.
--- NOTE | 2020-01-25 14:51 | Diagnostic Imaging Report ---
Indication: Trauma, pain, cellulitis of the leg Technique: No IV contrast, reason not stated. Spiral acquisitions obtained through the left tibia and fibula Multiplanar reconstructions were generated. Total dose length product 246 mGycm. CTDIvol(s) 3 mGy. Radiation dose was minimized using automated exposure control Comparison: none Findings: There is edema of the superficial and deep fat, particularly distally. At the level of the ankle, the edema is particularly intense medial and laterally. No definite discrete fluid collections, although evaluation for such is limited without IV contrast. No definite osseous erosions or osteolytic lesions. No acute fractures. No dislocations. No evidence of knee or ankle joint effusion. Impression: Soft tissue edema, as described This could be due to cellulitis or could be hemodynamic in origin No discrete collections to suggest abscess. However, evaluation for abscess is limited in the absence of IV contrast No acute bony trauma No osseous erosions or other findings to suggest acute osteomyelitis. Note, however, limited sensitivity of CT for such. If there is high clinical suspicion, MRI should be considered for better characterization. The CT scanner at [facility] is accredited by the [employer] and the scans are performed using protocols designed to limit radiation exposure to as low as reasonably achievable to attain images of sufficient resolution adequate for diagnostic evaluation.
--- NOTE | 2020-01-25 14:58 | Diagnostic Imaging Report ---
Indication: Trauma, multiple wounds, cellulitis of the leg and foot Technique: Noncontrast spiral acquisitions obtained through the left foot Multiplanar reconstructions were generated. Total dose length product 247 mGycm. CTDIvol(s) 3 mGy. Radiation dose was minimized using automated exposure control Comparison: none Findings: Image quality of the toes and of the midfoot is suboptimal, reason uncertain. No definite acute fractures. No dislocations. No definite osseous erosions, although evaluation for such in the toes and midfoot is suboptimal. There is mild edema subcutaneous and deep fat. No definite discrete fluid collections are demonstrated. There is skin thickening medially and laterally. There is mild joint space narrowing of the ankle joint. Impression: No definite acute bony trauma No definite osseous erosions or other findings to suggest acute osteomyelitis, although evaluation of the toes and midfoot is very limited. If there is high clinical suspicion, MRI should be considered for better evaluation Soft tissue edema, may indicate cellulitis versus edema of hemodynamically etiology No definite discrete fluid collections to suggest abscess, but evaluation for abscess is very limited in the absence of IV contrast administration The CT scanner at [facility] is accredited by the [employer] and the scans are performed using protocols designed to limit radiation exposure to as low as reasonably achievable to attain images of sufficient resolution adequate for diagnostic evaluation.
--- NOTE | 2020-01-25 15:00 | NUR ---
NURSE NOTES: Pt wound cleaned and dressing changed. Pt R lower extremity amputated mid tibia. Area appears pink, and moist with no drainage at this time. No bone exposure. Wound cleansed with sterile saline, xerofoam gauze, ABD covering and wrapped with big Kerlix and tape. L foot dressing revealed a wound on the ankle that is pink and dry around the edges. At the top of the foot, the wound is pink and red with little moisture. Skin around wounds is very dry and tight. No bone exposure. Wound cleansed with saline and betadine, covered with ABD pad and wrapped with small kerlix. Pt tolerated dressing change well. No foul odor to either wounds.
[2020-01-25 16:00] VITALS: BP 117/69
[2020-01-25] MEDS: Vancomycin 1.25gm/NS Premix q24h IVPB SCH ×2 (16:59→23:36)
--- NOTE | 2020-01-25 17:07 | NUR ---
NURSE NOTES: Patient refused all PO medications. Risks and benefits explained. Pt says "only the shot one" in reference to the Heparin medication.
--- NOTE | 2020-01-25 19:25 | NUR ---
NURSE NOTES: RECEIVED REPORT FROM ELIZABETH DOZIER. AAOX4, VERBALLY RESPONSIVE AND ABLE TO MAKE NEEDS KNOWN. NO COMPLAINTS OF PAIN OR DISCOMFORT AT THIS TIME. BREATHING IS EVEN AND UNLABORED ON ROOM AIR, NO S/SX OF DISTRESS. IV SITE ON RAC PATENT, INTACT, ASYMPTOMATIC, SALINE-LOCKED. FALL PRECAUTIONS IN PLACE. BED LOCKED AND IN LOWEST POSITION, SIDERAILS UP X 3. CALL LIGHT WITHIN REACH, WILL CONTINUE TO MONITOR FOR ANY CHANGES. PENDING TRANSFER TO [facility]UR[facility].
--- NOTE | 2020-01-25 19:37 | NUR ---
NURSE HAND-OFF REPORT: Important Events on Shift: order to transfer to OR per Dr Mcgowan, CT scan done, PO meds refused , dressing changed Patient Status: fc, stable Diet: regular diet Pending Orders: Pending Results/Labs: Pending MD notification: Latest Vital Signs: Temperature 97.9 , Pulse 90 , B/P 117 /69 , Respiratory Rate 20 , O2 SAT 100 , Room Air, O2 Flow Rate . Vital Sign Comment: EKG Rhythm: Sinus Rhythm Rhythm change?: N MD Notified?: N - MD Response: Latest Zaragoza Fall Score: 40 Fall Risk: Medium Risk Safety Measures: Call light Within Reach, Bed Alarm Zone 1, Side Rails Side Rails x2, Bed position Low and Locked. Fall Precautions: Patient Fall Education Report given to ELIZABETH Zepeda .
[2020-01-25 20:00] VITALS: BP 124/79
[2020-01-25] MEDS: Iron Sucrose 100 MG in NS 55 ML IVPB SCH (21:08)
[2020-01-25] MEDS ORDERED: Tubing IV Secondary IV ONE (21:52)
[2020-01-26] VITALS (7 sets, daily range): BP systolic 108–122; BP diastolic 63–77
--- NOTE | 2020-01-26 02:00 | NUR ---
NURSE NOTES: PATIENT NOTED TO BE SOILED, SHEETS APPEAR WET. PATIENT REFUSES TO BE CLEANED AT THIS TIME, STATES HE CAN GET CLEANED "LATER". EXPLAINED RISKS AND BENEFITS, HOWEVER PATIENT STILL REFUSES.
--- NOTE | 2020-01-26 05:58 | NUR ---
NURSE NOTES: PATIENT CLEANED, LINEN CHANGED, WOUND CARE DONE. PATIENT REFUSED TO HAVE PERIANAL AREA CHECKED DESPITE BEING EDUCATED ON RISKS AND BENEFITS.
--- NOTE | 2020-01-26 07:10 | NUR ---
NURSE NOTES:Report received from Katelyn JOHNSON. Pt in bed awake and alert. No complaint of pain or signs of distress. Bed low and locked, call light within reach.
--- NOTE | 2020-01-26 07:10 | NUR ---
NURSE HAND-OFF REPORT: Important Events on Shift: TRANSFER TO MED-SUR[facility], WOUND CARE Patient Status: STABLE Diet: REGULAR Pending Orders: N/A Pending Results/Labs: N/A Pending MD notification: N/A Latest Vital Signs: Temperature 97.7 , Pulse 89 , B/P 119 /77 , Respiratory Rate 18 , O2 SAT 96 , Room Air, O2 Flow Rate . Vital Sign Comment: STABLE EKG Rhythm: Sinus Rhythm Rhythm change?: N MD Notified?: N - MD Response: Latest Zaragoza Fall Score: 40 Fall Risk: Medium Risk Safety Measures: Call light Within Reach, Bed Alarm Zone 1, Side Rails Side Rails x2, Bed position Low and Locked. Fall Precautions: Patient Fall Education Report given to ELIZABETH BARRERA.
[2020-01-26] MEDS: LORazepam 1mg tab ORAL SCH ×3 (08:07→18:00)
[2020-01-26] MEDS: Levofloxacin 500mg tab ORAL SCH (08:07)
[2020-01-26] MEDS: Thiamine 100mg tab ORAL SCH (08:08)
--- NOTE | 2020-01-26 08:35 | NUR ---
NURSE NOTES: Lab microbiology called regarding gram + rods in the blood, nurse and md to be notified. Addendum: 01/26/20 at 0839 by SAV PATEL RN Md Springer answered called and stated that the pt is currently on vanco 1.[address] he [address] Dr Mcgowan know.
[2020-01-26] MEDS: Vancomycin 1.25gm/NS Premix q24h IVPB SCH (08:51)
[2020-01-26] MEDS: Heparin 5000 units/ml inj SUBQ SCH ×2 (08:52→21:15)
--- NOTE | 2020-01-26 09:44 | NUR ---
NURSE NOTES: Md Mcgowan called back regarding the gram pos rods ordered flagyl 500 Q8hr and Levaquin 750 Q24hr.
--- NOTE | 2020-01-26 11:02 | NUR ---
RD ASSESSMENT & RECOMMENDATIONS SEE CARE ACTIVITY FOR COMPLETE ASSESSMENT DAILY ESTIMATED NEEDS: Needs based on Advanced wounds, paraplegia/ 92.1kg abw 25-30 kcals/kg 5383-1631 total kcals 1.25-2.0 g protein/kg 115-184 g total protein 25-30 mL/kg 2810-1293 total fluid mLs NUTRITION DIAGNOSIS: Increased kcal and protein needs r/t wound healing as evidenced by w/ open wound at base of R- BKA, full thickness L foot wound. CURRENT DIET:REGULAR PO DIET RECOMMENDATIONS: REGULAR + DOUBLE PROTEIN PORTIONS ADDITIONAL RECOMMENDATIONS: * Wound healing: CHARAN BID + MVI w/ min daily + Vit C 250mg BID * Monitor lytes, replete as needed (K 3.4) * Calibrated bedscale wt for accurate CBW * Add HIGH PRO snacks in b/w meals Ensure Enlive qdaily (350 kcal, 20g pro each) .
[2020-01-26] MEDS: Thiamine 100mg IVPB (Q24H) IVPB SCH ×2 (11:16)
[2020-01-26] MEDS: Folic Acid 1 MG, Magnesium Sulfate 2,000 MG, Multivitamin - 12 Injection 10 ML in Sodiu... IV SCH (12:14)
[2020-01-26] MEDS ORDERED: LORazepam Inj 2mg/ml 1ml IV PRN (12:57)
[2020-01-26] MEDS ORDERED: Zolpidem 5mg tab ORAL PRN (12:59)
--- NOTE | 2020-01-26 13:09 | Infectious Diseases Prog Note ---
Assessment/Plan Assessment/Plan Full consult to follow: A) 1) infected wounds/cellulitis 2) multi drug resistant gram proteus/mrsa on wound culture 3) allergies - pcn 4) pmh noted 5) CT without osteomyelitis P) 1) meropenem and vancomycin 2) benefits outweigh risks for meropenem 3) d/w RN 4) wound care per surgery 5) thank you Subjective Allergies: Coded Allergies: PENICILLIN G (Verified Allergy, Unknown, 05/05/18) Tolerates carbapenems and cephalosporins PENICILLINS (Unverified Allergy, Unknown, 11/15/18) Objective Last 24 Hour Vital Signs Date Time Temp Pulse Resp B/P (MAP) Pulse Ox O2 Delivery O2 Flow Rate FiO2 01/26/20 08:00 98.1 81 18 114/71 (85) 100 01/26/20 04:00 97.7 89 18 119/77 (91) 96 01/26/20 00:00 98.6 95 20 119/69 (86) 95 01/25/20 21:00 Room Air 01/25/20 20:00 98.8 82 20 124/79 (94) 100 01/25/20 16:00 97.9 94 20 117/69 (85) 100 01/25/20 16:00 90 Height (Feet): 6 Height (Inches): 3.00 Weight (Pounds): 200 Microbiology Date/Time Source Procedure Growth Status 01/23/20 16:55 Blood Blood Culture - Preliminary NO GROWTH AFTER 48 HOURS Resulted 01/23/20 16:40 Blood Blood Culture - Preliminary Resulted 01/24/20 11:10 Nasal Not Otherwise Specified MRSA Culture - Final Staphylococcus Aureus - Mrsa Complete 01/23/20 21:00 Nasal Nares MRSA Culture - Final Staphylococcus Aureus - Mrsa Complete 01/23/20 16:55 Nasopharynx SARS-CoV-2 RdRp Gene Assay - Final Complete 01/23/20 21:00 Rectum - Final NO CARBAPENEM-RESISTANT ENTEROBACTERI... Complete 01/23/20 21:00 Rectum VRE Culture - Final Enterococcus Faecalis - Vre Complete 01/23/20 18:00 Leg Left Gram Stain - Final Resulted 01/23/20 18:00 Wound Culture - Preliminary Staphylococcus Aureus Proteus Mirabilis Resulted Current Medications Medications (Trade) Dose Ordered Sig/Michael Route PRN Reason Start Time Stop Time Status Last Admin Dose Admin Acetaminophen (Tylenol) 650 mg Q4H PRN ORAL Mild Pain (Pain Scale 1-3) 01/26/20 12:57 02/25/20 12:56 Acetaminophen (Tylenol) 650 mg Q4H PRN ORAL Temp >100.5 01/26/20 12:57 02/25/20 12:56 Dextrose (Dextrose 50%) 25 ml Q30M PRN IV Hypoglycemia 01/26/20 13:00 04/22/20 18:59 Dextrose (Dextrose 50%) 50 ml Q30M PRN IV Hypoglycemia 01/26/20 13:00 04/22/20 18:59 Famotidine (Pepcid) 20 mg BID ORAL 01/26/20 18:00 04/23/20 08:59 Folic Acid 1 mg/ Magnesium Sulfate 2000 mg/ Multivitamins 10 ml/Sodium Chloride 1,014.2 ml @ 125 mls/ hr Q24H IV 01/27/20 10:00 02/23/20 09:59 Heparin Sodium (Porcine) (Heparin 5000 units/ml) 5,000 units EVERY 12 HOURS SUBQ 01/26/20 21:00 03/08/20 20:59 Iron Sucrose 100 mg/Sodium Chloride 60 ml @ 240 mls/hr BEDTIME IV 01/26/20 21:00 01/28/20 21:14 Levofloxacin 150 ml @ 100 mls/hr Q24H IVPB 01/27/20 11:00 02/02/20 10:59 Lorazepam (Ativan 2mg/ml 1ml) 1 mg Q4H PRN IV For Anxiety 01/26/20 12:57 02/02/20 12:56 Lorazepam (Ativan) 1 mg THREE TIMES A DAY ORAL 01/26/20 13:00 01/31/20 08:59 Metronidazole 100 ml @ 100 mls/hr Q8HR IVPB 01/26/20 14:00 02/02/20 13:59 Multivitamins (Multivitamins) 1 tab DAILY ORAL 01/27/20 09:00 02/23/20 08:59 Ondansetron HCl (Zofran) 4 mg Q6H PRN IVP Nausea & Vomiting 01/26/20 13:00 02/22/20 18:59 Polyethylene Glycol (Miralax) 17 gm HSPRN PRN ORAL Constipation 01/26/20 19:00 02/22/20 18:59 Thiamine HCl (Vitamin B1) 100 mg DAILY ORAL 01/27/20 09:00 02/23/20 08:59 Thiamine HCl 100 mg/Dextrose 56 ml @ 112 mls/hr Q24H IVPB 01/27/20 10:00 02/23/20 09:59 Vancomycin HCl (Vanco pharmacy to dose) 1 ea DAILY PRN MISC Per rx protocol 01/27/20 09:00 02/22/20 18:59 Vancomycin/Sodium Chloride 275 ml @ 183.333 mls/hr Q8H IVPB 01/26/20 16:00 01/30/20 15:59 Zolpidem Tartrate (Ambien) 5 mg HSPRN PRN ORAL Insomnia 01/26/20 12:59 02/02/20 12:58 Roxanne Solitario MD Jan 26, 2020 13:09
--- NOTE | 2020-01-26 13:11 | NUR ---
CASE MANAGEMENT: 01/26/20 REVIEW IN INTERQUAL.......CRITERIA MET
--- NOTE | 2020-01-26 13:12 | NUR ---
INSURANCE [facility] CLINIC[facility] T: [phone] F: [phone] REF # [id number]
--- NOTE | 2020-01-26 13:13 | NUR ---
HAND-OFF: Report given to Maximus JOHNSON on 4E.
--- NOTE | 2020-01-26 13:14 | Infectious Diseases Prog Note ---
Assessment/Plan Assessment/Plan Full consult to follow: A) 1) infected wounds/cellulitis 2) multi drug resistant gram proteus/mrsa on wound culture, bc - gram + rods likely contaminant 3) allergies - pcn - hives 4) pmh noted 5) CT without osteomyelitis P) 1) vancomycin, amikacin and flagyl 2) monitor labs 3) d/w RN 4) wound care per surgery 5) thank you Subjective Allergies: Coded Allergies: PENICILLIN G (Verified Allergy, Unknown, 05/05/18) Tolerates carbapenems and cephalosporins PENICILLINS (Unverified Allergy, Unknown, 11/15/18) Objective Last 24 Hour Vital Signs Date Time Temp Pulse Resp B/P (MAP) Pulse Ox O2 Delivery O2 Flow Rate FiO2 01/26/20 08:00 98.1 81 18 114/71 (85) 100 01/26/20 04:00 97.7 89 18 119/77 (91) 96 01/26/20 00:00 98.6 95 20 119/69 (86) 95 01/25/20 21:00 Room Air 01/25/20 20:00 98.8 82 20 124/79 (94) 100 01/25/20 16:00 97.9 94 20 117/69 (85) 100 01/25/20 16:00 90 Height (Feet): 6 Height (Inches): 3.00 Weight (Pounds): 200 Microbiology Date/Time Source Procedure Growth Status 01/23/20 16:55 Blood Blood Culture - Preliminary NO GROWTH AFTER 48 HOURS Resulted 01/23/20 16:40 Blood Blood Culture - Preliminary Resulted 01/24/20 11:10 Nasal Not Otherwise Specified MRSA Culture - Final Staphylococcus Aureus - Mrsa Complete 01/23/20 21:00 Nasal Nares MRSA Culture - Final Staphylococcus Aureus - Mrsa Complete 01/23/20 16:55 Nasopharynx SARS-CoV-2 RdRp Gene Assay - Final Complete 01/23/20 21:00 Rectum - Final NO CARBAPENEM-RESISTANT ENTEROBACTERI... Complete 01/23/20 21:00 Rectum VRE Culture - Final Enterococcus Faecalis - Vre Complete 01/23/20 18:00 Leg Left Gram Stain - Final Resulted 01/23/20 18:00 Wound Culture - Preliminary Staphylococcus Aureus Proteus Mirabilis Resulted Current Medications Medications (Trade) Dose Ordered Sig/Michael Route PRN Reason Start Time Stop Time Status Last Admin Dose Admin Acetaminophen (Tylenol) 650 mg Q4H PRN ORAL Mild Pain (Pain Scale 1-3) 01/26/20 12:57 02/25/20 12:56 Acetaminophen (Tylenol) 650 mg Q4H PRN ORAL Temp >100.5 01/26/20 12:57 02/25/20 12:56 Dextrose (Dextrose 50%) 25 ml Q30M PRN IV Hypoglycemia 01/26/20 13:00 04/22/20 18:59 Dextrose (Dextrose 50%) 50 ml Q30M PRN IV Hypoglycemia 01/26/20 13:00 04/22/20 18:59 Famotidine (Pepcid) 20 mg BID ORAL 01/26/20 18:00 04/23/20 08:59 Folic Acid 1 mg/ Magnesium Sulfate 2000 mg/ Multivitamins 10 ml/Sodium Chloride 1,014.2 ml @ 125 mls/ hr Q24H IV 01/27/20 10:00 02/23/20 09:59 Heparin Sodium (Porcine) (Heparin 5000 units/ml) 5,000 units EVERY 12 HOURS SUBQ 01/26/20 21:00 03/08/20 20:59 Iron Sucrose 100 mg/Sodium Chloride 60 ml @ 240 mls/hr BEDTIME IV 01/26/20 21:00 01/28/20 21:14 Levofloxacin 150 ml @ 100 mls/hr Q24H IVPB 01/27/20 11:00 02/02/20 10:59 Lorazepam (Ativan 2mg/ml 1ml) 1 mg Q4H PRN IV For Anxiety 01/26/20 12:57 02/02/20 12:56 Lorazepam (Ativan) 1 mg THREE TIMES A DAY ORAL 01/26/20 13:00 01/31/20 08:59 Metronidazole 100 ml @ 100 mls/hr Q8HR IVPB 01/26/20 14:00 02/02/20 13:59 Multivitamins (Multivitamins) 1 tab DAILY ORAL 01/27/20 09:00 02/23/20 08:59 Ondansetron HCl (Zofran) 4 mg Q6H PRN IVP Nausea & Vomiting 01/26/20 13:00 02/22/20 18:59 Polyethylene Glycol (Miralax) 17 gm HSPRN PRN ORAL Constipation 01/26/20 19:00 02/22/20 18:59 Thiamine HCl (Vitamin B1) 100 mg DAILY ORAL 01/27/20 09:00 02/23/20 08:59 Thiamine HCl 100 mg/Dextrose 56 ml @ 112 mls/hr Q24H IVPB 01/27/20 10:00 02/23/20 09:59 Vancomycin HCl (Vanco pharmacy to dose) 1 ea DAILY PRN MISC Per rx protocol 01/27/20 09:00 02/22/20 18:59 Vancomycin/Sodium Chloride 275 ml @ 183.333 mls/hr Q8H IVPB 01/26/20 16:00 01/30/20 15:59 Zolpidem Tartrate (Ambien) 5 mg HSPRN PRN ORAL Insomnia 01/26/20 12:59 02/02/20 12:58 Roxanne Solitario MD Jan 26, 2020 13:14
[2020-01-26] MEDS ORDERED: Amikacin Rx to dose MISC PRN (13:15)
--- NOTE | 2020-01-26 13:27 | NUR ---
NURSE NOTES: RECEIVED REPORT FROM ELIZABETH BARRERA FROM TELEMETRY. PT ARRIVED ON UNIT IN STABLE CONDITION. VSS. BELONGINGS AT BEDSIDE AND ALL ACCOUNTED. PT DENIES PAIN OR SOB. RESPIRATIONS ARE EVEN AND UNLABORED. 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 PT DOES NOT WANT TO WEAR A GOWN AND REFUSING PO MEDICATIONS. PT DOES NOT GIVE REASON WHY HE IS REFUSING PO MEDS. IN NO APPARENT DISTRESS AT THIS TIME. BED IN LOWEST POSITION WITH BEDSIDE RAILS X3 RAISED. CALL LIGHT WITHIN REACH. WILL CONTINUE TO MONITOR.
[2020-01-26] MEDS: metroNIDAZOLE 500mg tab ORAL SCH ×3 (14:00→21:16)
--- NOTE | 2020-01-26 14:30 | NUR ---
NURSE NOTES: PT REFUSING VANCO TROUGH DRAW SCHEDULED FOR 1400HRS. RN EDUCATED PT IT IS IMPORTANT TO MEASURE ANTIBIOTIC VANCOMYCIN TOXICITY IN THE BLOOD. PT REFUSED AND STATED "JUST DO IT ALL TOMORROW". ZOË LOPEZ MADE AWARE. ZOË MADE DR MOON AWARE AND NO NEW ORDERS RECEIVED. VANCOMYCIN DOSE SCHEDULED FOR 1600HRS HELD.
--- NOTE | 2020-01-26 15:45 | General Progress Note ---
Assessment/Plan Problem List: (1) Alcohol withdrawal ICD Codes: F10.239 - Alcohol dependence with withdrawal, unspecified SNOMED: 477074687 (2) Osteomyelitis ICD Codes: M86.9 - Osteomyelitis, unspecified SNOMED: 64730346 (3) Cellulitis ICD Codes: L03.90 - Cellulitis, unspecified SNOMED: 830873874 (4) Paraplegia ICD Codes: G82.20 - Paraplegia, unspecified SNOMED: 71274552 (5) Spinal cord injury SNOMED: 40518558 (6) Ulcer of foot ICD Codes: L97.509 - Non-pressure chronic ulcer of other part of unspecified foot with unspecified severity SNOMED: 62183470 (7) Methamphetamine abuse ICD Codes: F15.10 - Other stimulant abuse, uncomplicated SNOMED: 270231645 Assessment/Plan: ct to eval for osteo,--none seen encourage cooperation, blood culture G + rods, await ID, dr zepeda consulted Subjective Constitutional: Reports: malaise HEENT: Reports: no symptoms Cardiovascular: Reports: no symptoms Respiratory: Reports: no symptoms Gastrointestinal/Abdominal: Reports: no symptoms Genitourinary: Reports: no symptoms Neurologic/Psychiatric: Reports: pre-existing deficit Hematologic/Lymphatic: Reports: anemia Allergies: Coded Allergies: PENICILLIN G (Verified Allergy, Unknown, 05/05/18) Tolerates carbapenems and cephalosporins PENICILLINS (Unverified Allergy, Unknown, 11/15/18) Objective Last 24 Hour Vital Signs Date Time Temp Pulse Resp B/P (MAP) Pulse Ox O2 Delivery O2 Flow Rate FiO2 01/26/20 12:00 98.7 89 20 118/76 (90) 97 01/26/20 09:00 Room Air 01/26/20 08:00 98.1 81 18 114/71 (85) 100 01/26/20 04:00 97.7 89 18 119/77 (91) 96 01/26/20 00:00 98.6 95 20 119/69 (86) 95 01/25/20 21:00 Room Air 01/25/20 20:00 98.8 82 20 124/79 (94) 100 01/25/20 16:00 97.9 94 20 117/69 (85) 100 01/25/20 16:00 90 Intake and Output 01/25/20 01/26/20 19:00 07:00 Intake Total 2300 ml 480 ml Output Total 2150 ml 1200 ml Balance 150 ml -720 ml Intake Oral 2300 ml 480 ml Output Urine Total 2150 ml 1200 ml # Voids 13 3 # Bowel Movements 1 1 Height (Feet): 6 Height (Inches): 3.00 Weight (Pounds): 200 General Appearance: no apparent distress, alert EENT: normal ENT inspection Neck: normal alignment Cardiovascular: regular rhythm Respiratory/Chest: lungs clear Extremities: other - r bka and LLE with cellulitis , wounds Edema: mild edema Neurologic: kennel hand II-XII grossly normal, motor weakness Willy Mcgowan MD Jan 26, 2020 15:44
[2020-01-26] MEDS: Vancomycin 1.25gm/NS Premix 275 ML IVPB SCH (16:00)
--- NOTE | 2020-01-26 16:32 | NUR ---
MEDIA AID NOTE SW met w/ pt to clarify DC planning. Pt resides w/ his grandmother at [address] [place] [id number]. Pt does not recall his grandmother, Radha's contact number. Pt reports his wheelchair was left behind when he was p/u by ambulance. SW notified pt's DME needs to assigned CM.
--- NOTE | 2020-01-26 16:45 | NUR ---
DISCHARGE PLANNING CLIENT CARE REPRESENTATIVE CALLED [facility] FOR [facility] CLIENT CARE REPRESENTATIVE, ELGIN, AND LEFT [facility] STATING PATIENT NEEDS A WHEELCHAIR FOR DISCHARGE SINCE HE IS NON AMBULATORY. PATIENT'S WHEELCHAIR WAS LEFT BEHIND WHEN HE WAS BROUGHT IN BY AMBULANCE AWAIT RESPONSE WHEELCHAIR IS IMPERATIVE FOR DISCHARGE
[2020-01-26] MEDS: Amikacin 1,250 MG in NS 110 ML IV SCH (17:10)
--- NOTE | 2020-01-26 18:31 | Surgery Progress Note ---
Surgery Progress Note Subjective Additional Comments CT noted dressings going well no acute events Objective Last 24 Hour Vital Signs Date Time Temp Pulse Resp B/P (MAP) Pulse Ox O2 Delivery O2 Flow Rate FiO2 01/26/20 12:00 98.7 89 20 118/76 (90) 97 01/26/20 09:00 Room Air 01/26/20 08:00 98.1 81 18 114/71 (85) 100 01/26/20 04:00 97.7 89 18 119/77 (91) 96 01/26/20 00:00 98.6 95 20 119/69 (86) 95 01/25/20 21:00 Room Air 01/25/20 20:00 98.8 82 20 124/79 (94) 100 I&O Intake and Output 01/25/20 01/26/20 19:00 07:00 Intake Total 2300 ml 480 ml Output Total 2150 ml 1200 ml Balance 150 ml -720 ml Intake Oral 2300 ml 480 ml Output Urine Total 2150 ml 1200 ml # Voids 13 3 # Bowel Movements 1 1 Dressing: saturated Cardiovascular: RSR Respiratory: clear Abdomen: soft, non-tender, present bowel sounds Extremities: edema, no tenderness, no cyanosis, other Plan Problems: (1) Sepsis (2) Pneumonia (3) Hypokalemia (4) Chronic wound of extremity Assessment & Plan: Since I last seen 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 States it was a debridement a few months back. The wound flap has not healed properly and there is a large extensive open area but it is covered with muscle and the bone is not exposed. May be dermal sloughing. No active infection or drainage. Wound cleansed and dressings applied. I discussed the patient the potential of needing a skin graft or a higher amputation at a later date given the appearance and the likelihood that this is going to spontaneously heal. Patient is fairly noncompliant overall with care plan and declines any further surgical intervention to his lower extremity at this time. Pt presented on admission with large wound at base of R BKA. Base of wound is lillie with 10% necrosis, scattered slough. Edges flat and adherent to base of wound. Small amt serous exudate. Wound is malodorous. Periwound skin tone is darker, dry and peeling. Full thickness Wound dorsal L foot (L)2.5cm x (W)3cm. Base of wound is beefy red and hyper granular. Edges are macerated. Small amt malodorous serous exudate noted . Resolving wound medial L malleolus. [place] epithelial with surrounding hyperpigmentation noted. Resolving wound lateral L foot . Base of wound is pink ,moist with small amt Biofilm. Surrounding hyperpigmentation. Wound is malodorous.. Pt declined to have wounds on Buttocks and Ischium evaluated. Tx.Plan: Cleanse wound R BKA with Saline. Apply Xeroform gauze. Apply Cavilon Skin Barrier Periwound. Cover with ABD Pad. Wrap with Kerlix Daily and prn. Apply Betadine to wounds L foot . Cover with ABD Pad. Wrap with Kerlix Daily and prn. (5) Electrolyte imbalance (6) UTI (urinary tract infection) (7) Acute neck sprain (8) homelessness (9) Hypersexuality (10) Sociopathic personality disorder (11) Decubitus ulcer, stage 3 with infection (12) Paraplegia (13) Cellulitis Assessment & Plan: Patient presents with mild cellulitis open wound in the right BKA. Wound evaluated bedside. Cleanse with Dakin's. Care plan dressings of initiated. Patient with mild cellulitis of the left lower extremity at the level of the foot. Is compared to prior significantly improved overall. Wound dressings applied. Antibiotics per infectious disease or primary We will continue with local wound care No acute debridement or further surgical intervention at this time planned will follow with local care Marked skin thickening of the stump and distal residual thigh, possibly reflecting cellulitis. Some irregularity of the skin surface noted. This may be in part artifact of overlying bandages, but could represent skin surface ulceration. Correlate with clinical appearance. No definite discrete fluid collection demonstrated to suggest abscess, although evaluation for such is limited in the absence of IV contrast Indistinctness of the cortical surfaces of the tibia and femur. 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 However, the possibility of acute osteomyelitis should also be considered. There consider MRI for better characterization. 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 Wound cleansed and dressings applied. Will continue with care plan and management (19) Depressed bipolar disorder (20) Alcohol intoxication (21) Methamphetamine abuse Shilo Arrington Jan 26, 2020 18:31
[2020-01-26] MEDS ORDERED: Miralax 17gm pkt ORAL PRN (19:00)
--- NOTE | 2020-01-26 19:30 | NUR ---
NURSE NOTES: Patient awake in bed, alert and oriented x4, no complaints of pain at this time, no SOB noted. He requested more food. Faxed patient's request to dietary. Instructed to use call light for assistance. Call light in reach. Bed in lowest, lock engaged and alarm on. Will continue to monitor.
--- NOTE | 2020-01-26 20:01 | NUR ---
NURSE HAND-OFF: Important Events on Shift: TRANSFER TO [facility], REFUSING PO MEDICATIONS, DR GARCIA AT BEDSIDE AND MADE AWARE. Patient Status: STABLE Diet: REGULAR Pending Orders: VANCO TROUGH AT 2300 HRS. PT REFUSED FIRST VANCO TROUGH DRAW. DR MOON MADE AWARE, NO NEW ORDERS. Pending Results/Labs: VANCO TROUGH Pending MD notification:N/A Latest Vital Signs: Temperature 97.5 , Pulse 91 , B/P 118 /68 , Respiratory Rate 18 , O2 SAT 98 , Room Air, O2 Flow Rate . Vital Sign Comment: STABLE Latest Zaragoza Fall Score: 40 Fall Risk: Medium Risk Safety Measures: Call light Within Reach, Bed Alarm Zone 1, Side Rails Side Rails x2, Bed position Low and Locked. Fall Precautions: Patient Fall Education Report given to Elidia COELHO RN.
[2020-01-26] MEDS: Iron Sucrose 100 MG in NS 55 ML IV SCH (21:06)
--- NOTE | 2020-01-26 23:10 | NUR ---
NURSE NOTES: Patient allowed blood draw for vanco trough. Will follow up result.
[2020-01-27] MEDS: Vancomycin 1.25gm/NS Premix 275 ML IVPB SCH ×4 (00:07→23:55)
[2020-01-27 04:00] VITALS: BP 120/73
[2020-01-27 04:20] LABS: BASOPHILS % (AUTO) 3.6 % (0.0-2.0); EOSINOPHILS % (AUTO) 4.7 % (0.0-3.0); HEMATOCRIT 31.8 % (42.0-52.0); HEMOGLOBIN 9.5 G/DL (14.2-18.0); LYMPHOCYTES % (AUTO) 23.4 % (20.0-45.0); MEAN CORPUSCULAR VOLUME 64 FL (80-99); MONOCYTES % (AUTO) 6.9 % (1.0-10.0); NEUTROPHILS % (AUTO) 61.4 % (45.0-75.0); PLATELET COUNT 355 K/UL (150-450); RED BLOOD COUNT 4.97 M/UL (4.70-6.10); RED CELL DISTRIBUTION WIDTH 18.5 % (11.6-14.8); WHITE BLOOD COUNT 5.6 K/UL (4.8-10.8)
[2020-01-27 04:41] LABS: ALANINE AMINOTRANSFERASE 10 U/L (12-78); ALBUMIN/GLOBULIN RATIO 0.4 (1.0-2.7); ALKALINE PHOSPHATASE 54 U/L (46-116); ANION GAP 6 mmol/L (5-15); ASPARTATE AMINO TRANSFERASE 9 U/L (15-37); BILIRUBIN,TOTAL 0.1 MG/DL (0.2-1.0); BLOOD UREA NITROGEN 7 mg/dL (7-18); CALCIUM 8.3 MG/DL (8.5-10.1); CARBON DIOXIDE 28 MMOL/L (21-32); CHLORIDE 106 MMOL/L (98-107); CREATININE 0.8 MG/DL (0.55-1.30); POTASSIUM 4.3 MMOL/L (3.5-5.1); SODIUM 140 MMOL/L (136-145)
--- NOTE | 2020-01-27 05:00 | NUR ---
NURSE NOTES: Patient refused to get clean and change of dressing.
[2020-01-27] MEDS: metroNIDAZOLE 500mg tab ORAL SCH ×3 (06:00→22:32)
--- NOTE | 2020-01-27 06:52 | NUR ---
NURSE HAND-OFF: Important Events on Shift:Vanco trough draw, Patient Status: Non compliant Diet: Regular Pending Orders: Vanco trough 01/26 2300 Pending Results/Labs:CBC, CMP Pending MD notification: Latest Vital Signs: Temperature 98.4 , Pulse 80 , B/P 120 /73 , Respiratory Rate 18 , O2 SAT 96 , Room Air, O2 Flow Rate . Vital Sign Comment: [] Latest Zaragoza Fall Score: 40 Fall Risk: Medium Risk Safety Measures: Call light Within Reach, Bed Alarm Zone 1, Side Rails Side Rails x2, Bed position Low and Locked. Fall Precautions: Patient Fall Education
--- NOTE | 2020-01-27 07:24 | NUR ---
HAND-OFF: Report given to ELIZABETH Valencia.
--- NOTE | 2020-01-27 07:45 | NUR ---
NURSE NOTES: Report received from ELIZABETH Young. Patient awake in bed, alert and oriented x 4, no SOB, bed in lowest position with breaks engaged and alarm on, IV line patent and intact, denies any pain or discomfort at this time, on room air, will continue to monitor and proceed with plan of care, call light within reach at all times.
[2020-01-27 08:00] VITALS: BP 129/76
[2020-01-27] MEDS: LORazepam 1mg tab ORAL SCH ×3 (08:24→18:00)
[2020-01-27] MEDS: Thiamine 100mg tab ORAL SCH (08:24)
[2020-01-27] MEDS: Heparin 5000 units/ml inj SUBQ SCH ×2 (08:25→20:45)
[2020-01-27] MEDS ORDERED: Thiamine HCl 100 MG in D5W 55 ML IVPB SCH (10:00)
[2020-01-27] MEDS ORDERED: Folic Acid 1 MG, Magnesium Sulfate 2,000 MG, Multivitamin - 12 Injection 10 ML in Sodiu... IV SCH (10:00)
--- NOTE | 2020-01-27 10:00 | Surgery Progress Note ---
Surgery Progress Note Subjective Additional Comments no acute events does not want to participate in exam no n/v/f/c Objective Last 24 Hour Vital Signs Date Time Temp Pulse Resp B/P (MAP) Pulse Ox O2 Delivery O2 Flow Rate FiO2 01/27/20 09:00 Room Air 01/27/20 08:57 71 18 129/76 96 01/27/20 08:24 71 18 129/76 96 01/27/20 08:00 98.0 71 18 129/76 (93) 96 01/27/20 04:00 98.4 80 18 120/73 (89) 96 01/26/20 21:00 Room Air 01/26/20 20:00 97.5 91 18 118/68 (85) 98 01/26/20 16:00 97.2 104 18 108/63 (78) 100 01/26/20 13:30 97.7 78 18 122/71 (88) 99 01/26/20 12:00 98.7 89 20 118/76 (90) 97 I&O Intake and Output 01/26/20 01/27/20 19:00 07:00 Intake Total 715 ml 1263.333 ml Output Total 1000 ml Balance 715 ml 263.333 ml Intake Oral 600 ml 1020 ml IV Total 115 ml 243.333 ml Output Urine Total 1000 ml # Voids 3 # Bowel Movements 1 Dressing: saturated Cardiovascular: RSR Respiratory: clear Abdomen: soft, non-tender, present bowel sounds Extremities: no edema, no tenderness, no cyanosis Laboratory Tests Test 01/26/20 23:00 01/27/20 04:13 Vancomycin Level Trough 9.4 ug/mL (5.0-12.0) White Blood Count 5.6 K/UL (4.8-10.8) Red Blood Count 4.97 M/UL (4.70-6.10) Hemoglobin 9.5 G/DL (14.2-18.0) L Hematocrit 31.8 % (42.0-52.0) L Mean Corpuscular Volume 64 FL (80-99) L Mean Corpuscular Hemoglobin 19.1 PG (27.0-31.0) L Mean Corpuscular Hemoglobin Concent 29.9 G/DL (32.0-36.0) L Red Cell Distribution Width 18.5 % (11.6-14.8) H Platelet Count 355 K/UL (150-450) Mean Platelet Volume 6.4 FL (6.5-10.1) L Neutrophils (%) (Auto) 61.4 % (45.0-75.0) Lymphocytes (%) (Auto) 23.4 % (20.0-45.0) Monocytes (%) (Auto) 6.9 % (1.0-10.0) Eosinophils (%) (Auto) 4.7 % (0.0-3.0) H Basophils (%) (Auto) 3.6 % (0.0-2.0) H Sodium Level 140 MMOL/L (136-145) Potassium Level 4.3 MMOL/L (3.5-5.1) Chloride Level 106 MMOL/L (98-107) Carbon Dioxide Level 28 MMOL/L (21-32) Anion Gap 6 mmol/L (5-15) Blood Urea Nitrogen 7 mg/dL (7-18) Creatinine 0.8 MG/DL (0.55-1.30) Estimat Glomerular Filtration Rate > 60 mL/min (>60) Glucose Level 93 MG/DL (74-106) Calcium Level 8.3 MG/DL (8.5-10.1) L Total Bilirubin 0.1 MG/DL (0.2-1.0) L Aspartate Amino Transf (AST/SGOT) 9 U/L (15-37) L Alanine Aminotransferase (ALT/SGPT) 10 U/L (12-78) L Alkaline Phosphatase 54 U/L (46-116) Total Protein 6.8 G/DL (6.4-8.2) Albumin 2.0 G/DL (3.4-5.0) L Globulin 4.8 g/dL Albumin/Globulin Ratio 0.4 (1.0-2.7) L Random Amikacin Level Pending Plan Problems: (1) Sepsis (2) Pneumonia (3) Hypokalemia (4) Chronic wound of extremity Assessment & Plan: Since I last seen 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 States it was a debridement a few months back. The wound flap has not healed properly and there is a large extensive open area but it is covered with muscle and the bone is not exposed. May be dermal sloughing. No active infection or drainage. Wound cleansed and dressings applied. I discussed the patient the potential of needing a skin graft or a higher amputation at a later date given the appearance and the likelihood that this is going to spontaneously heal. Patient is fairly noncompliant overall with care plan and declines any further surgical intervention to his lower extremity at this time. Pt presented on admission with large wound at base of R BKA. Base of wound is lillie with 10% necrosis, scattered slough. Edges flat and adherent to base of wound. Small amt serous exudate. Wound is malodorous. Periwound skin tone is darker, dry and peeling. Full thickness Wound dorsal L foot (L)2.5cm x (W)3cm. Base of wound is beefy red and hyper granular. Edges are macerated. Small amt malodorous serous exudate noted . Resolving wound medial L malleolus. [place] epithelial with surrounding hyperpigmentation noted. Resolving wound lateral L foot . Base of wound is pink ,moist with small amt Biofilm. Surrounding hyperpigmentation. Wound is malodorous.. Pt declined to have wounds on Buttocks and Ischium evaluated. Tx.Plan: Cleanse wound R BKA with Saline. Apply Xeroform gauze. Apply Cavilon Skin Barrier Periwound. Cover with ABD Pad. Wrap with Kerlix Daily and prn. Apply Betadine to wounds L foot . Cover with ABD Pad. Wrap with Kerlix Daily and prn. (5) Electrolyte imbalance (6) UTI (urinary tract infection) (7) Acute neck sprain (8) homelessness (9) Hypersexuality (10) Sociopathic personality disorder (11) Decubitus ulcer, stage 3 with infection (12) Paraplegia (13) Cellulitis Assessment & Plan: Patient presents with mild cellulitis open wound in the right BKA. Wound evaluated bedside. Cleanse with Dakin's. Care plan dressings of initiated. Patient with mild cellulitis of the left lower extremity at the level of the foot. Is compared to prior significantly improved overall. Wound dressings applied. Antibiotics per infectious disease or primary We will continue with local wound care No acute debridement or further surgical intervention at this time planned will follow with local care Marked skin thickening of the stump and distal residual thigh, possibly reflecting cellulitis. Some irregularity of the skin surface noted. This may be in part artifact of overlying bandages, but could represent skin surface ulceration. Correlate with clinical appearance. No definite discrete fluid collection demonstrated to suggest abscess, although evaluation for such is limited in the absence of IV contrast Indistinctness of the cortical surfaces of the tibia and femur. 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 However, the possibility of acute osteomyelitis should also be considered. There consider MRI for better characterization. 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 Wound cleansed and dressings applied. Will continue with care plan and management (19) Depressed bipolar disorder (20) Alcohol intoxication (21) Methamphetamine abuse Shilo Arrington Jan 27, 2020 10:00
[2020-01-27 12:00] VITALS: BP 128/79
[2020-01-27 16:00] VITALS: BP 127/76
[2020-01-27] MEDS: Amikacin 1,250 MG in NS 110 ML IV SCH (16:00)
--- NOTE | 2020-01-27 19:15 | NUR ---
NURSE HAND-OFF: Important Events on Shift:[IV ATB and fluids, wound dressing, fall and safety precautions] Patient Status: [stable] Diet: [regular] Pending Orders: [none] Pending Results/Labs:[none] Pending MD notification:[none] Latest Vital Signs: Temperature 98.0 , Pulse 71 , B/P 127 /76 , Respiratory Rate 18 , O2 SAT 96 , Room Air, O2 Flow Rate . Vital Sign Comment: [] Latest Zaragoza Fall Score: 40 Fall Risk: Medium Risk Safety Measures: Call light Within Reach, Bed Alarm Zone 1, Side Rails Side Rails x2, Bed position Low and Locked. Fall Precautions: Patient Fall Education Report given to [ALON Blackmon].
[2020-01-27 20:00] VITALS: BP 107/61
--- NOTE | 2020-01-27 20:00 | NUR ---
NURSE NOTES: RECEIVED PATIENT LYING IN BED, AWAKE, ALERT/ORIENTED X4, VERBALLY RESPONSIVE, DENIES PAIN. IV INTACT TO RIGHT AC/GAUGE 22, NO REDNESS/SWELLING NOTED. NO SIGNS AND SYMPTOMS OF ACUTE CARDIO RESPIRATORY DISTRESS/SHORTNESS OF BREATH, DENIES CHEST PAIN. RIGHT BKA, DRESSING DRY AND INTACT/LEFT FOOT DRESSING DRY AND INTACT. DENIES GI DISCOMFORT, NO N/V/D. SIDE RAILS UP X2/BED IN LOWEST POSITION FOR SAFETY. ENCOURAGED PATIENT TO UTILIZE CALL LIGHT FOR ASSISTANCE, VERBALIZED UNDERSTANDING. CONTINUE WITH CURRENT PLAN OF CARE. NAD.
--- NOTE | 2020-01-27 20:22 | General Progress Note ---
Assessment/Plan Problem List: (1) Alcohol withdrawal ICD Codes: F10.239 - Alcohol dependence with withdrawal, unspecified SNOMED: 392759968 (2) Osteomyelitis ICD Codes: M86.9 - Osteomyelitis, unspecified SNOMED: 39144729 (3) Cellulitis ICD Codes: L03.90 - Cellulitis, unspecified SNOMED: 142950149 (4) Paraplegia ICD Codes: G82.20 - Paraplegia, unspecified SNOMED: 34793376 (5) Spinal cord injury SNOMED: 83640902 (6) Ulcer of foot ICD Codes: L97.509 - Non-pressure chronic ulcer of other part of unspecified foot with unspecified severity SNOMED: 18978481 (7) Methamphetamine abuse ICD Codes: F15.10 - Other stimulant abuse, uncomplicated SNOMED: 200827837 Assessment/Plan: ct to eval for osteo,--none seen encourage cooperation, blood culture G + rods, diphtheroids--contam await ID, dr zepeda consulted, discussed need for wound care as outpatient Subjective Constitutional: Reports: weakness HEENT: Reports: no symptoms Cardiovascular: Reports: no symptoms Respiratory: Reports: no symptoms Gastrointestinal/Abdominal: Reports: no symptoms Neurologic/Psychiatric: Reports: pre-existing deficit Endocrine: Reports: no symptoms Hematologic/Lymphatic: Reports: no symptoms Allergies: Coded Allergies: PENICILLIN G (Verified Allergy, Unknown, 05/05/18) Tolerates carbapenems and cephalosporins PENICILLINS (Unverified Allergy, Unknown, 11/15/18) Objective Last 24 Hour Vital Signs Date Time Temp Pulse Resp B/P (MAP) Pulse Ox O2 Delivery O2 Flow Rate FiO2 01/27/20 18:00 71 18 127/76 96 01/27/20 16:00 98.0 71 18 127/76 (93) 96 01/27/20 13:00 71 18 127/76 96 01/27/20 12:00 97.9 71 18 128/79 (95) 67 01/27/20 09:00 Room Air 01/27/20 08:57 71 18 129/76 96 01/27/20 08:24 71 18 129/76 96 01/27/20 08:00 98.0 71 18 129/76 (93) 96 01/27/20 04:00 98.4 80 18 120/73 (89) 96 01/26/20 21:00 Room Air Intake and Output 01/26/20 01/27/20 19:00 07:00 Intake Total 715 ml 1263.333 ml Output Total 1000 ml Balance 715 ml 263.333 ml Intake Oral 600 ml 1020 ml IV Total 115 ml 243.333 ml Output Urine Total 1000 ml # Voids 3 # Bowel Movements 1 Laboratory Tests 01/26/20 23:00: Vancomycin Level Trough 9.4 01/27/20 04:13: White Blood Count 5.6, Red Blood Count 4.97, Hemoglobin 9.5L, Hematocrit 31.8L, Mean Corpuscular Volume 64L, Mean Corpuscular Hemoglobin 19.1L, Mean Corpuscular Hemoglobin Concent 29.9L, Red Cell Distribution Width 18.5H, Platelet Count 355, Mean Platelet Volume 6.4L, Neutrophils (%) (Auto) 61.4, Lymphocytes (%) (Auto) 23.4, Monocytes (%) (Auto) 6.9, Eosinophils (%) (Auto) 4.7H, Basophils (%) (Auto) 3.6H, Sodium Level 140, Potassium Level 4.3, Chloride Level 106, Carbon Dioxide Level 28, Anion Gap 6, Blood Urea Nitrogen 7 , Creatinine 0.8, Estimat Glomerular Filtration Rate > 60, Glucose Level 93, Calcium Level 8.3L, Total Bilirubin 0.1L, Aspartate Amino Transf (AST/SGOT) 9L, Alanine Aminotransferase (ALT/SGPT) 10L, Alkaline Phosphatase 54, Total Protein 6.8, Albumin 2.0L, Globulin 4.8, Albumin/Globulin Ratio 0.4L, Random Amikacin Level [Pending] Height (Feet): 6 Height (Inches): 3.00 Weight (Pounds): 200 General Appearance: no apparent distress, alert EENT: normal ENT inspection Neck: supple Cardiovascular: normal rate Respiratory/Chest: lungs clear Abdomen: soft Edema: trace edema Neurologic: print operator II-XII grossly normal, motor weakness Skin: other - dry dressings legs Willy Mcgowan MD Jan 27, 2020 20:22
[2020-01-27] MEDS: Iron Sucrose 100 MG in NS 55 ML IV SCH (21:41)
--- NOTE | 2020-01-27 23:03 | Infectious Diseases Prog Note ---
Assessment/Plan Assessment/Plan Full consult to follow: A) 1) infected wounds/cellulitis right leg/stump - mrsa/mdr proteus 2) ? cap, sepsis, fevers, mrsa and vre colonization 3) allergies - pcn - hives 4) pmh noted 5) CT without osteomyelitis P) 1) vancomycin, amikacin and flagyl 2) monitor labs and chest x-ray 3) continue per primary and consultants 4) wound care per surgery 5) will f/u Subjective Allergies: Coded Allergies: PENICILLIN G (Verified Allergy, Unknown, 05/05/18) Tolerates carbapenems and cephalosporins PENICILLINS (Unverified Allergy, Unknown, 11/15/18) Objective Last 24 Hour Vital Signs Date Time Temp Pulse Resp B/P (MAP) Pulse Ox O2 Delivery O2 Flow Rate FiO2 01/27/20 21:00 Room Air 01/27/20 20:00 98.0 85 18 107/61 (76) 99 01/27/20 18:00 71 18 127/76 96 01/27/20 16:00 98.0 71 18 127/76 (93) 96 01/27/20 13:00 71 18 127/76 96 01/27/20 12:00 97.9 71 18 128/79 (95) 67 01/27/20 09:00 Room Air 01/27/20 08:57 71 18 129/76 96 01/27/20 08:24 71 18 129/76 96 01/27/20 08:00 98.0 71 18 129/76 (93) 96 01/27/20 04:00 98.4 80 18 120/73 (89) 96 Height (Feet): 6 Height (Inches): 3.00 Weight (Pounds): 200 Laboratory Tests Test 01/27/20 04:13 White Blood Count 5.6 K/UL (4.8-10.8) Red Blood Count 4.97 M/UL (4.70-6.10) Hemoglobin 9.5 G/DL (14.2-18.0) L Hematocrit 31.8 % (42.0-52.0) L Mean Corpuscular Volume 64 FL (80-99) L Mean Corpuscular Hemoglobin 19.1 PG (27.0-31.0) L Mean Corpuscular Hemoglobin Concent 29.9 G/DL (32.0-36.0) L Red Cell Distribution Width 18.5 % (11.6-14.8) H Platelet Count 355 K/UL (150-450) Mean Platelet Volume 6.4 FL (6.5-10.1) L Neutrophils (%) (Auto) 61.4 % (45.0-75.0) Lymphocytes (%) (Auto) 23.4 % (20.0-45.0) Monocytes (%) (Auto) 6.9 % (1.0-10.0) Eosinophils (%) (Auto) 4.7 % (0.0-3.0) H Basophils (%) (Auto) 3.6 % (0.0-2.0) H Sodium Level 140 MMOL/L (136-145) Potassium Level 4.3 MMOL/L (3.5-5.1) Chloride Level 106 MMOL/L (98-107) Carbon Dioxide Level 28 MMOL/L (21-32) Anion Gap 6 mmol/L (5-15) Blood Urea Nitrogen 7 mg/dL (7-18) Creatinine 0.8 MG/DL (0.55-1.30) Estimat Glomerular Filtration Rate > 60 mL/min (>60) Glucose Level 93 MG/DL (74-106) Calcium Level 8.3 MG/DL (8.5-10.1) L Total Bilirubin 0.1 MG/DL (0.2-1.0) L Aspartate Amino Transf (AST/SGOT) 9 U/L (15-37) L Alanine Aminotransferase (ALT/SGPT) 10 U/L (12-78) L Alkaline Phosphatase 54 U/L (46-116) Total Protein 6.8 G/DL (6.4-8.2) Albumin 2.0 G/DL (3.4-5.0) L Globulin 4.8 g/dL Albumin/Globulin Ratio 0.4 (1.0-2.7) L Random Amikacin Level Pending Current Medications Medications (Trade) Dose Ordered Sig/Michael Route PRN Reason Start Time Stop Time Status Last Admin Dose Admin Acetaminophen (Tylenol) 650 mg Q4H PRN ORAL Mild Pain (Pain Scale 1-3) 01/26/20 12:57 02/25/20 12:56 Acetaminophen (Tylenol) 650 mg Q4H PRN ORAL Temp >100.5 01/26/20 12:57 02/25/20 12:56 Amikacin Protocol (Amikacin pharmacy to dose) 1 ea DAILY PRN MISC Per rx protocol 01/26/20 13:15 02/25/20 13:14 Amikacin Sulfate 1250 mg/Sodium Chloride 115 ml @ 115 mls/hr Q24H IV 01/26/20 16:00 02/02/20 15:59 01/26/20 17:10 Dextrose (Dextrose 50%) 25 ml Q30M PRN IV Hypoglycemia 01/26/20 13:00 04/22/20 18:59 Dextrose (Dextrose 50%) 50 ml Q30M PRN IV Hypoglycemia 01/26/20 13:00 04/22/20 18:59 Famotidine (Pepcid) 20 mg BID ORAL 01/26/20 18:00 04/23/20 08:59 01/27/20 08:24 Heparin Sodium (Porcine) (Heparin 5000 units/ml) 5,000 units EVERY 12 HOURS SUBQ 01/26/20 21:00 03/08/20 20:59 01/27/20 20:45 Iron Sucrose 100 mg/Sodium Chloride 60 ml @ 240 mls/hr BEDTIME IV 01/26/20 21:00 01/28/20 21:14 01/27/20 21:41 Lorazepam (Ativan 2mg/ml 1ml) 1 mg Q4H PRN IV For Anxiety 01/26/20 12:57 02/02/20 12:56 Metronidazole (Flagyl) 500 mg EVERY 8 HOURS ORAL 01/26/20 14:00 02/02/20 13:59 01/27/20 22:32 Multivitamins (Multivitamins) 1 tab DAILY ORAL 01/27/20 09:00 02/23/20 08:59 01/27/20 08:24 Ondansetron HCl (Zofran) 4 mg Q6H PRN IVP Nausea & Vomiting 01/26/20 13:00 02/22/20 18:59 Polyethylene Glycol (Miralax) 17 gm HSPRN PRN ORAL Constipation 01/26/20 19:00 02/22/20 18:59 Thiamine HCl (Vitamin B1) 100 mg DAILY ORAL 01/27/20 09:00 02/23/20 08:59 01/27/20 08:24 Vancomycin HCl (Vanco pharmacy to dose) 1 ea DAILY PRN MISC Per rx protocol 01/27/20 09:00 02/22/20 18:59 Vancomycin/Sodium Chloride 275 ml @ 183.333 mls/hr Q8H IVPB 01/26/20 16:00 01/30/20 15:59 01/27/20 08:24 Zolpidem Tartrate (Ambien) 5 mg HSPRN PRN ORAL Insomnia 01/26/20 12:59 02/02/20 12:58 Roxanne Solitario MD Jan 27, 2020 23:03
--- NOTE | 2020-01-27 23:22 | NUR ---
NURSE NOTES: NON COMPLIANT, REFUSED VANCOMYCIN TROUGH BLOOD DRAW X2, RISKS AND BENEFITS OF NOT MONITORING BLOOD LEVELS EXPLAINED TO PATIENT, PATIENT STATED "I'M TIRED OF GIVING BLOOD'.
[2020-01-28] VITALS: BP 103/60
[2020-01-28] LABS: APPEARANCE,URINE CLEAR; BILIRUBIN, URINE NEGATIVE (NEGATIVE); COLOR,URINE PALE YELLOW; GLUCOSE, URINE (UA) NEGATIVE (NEGATIVE); KETONES,URINE NEGATIVE (NEGATIVE); LEUKOCYTE ESTERASE ,URINE 2+ (NEGATIVE); NITRITE,URINE NEGATIVE (NEGATIVE); PH,URINE 8 (4.5-8.0); PROTEIN,URINE NEGATIVE (NEGATIVE); UROBILINOGEN,URINE NORMAL MG/DL (0.0-1.0)
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
[2020-01-28 04:00] VITALS: BP 112/65
[2020-01-28] MEDS: metroNIDAZOLE 500mg tab ORAL SCH ×2 (05:50→15:37)
--- NOTE | 2020-01-28 06:16 | NUR ---
NURSE NOTES: NO SIGNIFICANT CHANGE OF CONDITION NOTED, SAFETY MAINTAINED THROUGHOUT THE NIGHT. NAD.
[2020-01-28 07:14] LABS: BASOPHILS % (AUTO) 4.2 % (0.0-2.0); EOSINOPHILS % (AUTO) 3.6 % (0.0-3.0); HEMATOCRIT 33.6 % (42.0-52.0); HEMOGLOBIN 10.3 G/DL (14.2-18.0); LYMPHOCYTES % (AUTO) 21.7 % (20.0-45.0); MEAN CORPUSCULAR VOLUME 64 FL (80-99); MONOCYTES % (AUTO) 5.6 % (1.0-10.0); NEUTROPHILS % (AUTO) 64.9 % (45.0-75.0); PLATELET COUNT 370 K/UL (150-450); RED BLOOD COUNT 5.26 M/UL (4.70-6.10); RED CELL DISTRIBUTION WIDTH 19.1 % (11.6-14.8); WHITE BLOOD COUNT 6.6 K/UL (4.8-10.8)
[2020-01-28 07:29] LABS: ALANINE AMINOTRANSFERASE < 6 U/L (12-78); ALBUMIN 2.2 G/DL (3.4-5.0); ALBUMIN/GLOBULIN RATIO 0.4 (1.0-2.7); ALKALINE PHOSPHATASE 62 U/L (46-116); ANION GAP 4 mmol/L (5-15); ASPARTATE AMINO TRANSFERASE 12 U/L (15-37); BILIRUBIN,TOTAL 0.1 MG/DL (0.2-1.0); BLOOD UREA NITROGEN 14 mg/dL (7-18); CALCIUM 8.3 MG/DL (8.5-10.1); CARBON DIOXIDE 29 MMOL/L (21-32); CHLORIDE 106 MMOL/L (98-107); CREATININE 0.9 MG/DL (0.55-1.30); POTASSIUM 4.4 MMOL/L (3.5-5.1); SODIUM 139 MMOL/L (136-145)
--- NOTE | 2020-01-28 07:30 | NUR ---
NURSE HAND-OFF: Important Events on Shift:[NON COMPLIANT, REFUSED AM LABS/WOUND CARE] Patient Status: [STABLE] Diet: [REGULAR] Pending Orders: [DCP PENDING AVAILABILITY OF WHEELCHAIR] Pending Results/Labs:[VANCO TROUGH] Pending MD notification:[] Latest Vital Signs: Temperature 97.8 , Pulse 78, B/P 112/65 , Respiratory Rate 18 , O2 SAT 98, Room Air, O2 Flow Rate . Vital Sign Comment: [AFEBRILE] Latest Zaragoza Fall Score: 40 Fall Risk: Medium Risk Safety Measures: Call light Within Reach, Bed Alarm Zone 1, Side Rails Side Rails x2, Bed position Low and Locked. Fall Precautions: Patient Fall Education Report given to [BRENDA].
--- NOTE | 2020-01-28 07:43 | NUR ---
NURSE NOTES: pt is alert and awake in bed. no acute distress noted. respiration is even and unlabored on room air. Denies any pain and discomfort. call light is within reach, will follow plan of care.
[2020-01-28 08:00] VITALS: BP 115/68
[2020-01-28] MEDS: Vancomycin 1.25gm/NS Premix 275 ML IVPB SCH ×2 (08:24→16:42)
[2020-01-28] MEDS: Thiamine 100mg tab ORAL SCH (08:37)
[2020-01-28] MEDS: Heparin 5000 units/ml inj SUBQ SCH (08:37)
[2020-01-28] MEDS ORDERED: DOXYCYCLINE MO100 M2 PO (10:16)
[2020-01-28 12:00] VITALS: BP 122/71
--- NOTE | 2020-01-28 12:54 | NUR ---
DISCHARGE PLANNING WHEELCHAIR ORDER FAXED TO [facility] ELGIN BRYSON [phone] @ [facility] F: [phone] & F: [phone] Addendum: 01/28/20 at 1345 by MARGARITO SORENSEN, BUSINESS TRANSFORMATION ANALYST BUSINESS TRANSFORMATION ANALYST FOLLOW UP MADE. S/W ELGIN AT [facility]. ADVISED TO CONTACT JET AT [facility] [phone] EXT [phone] IN RE TO AUTH FOR DME (WHEELCHAIR). S/W JET WHO INFORMED THIS CM TO FAX ORDER TO OSVALDO ALVAREZ @ [phone] ATTN: SAV. ORDER FAXED AND WILL FOLLOW UP WITH SAV @ [phone]
--- NOTE | 2020-01-28 12:57 | Surgery Progress Note ---
Surgery Progress Note Subjective Symptoms: improved, tolerating diet, voiding well, passing flatus Objective Last 24 Hour Vital Signs Date Time Temp Pulse Resp B/P (MAP) Pulse Ox O2 Delivery O2 Flow Rate FiO2 01/28/20 12:00 97.5 87 19 122/71 (88) 99 01/28/20 09:00 Room Air 01/28/20 08:00 97.4 82 18 115/68 (84) 99 01/28/20 04:00 97.8 78 18 112/65 (81) 98 01/28/20 00:00 98.2 81 18 103/60 (74) 99 01/27/20 21:00 Room Air 01/27/20 20:00 98.0 85 18 107/61 (76) 99 01/27/20 18:00 71 18 127/76 96 01/27/20 16:00 98.0 71 18 127/76 (93) 96 01/27/20 13:00 71 18 127/76 96 I&O Intake and Output 01/27/20 01/28/20 19:00 07:00 Intake Total 805 ml 368.333 ml Output Total 1000 ml Balance -195 ml 368.333 ml Intake Oral 680 ml IV Total 125 ml 368.333 ml Output Urine Total 1000 ml # Voids 3 3 Dressing: saturated, other Wound: other Cardiovascular: RSR Respiratory: decreased breath sounds Abdomen: soft, non-tender, present bowel sounds Extremities: edema, no tenderness, no cyanosis, other Laboratory Tests Test 01/27/20 23:30 01/28/20 06:50 Urine Color Pale yellow Urine Appearance Clear Urine pH 8 (4.5-8.0) Urine Specific [place] 1.010 (1.005-1.035) Urine Protein Negative (NEGATIVE) Urine Glucose (UA) Negative (NEGATIVE) Urine Ketones Negative (NEGATIVE) Urine Blood Negative (NEGATIVE) Urine Nitrite Negative (NEGATIVE) Urine Bilirubin Negative (NEGATIVE) Urine Urobilinogen Normal MG/DL (0.0-1.0) Urine Leukocyte Esterase 2+ (NEGATIVE) H Urine RBC 2-4 /HPF (0 - 0) H Urine WBC 15-20 /HPF (0 - 0) H Urine Squamous Epithelial Cells Few /LPF (NONE/OCC) Urine Bacteria Few /HPF (NONE) White Blood Count 6.6 K/UL (4.8-10.8) Red Blood Count 5.26 M/UL (4.70-6.10) Hemoglobin 10.3 G/DL (14.2-18.0) L Hematocrit 33.6 % (42.0-52.0) L Mean Corpuscular Volume 64 FL (80-99) L Mean Corpuscular Hemoglobin 19.6 PG (27.0-31.0) L Mean Corpuscular Hemoglobin Concent 30.7 G/DL (32.0-36.0) L Red Cell Distribution Width 19.1 % (11.6-14.8) H Platelet Count 370 K/UL (150-450) Mean Platelet Volume 6.3 FL (6.5-10.1) L Neutrophils (%) (Auto) 64.9 % (45.0-75.0) Lymphocytes (%) (Auto) 21.7 % (20.0-45.0) Monocytes (%) (Auto) 5.6 % (1.0-10.0) Eosinophils (%) (Auto) 3.6 % (0.0-3.0) H Basophils (%) (Auto) 4.2 % (0.0-2.0) H Sodium Level 139 MMOL/L (136-145) Potassium Level 4.4 MMOL/L (3.5-5.1) Chloride Level 106 MMOL/L (98-107) Carbon Dioxide Level 29 MMOL/L (21-32) Anion Gap 4 mmol/L (5-15) L Blood Urea Nitrogen 14 mg/dL (7-18) Creatinine 0.9 MG/DL (0.55-1.30) Estimat Glomerular Filtration Rate > 60 mL/min (>60) Glucose Level 90 MG/DL (74-106) Calcium Level 8.3 MG/DL (8.5-10.1) L Total Bilirubin 0.1 MG/DL (0.2-1.0) L Aspartate Amino Transf (AST/SGOT) 12 U/L (15-37) L Alanine Aminotransferase (ALT/SGPT) < 6 U/L (12-78) L Alkaline Phosphatase 62 U/L (46-116) Total Protein 7.4 G/DL (6.4-8.2) Albumin 2.2 G/DL (3.4-5.0) L Globulin 5.2 g/dL Albumin/Globulin Ratio 0.4 (1.0-2.7) L Vancomycin Level Trough 13.8 ug/mL (5.0-12.0) H Plan Problems: (1) Sepsis (2) Pneumonia (3) Hypokalemia (4) Chronic wound of extremity Assessment & Plan: Since I last seen 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 States it was a debridement a few months back. The wound flap has not healed properly and there is a large extensive open area but it is covered with muscle and the bone is not exposed. May be dermal sloughing. No active infection or drainage. Wound cleansed and dressings applied. I discussed the patient the potential of needing a skin graft or a higher amputation at a later date given the appearance and the likelihood that this is going to spontaneously heal. Patient is fairly noncompliant overall with care plan and declines any further surgical intervention to his lower extremity at this time. Pt presented on admission with large wound at base of R BKA. Base of wound is lillie with 10% necrosis, scattered slough. Edges flat and adherent to base of wound. Small amt serous exudate. Wound is malodorous. Periwound skin tone is darker, dry and peeling. Full thickness Wound dorsal L foot (L)2.5cm x (W)3cm. Base of wound is beefy red and hyper granular. Edges are macerated. Small amt malodorous serous exudate noted . Resolving wound medial L malleolus. [place] epithelial with surrounding hyperpigmentation noted. Resolving wound lateral L foot . Base of wound is pink ,moist with small amt Biofilm. Surrounding hyperpigmentation. Wound is malodorous.. Pt declined to have wounds on Buttocks and Ischium evaluated. Tx.Plan: Cleanse wound R BKA with Saline. Apply Xeroform gauze. Apply Cavilon Skin Barrier Periwound. Cover with ABD Pad. Wrap with Kerlix Daily and prn. Apply Betadine to wounds L foot . Cover with ABD Pad. Wrap with Kerlix Daily and prn. (5) Electrolyte imbalance (6) UTI (urinary tract infection) (7) Acute neck sprain (8) homelessness (9) Hypersexuality (10) Sociopathic personality disorder (11) Decubitus ulcer, stage 3 with infection (12) Paraplegia (13) Cellulitis Assessment & Plan: Patient presents with mild cellulitis open wound in the right BKA. Wound evaluated bedside. Cleanse with Dakin's. Care plan dressings of initiated. Patient with mild cellulitis of the left lower extremity at the level of the foot. Is compared to prior significantly improved overall. Wound dressings applied. Antibiotics per infectious disease or primary We will continue with local wound care No acute debridement or further surgical intervention at this time planned will follow with local care Marked skin thickening of the stump and distal residual thigh, possibly reflecting cellulitis. Some irregularity of the skin surface noted. This may be in part artifact of overlying bandages, but could represent skin surface ulceration. Correlate with clinical appearance. No definite discrete fluid collection demonstrated to suggest abscess, although evaluation for such is limited in the absence of IV contrast Indistinctness of the cortical surfaces of the tibia and femur. 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 However, the possibility of acute osteomyelitis should also be considered. There consider MRI for better characterization. 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 Wound cleansed and dressings applied. Will continue with care plan and management (19) Depressed bipolar disorder (20) Alcohol intoxication (21) Methamphetamine abuse Shilo Arrington Jan 28, 2020 12:57
--- NOTE | 2020-01-28 14:15 | NUR ---
NITROGLYCERIN NITRATOR OPERATOR BATCH NOTE S/W JET AT [facility] [phone] EXT [phone]. REQUESTS FOR W/C ORDER TO BE EMAILED TO [email or web address] PER JET, HE IS ACTIVELY WORKING ON AUTH FOR W/C AND WILL FOLLOW UP WITH SAV AT [facility] TO EXPEDITE DELIVERY.
--- NOTE | 2020-01-28 14:59 | NUR ---
SLOT MACHINE DEPARTMENT FLOORPERSON NOTE:MACARIO S/W SAV AT [facility]. CONFIRMED AUTH FOR WHEELCHAIR OBTAINED. ETA FOR DELIVERY IS [phone]. ZOË LOPEZ INFORMED OF ETA.
[2020-01-28 16:00] VITALS: BP 127/75
[2020-01-28] MEDS ORDERED: NS IV SCH (16:00)
[2020-01-28] MEDS ORDERED: AMIKACIN IV SCH (16:00)
--- NOTE | 2020-01-28 17:49 | NUR ---
NURSE NOTES: Patient stated he wanted to go to a different location but could not provide and address [address]. patient decided to sign out as homeless and left the hospital with in his wheelchair. natural gas field processing supervisor made aware.
[2020-01-28] MEDS ORDERED: Tubing IV Secondary IV ONE (18:02)
[2020-01-28] MEDS ORDERED: NS 275ml ONE (18:02)
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
== END 2020-01-28 18:03 | disposition other institution (70) | DRG 720 ==
LOC: EDBD 16:14 → EMR 16:32 → EDBEDREQSVC 17:51 → 2E 17:55 → EDBEDREQ 18:55 → 4E 01-26 12:51
DX: A41.9 Sepsis, unspecified organism (principal); T87.43 Infection of amputation stump, right lower extremity; J18.9 Pneumonia, unspecified organism; G82.20 Paraplegia, unspecified; E87.6 Hypokalemia; F10.239 Alcohol dependence with withdrawal, unspecified; L03.116 Cellulitis of left lower limb; L03.115 Cellulitis of right lower limb; B95.62 Methicillin resistant Staphylococcus aureus infection as the cause of diseases classified elsewhere; Z72.0 Tobacco use; Z59.0 Homelessness; F15.10 Other stimulant abuse, uncomplicated; F60.2 Antisocial personality disorder; E11.49 Type 2 diabetes mellitus with other diabetic neurological complication; I73.9 Peripheral vascular disease, unspecified; F31.30 Bipolar disorder, current episode depressed, mild or moderate severity, unspecified; D50.9 Iron deficiency anemia, unspecified
CPT/HCPCS: 36415; 71045; 80053; 80150; 80202; 80307; 81003; 82150; 82728; 83540; 83550; 83605; 83690; 83735; 85025; 85610; 85651; 85730; 86140; 87040; 87070; 87081; 87086; 87181; 87205; 90471; 90715; 93005; 96361; 96365; 96368; 96375; 99285; J7030; J8499; S0077; U0002